=== PATIENT | male | born 1985 | race Caucasian/White ===

== ENCOUNTER 2022-06-03 18:25 | Inpatient (IN) | payer BC, SELFPAY ==
--- NOTE | ~2022-06-03 | XR_ITS ---
EXAMINATION: XR LUMBOSACRAL SPINE WITH OBLIQUES CLINICAL INFORMATION: Severe back pain, spasm COMPARISON: None available. 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 Lumbar vertebra have normal height and alignment. There are anterior vertebral osteophytes of the lower thoracic spine and lower lumbar spine. No pars defects or vertebral compression fractures. At the L5-transitional S1 level there is mild facet arthropathy, [id number] disc space narrowing and vacuum disc phenomenon. Otherwise, the lumbar disc heights are maintained. Sacroiliac joints are normal. XR/XR lumbar spine 4V min IMPRESSION: * No acute findings. No fracture or malalignment of the lumbosacral spine. * [id number] discovertebral degenerative change at the lumbosacral junction.
[2022-06-03 18:33] VITALS: BP 103/61; PULSE 77; RESP 16; TEMP 36.6; O2SAT 96; BMI 30.7
--- NOTE | 2022-06-03 18:37 | ED_ITS ---
HPI - Psych General Chief Complaint: Psychiatric Symptoms <WILLAM Griffiths - Last Filed: 06/03/22 18:39> Stated Complaint: mental health <WILLAM Griffiths - Last Filed: 06/03/22 18:39> Time Seen by Provider: 06/03/22 19:07 <WILLAM Griffiths - Last Filed: 06/03/22 18:39> Source: patient <Fatuma العلي NP - Last Filed: 06/04/22 02:05> Mode of arrival: ambulatory <Fatuma العلي NP - Last Filed: 06/04/22 02:05> Limitations: no limitations <Fatuma العلي NP - Last Filed: 06/04/22 02:05> History of Present Illness HPI Narrative: 37-year-old male presents for crisis evaluation for severe depression, anxiety, suicidal with plan to overdose. Patient is also requesting a medication evaluation as he does not feel that his medications are effective. Patient was seen in the community by [facility], and is currently an elective a bed search. <Fatuma العلي NP - Last Filed: 06/04/22 02:05> MD complaint: suicidal ideation, feels depressed and anxiety <Fatuma العلي NP - Last Filed: 06/04/22 02:05> Onset (ago): month(s) <Fatuma العلي NP - Last Filed: 06/04/22 02:05> Duration: constant and getting worse <Fatuma العلي NP - Last Filed: 06/04/22 02:05> History of same: Yes (Has not presented to this facility in the past, established patient with ) <Fatuma العلي NP - Last Filed: 06/04/22 02:05> Relieving factors: none <Fatuma العلي NP - Last Filed: 06/04/22 02:05> Associated psychiatric symptoms: depression and suicidal ideation <Fatuma العلي NP - Last Filed: 06/04/22 02:05> Associated symptoms: denies other symptoms <Fatuma العلي NP - Last Filed: 06/04/22 02:05> If self harm: admits thoughts of self harm and has plan <Fatuma العلي NP - Last F iled: 06/04/22 02:05> Related Data Home Medications: Home Medications Medication Instructions Recorded Confirmed citalopram 40 mg tablet 1 tab PO DAILY 06/03/22 06/03/22 clonidine HCl 0.1 mg tablet 1 tab PO BID 06/03/22 06/03/22 doxepin 50 mg capsule 150 mg PO BEDTIME 06/03/22 06/03/22 gabapentin 100 mg capsule 1 cap PO BID 06/03/22 06/03/22 oxcarbazepine 600 mg tablet 1 tab PO BID 06/03/22 06/03/22 <WILLAM Griffiths - Last Filed: 06/03/22 18:39> Allergies/Adverse Reactions: Allergies Allergy/AdvReac Type Severity Reaction Status Date / Time bee pollen [BEE STINGS] Allergy Unknown ANAPHYLAXIS Unverified 12/02/19 19:17 penicillin V Allergy Unknown Verified 10/04/16 00:00 Penicillins [PCN] Allergy Unknown HIVES Unverified 12/02/19 19:17 <WILLAM Griffiths Last Filed: 06/03/22 18:39> Review of Systems Review of Systems: Constitutional: No Fever, No Chills Cardiovascular: No Chest Pain, No SOB Respiratory: No Cough, No Sputum, No Dyspnea Gastrointestinal: No Nausea, No Vomiting, No Diarrhea Genitourinary: No Dysuria, No Urinary Frequency, No Hematuria Musculoskeletal: No Myalgias Skin: No Skin Lesions, No rash Neuro: No Weakness, No Numbness, No Paresthesias, No Dizziness, No Headache Psych: positive Anxiety, positive Depression, positive SI <Fatuma العلي NP - Last Filed: 06/04/22 02:05> Yes all other systems are reviewed and are negative <Fatuma العلي NP - Last Filed: 06/04/22 02:05> [facility] Past Medical History Attestation statement: The following information was validated with the patient. <Fatuma العلي NP - Last Filed: 06/04/22 02:05> Source: old records reviewed <Fatuma العلي NP - Last Filed: 06/04/22 02:05> Social History Social History: Social History Advance Directives: No Advance Directives Information Provided: Yes <WILLAM Griffiths - Last Filed: 06/03/22 18:39> Physical Exam Vital Signs: Vital Signs: Last Vital Signs Temp 98.6 F 06/03/22 21:18 Pulse 65 06/03/22 21:18 Resp 20 06/03/22 21:18 BP 113/56 L 06/03/22 21:18 Pulse Ox 97 06/03/22 21:18 O2 Del Method 06/03/22 21:18 BMI result Body Mass Index 30.7 <WILLAM Griffiths - Last Filed: 06/03/22 18:39> Vital Signs: Last Vital Signs Temp 98.6 F 06/03/22 21:18 Pulse 65 06/03/22 21:18 Resp 20 06/03/22 21:18 BP 113/56 L 06/03/22 21:18 Pulse Ox 97 06/03/22 21:18 O2 Del Method 06/03/22 21:18 BMI result Body Mass Index 30.7 <Fatuma العلي NP - Last Filed: 06/04/22 02:05> Appearance: Alert. Oriented X3. Moderate emotional distress. Eyes: Pupils equal, round and reactive to light. Sclera nonicteric. ENT: Pharynx normal. Neck: Normal inspection. Neck supple. CVS: Normal heart rate and rhythm. Pulses normal. Respiratory: No respiratory distress. Breath sounds normal. Skin: Skin warm and dry. Normal skin color. Normal skin turgor. Extremities: Gait balanced and coordinated. Neuro: No motor deficit. No sensory deficit. Cranial nerves 2-12 intact. <Fatuma العلي NP - Last Filed: 06/04/22 02:05> Course Course Course Narrative: 183 37-year-old male history of anxiety, depression presents for evaluation of suicidal ideation with plan to overdose. Also reporting associated anxiety and depression. Denies visual, auditory and tactile hallucinations. Denies smokes marijuana however no other drugs, alcohol. Patient smokes tobacco intermittently. Denies medical complaints. Thinks he may need medication adjustments. Denies homicidal ideation. Physical exam benign Plan medical clearance evaluation by care team <WILLAM Griffiths - Last Filed: 06/03/22 18:39> 1837 37-year-old male history of anxiety, depression presents for evaluation of suicidal ideation with plan to overdose. Also reporting associated anxiety and depression. Denies visual, auditory and tactile hallucinations. Denies smokes marijuana however no other drugs, alcohol. Patient smokes tobacco intermit tently. Denies medical complaints. Thinks he may need medication adjustments. Denies homicidal ideation. Physical exam benign Plan medical clearance evaluation by care team 19:15 37-year-old male presents for psychiatric evaluation, plan is to overdose, and feels that his psychiatric medication regimen is not working for him. Patient is polite, cooperative, answering questions appropriately with complete sentences. Patient states to have severe depression, has been suicidal over the past 3 months worsening over the past 2 weeks, and today stated that he met his limit and was dangerously close to taking all of his pills to overdose. His last admission was related to alcohol abuse, and this was over 3 years ago at another facility, patient has not reported any other hospital admissions. Patient does not have any medical complaints, denied auditory and visual hallucinations, homicidal ideations, cranial nerves 2-12 intact, no focal neural deficits. Will order psychiatric evaluation for medication consult, and crisis consult with labs. 19:19 patient is a voluntary inpatient bed search. Physician observation at this time. Labs are negative for acute findings. Positive for marijuana. Patient medically cleared. <Fatuma العلي NP - Last Filed: 06/04/22 02:05> Medications Administered Generic Name Dose Route Start Last Admin Trade Name Freq PRN Reason Stop Dose Admin Clonidine HCl 0.1 mg 06/03/22 21:00 06/03/22 21:45 Clonidine Hcl 0.1 Mg Tablet PO 0.1 mg BID RIKKI Administration Protocol Doxepin HCl 150 mg 06/03/22 22:00 06/03/22 22:09 Doxepin Hcl 25 Mg Capsule PO 150 mg BEDTIME RIKKI Administration Gabapentin 100 mg 06/03/22 21:00 06/03/22 21:45 Gabapentin 100 Mg Capsule PO 100 mg BID RIKKI Administration Oxcarbazepine 600 mg 06/03/22 21:00 06/03/22 21:45 Oxcarbazepine 300 Mg Tablet PO 600 mg BID RIKKI Administration Discontinued Medications Generic Name Dose Route Start Last Admin Trade Name Freq PRN Reason Stop Dose Admin Lorazepam 2 mg 06/03/22 20:56 06/03/22 21:13 Lorazepam 1 Mg Tablet PO 06/03/22 20:57 2 mg ONCE ONE Administration <WILLAM Griffiths - Last Filed: 06/03/22 18:39> Medications Administered Generic Name Dose Route Start Last Admin Trade Name Freq PRN Reason Stop Dose Admin Clonidine HCl 0.1 mg 06/03/22 21:00 06/03/22 21:45 Clonidine Hcl 0.1 Mg Tablet PO 0.1 mg BID RIKKI Administration Protocol Doxepin HCl 150 mg 06/03/22 22:00 06/03/22 22:09 Doxepin Hcl 25 Mg Capsule PO 150 mg BEDTIME RIKKI Administration Gabapentin 100 mg 06/03/22 21:00 06/03/22 21:45 Gabapentin 100 Mg Capsule PO 100 mg BID RIKKI Administration Oxcarbazepine 600 mg 06/03/22 21:00 06/03/22 21:45 Oxcarbazepine 300 Mg Tablet PO 600 mg BID RIKKI Administration Discontinued Medications Generic Name Dose Route Start Last Admin Trade Name Freq PRN Reason Stop Dose Admin Lorazepam 2 mg 06/03/22 20:56 06/03/22 21:13 Lorazepam 1 Mg Tablet PO 06/03/22 20:57 2 mg ONCE ONE Administration <Fatuma العلي NP - Last Filed: 06/04/22 02:05> Medical Decision Making Differential Diagnosis Differential Diagnoses: The differential diagnosis associated with the presentation includes <Fatuma العلي NP - Last Filed: 06/04/22 02:05> SI <Fatuma العلي NP - Last Filed: 06/04/22 02:05> Admission/Observation Consideration of admission/observation: Escalation of care including admission/observation considered <Fatuma العلي NP - Last Filed: 06/04/22 02:05> May require psychiatric admission <Fatuma العلي NP - Last Filed: 06/04/22 02:05> Consult Healthcare Provider Management of the patient was discussed with: Behavioral Health Provider <Fatuma العلي NP - Last Filed: 06/04/22 0 2:05> Lab Data MDM Lab Attestation statement: I reviewed the patient's lab results. <Fatuma العلي NP - Last Filed: 06/04/22 02:05> Result Diagrams: 06/03/22 20:53 06/03/22 20:58 <WILLAM Griffiths - Last Filed: 06/03/22 18:39> Labs: Lab Results 06/03/22 06/03/22 06/03/22 Range/Units 20:00 20:00 20:53 WBC 10.0 (4.8-10.8) X10*3/uL RBC 4.88 (4.60-5.80) X10*6/uL Hgb 14.6 (14.0-18.0) g/dl Hct 44.2 (42.0-52.0) % MCV 90.6 (80.0-98.0) fL MCH 29.9 (27.0-33.0) pg MCHC 33.0 (31.0-36.0) g/dl RDW 13.2 (11.0-16.0) % Plt Count 266 (160-400) X10*3/uL MPV 9.1 L (9.4-12.4) fL Immature Gran % (Auto) 0.2 (0.0-0.4) % Neut % (Auto) 54.6 (45-73) % Lymph % (Auto) 37.3 (20-40) % [place] % (Auto) 5.3 (2-11) % Eos % (Auto) 2.1 (0-4) % Baso % (Auto) 0.5 (0-2) % Lymph # (Auto) 3.7 (1.2-4.9) X10*3/uL [place] # (Auto) 0.5 (0.1-1.2) X10*3/uL Eos # (Auto) 0.2 (0.0-0.4) X10*3/uL Baso # (Auto) 0.1 (0.0-0.2) X10*3/uL Abs Immat Gran (auto) 0.02 (0.00-0.03) X10*3/uL Absolute Neuts (auto) 5.5 (2.0-8.3) x10*3/uL Absolute Nucleated RBC 0.000 (0.0-0.012) X10*3/uL Nucleated RBC % (auto) 0.0 (0.0-0.2) /100WBC Sodium (135-145) mmol/L Potassium (3.3-5.1) mmol/L Chloride (96-108) mmol/L Carbon Dioxide (22-29) mmol/L Anion Gap (12-20) BUN (9-16) mg/dL Creatinine (0.5-1.4) mg/dL Estim Creat Clear Calc Estimated GFR Random Glucose (60-115) mg/dL Calcium (8.4-10.2) mg/dL Magnesium (1.6-2.6) mg/dL Total Bilirubin (0.0-1.0) mg/dL AST (5-37) U/L ALT (0-40) U/L Alkaline Phosphatase (39-117) U/L Total Protein (6.5-8.0) g/dL Albumin (3.5-5.0) g/dL Salicylates (15-30) mg/dL Urine Opiates Screen Not Detected (Not Detect) Urine Fentanyl Screen Not Detected (Not Detect) Acetaminophen (<30) mcg/mL Ur Barbiturates Screen Not Detected (Not Detect) Ur Phencyclidine Scrn Not Detected (Not Detect) Ur Amphetamines Screen Not Detected (Not Detect) U Benzodiazepines Scrn Not Detected (Not Detect) Urine Cocaine Screen Not Detected (Not Detect) U Marijuana (THC) Screen POSITIVE H (Not Detect) Ethyl Alcohol mg/dL COVID-19 ([facility]ICA) Negative (Negative) COVID-19 Clin Com See Note 06/03/22 Range/Units 20:58 WBC (4.8-10.8) X10*3/uL RBC (4.60-5.80) X10*6/uL Hgb (14.0-18.0) g/dl Hct (42.0-52.0) % MCV (80.0-98.0) fL MCH (27.0-33.0) pg MCHC (31.0-36.0) g/dl RDW (11.0-16.0) % Plt Count (160-400) X10*3/uL MPV (9.4-12.4) fL Immature Gran % (Auto) (0.0-0.4) % Neut % (Auto) (45-73) % Lymph % (Auto) (20-40) % [place] % (Auto) (2-11) % Eos % (Auto) (0-4) % Baso % (Auto) (0-2) % Lymph # (Auto) (1.2-4.9) X10*3/uL [place] # (Auto) (0.1-1.2) X10*3/uL Eos # (Auto) (0.0-0.4) X10*3/uL Baso # (Auto) (0.0-0.2) X10*3/uL Abs Immat Gran (auto) (0.00-0.03) X10*3/uL Absolute Neuts (auto) (2.0-8.3) x10*3/uL Absolute Nucleated RBC (0.0-0.012) X10*3/uL Nucleated RBC % (auto) (0.0-0.2) /100WBC Sodium 139 (135-145) mmol/L Potassium 5.1 (3.3-5.1) mmol/L Chloride 104 (96-108) mmol/L Carbon Dioxide 28 (22-29) mmol/L Anion Gap 12 (12-20) BUN 10 (9-16) mg/dL Creatinine 0.97 (0.5-1.4) mg/dL Estim Creat Clear Calc 127.9 Estimated GFR > 60 Random Glucose 114 (60-115) mg/dL Calcium 9.0 (8.4-10.2) mg/dL Magnesium 2.2 (1.6-2.6) mg/dL Total Bilirubin 0.3 (0.0-1.0) mg/dL AST 23 (5-37) U/L ALT 26 (0-40) U/L Alkaline Phosphatase 72 (39-117) U/L Total Protein 6.2 L (6.5-8.0) g/dL Albumin 4.2 (3.5-5.0) g/dL Salicylates < 5.0 L (15-30) mg/dL Urine Opiates Screen (Not Detect) Urine Fentanyl Screen (Not Detect) Acetaminophen < 17 (<30) mcg/mL Ur Barbiturates Screen (Not Detect) Ur Phencyclidine Scrn (Not Detect) Ur Amphetamines Screen (Not Detect) U Benzodiazepines Scrn (Not Detect) Urine Cocaine Screen (Not Detect) U Marijuana (THC) Screen (Not Detect) Ethyl Alcohol < 10 mg/dL COVID-19 (MICA) (Negative) COVID-19 Clin Com <WILLAM Griffiths - Last Filed: 06/03/22 18:39> Lab Results 06/03/22 06/03/22 06/03/22 Range/Units 20:00 20:00 20:53 WBC 10.0 (4.8-10.8) X10*3/uL RBC 4.88 (4.60-5.80) X10*6/uL Hgb 14.6 (14.0-18.0) g/dl Hct 44.2 (42.0-52.0) % MCV 90.6 (80.0-98.0) fL MCH 29.9 (27.0-33.0) pg MCHC 33.0 (31.0-36.0) g/dl RDW 13.2 (11.0-16.0) % Plt Count 266 (160-400) X10*3/uL MPV 9.1 L (9.4-12.4) fL Immature Gran % (Auto) 0.2 (0.0-0.4) % Neut % (Auto) 54.6 (45-73) % Lymph % (Auto) 37.3 (20-40) % [place] % (Auto) 5.3 (2-11) % Eos % (Auto) 2.1 (0-4) % Baso % (Auto) 0.5 (0-2) % Lymph # (Auto) 3.7 (1.2-4.9) X10*3/uL [place] # (Auto) 0.5 (0.1-1.2) X10*3/uL Eos # (Auto) 0.2 (0.0-0.4) X10*3/uL Baso # (Auto) 0.1 (0.0-0.2) X10*3/uL Abs Immat Gran (auto) 0.02 (0.00-0.03) X10*3/uL Absolute Neuts (auto) 5.5 (2.0-8.3) x10*3/uL Absolute Nucleated RBC 0.000 (0.0-0.012) X10*3/uL Nucleated RBC % (auto) 0.0 (0.0-0.2) /100WBC Sodium (135-145) mmol/L Potassium (3.3-5.1) mmol/L Chloride (96-108) mmol/L Carbon Dioxide (22-29) mmol/L Anion Gap (12-20) BUN (9-16) mg/dL Creatinine (0.5-1.4) mg/dL Estim Creat Clear Calc Estimated GFR Random Glucose (60-115) mg/dL Calcium (8.4-10.2) mg/dL Magnesium (1.6-2.6) mg/dL Total Bilirubin (0.0-1.0) mg/dL AST (5-37) U/L ALT (0-40) U/L Alkaline Phosphatase (39-117) U/L Total Protein (6.5-8.0) g/dL Albumin (3.5-5.0) g/dL Salicylates (15-30) mg/dL Urine Opiates Screen Not Detected (Not Detect) Urine Fentanyl Screen Not Detected (Not Detect) Acetaminophen (<30) mcg/mL Ur Barbiturates Screen Not Detected (Not Detect) Ur Phencyclidine Scrn Not Detected (Not Detect) Ur Amphetamines Screen Not Detected (Not Detect) U Benzodiazepines Scrn Not Detected (Not Detect) Urine Cocaine Screen Not Detected (Not Detect) U Marijuana (THC) Screen POSITIVE H (Not Detect) Ethyl Alcohol mg/dL COVID-19 (MICA) Negative (Negative) COVID-19 Clin Com See Note 06/03/22 Range/Units 20:58 WBC (4.8-10.8) X10*3/uL RBC (4.60-5.80) X10*6/uL Hgb (14.0-18.0) g/dl Hct (42.0-52.0) % MCV (80.0-98.0) fL MCH (27.0-33.0) pg MCHC (31.0-36.0) g/dl RDW (11.0-16.0) % Plt Count (160-400) X10*3/uL MPV (9.4-12.4) fL Immature Gran % (Auto) (0.0-0.4) % Neut % (Auto) (45-73) % Lymph % (Auto) (20-40) % [place] % (Auto) (2-11) % Eos % (Auto) (0-4) % Baso % (Auto) (0-2) % Lymph # (Auto) (1.2-4.9) X10*3/uL [place] # (Auto) (0.1-1.2) X10*3/uL Eos # (Auto) (0.0-0.4) X10*3/uL Baso # (Auto) (0.0-0.2) X10*3/uL Abs Immat Gran (auto) (0.00-0.03) X10*3/uL Absolute Neuts (auto) (2.0-8.3) x10*3/uL Absolute Nucleated RBC (0.0-0.012) X10*3/uL Nucleated RBC % (auto) (0.0-0.2) /100WBC Sodium 139 (135-145) mmol/L Potassium 5.1 (3.3-5.1) mmol/L Chloride 104 (96-108) mmol/L Carbon Dioxide 28 (22-29) mmol/L Anion Gap 12 (12-20) BUN 10 (9-16) mg/dL Creatinine 0.97 (0.5-1.4) mg/dL Estim Creat Clear Calc 127.9 Estimated GFR > 60 Random Glucose 114 (60-115) mg/dL Calcium 9.0 (8.4-10.2) mg/dL Magnesium 2.2 (1.6-2.6) mg/dL Total Bilirubin 0.3 (0.0-1.0) mg/dL AST 23 (5-37) U/L ALT 26 (0-40) U/L Alkaline Phosphatase 72 (39-117) U/L Total Protein 6.2 L (6.5-8.0) g/dL Albumin 4.2 (3.5-5.0) g/dL Salicylates < 5.0 L (15-30) mg/dL Urine Opiates Screen (Not Detect) Urine Fentanyl Screen (Not Detect) Acetaminophen < 17 (<30) mcg/mL Ur Barbiturates Screen (Not Detect) Ur Phencyclidine Scrn (Not Detect) Ur Amphetamines Screen (Not Detect) U Benzodiazepines Scrn (Not Detect) Urine Cocaine Screen (Not Detect) U Marijuana (THC) Screen (Not Detect) Ethyl Alcohol < 10 mg/dL COVID-19 ([facility]) (Negative) COVID-19 Clin Com <Fatuma العلي NP - Last Filed: 06/04/22 02:05> External Record Review Patient has no prior records at this facility. <Fatuma العلي NP - Last Filed: 06/04/22 02:05> Prescription Management I considered prescription management with: Other (anxiolytic) <Fatuma العلي NP - Last Filed: 06/04/22 02:05> Social Determinants Patient?s care significantly limited by Social Determinants of Health including: Other Social Determinant of Health <Fatuma العلي NP - Last Filed: 02:05> Discharge Plan Discharge Clinical Impression: Depression, Suicidal intent, Acute anxiety <WILLAM Griffiths - Last Filed: 06/03/22 18:39> Patient Disposition: Still a Patient <WILLAM Griffiths - Last Filed: 06/03/22 18:39> Prescriptions: No Action doxepin 50 mg capsule 150 mg PO BEDTIME clonidine HCl 0.1 mg tablet 1 tab PO BID citalopram 40 mg tablet 1 tab PO DAILY oxcarbazepine 600 mg tablet 1 tab PO BID gabapentin 100 mg capsule 1 cap PO BID <WILLAM Griffiths - Last Filed: 06/03/22 18:39>
--- NOTE | 2022-06-03 19:32 | MHC.CARE ---
Care Team received expect from [facility], pt is a voluntary inpatient bedsearch
[2022-06-03 20:25] LABS: Amphetamine Screen Urine Not Detected (Not Detect); Barbiturates, Urine Not Detected (Not Detect); Benzodiazepines Screen Urine Not Detected (Not Detect); Cannabinoid Screen Urine POSITIVE (Not Detect); Cocaine Screen Urine Not Detected (Not Detect); Fentanyl, urine Not Detected (Not Detect); Opiate Screen Urine Not Detected (Not Detect); Phencyclidine Screen Urine Not Detected (Not Detect)
[2022-06-03 20:26] LABS: COVID-19 Test Negative (Negative); IDNOW Serial# 9DB6401D
[2022-06-03 21:04] LABS: MANUAL DIFF FLAG NO
[2022-06-03 21:06] LABS: Basophils Absolute Auto 0.1 X10*3/uL (0.0-0.2); Basophils Percent Auto 0.5 % (0-2); Eosinophils Absolute Auto 0.2 X10*3/uL (0.0-0.4); Eosinophils Percent Auto 2.1 % (0-4); Hematocrit 44.2 % (42.0-52.0); Hemoglobin 14.6 g/dl (14.0-18.0); Imm Gran Abs Auto 0.02 X10*3/uL (0.00-0.03); Imm Gran Pct Auto 0.2 % (0.0-0.4); Lymphocytes Absolute Auto 3.7 X10*3/uL (1.2-4.9); Lymphocytes Percent Auto 37.3 % (20-40); Mean Corpuscular Hemoglobin 29.9 pg (27.0-33.0); Mean Corpuscular Volume 90.6 fL (80.0-98.0); Mean Platelet Volume 9.1 fL (9.4-12.4); Monocytes Absolute Auto 0.5 X10*3/uL (0.1-1.2); Monocytes Percent Auto 5.3 % (2-11); Neutrophils Absolute Auto 5.5 x10*3/uL (2.0-8.3); Neutrophils Percent Auto 54.6 % (45-73); Platelet Count 266 X10*3/uL (160-400); Red Blood Count 4.88 X10*6/uL (4.60-5.80); Red Cell Distribution Width 13.2 % (11.0-16.0)
[2022-06-03] MEDS: LORazepam 1 MG TABLET 2 MG PO (21:13)
[2022-06-03 21:18] VITALS: BP 113/56; PULSE 65; RESP 20; TEMP 37; O2SAT 97
[2022-06-03 21:26] LABS: Acetaminophen LAB < 17 mcg/mL (<30); Alanine Aminotransferase 26 U/L (0-40); Albumin Level 4.2 g/dL (3.5-5.0); Alkaline Phosphatase 72 U/L (39-117); Anion Gap 12 (12-20); Aspartate Amino Transferase 23 U/L (5-37); Bilirubin Total 0.3 mg/dL (0.0-1.0); Blood Urea Nitrogen 10 mg/dL (9-16); Carbon Dioxide 28 mmol/L (22-29); Chloride 104 mmol/L (96-108); Creatinine Clr Calc Pharmacy 127.9; Estimated Glomerular Filt Rate > 60; Ethanol < 10 mg/dL; Glucose Random 114 mg/dL (60-115); Magnesium 2.2 mg/dL (1.6-2.6); Potassium 5.1 mmol/L (3.3-5.1); Salicylate < 5.0 mg/dL (15-30); Sodium 139 mmol/L (135-145); Total Protein 6.2 g/dL (6.5-8.0)
[2022-06-03] MEDS: OXcarbazepine 300 MG TABLET 600 MG PO (21:45)
[2022-06-03] MEDS: Gabapentin 100 MG CAPSULE PO (21:45)
[2022-06-03] MEDS: cloNIDine HCL 0.1 MG TABLET PO (21:45)
[2022-06-03] MEDS: Doxepin HCl 25 MG CAPSULE 150 MG PO (22:09)
--- NOTE | 2022-06-04 | ECG_ITS ---
Test Reason : check qt Blood Pressure : / mmHG Vent. Rate : 064 BPM Atrial Rate : 064 BPM P-R Int : 150 ms QRS Dur : 092 ms QT Int : 424 ms P-R-T Axes : 039 024 029 degrees QTc Int : 437 ms Normal sinus rhythm Cannot rule out Anterior infarct , age undetermined Abnormal ECG No previous ECGs available Referred By: Enrqiue Alvarado Electronically Signed By:PREM OLMSTEAD MD
[2022-06-04 06:29] VITALS: BP 113/60; PULSE 61; RESP 17; TEMP 36.9; O2SAT 97
--- NOTE | 2022-06-04 07:02 | PC.NURSE ---
Patient slept through the night, no distress observed/reported, behavior non concerning, medication compliant, disposition per [facility] is voluntary inpatient bed search, psych consult ordered to review medication, will continue to monitor.
--- NOTE | 2022-06-04 07:35 | PC.NURSE ---
patient appears to remain asleep at present respirations are even and unlabored patient appears in no distress
[2022-06-04] MEDS: cloNIDine HCL 0.1 MG TABLET PO ×2 (09:54→20:46)
[2022-06-04] MEDS: OXcarbazepine 300 MG TABLET 600 MG PO (09:55)
[2022-06-04] MEDS: Gabapentin 100 MG CAPSULE PO ×2 (09:55→20:46)
[2022-06-04] MEDS: LORazepam 1 MG TABLET 2 MG PO ×2 (10:14→14:16)
[2022-06-04 10:45] VITALS: BP 124/80; PULSE 65; RESP 15; TEMP 36.8; O2SAT 99
--- NOTE | 2022-06-04 12:39 | PC.NURSE ---
assumed care of pt at 1100, pt sleeping, called to speak to pt, will notify pt when he wakes up.
--- NOTE | 2022-06-04 13:46 | PC.NURSE ---
pt requesting medication to help with anxiety, provider notified.
--- NOTE | 2022-06-04 14:19 | PC.NURSE ---
pt medicated per provider order.
--- OUTSIDE RECORDS SUMMARY | 2022-06-04 14:58 | XMS_ITS ---
:1985 Author Care Team Providers Name Role Phone CB Manager [employer] [phone] BRIT RIZZO Manager [employer]age [phone] Allergies Code Code System Name Reaction Severity Status Onset Penicillins Hives ? Active ? Medications Name Status Start Date Stop Date ? ? Celexa Active ? Not available clonidine Active ? Not available cyclobenzaprine 10 mg tablet Active ? Not available Take 1 tablet every day by oral route at bedtime. doxepin Active ? Not available oxcarbazepine Active ? Not available prednisone 20 mg tablet Active ? Not avai lable Take 2 tablets every day by oral route for 5 days. take with food Problems Name Status Onset Date Source ? Anxiety Active 03/06/2022 ? Depressive Disorder Active 03/06/2022 ? Mood Stable Active 03/06/2022 ? Procedures Date Name Performed by ? ? Wrist Arthroscopy/surgery Information no t available Results Lab Results None recorded. Past Encounters Encounter Date Diagnosis Provider 03/06/2022 Acute Low Back Pain WILLAM Graham: [address] [place] [address], Ph. [phone] 11/09/2021_[facility]: [address] [place], [place] [phone], Ph. 11/06/2021_[facility] [address]: [address] [place], [place] [phone], Ph. Social History Tobacco Smoking Status Never Smoker Vaccine List Vaccine Type COVID-19, mRNA, LNP-S, PF, 30 mcg/0.3 mL dose (EnCoate) 07/22/2020?0.3 ML 08/15/2020?0.3 ML Tdap 12/01/2015?0.5 ML 11/27/2019?0.5 ML Plan of Care Patient Instructions Go to the nearest emergency department if you develop ANY new or worsening symptoms. Call 911 if you feel that you are having a medical emergency. Call your primary care physician today t o set up a follow up appointment within one week. Not following up with your primary care physician may result in adverse health conditions. If you have any questions or concerns, yahaira da silva call us. Reminders Provider Appointments None recorded. ? ? Lab None recorded. ? ? Referral None recorded. ? ? Procedures None recorded. ? ? Surgeries None recorded. ? ? Imaging None recorded. ? ? Vitals Height Weight BMI Blood Pressure 5 ft 11 in 220 lbs 30.7 kg/m2 133/81 mm[Hg]
--- OUTSIDE RECORDS SUMMARY | 2022-06-04 14:58 | XMS_ITS | Encounter Summary ---
:1985 Author Care Team Providers Name Role Phone Santosh [employer] [phone] Amada Tate Manager [employer] [phone] Reason for Visit Back Pain pain in lower back since friday, pt repo rts sleeping on it wrong, can feel back spasming Assessment and Plan 1. Acute low back pain ? acute low back pain: exercises ? cyclobenzaprine 10 mg tablet ? prednisone 20 mg tablet Discussion Note: None recorded. Plan of Care Patient Instructions Go to [...] ? ? Imaging None recorded. ? ? Medications Name Start Date ? ? Celexa ? clonidine ? cyclobenzaprine 10 mg tablet ? Take 1 tablet every day by oral route at bedtime. doxepin ? oxcarbazepine ? prednisone 20 mg tablet ? Take 2 tablets every day by oral route for 5 days. take with food Medications Administered None recorded. Vitals Height Weight BMI Blood Pressure 5 ft 11 in 219 lbs 16 oz 30.7 kg/m2 133/81 mm[Hg] Results Lab Results None recorded. Allergies Code Code System Name Reaction Severity Onset Penicillins Hives ? ? Problems Name Status Onset Date Source ? Anxiety Active 03/06/2022 ? Depressive Disorder Active 03/06/2022 ? Mood Stable Active 03/06/2022 ? Procedures Date Name Performed by ? ? Wrist Arthroscopy/surgery Information no t available Vaccine List Vaccine Type COVID-19, mRNA, LNP-S, PF, 30 mcg/0.3 mL dose ([employer]) 07/22/2020?0.3 ML 08/15/2020?0.3 ML Tdap 12/01/2015?0.5 ML 11/27/2019?0.5 ML Social History Tobacco Smoking Status Never Smoker What is your level of alcohol consumption? None Do you or have you ever used any other forms of tobacco or n icotine? N Do you use any illicit or recreational drugs? N Have you recently traveled abroad? N Family History Relation Problem Onset Age of Age Notes Father No current problems or (No Information) N/A ( No Notes) disability Mother No current problems or (No Information) N/A ( No Notes) disability Functional Status Unknown. Past Encounters Encounter Date Diagnosis Provider 03/06/2022 Acute Low Back Pain WILLAM Graham: [address] [place] [address], Ph. [phone] History of Present Illness ? Back Pain/Injury UC Reported By: Patient Notes: Pt reports 3 days ago he wo ke up in the AM with intense lower back pain that felt like spasm, tightn ess. Reports he did an online appt and was told to rest, ice, and tylen ol which is helping a little bit. No injury or unusual activity the days before sx began. Denies numbness, tingling, weakness, incontinence, feve r, sweats, chills, dysuria, hematuria, headaches, dizziness. Review of Systems ? UC General Adult ROS Reported By: Patient Constitutional: Constitutional: no fever, no night sweats, no chills Cardiovascular: Cardiovascular: no chest reji n, no palpitations Respiratory: Respiratory: no cough, no wh eezing Gastrointestinal: Gastrointestinal: no abdomin al pain, normal appetite, no nausea, no vomiting, no diarrhea, no co nstipation, not vomiting blood Genitourinary: Genitourinary: no difficulty urinating, no dysuria, no hematuria, no increased frequency, no f lank pain Musculoskeletal: Musculoskeletal: no muscle a ches, no muscle weakness, no swelling in the extremities, back reji n Integumentary: Skin: no jaundice, no rashes , no laceration Neurologic: Neurologic: no loss of consc iousness, no weakness, no numbness, no seizures, no dizziness, no h eadaches Physical Exam ? UC General Adult Exam Both, Brief Back Pain Exam Reported By: Patient Constitutional: General Appearance: healthy- appearing, well-nourished, well-developed Cardiovascular System: Heart Auscultation: regular rate and rhythm, normal S1, normal S2, no murmurs, no rubs, no gallops Abdomen: Inspection and Palpation: so ft, non-distended, no tenderness Musculoskeletal:: Motor Strength and Tone: nor mal motor strength, normal tone, hamstring strength normal on left, hamstring strength normal on right, no quadricep weakn ess on left, no quadricep weakness on right. Joints, Bones, and Muscles: normal movement of all extremities, no bony abnorma lities, no contractures, no malalignment; Tenderness to left lower paraspinal area. No lumbar midline tenderness. F ull active ROM of the lumbar spine, but pain with flexion and left sided rotation. 5/5 strength of lumbar ROM. No s welling Neurologic: Gait: normal gait. Cranial N erves: grossly intact, no facial droop, eyebrow raise symmetr ical. Sensation: grossly intact, normal sensation of left zac t or leg, normal sensation of right foot or leg. Reflexes: normal. Coordination: no tremor, strength equal all extremiti es 5/5. Lumbar Spine Special Tests on the Left: left straight l eg raising normal. Lumbar Spine Special Tests on the Right: right straight leg raising normal Skin: Inspection and palpation: no rash Back: Thoracolumbar Appearance: no rmal curvature
--- NOTE | 2022-06-04 17:02 | PC.NURSE ---
pt requesting methocarbamol for back spasms, no order in computer, M5 RN notified.
[2022-06-04] MEDS: Cyclobenzaprine HCl 10 MG TABLET PO (19:30)
[2022-06-04] MEDS: hydrOXYzine HCL 25 MG TABLET PO (19:32)
[2022-06-04] MEDS: Doxepin HCl 25 MG CAPSULE 150 MG PO (20:45)
[2022-06-04] MEDS: traZODone HCL 50 MG TABLET PO (20:47)
[2022-06-04 21:02] VITALS: BMI 30.7
[2022-06-04] MEDS: Nicotine Polacrilex 2 MG GUM 4 MG BUCCAL (21:42)
[2022-06-04 22:02] VITALS: BP 124/80; PULSE 65; RESP 18; TEMP 36.8; O2SAT 99
[2022-06-05] MEDS: Escitalopram Oxalate 20 MG TABLET PO (08:50)
[2022-06-05] MEDS: Gabapentin 100 MG CAPSULE PO (08:50)
[2022-06-05] MEDS: cloNIDine HCL 0.1 MG TABLET PO (08:50)
[2022-06-05] MEDS: OXcarbazepine 300 MG TABLET 600 MG PO ×2 (08:50→20:26)
[2022-06-05 09:44] VITALS: BP 126/67; PULSE 82; RESP 18; TEMP 36.7; O2SAT 98
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
[2022-06-05] MEDS: Gabapentin 300 MG CAPSULE PO (10:32)
[2022-06-05] MEDS: QUEtiapine Fumarate 25 MG TABLET PO ×3 (13:28→20:27)
[2022-06-05] MEDS: cloNIDine HCL 0.2 MG TABLET PO ×3 (13:31→20:27)
[2022-06-05 13:32] VITALS: BP 134/89; PULSE 124
[2022-06-05] MEDS: Nicotine Polacrilex 2 MG GUM 4 MG BUCCAL (16:27)
[2022-06-05] MEDS: Cyclobenzaprine HCl 10 MG TABLET PO (16:28)
[2022-06-05 18:00] VITALS: BP 124/74; PULSE 96; RESP 18; TEMP 36; O2SAT 98
[2022-06-05] MEDS: Doxepin HCl 25 MG CAPSULE 150 MG PO (20:26)
[2022-06-05] MEDS: traZODone HCL 50 MG TABLET PO (20:28)
[2022-06-06 07:00] VITALS: BMI 32.3
[2022-06-06] MEDS: Escitalopram Oxalate 20 MG TABLET PO (08:35)
[2022-06-06] MEDS: OXcarbazepine 300 MG TABLET 600 MG PO (08:35)
[2022-06-06] MEDS: cloNIDine HCL 0.2 MG TABLET PO ×4 (08:38→22:33)
[2022-06-06] MEDS: QUEtiapine Fumarate 25 MG TABLET PO ×4 (08:38→22:33)
[2022-06-06 08:40] VITALS: BP 144/69; PULSE 76; RESP 18; TEMP 36.2; O2SAT 98
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
[2022-06-06] MEDS: Cariprazine HCl 1.5 MG CAPSULE PO (12:24)
[2022-06-06] MEDS: Cyclobenzaprine HCl 10 MG TABLET PO ×3 (13:22→20:04)
[2022-06-06 13:23] VITALS: BP 123/72; PULSE 99
[2022-06-06] MEDS: Nicotine Polacrilex 2 MG GUM 4 MG BUCCAL (18:28)
[2022-06-06 18:31] VITALS: BP 116/71; PULSE 135
[2022-06-06] MEDS: Doxepin HCl 25 MG CAPSULE 150 MG PO (20:04)
[2022-06-06] MEDS: traZODone HCL 50 MG TABLET PO (20:04)
[2022-06-06] MEDS: OXcarbazepine 300 MG TABLET PO (20:04)
[2022-06-06 22:34] VITALS: BP 109/59; PULSE 94
[2022-06-07 06:25] VITALS: BP 107/69
[2022-06-07] MEDS: cloNIDine HCL 0.2 MG TABLET PO ×5 (06:28→20:58)
[2022-06-07] MEDS: Cyclobenzaprine HCl 10 MG TABLET PO (06:29)
[2022-06-07] MEDS: QUEtiapine Fumarate 25 MG TABLET PO ×4 (06:29→20:56)
[2022-06-07 08:26] VITALS: BP 109/56; PULSE 53; RESP 16; TEMP 36.2; O2SAT 98
[2022-06-07] MEDS: Cariprazine HCl 1.5 MG CAPSULE PO (08:46)
[2022-06-07] MEDS: OXcarbazepine 300 MG TABLET PO ×2 (08:46→20:54)
[2022-06-07] MEDS: Escitalopram Oxalate 20 MG TABLET PO (08:46)
[2022-06-07] MEDS: Milk of Magnesia 30 ML ORAL.SUSP PO (09:15)
[2022-06-07] MEDS: Lidocaine 4 % Patch ADH..PATCH 1 PATCH TRANSDERMA ×2 (09:49→20:56)
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
[2022-06-07 11:11] VITALS: BP 139/68; PULSE 101
[2022-06-07] MEDS: Baclofen 10 MG TABLET PO ×3 (13:30→20:54)
[2022-06-07 15:26] VITALS: BP 125/62; PULSE 94
[2022-06-07] MEDS: Nicotine Polacrilex 2 MG GUM 4 MG BUCCAL ×2 (16:55→18:41)
[2022-06-07] MEDS: QUEtiapine Fumarate 50 MG TABLET PO (19:19)
[2022-06-07 19:24] VITALS: BP 133/80; PULSE 107
[2022-06-07] MEDS: Doxepin HCl 25 MG CAPSULE 150 MG PO (20:54)
[2022-06-07] MEDS: traZODone HCL 100 MG TABLET PO (20:54)
[2022-06-08] MEDS: QUEtiapine Fumarate 25 MG TABLET PO ×5 (02:15→23:29)
[2022-06-08] MEDS: cloNIDine HCL 0.2 MG TABLET PO ×6 (02:15→23:29)
[2022-06-08] MEDS: Baclofen 10 MG TABLET PO ×4 (06:39→19:41)
[2022-06-08] MEDS: Escitalopram Oxalate 20 MG TABLET PO (09:21)
[2022-06-08] MEDS: lamoTRIgine 25 MG TABLET PO (09:22)
[2022-06-08] MEDS: Cariprazine HCl 1.5 MG CAPSULE PO (09:22)
[2022-06-08] MEDS: OXcarbazepine 300 MG TABLET PO ×2 (09:27→20:38)
[2022-06-08] MEDS: Lidocaine 4 % Patch ADH..PATCH 1 PATCH TRANSDERMA ×2 (09:37→20:39)
[2022-06-08 10:01] VITALS: BP 119/69; PULSE 86; RESP 16; TEMP 36.5; O2SAT 96
[2022-06-08] MEDS: Milk of Magnesia 30 ML ORAL.SUSP PO (10:51)
[2022-06-08] MEDS: Nicotine Polacrilex 2 MG GUM 4 MG BUCCAL ×3 (11:47→15:54)
[2022-06-08 14:47] VITALS: BP 116/74; PULSE 84
--- NOTE | 2022-06-08 16:24 | P.PNPSI_ITS ---
Subjective Subjective Date of Service: 06/08/22 Reason For Visit: Depression Interim History: Reviewed with team/nursing. Tolerating Vraylar start, change to Lexapro. Visable in milieu and with peers. Interactive, thinking about root causes of sx. Medication Compliance: Yes Side effects from medications: No Attending Groups: Intermittent Review of Systems Acute medical concerns: No Medical Review of Systems: unchanged Mental Status Exam Mental Status Exam Patient Appearance: Appropriate Patient Orientation: Person, Place, Time and Situation Level of Consciousness: Alert Patient Behavior: Talkative and Good Eye Contact Mood Description: Constricted Affect Description: Constricted Patient Cognition Impaired: No Ability to Follow Directions: Good Speech Pattern: Spontaneous Speech Memory Description: Intact Hallucinations: None Delusions: Not Present Thought Content: positive for Circumstantial Depressive Symptoms: Low Self Esteem Judgement: Fair Diagnostics Vital Signs (24Hr): Vital Signs - 24 hr 06/07/22 19:24 06/08/22 10:01 06/08/22 14:47 Temperature 97.7 F Pulse Rate 107 H 86 84 Respiratory Rate 16 Blood Pressure 133/80 119/69 116/74 Pulse Oximetry 96 Oxygen Delivery Method Room Air BMI result Body Mass Index 32.3 Labs 06/03/22 20:53 06/03/22 20:58 Medications Medications Current Medications Acetaminophen (Acetaminophen 325 Mg Tablet) 650 mg PO Q6H PRN PRN Reason: Headache/Pain Mild Scale (1-3) Al Hydroxide/Mg Hydroxide (Magnesium Hydrox/Alum Hydrox 30 Ml Oral.Susp) 30 ml PO Q6H PRN PRN Reason: Heartburn/Nausea Baclofen (Baclofen 10 Mg Tablet) 10 mg PO QID PRN PRN Reason: musle spasm Last Admin: 06/08/22 14:49 Dose: 10 mg Cariprazine (Cariprazine Hcl 1.5 Mg Capsule) 1.5 mg PO DAILY [facility] Last Admin: 06/08/22 09:22 Dose: 1.5 mg Clonidine HCl (Clonidine Hcl 0.2 Mg Tablet) 0.2 mg PO Q4H PRN; Protocol PRN Reason: anxiety Last Admin: 06/08/22 14:49 Dose: 0.2 mg Clonidine HCl (Clonidine Hcl 0.2 Mg Tablet) 0.2 mg PO BEDTIME [facility]KKI; Protocol Last Admin: 06/07/22 20:58 Dose: 0.2 mg Doxepin HCl (Doxepin Hcl 25 Mg Capsule) 150 mg PO BEDTIME [facility] Last Admin: 06/07/22 20:54 Dose: 150 mg Escitalopram Oxalate (Escitalopram Oxalate 20 Mg Tablet) 20 mg PO DAILY [facility] Last Admin: 06/08/22 09:21 Dose: 20 mg Lamotrigine (Lamotrigine 25 Mg Tablet) 25 mg PO DAILY [facility] Last Admin: 06/08/22 09:22 Dose: 25 mg Lidocaine (Lidocaine 4 % Patch Adh..Patch) 1 patch TRANSDERMA BID [facility]; Protocol Last Admin: 06/08/22 09:37 Dose: 1 patch Magnesium Hydroxide (Milk Of Magnesia 30 Ml Oral.Susp) 30 ml PO DAILY PRN PRN Reason: Constipation Last Admin: 06/08/22 10:51 Dose: 30 ml Nicotine Polacrilex (Nicotine Polacrilex 2 Mg Gum) 4 mg BUCCAL Q2H PRN PRN Reason: Nicotine Cravings Last Admin: 06/08/22 15:54 Dose: 4 mg Oxcarbazepine (Oxcarbazepine 300 Mg Tablet) 300 mg PO BID [facility] Last Admin: 06/08/22 09:27 Dose: 300 mg Quetiapine Fumarate (Quetiapine Fumarate 25 Mg Tablet) 25 mg PO Q4H PRN PRN Reason: anxiety Last Admin: 06/08/22 14:49 Dose: 25 mg Quetiapine Fumarate (Quetiapine Fumarate 50 Mg Tablet) 50 mg PO BEDTIME PRN PRN Reason: insomnia Last Admin: 06/07/22 19:19 Dose: 50 mg Trazodone HCl (Trazodone Hcl 100 Mg Tablet) 100 mg PO BEDTIME [facility] Last Admin: 06/07/22 20:54 Dose: 100 mg Allergies Allergies Allergy/AdvReac Type Severity Reaction Status Date / Time bee pollen [BEE STINGS] Allergy Unknown ANAPHYLAXIS Verified 06/04/22 14:04 penicillin V Allergy Unknown Hives Verified 06/04/22 14:04 Penicillins [PCN] Allergy Unknown HIVES Verified 06/04/22 14:04 Assessment & Plan Assessment & Plan (1) Bipolar II disorder: Status: Acute Code(s): F31.81 - Bipolar II disorder (2) PTSD (post-traumatic stress disorder): Status: Acute Code(s): F43.10 - Post-traumatic stress disorder, unspecified (3) Alcohol use disorder, severe, in sustained remission: Status: Acute Code(s): F10.21 - Alcohol dependence, in remission Plan HPI Patient is a 37-year-old male with history of depression, anxiety and PTSD, alcohol abuse in sustained remission who presents for worsening depression and SI. Initial Impression/formulation -patient has severe history of childhood and adolescent trauma that is likely very contributory to which he agrees -patient also has severe depression and anxiety. Patient reports what sounds like possibly discrete hypomanic episodes with some biological loading for bipolar from his father; still it is unclear if his hypomanic episodes are just him having a reprieve from depression or if they point towards an actual bipolar disorder; will provisionally dose with bipolar depression but will also gather more collateral from his -patient agrees to continue Trileptal and Lexapro for now; discussed mood stabilizing medication and patient agrees to start Vraylar (risks/side effects discussed, patient has question and agrees to continue with this medicine); other mood stabilizing medications considered were read trial of lithium or perhaps Lamictal. Patient's initial bipolar diagnosis was from when he was 14 years old while living in a extremely chaotic, unsafe environment and given this context diagnosis at that age seems premature. It seems that on Trileptal and Celexa patient was doing overall well and no hypomanic type episodes Collateral: on 06/06: Patient's discussed potential hypomanic episode. She agrees that there are 2 weeks when he will be in a better mood however she describes it as enjoyable, relaxed and as if he is just feeling better about life, but his regular self, joking around appropriately and working on house projects which he enjoys to do; she denies that he is hyperactive, engages in any excessive spending during this time or that there is any change in his libido; she does not find him to have insomnia to any degree different from his chronic insomnia; she says he talks more and they will set and have more natural conversations but it is not pressured in any way. 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 Will leave as a provisional diagnosis for now however will also likely start Lamictal which can be helpful with PTSD and anxiety as well as bipolar depression if it is there, thus could supplant need for for Vraylar antipsychotic Hospital course: 06/06 patient reports anxiety a little better with PRNs however depression remains with lingering SI. Agrees to start Vraylar; agrees to continue with Lexapro but would like to taper off and discontinue Trileptal. After discussing patient's history with , customs entry writer will leave bipolar depression as provisional diagnosis given biological loading, however his hypomanic episodes may very well be explained by causes other than bipolar disorder. Will continue to assess. 06/07 depressed, intermittent SI but will be safe given love for family; engage in CBT exercise and revealed more about traumatic history. Started Lamictal. Before further raising Vraylar, will give patient a chance to see if addressing trauma can relieve some of his depressive feelings. 06/08 Continue current regime. Plan: CV Q 15 minute checks Continue Lexapro 20mg (substituted for Celexa) since it seems to have been partially helpful and patient has significant PTSD Continue Trileptal to 300 mg b.i.d.; was partially helpful but patient wants to see if it makes a difference coming off this medication Continue Vraylar 1.5 mg daily for mood stability, bipolar depression; Decided against lithium given teenage experience of emotional numbing STARTed Lamictal 25mg daily (for mood stability, PTSD, anxiety) Scheduled clonidine 0.2 mg at bedtime for insomnia Increase to trazodone 100 mg for continued insomnia (reviewed risks/side effects of this medication including priaprism, which patient understands) Continue clonidine to 0.2 mg p.r.n. to help with breakthrough anxiety (0.1 mg has been helpful in the past); may take with Seroquel continue Seroquel 25 mg p.r.n. to help with breakthrough anxiety (reviewed risks/side effects of this medication which patient understands); may take with clonidine DC gabapentin; patient says causes irritability DC hydroxyzine; patient says no longer works in causes irritability Informed Consent: further education needed Reason for contiued inpatient stay Substantial Risk for: rapid decompensation Time Spent With Patient Time: Total time managing care of this patient today ____ minutes.
[2022-06-08 16:52] VITALS: BP 131/75; PULSE 110; TEMP 36.6; O2SAT 98
[2022-06-08] MEDS: QUEtiapine Fumarate 50 MG TABLET PO (19:41)
[2022-06-08] MEDS: Doxepin HCl 25 MG CAPSULE 150 MG PO (20:38)
[2022-06-08] MEDS: traZODone HCL 100 MG TABLET PO ×3 (20:38→23:29)
[2022-06-09 06:00] VITALS: BP 117/70; PULSE 110; RESP 16; O2SAT 98
[2022-06-09] MEDS: Baclofen 10 MG TABLET PO ×2 (06:49→11:10)
[2022-06-09] MEDS: QUEtiapine Fumarate 25 MG TABLET PO ×4 (06:49→19:42)
[2022-06-09] MEDS: cloNIDine HCL 0.2 MG TABLET PO ×5 (06:49→22:47)
[2022-06-09] MEDS: lamoTRIgine 25 MG TABLET PO (08:06)
[2022-06-09] MEDS: OXcarbazepine 300 MG TABLET PO ×2 (08:06→20:38)
[2022-06-09] MEDS: Escitalopram Oxalate 20 MG TABLET PO (08:06)
[2022-06-09] MEDS: Cariprazine HCl 1.5 MG CAPSULE PO (08:06)
[2022-06-09] MEDS: Lidocaine 4 % Patch ADH..PATCH 1 PATCH TRANSDERMA ×2 (08:06→22:51)
[2022-06-09] MEDS: Nicotine Polacrilex 2 MG GUM 4 MG BUCCAL ×3 (09:12→13:38)
[2022-06-09] MEDS: Milk of Magnesia 30 ML ORAL.SUSP PO (10:31)
[2022-06-09 11:11] VITALS: BP 126/68; PULSE 94
[2022-06-09] MEDS: Baclofen 10 MG TABLET 15 MG PO (13:36)
[2022-06-09] MEDS: bisacodyL 5 MG TABLET.DR 10 MG PO (13:36)
[2022-06-09 15:20] VITALS: BP 133/69; PULSE 101
[2022-06-09 18:00] VITALS: BP 117/67; PULSE 60; RESP 18; TEMP 36.6; O2SAT 98
--- NOTE | 2022-06-09 18:15 | HO.PSYCHPN ---
Subjective Subjective Date of Service: 06/09/22 Reason For Visit: Depression Interim History: Reports back pain-baclofen, flexeril not helpful-flexeril more helpful than baclofen. Discussed xrays, uacs, ?urology referral as pain is in flank areas Reports constipation Vraylar 1.5/ Lexapro helpful. Pt ready to increase Vraylar to 3 mg. Medication Compliance: Yes Side effects from medications: No Attending Groups: Yes Review of Systems Acute medical concerns: No Medical Review of Systems: unchanged Mental Status Exam Mental Status Exam Patient Appearance: Appropriate Patient Orientation: Person, Place, Time and Situation Level of Consciousness: Alert Patient Behavior: Talkative and Good Eye Contact Mood Description: Constricted Affect Description: Constricted Patient Cognition Impaired: No Ability to Follow Directions: Good Speech Pattern: Spontaneous Speech Memory Description: Intact Hallucinations: None Delusions: Not Present Thought Content: positive for Circumstantial Depressive Symptoms: Low Self Esteem Judgement: Fair Diagnostics Vital Signs (24Hr): Vital Signs - 24 hr 06/09/22 06:00 06/09/22 11:11 06/09/22 15:20 Pulse Rate 110 H 94 101 H Respiratory Rate 16 Blood Pressure 117/70 126/68 133/69 Pulse Oximetry 98 Oxygen Delivery Method Room Air BMI result Body Mass Index 32.3 Labs 06/03/22 20:53 06/03/22 20:58 Imaging Radiology Impressions: ITS Impressions Lumbar Spine X-Ray 06/09/22 13:55 IMPRESSION: * No acute findings. No fracture or malalignment of the lumbosacral spine. * [id number] discovertebral degenerative change at the lumbosacral junction. Medications Medications Current Medications Acetaminophen (Acetaminophen 325 Mg Tablet) 650 mg PO Q6H PRN PRN Reason: Headache/Pain Mild Scale (1-3) Al Hydroxide/Mg Hydroxide (Magnesium Hydrox/Alum Hydrox 30 Ml Oral.Susp) 30 ml PO Q6H PRN PRN Reason: Heartburn/Nausea Cariprazine (Cariprazine Hcl 3 Mg Capsule) 3 mg PO DAILY [facility]I Clonidine HCl (Clonidine Hcl 0.2 Mg Tablet) 0.2 mg PO Q4H PRN; Protocol PRN Reason: anxiety Last Admin: 06/09/22 15:24 Dose: 0.2 mg Clonidine HCl (Clonidine Hcl 0.2 Mg Tablet) 0.2 mg PO BEDTIME [facility]; Protocol Last Admin: 06/08/22 19:41 Dose: 0.2 mg Cyclobenzaprine HCl (Cyclobenzaprine Hcl 5 Mg Tablet) 15 mg PO TID [facility] Doxepin HCl (Doxepin Hcl 25 Mg Capsule) 150 mg PO BEDTIME [facility] Last Admin: 06/08/22 20:38 Dose: 150 mg Escitalopram Oxalate (Escitalopram Oxalate 20 Mg Tablet) 20 mg PO DAILY [facility] Last Admin: 06/09/22 08:06 Dose: 20 mg Lamotrigine (Lamotrigine 25 Mg Tablet) 25 mg PO DAILY [facility] Last Admin: 06/09/22 08:06 Dose: 25 mg Lidocaine (Lidocaine 4 % Patch Adh..Patch) 1 patch TRANSDERMA BID [facility]; Protocol Last Admin: 06/09/22 08:06 Dose: 1 patch Magnesium Hydroxide (Milk Of Magnesia 30 Ml Oral.Susp) 30 ml PO DAILY PRN PRN Reason: Constipation Last Admin: 06/09/22 10:31 Dose: 30 ml Mirtazapine (Mirtazapine 7.5 Mg Tablet) 7.5 mg PO BEDTIME [facility] Nicotine Polacrilex (Nicotine Polacrilex 2 Mg Gum) 4 mg BUCCAL Q2H PRN PRN Reason: Nicotine Cravings Last Admin: 06/09/22 13:38 Dose: 4 mg Oxcarbazepine (Oxcarbazepine 300 Mg Tablet) 300 mg PO BID [facility] Last Admin: 06/09/22 08:06 Dose: 300 mg Quetiapine Fumarate (Quetiapine Fumarate 25 Mg Tablet) 25 mg PO Q4H PRN PRN Reason: anxiety Last Admin: 06/09/22 15:24 Dose: 25 mg Quetiapine Fumarate (Quetiapine Fumarate 50 Mg Tablet) 50 mg PO BEDTIME PRN PRN Reason: insomnia Last Admin: 06/08/22 19:41 Dose: 50 mg Allergies Allergies Allergy/AdvReac Type Severity Reaction Status Date / Time bee pollen [BEE STINGS] Allergy Unknown ANAPHYLAXIS Verified 06/04/22 14:04 penicillin V Allergy Unknown Hives Verified 06/04/22 14:04 Penicillins [PCN] Allergy Unknown HIVES Verified 06/04/22 14:04 Assessment & Plan Assessment & Plan (1) Bipolar II disorder: Status: Acute Code(s): F31.81 - Bipolar II disorder (2) PTSD (post-traumatic stress disorder): Status: Acute Code(s): F43.10 - Post-traumatic stress disorder, unspecified (3) Alcohol use disorder, severe, in sustained remission: Status: Acute Code(s): F10.21 - Alcohol dependence, in remission Plan HPI Patient is a 37-year-old male with history of depression, anxiety and PTSD, alcohol abuse in sustained remission who presents for worsening depression and SI. Initial Impression/formulation -patient has severe history of childhood and adolescent trauma that is likely very contributory to which he agrees -patient also has severe depression and anxiety. Patient reports what sounds like possibly discrete hypomanic episodes with some biological loading for bipolar from his father; still it is unclear if his hypomanic episodes are just him having a reprieve from depression or if they point towards an actual bipolar disorder; will provisionally dose with bipolar depression but will also gather more collateral from his -patient agrees to continue Trileptal and Lexapro for now; discussed mood stabilizing medication and patient agrees to start Vraylar (risks/side effects discussed, patient has question and agrees to continue with this medicine); other mood stabilizing medications considered were read trial of lithium or perhaps Lamictal. Patient's initial bipolar diagnosis was from when he was 14 years old while living in a extremely chaotic, unsafe environment and given this context diagnosis at that age seems premature. It seems that on Trileptal and Celexa patient was doing overall well and no hypomanic type episodes Collateral: on 06/06: Patient's discussed potential hypomanic episode. She agrees that there are 2 weeks when he will be in a better mood however she describes it as enjoyable, relaxed and as if he is just feeling better about life, but his regular self, joking around appropriately and working on house projects which he enjoys to do; she denies that he is hyperactive, engages in any excessive spending during this time or that there is any change in his libido; she does not find him to have insomnia to any degree different from his chronic insomnia; she says he talks more and they will set and have more natural conversations but it is not pressured in any way. 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 Will leave as a provisional diagnosis for now however will also likely start Lamictal which can be helpful with PTSD and anxiety as well as bipolar depression if it is there, thus could supplant need for for Vraylar antipsychotic Hospital course: 06/06 patient reports anxiety a little better with PRNs however depression remains with lingering SI. Agrees to start Vraylar; agrees to continue with Lexapro but would like to taper off and discontinue Trileptal. After discussing patient's history with , screen writer will leave bipolar depression as provisional diagnosis given biological loading, however his hypomanic episodes may very well be explained by causes other than bipolar disorder. Will continue to assess. 06/07 depressed, intermittent SI but will be safe given love for family; engage in CBT exercise and revealed more about traumatic history. Started Lamictal. Before further raising Vraylar, will give patient a chance to see if addressing trauma can relieve some of his depressive feelings. 06/08 Continue current regime. 06/09/22: Increase Vraylar to 3 mg daily Discontinue Trazodone per pt request Remeron 7.5 mg hs trial Flexeril increase to address back pain UACS Dulcolax 10 mg x 1 dose Spinal xrays Possible need for urology consult Plan: CV Q 15 minute checks Continue Lexapro 20mg (substituted for Celexa) since it seems to have been partially helpful and patient has significant PTSD Continue Trileptal to 300 mg b.i.d.; was partially helpful but patient wants to see if it makes a difference coming off this medication Continue Vraylar 1.5 mg daily for mood stability, bipolar depression; Decided against lithium given teenage experience of emotional numbing STARTed Lamictal 25mg daily (for mood stability, PTSD, anxiety) Scheduled clonidine 0.2 mg at bedtime for insomnia Increase to trazodone 100 mg for continued insomnia (reviewed risks/side effects of this medication including priaprism, which patient understands) Continue clonidine to 0.2 mg p.r.n. to help with breakthrough anxiety (0.1 mg has been helpful in the past); may take with Seroquel continue Seroquel 25 mg p.r.n. to help with breakthrough anxiety (reviewed risks/side effects of this medication which patient understands); may take with clonidine DC gabapentin; patient says causes irritability DC hydroxyzine; patient says no longer works in causes irritability Patient educated on: medication risk/benefits, therapeutic strategies and medical condition Informed Consent: further education needed Reason for contiued inpatient stay Substantial Risk for: rapid decompensation Time Spent With Patient Time: Total time managing care of this patient today ____ minutes.
[2022-06-09] MEDS: Cyclobenzaprine HCl 5 MG TABLET 15 MG PO ×2 (18:17→22:45)
[2022-06-09] MEDS: Mirtazapine 7.5 MG TABLET PO (20:37)
[2022-06-09] MEDS: Doxepin HCl 25 MG CAPSULE 150 MG PO (20:38)
[2022-06-09] MEDS: QUEtiapine Fumarate 50 MG TABLET PO (20:38)
[2022-06-10] MEDS: cloNIDine HCL 0.2 MG TABLET PO ×5 (01:30→21:30)
[2022-06-10] MEDS: QUEtiapine Fumarate 25 MG TABLET PO ×2 (01:30→05:30)
[2022-06-10] MEDS: Nicotine Polacrilex 2 MG GUM 4 MG BUCCAL ×5 (06:34→19:38)
[2022-06-10 08:20] VITALS: BP 122/69; PULSE 94; RESP 18; TEMP 35.6; O2SAT 95
[2022-06-10] MEDS: Cariprazine HCl 3 MG CAPSULE PO (08:22)
[2022-06-10] MEDS: OXcarbazepine 300 MG TABLET PO ×2 (08:22→21:29)
[2022-06-10] MEDS: Cyclobenzaprine HCl 5 MG TABLET 15 MG PO ×3 (08:23→19:36)
[2022-06-10] MEDS: Lidocaine 4 % Patch ADH..PATCH 1 PATCH TRANSDERMA ×2 (08:23→21:03)
[2022-06-10] MEDS: lamoTRIgine 25 MG TABLET PO (08:23)
[2022-06-10] MEDS: Escitalopram Oxalate 20 MG TABLET PO (08:23)
--- NOTE | 2022-06-10 09:55 | P.PNPSI_ITS ---
Subjective Subjective Date of Service: 06/10/22 Reason For Visit: Depression Interim History: Met with patient; discussed with team; reviewed covering providers notes pt reports anxiety is helped by prns; still quite depressed, though SI remains diminished. Pt feels that much of his depression is from the worry that lose everything, his , his career...Nurse Case Management engaged pt in CBT exercise and looked at his automatic thoughts; pt was able to realize that this worry is routed in past experiences rather than a reality which lessened his anxiety. Discussed meds and pt would like to leave at current doses for now. constipated, wonders if this is effecting his back pain; agrees to fleet enema UA was intended to be ordered over weekend to r/o uti/kidney stone; will order Mental Status Exam Mental Status Exam Narrative: Pt is alert and oriented; behavior is cooperative, friendly, more calm; dressed in casual attire, scruffy facial hair but adequate hygiene; mood is described as depressed and affect congruent, downcast; eye contact appropriate; Speech is normal rate, volume and prosody and not pressured; psychomotor retardation remains present; thought process is organized and goal directed; Thought content is on traumatic past, treatment; otherwise pertinent to relevant topics and without any delusional content, paranoid ideations or grandiosity; lingering SI but wants treatment; no HI. There is no evidence of perceptual disturbance and denies AVH. Patients insight and judgment are impaired but improving. Diagnostics Vital Signs (24Hr): Vital Signs - 24 hr 06/09/22 11:11 06/09/22 15:20 06/09/22 18:00 Temperature 97.8 F Pulse Rate 94 101 H 60 Respiratory Rate 18 Blood Pressure 126/68 133/69 117/67 Pulse Oximetry 98 Oxygen Delivery Method Room Air 06/10/22 08:20 Temperature 96.0 F L Pulse Rate 94 Respiratory Rate 18 Blood Pressure 122/69 Pulse Oximetry 95 Oxygen Delivery Method Room Air BMI result Body Mass Index 32.3 Labs 06/03/22 20:53 06/03/22 20:58 Imaging Radiology Impressions: ITS Impressions Lumbar Spine X-Ray 06/09/22 13:55 IMPRESSION: * No acute findings. No fracture or malalignment of the lumbosacral spine. * [id number] discovertebral degenerative change at the lumbosacral junction. Medications Medications Current Medications Acetaminophen (Acetaminophen 325 Mg Tablet) 650 mg PO Q6H PRN PRN Reason: Headache/Pain Mild Scale (1-3) Al Hydroxide/Mg Hydroxide (Magnesium Hydrox/Alum Hydrox 30 Ml Oral.Susp) 30 ml PO Q6H PRN PRN Reason: Heartburn/Nausea Cariprazine (Cariprazine Hcl 3 Mg Capsule) 3 mg PO DAILY [facility] Last Admin: 06/10/22 08:22 Dose: 3 mg Clonidine HCl (Clonidine Hcl 0.2 Mg Tablet) 0.2 mg PO Q4H PRN; Protocol PRN Reason: anxiety Last Admin: 06/10/22 05:30 Dose: 0.2 mg Clonidine HCl (Clonidine Hcl 0.2 Mg Tablet) 0.2 mg PO BEDTIME [facility]; Protocol Last Admin: 06/09/22 22:47 Dose: 0.2 mg Cyclobenzaprine HCl (Cyclobenzaprine Hcl 5 Mg Tablet) 15 mg PO TID RIKKI Last Admin: 06/10/22 08:23 Dose: 15 mg Doxepin HCl (Doxepin Hcl 25 Mg Capsule) 150 mg PO BEDTIME [facility]KKI Last Admin: 06/09/22 20:38 Dose: 150 mg Escitalopram Oxalate (Escitalopram Oxalate 20 Mg Tablet) 20 mg PO DAILY [facility] Last Admin: 06/10/22 08:23 Dose: 20 mg Lamotrigine (Lamotrigine 25 Mg Tablet) 25 mg PO DAILY [facility] Last Admin: 06/10/22 08:23 Dose: 25 mg Lidocaine (Lidocaine 4 % Patch Adh..Patch) 1 patch TRANSDERMA BID [facility]; Protocol Last Admin: 06/10/22 08:23 Dose: 1 patch Magnesium Hydroxide (Milk Of Magnesia 30 Ml Oral.Susp) 30 ml PO DAILY PRN PRN Reason: Constipation Last Admin: 06/09/22 10:31 Dose: 30 ml Mirtazapine (Mirtazapine 7.5 Mg Tablet) 7.5 mg PO BEDTIME [facility]KKI Last Admin: 06/09/22 20:37 Dose: 7.5 mg Nicotine Polacrilex (Nicotine Polacrilex 2 Mg Gum) 4 mg BUCCAL Q2H PRN PRN Reason: Nicotine Cravings Last Admin: 06/10/22 06:34 Dose: 4 mg Oxcarbazepine (Oxcarbazepine 300 Mg Tablet) 300 mg PO BID [facility] Last Admin: 03/27/23 08:22 Dose: 300 mg Quetiapine Fumarate (Quetiapine Fumarate 25 Mg Tablet) 25 mg PO Q4H PRN PRN Reason: anxiety Last Admin: 06/10/22 05:30 Dose: 25 mg Quetiapine Fumarate (Quetiapine Fumarate 50 Mg Tablet) 50 mg PO BEDTIME PRN PRN Reason: insomnia Last Admin: 06/09/22 20:38 Dose: 50 mg Allergies Allergies Allergy/AdvReac Type Severity Reaction Status Date / Time bee pollen [BEE STINGS] Allergy Unknown ANAPHYLAXIS Verified 06/04/22 14:04 penicillin V Allergy Unknown Hives Verified 06/04/22 14:04 Penicillins [PCN] Allergy Unknown HIVES Verified 06/04/22 14:04 Assessment & Plan Assessment & Plan (1) Bipolar II disorder: Status: Acute Code(s): F31.81 - Bipolar II disorder (2) PTSD (post-traumatic stress disorder): Status: Acute Code(s): F43.10 - Post-traumatic stress disorder, unspecified (3) Alcohol use disorder, severe, in sustained remission: Status: Acute Code(s): F10.21 - Alcohol dependence, in remission Plan HPI Patient is a 37-year-old male with history of depression, anxiety and PTSD, alcohol abuse in sustained remission who presents for worsening depression and SI. Initial Impression/formulation -patient has severe history of childhood and adolescent trauma that is likely very contributory to which he agrees -patient also has severe depression and anxiety. Patient reports what sounds like possibly discrete hypomanic episodes with some biological loading for bipolar from his father; still it is unclear if his hypomanic episodes are just him having a reprieve from depression or if they point towards an actual bipolar disorder; will provisionally dose with bipolar depression but will also gather more collateral from his -patient agrees to continue Trileptal and Lexapro for now; discussed mood s tabilizing medication and patient agrees to start Vraylar (risks/side effects discussed, patient has question and agrees to continue with this medicine); other mood stabilizing medications considered were read trial of lithium or perhaps Lamictal. Patient's initial bipolar diagnosis was from when he was 14 years old while living in a extremely chaotic, unsafe environment and given this context diagnosis at that age seems premature. It seems that on Trileptal and Celexa patient was doing overall well and no hypomanic type episodes Collateral: on 06/06: Patient's discussed potential hypomanic episode. She agrees that there are 2 weeks when he will be in a better mood however she describes it as enjoyable, relaxed and as if he is just feeling better about life, but his regular self, joking around appropriately and working on house projects which he enjoys to do; she denies that he is hyperactive, engages in any excessive spending during this time or that there is any change in his libido; she does not find him to have insomnia to any degree different from his chronic insomnia; she says he talks more and they will set and have more natural conversations but it is not pressured in any way. 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 Will leave as a provisional diagnosis for now however will also likely start Lamictal which can be helpful with PTSD and anxiety as well as bipolar depression if it is there, thus could supplant need for for Vraylar antipsychotic Hospital course: 06/06 patient reports anxiety a little better with PRNs however depression remains with lingering SI. Agrees to start Vraylar; agrees to continue with Lexapro but would like to taper off and discontinue Trileptal. After discussing patient's history with , singer songwriter will leave bipolar depression as provisional diagnosis given biological loading, however his hypomanic episodes may very well be explained by causes other than bipolar disorder. Will continue to assess. 06/07 depressed, intermittent SI but will be safe given love for family; engage in CBT exercise and revealed more about traumatic history. Started Lamictal. Before further raising Vraylar, will give patient a chance to see if addressing trauma can relieve some of his depressive feelings. 06/08 Continue current regime. 06/09/22: Increase Vraylar to 3 mg daily Discontinue Trazodone per pt request Remeron 7.5 mg hs trial Flexeril increase to address back pain UACS Dulcolax 10 mg x 1 dose Spinal xrays Possible need for urology consult 06/10 working dilligently on self, attending groups, doing CBT exercises; -reviewed Xray and only chronic mild/mod degenerative disc disease. -constipated, wonders if this is effecting his back pain; agrees to fleet enema -UA was intended to be ordered over weekend to r/o uti/kidney stone; ordered and WNL -was started on Remeron; will leave for now Plan: CV Q 15 minute checks -pt started on Remeron over weekend Continue Lexapro 20mg (substituted for Celexa) since it seems to have been partially helpful and patient has significant PTSD Continue Trileptal to 300 mg b.i.d.; was partially helpful but patient wants to see if it makes a difference coming off this medication Continue Vraylar 1.5 mg daily for mood stability, bipolar depression; (Decided against lithium given hx of emotional numbing) continue Lamictal 25mg daily (for mood stability, PTSD, anxiety) Scheduled clonidine 0.2 mg at bedtime for insomnia Increase to trazodone 100 mg for continued insomnia (reviewed risks/side effects of this medication including priaprism, which patient understands) Continue clonidine to 0.2 mg p.r.n. to help with breakthrough anxiety (0.1 mg has been helpful in the past); may take with Seroquel continue Seroquel 25 mg p.r.n. to help with breakthrough anxiety (reviewed risk s/side effects of this medication which patient understands); may take with clonidine DC gabapentin; patient says causes irritability DC hydroxyzine; patient says no longer works in causes irritability Patient educated on: diagnosis, medication risk/benefits and medical condition Informed Consent: understands Reason for contiued inpatient stay Substantial Risk for: rapid decompensation Time Spent With Patient Time: Total time managing care of this patient today ____ minutes.
[2022-06-10] MEDS: QUEtiapine Fumarate 50 MG TABLET PO ×3 (12:38→21:29)
[2022-06-10 14:18] LABS: Appearance Urine Clear; Color Urine Yellow; Glucose Urine UA Negative (Negative); Leukocyte Esterase Urine Negative (Negative); Nitrite Urine Negative (Negative); PH 6.5 (5.0-9.0); Specific Gravity - Urine <= 1.005 (1.005-1.025); Urine Blood Negative (Negative); Urine Ketones 15 mg/dL (Negative); Urine Protein Negative (Neg-Trace)
[2022-06-10 14:26] LABS: Bacteria Urine None Seen (None Seen); Hyaline Casts Urine 0-2 /LPF (0-2); RBC Urine 0-2 /HPF (0-2); Squamous Epithelial Cell Urine 0-2 /HPF (0-2); WBC Urine 0-5 /HPF (0-5)
[2022-06-10] MEDS: Mineral OiL enema 133 ML ENEMA PR (16:39)
[2022-06-10] MEDS: Milk of Magnesia 30 ML ORAL.SUSP PO (17:28)
[2022-06-10 21:15] VITALS: BP 119/72; PULSE 94; TEMP 36.3; O2SAT 97
[2022-06-10] MEDS: Mirtazapine 7.5 MG TABLET PO (21:29)
[2022-06-10] MEDS: Doxepin HCl 25 MG CAPSULE 150 MG PO (21:29)
--- NOTE | 2022-06-10 23:08 | PC.NURSE ---
Patient c/o abdominal pain as well as back pain. Patient c/o constipation despite two cups of prune juice and oral laxative. Patient had a third cup of MOM as well as a self-administered enema with positive effect. Patient said back pain and abdominal pain are improving.
[2022-06-11] MEDS: QUEtiapine Fumarate 50 MG TABLET PO ×5 (00:20→20:48)
[2022-06-11 06:00] VITALS: BP 99/69; PULSE 118
[2022-06-11] MEDS: cloNIDine HCL 0.2 MG TABLET PO ×3 (06:00→18:13)
[2022-06-11] MEDS: Lidocaine 4 % Patch ADH..PATCH 1 PATCH TRANSDERMA ×2 (06:31→20:49)
[2022-06-11] MEDS: Cyclobenzaprine HCl 5 MG TABLET 15 MG PO ×3 (06:32→20:49)
[2022-06-11 08:20] VITALS: BP 105/62; PULSE 76; RESP 18; TEMP 36.4; O2SAT 97
[2022-06-11] MEDS: Cariprazine HCl 3 MG CAPSULE PO (08:21)
[2022-06-11] MEDS: OXcarbazepine 300 MG TABLET PO ×2 (08:21→20:48)
[2022-06-11] MEDS: lamoTRIgine 25 MG TABLET PO (08:22)
[2022-06-11] MEDS: Escitalopram Oxalate 20 MG TABLET PO (08:22)
[2022-06-11] MEDS: Nicotine Polacrilex 2 MG GUM 4 MG BUCCAL ×3 (09:01→13:28)
--- NOTE | 2022-06-11 12:58 | P.PNPSI_ITS ---
Subjective Subjective Date of Service: 06/11/22 Reason For Visit: Depression Interim History: met with patient; discussed in teams pt feeling physically better after BM; slept well with room change. still depressed but says it is lessening and he is becoming more hopeful and can in vision a time where he is doing better; patient and greeting card writer engaged in CBT exercise which patient again found helpful and derived relief from anxious/depressing thoughts. Discussed medications and patient agrees to currently leave things the way they are Mental Status Exam Mental Status Exam Narrative: Pt is alert and oriented; behavior is cooperative, friendly, more calm; dressed in casual attire, clean shaven, but adequate hygiene; mood is described as a little better and affect congruent; eye contact appropriate; Speech is normal rate, volume and prosody and not pressured; no psychomotor retardation; thought process is organized and goal directed; Thought content is on traumatic past, treatment; otherwise pertinent to relevant topics and without any delusional content, paranoid ideations or grandiosity; no SI; no HI. There is no evidence of perceptual disturbance and denies AVH. Patients insight and judgment are impaired but fair Diagnostics Vital Signs (24Hr): Vital Signs - 24 hr 06/10/22 21:15 06/11/22 06:00 06/11/22 08:20 Temperature 97.3 F 97.6 F Pulse Rate 94 118 H 76 Respiratory Rate 18 Blood Pressure 119/72 99/69 105/62 Pulse Oximetry 97 97 Oxygen Delivery Method Room Air Room Air BMI result Body Mass Index 32.3 Labs 06/03/22 20:53 06/03/22 20:58 Labs: Laboratory Results - last 48 hr 06/10/22 13:34 Urine Color Yellow Urine Appearance Clear Urine pH 6.5 Ur Specific [place] <= 1.005 Urine Protein Negative Urine Glucose (UA) Negative Urine Ketones 15 Urine Blood Negative Urine Nitrite Negative Ur Leukocyte Esterase Negative Urine RBC 0-2 Urine WBC 0-5 Ur Squamous Epith Cells 0-2 Urine Bacteria None Seen Hyaline Casts 0-2 Imaging Radiology Impressions: ITS Impressions Lumbar Spine X-Ray 06/09/22 13:55 IMPRESSION: * No acute findings. No fracture or malalignment of the lumbosacral spine. * [id number] discovertebral degenerative change at the lumbosacral junction. Medications Medications Current Medications Acetaminophen (Acetaminophen 325 Mg Tablet) 650 mg PO Q6H PRN PRN Reason: Headache/Pain Mild Scale (1-3) Al Hydroxide/Mg Hydroxide (Magnesium Hydrox/Alum Hydrox 30 Ml Oral.Susp) 30 ml PO Q6H PRN PRN Reason: Heartburn/Nausea Cariprazine (Cariprazine Hcl 3 Mg Capsule) 3 mg PO DAILY [facility]S [facility]CLUDE 234 BEDS AT [facility] Last Admin: 06/11/22 08:21 Dose: 3 mg Clonidine HCl (Clonidine Hcl 0.2 Mg Tablet) 0.2 mg PO Q4H PRN; Protocol PRN Reason: anxiety Last Admin: 06/11/22 11:11 Dose: 0.2 mg Clonidine HCl (Clonidine Hcl 0.2 Mg Tablet) 0.2 mg PO BEDTIME [facility]S [facility]CLUDE 234 BEDS AT [facility]; Protocol Last Admin: 06/10/22 21:30 Dose: 0.2 mg Cyclobenzaprine HCl (Cyclobenzaprine Hcl 5 Mg Tablet) 15 mg PO Q6H PRN PRN Reason: muscle spasm Last Admin: 06/11/22 06:32 Dose: 15 mg Doxepin HCl (Doxepin Hcl 25 Mg Capsule) 150 mg PO BEDTIME [facility]KKI Last Admin: 06/10/22 21:29 Dose: 150 mg Escitalopram Oxalate (Escitalopram Oxalate 20 Mg Tablet) 20 mg PO DAILY [facility]S [facility]CLUDE 234 BEDS AT [facility] Last Admin: 06/11/22 08:22 Dose: 20 mg Lamotrigine (Lamotrigine 25 Mg Tablet) 25 mg PO DAILY [facility]CLUDE 234 BEDS AT [facility] Last Admin: 06/11/22 08:22 Dose: 25 mg Lidocaine (Lidocaine 4 % Patch Adh..Patch) 1 patch TRANSDERMA BID COUNTS [facility]CLUDE 234 BEDS AT [facility]; Protocol Last Admin: 06/11/22 06:31 Dose: 1 patch Magnesium Hydroxide (Milk Of Magnesia 30 Ml Oral.Susp) 30 ml PO DAILY PRN PRN Reason: Constipation Last Admin: 06/10/22 17:28 Dose: 30 ml Mirtazapine (Mirtazapine 7.5 Mg Tablet) 7.5 mg PO BEDTIME [facility]S [facility]CLUDE 234 BEDS AT [facility] Last Admin: 06/10/22 21:29 Dose: 7.5 mg Nicotine Polacrilex (Nicotine Polacrilex 2 Mg Gum) 4 mg BUCCAL Q2H PRN PRN Reason: Nicotine Cravings Last Admin: 06/11/22 11:13 Dose: 4 mg Oxcarbazepine (Oxcarbazepine 300 Mg Tablet) 300 mg PO BID [facility]S [facility]CLUDE 234 BEDS AT [facility] Last Admin: 06/11/22 08:21 Dose: 300 mg Quetiapine Fumarate (Quetiapine Fumarate 50 Mg Tablet) 50 mg PO BEDTIME [facility]KKI Quetiapine Fumarate (Quetiapine Fumarate 50 Mg Tablet) 50 mg PO Q4H PRN PRN Reason: anxiety/insomnia Allergies Allergies Allergy/AdvReac Type Severity Reaction Status Date / Time bee pollen [BEE STINGS] Allergy Unknown ANAPHYLAXIS Verified 06/04/22 14:04 penicillin V Allergy Unknown Hives Verified 06/04/22 14:04 Penicillins [PCN] Allergy Unknown HIVES Verified 06/04/22 14:04 Assessment & Plan Assessment & Plan (1) Bipolar II disorder: Status: Acute Code(s): F31.81 - Bipolar II disorder (2) PTSD (post-traumatic stress disorder): Status: Acute Code(s): F43.10 - Post-traumatic stress disorder, unspecified (3) Alcohol use disorder, severe, in sustained remission: Status: Acute Code(s): F10.21 - Alcohol dependence, in remission Plan HPI Patient is a 37-year-old male with history of depression, anxiety and PTSD, alcohol abuse in sustained remission who presents for worsening depression and SI. Initial Impression/formulation -patient has severe history of childhood and adolescent trauma that is likely very contributory to which he agrees -patient also has severe depression and anxiety. Patient reports what sounds like possibly discrete hypomanic episodes with some biological loading for bipolar from his father; still it is unclear if his hypomanic episodes are just him having a reprieve from depression or if they point towards an actual bipolar disorder; will provisionally dose with bipolar depression but will also gather more collateral from his -patient agrees to continue Trileptal and Lexapro for now; discussed mood stabilizing medication and patient agrees to start Vraylar (risks/side effects discussed, patient has question and agrees to continue with this medicine); other mood stabilizing medications considered were read trial of lithium or perhaps Lamictal. Patient's initial bipolar diagnosis was from when he was 14 years old while living in a extremely chaotic, unsafe environment and given this context diagnosis at that age seems premature. It seems that on Trileptal and Celexa patient was doing overall well and no hypomanic type episodes Collateral: on 06/06: Patient's discussed potential hypomanic episode. She agrees that there are 2 weeks when he will be in a better mood however she describes it as enjoyable, relaxed and as if he is just feeling better about life, but his regular self, joking around appropriately and working on house projects which he enjoys to do; she denies that he is hyperactive, engages in any excessive spending during this time or that there is any change in his libido; she does not find him to have insomnia to any degree different from his chronic insomnia; she says he talks more and they will set and have more natural conversations but it is not pressured in any way. 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 Will leave as a provisional diagnosis for now however will also likely start Lamictal which can be helpful with PTSD and anxiety as well as bipolar depression if it is there, thus could supplant need for for Vraylar antipsychotic Hospital course: 06/06 patient reports anxiety a little better with PRNs however depression remains with lingering SI. Agrees to start Vraylar; agrees to continue with Lexapro but would like to taper off and discontinue Trileptal. After discussing patient's history with , greeting card writer will leave bipolar depression as provisional diagnosis given biological loading, however his hypomanic episodes may very well be explained by causes other than bipolar disorder. Will continue to assess. 06/07 depressed, intermittent SI but will be safe given love for family; engage in CBT exercise and revealed more about traumatic history. Started Lamictal. Before further raising Vraylar, will give patient a chance to see if addressing trauma can relieve some of his depressive feelings. 06/08 Continue current regime. 06/09/22: Increase Vraylar to 3 mg daily Discontinue Trazodone per pt request Remeron 7.5 mg hs trial Flexeril increase to address back pain UACS Dulcolax 10 mg x 1 dose Spinal xrays Possible need for urology consult 06/10 working dilligently on self, attending groups, doing CBT exercises; -reviewed Xray and only chronic mild/mod degenerative disc disease. -constipated, wonders if this is effecting his back pain; agrees to fleet enema -UA was intended to be ordered over weekend to r/o uti/kidney stone; ordered and WNL -was started on Remeron; will leave for now 06/11 continue current treatment plan Plan: CV Q 15 minute checks Continue Remeron 7.5 mg q.h.s. Continue Lexapro 20mg (substituted for Celexa) since it seems to have been partially helpful and patient has significant PTSD Continue Trileptal to 300 mg b.i.d.; was partially helpful but patient wants to see if it makes a difference coming off this medication Continue Vraylar 1.5 mg daily for mood stability, bipolar depression; (Decided against lithium given hx of emotional numbing) continue Lamictal 25mg daily (for mood stability, PTSD, anxiety) Scheduled clonidine 0.2 mg at bedtime for insomnia Increase to trazodone 100 mg for continued insomnia (reviewed risks/side effects of this medication including priaprism, which patient understands) Continue clonidine to 0.2 mg p.r.n. to help with breakthrough anxiety (0.1 mg has been helpful in the past); may take with Seroquel continue Seroquel 25 mg p.r.n. to help with breakthrough anxiety (reviewed r isks/side effects of this medication which patient understands); may take with clonidine DC gabapentin; patient says causes irritability DC hydroxyzine; patient says no longer works in causes irritability Patient educated on: diagnosis, medication risk/benefits and therapeutic strategies Informed Consent: understands Reason for contiued inpatient stay Substantial Risk for: med/psych decompensation Time Spent With Patient Time: Total time managing care of this patient today ____ minutes.
[2022-06-11] MEDS: Milk of Magnesia 30 ML ORAL.SUSP PO (13:28)
[2022-06-11 18:00] VITALS: BP 129/69; PULSE 104
[2022-06-11] MEDS: Mirtazapine 7.5 MG TABLET PO (20:48)
[2022-06-11] MEDS: Doxepin HCl 25 MG CAPSULE 150 MG PO (20:48)
[2022-06-12] MEDS: QUEtiapine Fumarate 50 MG TABLET PO ×6 (00:49→23:58)
[2022-06-12] MEDS: Cyclobenzaprine HCl 5 MG TABLET 15 MG PO ×2 (06:44→16:00)
[2022-06-12] MEDS: OXcarbazepine 300 MG TABLET PO ×2 (08:20→21:19)
[2022-06-12] MEDS: Lidocaine 4 % Patch ADH..PATCH 1 PATCH TRANSDERMA ×2 (08:20→21:19)
[2022-06-12] MEDS: Escitalopram Oxalate 20 MG TABLET PO (08:20)
[2022-06-12] MEDS: lamoTRIgine 25 MG TABLET PO (08:20)
[2022-06-12] MEDS: Cariprazine HCl 3 MG CAPSULE PO (08:20)
[2022-06-12 08:50] VITALS: BP 124/86; PULSE 86; RESP 18; TEMP 36.6; O2SAT 95
--- NOTE | 2022-06-12 10:03 | HO.PSYCHPN ---
Subjective Subjective Date of Service: 06/12/22 Reason For Visit: Depression Interim History: Met with patient; discussed with team Patient reports that despite getting better, he still has extreme bouts of depressive feelings that become hopeless, momentarily with passive SI and/or near panic attack. Patient is working through them with CBT exercises however he expresses desire for medication management to eradicate such bouts. Patient joked but was also serious and said he wants a magic pill. Ship Manager discussed the nature of his illness and the effects of medication and that while medication helps, much of his symptomology will simply take time and therapy to heal and that medication while helpful, remains only helpful. Patient asked for benzodiazepines and junior copywriter again reviewed risks involving this type of medication given his history as well as significant PTSD symptoms he is trying to overcome. Patient frustrated however agreed to look at other options and agreed to trial of BuSpar. Patient also felt that clonidine may have caused a panic attack; while junior copywriter disagreed patient wanted to get off this medication for a while. Patient agreed to increasing Lexapro Continue to engage in CBT exercise Mental Status Exam Mental Status Exam Narrative: Pt is alert and oriented; behavior is cooperative, friendly, more calm; dressed in casual attire, clean shaven, but adequate hygiene; mood is described as i had a panic attack and affect congruent, anxious; eye contact appropriate; Speech is normal rate, volume and prosody and not pressured; no psychomotor retardation; thought process is organized and goal directed; Thought content is on traumatic past, treatment; otherwise pertinent to relevant topics and without any delusional content, paranoid ideations or grandiosity; intermittent SI; no HI. There is no evidence of perceptual disturbance and denies AVH. Patients insight and judgment are impaired but improved and adequate. Diagnostics Vital Signs (24Hr): Vital Signs - 24 hr 06/11/22 18:00 06/12/22 08:50 Temperature 97.9 F Pulse Rate 104 H 86 Respiratory Rate 18 Blood Pressure 129/69 124/86 Pulse Oximetry 95 Oxygen Delivery Method Room Air BMI result Body Mass Index 32.3 Labs 06/03/22 20:53 06/03/22 20:58 Labs: Laboratory Results - last 48 hr 06/10/22 13:34 Urine Color Yellow Urine Appearance Clear Urine pH 6.5 Ur Specific [place] <= 1.005 Urine Protein Negative Urine Glucose (UA) Negative Urine Ketones 15 Urine Blood Negative Urine Nitrite Negative Ur Leukocyte Esterase Negative Urine RBC 0-2 Urine WBC 0-5 Ur Squamous Epith Cells 0-2 Urine Bacteria None Seen Hyaline Casts 0-2 Imaging Radiology Impressions: ITS Impressions Lumbar Spine X-Ray 06/09/22 13:55 IMPRESSION: * No acute findings. No fracture or malalignment of the lumbosacral spine. * [id number] discovertebral degenerative change at the lumbosacral junction. Medications Medications Current Medications Acetaminophen (Acetaminophen 325 Mg Tablet) 650 mg PO Q6H PRN PRN Reason: Headache/Pain Mild Scale (1-3) Al Hydroxide/Mg Hydroxide (Magnesium Hydrox/Alum Hydrox 30 Ml Oral.Susp) 30 ml PO Q6H PRN PRN Reason: Heartburn/Nausea Cariprazine (Cariprazine Hcl 3 Mg Capsule) 3 mg PO DAILY [facility] Last Admin: 06/12/22 08:20 Dose: 3 mg Clonidine HCl (Clonidine Hcl 0.2 Mg Tablet) 0.2 mg PO Q4H PRN; Protocol PRN Reason: anxiety Last Admin: 06/11/22 18:13 Dose: 0.2 mg Clonidine HCl (Clonidine Hcl 0.2 Mg Tablet) 0.2 mg PO BEDTIME [facility]; Protocol Last Admin: 06/11/22 20:53 Dose: Not Given Cyclobenzaprine HCl (Cyclobenzaprine Hcl 5 Mg Tablet) 15 mg PO Q6H PRN PRN Reason: muscle spasm Last Admin: 06/12/22 06:44 Dose: 15 mg Doxepin HCl (Doxepin Hcl 25 Mg Capsule) 150 mg PO BEDTIME [facility] Last Admin: 06/11/22 20:48 Dose: 150 mg Escitalopram Oxalate (Escitalopram Oxalate 20 Mg Tablet) 20 mg PO DAILY [facility] Last Admin: 06/12/22 08:20 Dose: 20 mg Lamotrigine (Lamotrigine 25 Mg Tablet) 25 mg PO DAILY [facility] Last Admin: 06/12/22 08:20 Dose: 25 mg Lidocaine (Lidocaine 4 % Patch Adh..Patch) 1 patch TRANSDERMA BID [facility]; Protocol Last Admin: 06/12/22 08:20 Dose: 1 patch Magnesium Hydroxide (Milk Of Magnesia 30 Ml Oral.Susp) 30 ml PO DAILY PRN PRN Reason: Constipation Last Admin: 06/11/22 13:28 Dose: 30 ml Mirtazapine (Mirtazapine 7.5 Mg Tablet) 7.5 mg PO BEDTIME [facility] Last Admin: 06/11/22 20:48 Dose: 7.5 mg Nicotine Polacrilex (Nicotine Polacrilex 2 Mg Gum) 4 mg BUCCAL Q2H PRN PRN Reason: Nicotine Cravings Last Admin: 06/11/22 13:28 Dose: 4 mg Oxcarbazepine (Oxcarbazepine 300 Mg Tablet) 300 mg PO BID [facility] Last Admin: 06/12/22 08:20 Dose: 300 mg Quetiapine Fumarate (Quetiapine Fumarate 50 Mg Tablet) 50 mg PO BEDTIME [facility] Last Admin: 06/11/22 20:48 Dose: 50 mg Quetiapine Fumarate (Quetiapine Fumarate 50 Mg Tablet) 50 mg PO Q4H PRN PRN Reason: anxiety/insomnia Last Admin: 06/12/22 09:36 Dose: 50 mg Allergies Allergies Allergy/AdvReac Type Severity Reaction Status Date / Time bee pollen [BEE STINGS] Allergy Unknown ANAPHYLAXIS Verified 06/04/22 14:04 penicillin V Allergy Unknown Hives Verified 06/04/22 14:04 Penicillins [PCN] Allergy Unknown HIVES Verified 06/04/22 14:04 Assessment & Plan Assessment & Plan (1) Bipolar II disorder: Status: Acute Code(s): F31.81 - Bipolar II disorder (2) PTSD (post-traumatic stress disorder): Status: Acute Code(s): F43.10 - Post-traumatic stress disorder, unspecified (3) Alcohol use disorder, severe, in sustained remission: Status: Acute Code(s): F10.21 - Alcohol dependence, in remission Plan HPI Patient is a 37-year-old male with history of depression, anxiety and PTSD, alcohol abuse in sustained remission who presents for worsening depression and SI. Initial Impression/formulation -patient has severe history of childhood and adolescent trauma that is likely very contributory to which he agrees -patient also has severe depression and anxiety. Patient reports what sounds like possibly discrete hypomanic episodes with some biological loading for bipolar from his father; still it is unclear if his hypomanic episodes are just him having a reprieve from depression or if they point towards an actual bipolar disorder; will provisionally dose with bipolar depression but will also gather more collateral from his -patient agrees to continue Trileptal and Lexapro for now; discussed mood stabilizing medication and patient agrees to start Vraylar (risks/side effects discussed, patient has question and agrees to continue with this medicine); other mood stabilizing medications considered were read trial of lithium or perhaps Lamictal. Patient's initial bipolar diagnosis was from when he was 14 years old while living in a extremely chaotic, unsafe environment and given this context diagnosis at that age seems premature. It seems that on Trileptal and Celexa patient was doing overall well and no hypomanic type episodes Collateral: on 06/06: Patient's discussed potential hypomanic episode. She agrees that there are 2 weeks when he will be in a better mood however she describes it as enjoyable, relaxed and as if he is just feeling better about life, but his regular self, joking around appropriately and working on house projects which he enjoys to do; she denies that he is hyperactive, engages in any excessive spending during this time or that there is any change in his libido; she does not find him to have insomnia to any degree different from his chronic insomnia; she says he talks more and they will set and have more natural conversations but it is not pressured in any way. -junior copywriter leans away from diagnosis of bipolar disorder given his 's description and history of PTSD; however it still remains possible, that he is having a mild hypomanic episodes and he reports his father was diagnosed with bipolar disorder with clear manic episodes. Will leave as a provisional diagnosis for now however will also likely start Lamictal which can be helpful with PTSD and anxiety as well as bipolar depression if it is there, thus could supplant need for for Vraylar antipsychotic Hospital course: 06/06 patient reports anxiety a little better with PRNs however depression remains with lingering SI. Agrees to start Vraylar; agrees to continue with Lexapro but would like to taper off and discontinue Trileptal. After discussing patient's history with , junior copywriter will leave bipolar depression as provisional diagnosis given biological loading, however his hypomanic episodes may very well be explained by causes other than bipolar disorder. Will continue to assess. 06/07 depressed, intermittent SI but will be safe given love for family; engage in CBT exercise and revealed more about traumatic history. Started Lamictal. Before further raising Vraylar, will give patient a chance to see if addressing trauma can relieve some of his depressive feelings. 06/08 Continue current regime. 06/09/22: Increase Vraylar to 3 mg daily Discontinue Trazodone per pt request Remeron 7.5 mg hs trial Flexeril increase to address back pain UACS Dulcolax 10 mg x 1 dose Spinal xrays Possible need for urology consult 06/10 working dilligently on self, attending groups, doing CBT exercises; -reviewed Xray and only chronic mild/mod degenerative disc disease. -constipated, wonders if this is effecting his back pain; agrees to fleet enema -UA was intended to be ordered over weekend to r/o uti/kidney stone; ordered and WNL -was started on Remeron; will leave for now 06/11 continue current treatment plan 06/12 patient overall improving however struggling to accept that healing will take longer than he wants to do and that medication has a limited affect; agrees to increasing Lexapro and starting BuSpar. dc clonidine prn (pt thinks causes panic despite having been helpful daily unitl yesterday afternoon; pt trouble accepting panic likely coincided with taking clondine); Plan: CV Q 15 minute checks STARTed Buspar 10mg TiD prn (for anxiety; although normally for augmentation, some pt's find helpful as prn) Continue Remeron 7.5 mg q.h.s. INCREASED TO Lexapro 30mg (substituted for Celexa) since it seems to have been partially helpful and patient has significant PTSD Increased Seroquel qhs to 75mg (for continued interrupted sleep) Continue Trileptal to 300 mg b.i.d.; was partially helpful but patient wants to see if it makes a difference coming off this medication Continue Vraylar 3 mg daily for mood stability, bipolar depression; (Decided against lithium given hx of emotional numbing) continue Lamictal 25mg daily (for mood stability, PTSD, anxiety) DC'd clonidine PRN since pt felt it caused panic (though unlikely so) Changed to prn clonidine 0.2 mg prn at bedtime for insomnia; pt thinks causes panic DC trazodone pt says not working; DC gabapentin; patient says causes irritability DC hydroxyzine; patient says no longer works in causes irritability Patient educated on: diagnosis, medication risk/benefits, substance abuse and therapeutic strategies Informed Consent: understands Reason for contiued inpatient stay Substantial Risk for: med/psych decompensation Time Spent With Patient Time: Total time managing care of this patient today ____ minutes.
[2022-06-12] MEDS: Nicotine Polacrilex 2 MG GUM 4 MG BUCCAL ×4 (11:23→19:36)
[2022-06-12] MEDS: busPIRone HCl 10 MG TABLET PO ×2 (13:04→19:37)
[2022-06-12 18:00] VITALS: BP 124/82; PULSE 85; TEMP 36.8; O2SAT 96
[2022-06-12] MEDS: Doxepin HCl 25 MG CAPSULE 150 MG PO (21:19)
[2022-06-12] MEDS: Mirtazapine 7.5 MG TABLET PO (21:20)
[2022-06-12] MEDS: QUEtiapine Fumarate 25 MG TABLET 75 MG PO (21:20)
[2022-06-13] MEDS: Acetaminophen 325 MG TABLET 650 MG PO (00:14)
[2022-06-13] MEDS: Cyclobenzaprine HCl 5 MG TABLET 15 MG PO ×2 (01:15→13:23)
[2022-06-13] MEDS: Lidocaine 4 % Patch ADH..PATCH 1 PATCH TRANSDERMA ×2 (01:48→08:38)
[2022-06-13] MEDS: QUEtiapine Fumarate 50 MG TABLET PO ×3 (06:13→14:47)
[2022-06-13] MEDS: busPIRone HCl 10 MG TABLET PO ×3 (06:13→18:29)
[2022-06-13 08:30] VITALS: BP 125/87; PULSE 120; RESP 18; TEMP 36.4; O2SAT 96
[2022-06-13] MEDS: Cariprazine HCl 3 MG CAPSULE PO (08:36)
[2022-06-13] MEDS: lamoTRIgine 25 MG TABLET PO (08:36)
[2022-06-13] MEDS: OXcarbazepine 300 MG TABLET PO ×2 (08:36→21:03)
[2022-06-13] MEDS: Milk of Magnesia 30 ML ORAL.SUSP PO (08:36)
[2022-06-13] MEDS: Escitalopram Oxalate 10 MG TABLET 30 MG PO (08:36)
[2022-06-13 09:34] VITALS: BMI 31.5
[2022-06-13] MEDS: Nicotine Polacrilex 2 MG GUM 4 MG BUCCAL ×4 (12:22→21:03)
[2022-06-13] MEDS: Magnesium Hydrox/Alum Hydrox 30 ML ORAL.SUSP PO ×2 (12:54→21:43)
[2022-06-13] MEDS: cloNIDine HCL 0.2 MG TABLET PO (15:59)
[2022-06-13 18:00] VITALS: BP 142/89; PULSE 100; RESP 18; TEMP 36.7; O2SAT 98
[2022-06-13] MEDS: QUEtiapine Fumarate 25 MG TABLET 75 MG PO ×2 (18:29→21:02)
[2022-06-13] MEDS: Doxepin HCl 25 MG CAPSULE 150 MG PO (21:02)
[2022-06-13] MEDS: Mirtazapine 7.5 MG TABLET PO (21:03)
[2022-06-13] MEDS: Lidocaine 4 % Patch ADH..PATCH 2 PATCH TRANSDERMA (22:20)
[2022-06-14] MEDS: QUEtiapine Fumarate 25 MG TABLET 75 MG PO ×6 (03:16→21:37)
[2022-06-14] MEDS: busPIRone HCl 10 MG TABLET PO ×4 (06:34→20:05)
[2022-06-14] MEDS: Escitalopram Oxalate 10 MG TABLET 30 MG PO (08:00)
[2022-06-14] MEDS: Cariprazine HCl 3 MG CAPSULE PO (08:00)
[2022-06-14] MEDS: lamoTRIgine 25 MG TABLET PO (08:00)
[2022-06-14] MEDS: OXcarbazepine 300 MG TABLET PO ×2 (08:00→21:38)
[2022-06-14] MEDS: Lidocaine 4 % Patch ADH..PATCH 2 PATCH TRANSDERMA ×2 (08:01→21:38)
[2022-06-14] MEDS: Nicotine Polacrilex 2 MG GUM 4 MG BUCCAL ×5 (08:10→20:52)
[2022-06-14 08:58] VITALS: BP 122/71; PULSE 94; RESP 18; TEMP 36; O2SAT 96
--- NOTE | 2022-06-14 09:41 | P.PNPSI_ITS ---
Subjective Subjective Date of Service: 06/13/22 Reason For Visit: Depression Interim History: Late entry note for patient seen 06/13 Patient reports feeling much better today. He said that BuSpar significantly helped his anxiety. He does ask for increase in Seroquel p.r.n. but was very h appy to report that he is overall feeling much better. Also said slept well. Patient said he has regained hoping is getting more accepting that recovery will take years; patient for the 1st time discussed possible discharge next week. Patient agreed that clonidine probably was helpful and would like it back as a p.r.n. Mental Status Exam Mental Status Exam Narrative: Pt is alert and oriented; behavior is cooperative, friendly, calm; dressed in casual attire, clean shaven, but adequate hygiene; mood is described as better and affect congruent; eye contact appropriate; Speech is normal rate, volume and prosody and not pressured; no psychomotor retardation; thought process is organized and goal directed; Thought content is on traumatic past, treatment; otherwise pertinent to relevant topics and without any delusional content, paranoid ideations or grandiosity; noSI; no HI. There is no evidence of perceptual disturbance and denies AVH. Patients insight and judgment are impaired but improved and adequate. Diagnostics Vital Signs (24Hr): Vital Signs - 24 hr 06/13/22 18:00 06/14/22 08:58 Temperature 98.1 F 96.8 F Pulse Rate 100 94 Respiratory Rate 18 18 Blood Pressure 142/89 H 122/71 Pulse Oximetry 98 96 Oxygen Delivery Method Room Air Room Air BMI result Body Mass Index 31.5 Labs 06/03/22 20:53 06/03/22 20:58 Imaging Radiology Impressions: ITS Impressions Lumbar Spine X-Ray 06/09/22 13:55 IMPRESSION: * No acute findings. No fracture or malalignment of the lumbosacral spine. * [id number] discovertebral degenerative change at the lumbosacral junction. Medications Medications Current Medications Acetaminophen (Acetaminophen 325 Mg Tablet) 650 mg PO Q6H PRN PRN Reason: Headache/Pain Mild Scale (1-3) Last Admin: 06/13/22 00:14 Dose: 650 mg Al Hydroxide/Mg Hydroxide (Magnesium Hydrox/Alum Hydrox 30 Ml Oral.Susp) 30 ml PO Q6H PRN PRN Reason: Heartburn/Nausea Last Admin: 06/13/22 21:43 Dose: 30 ml Bisacodyl (Bisacodyl 5 Mg Tablet.Dr) 10 mg PO DAILY PRN PRN Reason: Constipation Buspirone HCl (Buspirone Hcl 10 Mg Tablet) 10 mg PO Q4H PRN PRN Reason: Anxiety Last Admin: 06/14/22 06:34 Dose: 10 mg Cariprazine (Cariprazine Hcl 3 Mg Capsule) 3 mg PO DAILY [facility] Last Admin: 06/14/22 08:00 Dose: 3 mg Clonidine HCl (Clonidine Hcl 0.2 Mg Tablet) 0.2 mg PO BEDTIME PRN; Protocol PRN Reason: anxiety/insomnia Last Admin: 06/13/22 15:59 Dose: 0.2 mg Clonidine HCl (Clonidine Hcl 0.2 Mg Tablet) 0.2 mg PO Q4H PRN; Protocol PRN Reason: anxiety/insomnia Cyclobenzaprine HCl (Cyclobenzaprine Hcl 5 Mg Tablet) 15 mg PO Q6H PRN PRN Reason: muscle spasm Last Admin: 06/13/22 13:23 Dose: 15 mg Doxepin HCl (Doxepin Hcl 25 Mg Capsule) 150 mg PO BEDTIME [facility] Last Admin: 06/13/22 21:02 Dose: 150 mg Escitalopram Oxalate (Escitalopram Oxalate 10 Mg Tablet) 30 mg PO DAILY [facility] Last Admin: 06/14/22 08:00 Dose: 30 mg Lamotrigine (Lamotrigine 25 Mg Tablet) 25 mg PO DAILY [facility] Last Admin: 06/14/22 08:00 Dose: 25 mg Lidocaine (Lidocaine 4 % Patch Adh..Patch) 2 patch TRANSDERMA BID [facility]; Protocol Last Admin: 06/14/22 08:01 Dose: 2 patch Magnesium Hydroxide (Milk Of Magnesia 30 Ml Oral.Susp) 30 ml PO DAILY PRN PRN Reason: Constipation Last Admin: 06/13/22 08:36 Dose: 30 ml Mirtazapine (Mirtazapine 7.5 Mg Tablet) 7.5 mg PO BEDTIME [facility] Last Admin: 06/13/22 21:03 Dose: 7.5 mg Nicotine Polacrilex (Nicotine Polacrilex 2 Mg Gum) 4 mg BUCCAL Q2H PRN PRN Reason: Nicotine Cravings Last Admin: 06/14/22 08:10 Dose: 4 mg Oxcarbazepine (Oxcarbazepine 300 Mg Tablet) 300 mg PO BID [facility] Last Admin: 06/14/22 08:00 Dose: 300 mg Quetiapine Fumarate (Quetiapine Fumarate 25 Mg Tablet) 75 mg PO BEDTIME [facility] Last Admin: 06/13/22 21:02 Dose: 75 mg Quetiapine Fumarate (Quetiapine Fumarate 25 Mg Tablet) 75 mg PO Q4H PRN PRN Reason: anxiety/insomnia Last Admin: 06/14/22 07:16 Dose: 75 mg Allergies Allergies Allergy/AdvReac Type Severity Reaction Status Date / Time bee pollen [BEE STINGS] Allergy Unknown ANAPHYLAXIS Verified 06/04/22 14:04 penicillin V Allergy Unknown Hives Verified 06/04/22 14:04 Penicillins [PCN] Allergy Unknown HIVES Verified 06/04/22 14:04 Assessment & Plan Assessment & Plan (1) Bipolar II disorder: Status: Acute Code(s): F31.81 - Bipolar II disorder (2) PTSD (post-traumatic stress disorder): Status: Acute Code(s): F43.10 - Post-traumatic stress disorder, unspecified (3) Alcohol use disorder, severe, in sustained remission: Status: Acute Code(s): F10.21 - Alcohol dependence, in remission Plan HPI Patient is a 37-year-old male with history of depression, anxiety and PTSD, alcohol abuse in sustained remission who presents for worsening depression and SI. Initial Impression/formulation -patient has severe history of childhood and adolescent trauma that is likely very contributory to which he agrees -patient also has severe depression and anxiety. Patient reports what sounds like possibly discrete hypomanic episodes with some biological loading for bipolar from his father; still it is unclear if his hypomanic episodes are just him having a reprieve from depression or if they point towards an actual bipolar disorder; will provisionally dose with bipolar depression but will also gather more collateral from his -patient agrees to continue Trileptal and Lexapro for now; discussed mood stabilizing medication and patient agrees to start Vraylar (risks/side effects discussed, patient has question and agrees to continue with this medicine); other mood stabilizing medications considered were read trial of lithium or perhaps Lamictal. Patient's initial bipolar diagnosis was from when he was 14 years old while living in a extremely chaotic, unsafe environment and given this context diagnosis at that age seems premature. It seems that on Trileptal and Celexa patient was doing overall well and no hypomanic type episodes Collateral: on 06/06: Patient's discussed potential hypomanic episode. She agrees that there are 2 weeks when he will be in a better mood however she describes it as enjoyable, relaxed and as if he is just feeling better about life, but his regular self, joking around appropriately and working on house projects which he enjoys to do; she denies that he is hyperactive, engages in any excessive spending during this time or that there is any change in his libido; she does not find him to have insomnia to any degree different from his chronic insomnia; she says he talks more and they will set and have more natural conversations but it is not pressured in any way. -race and sports book writer leans away from diagnosis of bipolar disorder given his 's description and history of PTSD; however it still remains possible, that he is having a mild hypomanic episodes and he reports his father was diagnosed with bipolar disorder with clear manic episodes. Will leave as a provisional diagnosis for now however will also likely start Lamictal which can be helpful with PTSD and anxiety as well as bipolar depression if it is there, thus could supplant need for for Vraylar antipsychotic Hospital course: 06/06 patient reports anxiety a little better with PRNs however depression remains with lingering SI. Agrees to start Vraylar; agrees to continue with Lexapro but would like to taper off and discontinue Trileptal. After discussing patient's history with , race and sports book writer will leave bipolar depression as provisional diagnosis given biological loading, however his hypomanic episodes may very well be explained by causes other than bipolar disorder. Will continue to assess. 06/07 depressed, intermittent SI but will be safe given love for family; engage in CBT exercise and revealed more about traumatic history. Started Lamictal. Before further raising Vraylar, will give patient a chance to see if addressing trauma can relieve some of his depressive feelings. 06/08 Continue current regime. 06/09/22: Increase Vraylar to 3 mg daily Discontinue Trazodone per pt request Remeron 7.5 mg hs trial Flexeril increase to address back pain UACS Dulcolax 10 mg x 1 dose Spinal xrays Possible need for urology consult 06/10 working dilligently on self, attending groups, doing CBT exercises; -reviewed Xray and only chronic mild/mod degenerative disc disease. -constipated, wonders if this is effecting his back pain; agrees to fleet enema -UA was intended to be ordered over weekend to r/o uti/kidney stone; ordered and WNL -was started on Remeron; will leave for now 06/11 continue current treatment plan 06/12 patient overall improving however struggling to accept that healing will take longer than he wants to do and that medication has a limited affect; agrees to increasing Lexapro and starting BuSpar. dc clonidine prn (pt thinks causes panic despite having been helpful daily unitl yesterday afternoon; pt trouble accepting panic likely coincided with taking clondine); 06/13 improved mood, less anxiety, medications helping; says wants to try clonidine and again. Hopefully patient is turning the corner will continue to monitor Plan: CV Q 15 minute checks Continue Buspar 10mg q.i.d. prn (for anxiety; although normally for augmentation, some pt's find helpful as prn) Continue Remeron 7.5 mg q.h.s. Continue Lexapro 30mg (substituted for Celexa) since it seems to have been partially helpful and patient has significant PTSD Increased Seroquel qhs to 75mg (for continued interrupted sleep) Continue Trileptal to 300 mg b.i.d.; was partially helpful but patient wants to see if it makes a difference coming off this medication Continue Vraylar 3 mg daily for mood stability, bipolar depression; (Decided against lithium given hx of emotional numbing) continue Lamictal 25mg daily (for mood stability, PTSD, anxiety) Restarted clonidine PRN DC trazodone pt says not working; DC gabapentin; patient says causes irritability DC hydroxyzine; patient says no longer works in causes irritability Patient educated on: diagnosis, medication risk/benefits and therapeutic strategies Informed Consent: understands Reason for contiued inpatient stay Substantial Risk for: stable for discharge Time Spent With Patient Time: Total time managing care of this patient today ____ minutes.
--- NOTE | 2022-06-14 09:44 | P.PNPSI_ITS ---
Subjective Subjective Date of Service: 06/14/22 Reason For Visit: Depression Interim History: Met with patient; discussed with team Patient reports feeling much better. He says he slept well and woke up feeling good hopeful and future oriented. He says that he thinks his outlook is ch anged the most. Patient wants to stay a few more days to make sure that he remains stable but is hopeful about discharging next week. Discussed how ups and Downs and ones mood is normal and patient says that he will be able to whether fluctuations Mental Status Exam Mental Status Exam Narrative: Pt is alert and oriented; behavior is cooperative, friendly, calm; dressed in casual attire, clean shaven, but adequate hygiene; mood is described as good and affect congruent, noticeably brighter affect; eye contact appropriate; Speech is normal rate, volume and prosody and not pressured; no psychomotor retardation; thought process is organized and goal directed; Thought content is on traumatic past, treatment; otherwise pertinent to relevant topics and without any delusional content, paranoid ideations or grandiosity; noSI; no HI. There is no evidence of perceptual disturbance and denies AVH. Patients insight and judgment are impaired but improved and adequate. Diagnostics Vital Signs (24Hr): Vital Signs - 24 hr 06/13/22 18:00 06/14/22 08:58 Temperature 98.1 F 96.8 F Pulse Rate 100 94 Respiratory Rate 18 18 Blood Pressure 142/89 H 122/71 Pulse Oximetry 98 96 Oxygen Delivery Method Room Air Room Air BMI result Body Mass Index 31.5 Labs 06/03/22 20:53 06/03/22 20:58 Imaging Radiology Impressions: ITS Impressions Lumbar Spine X-Ray 06/09/22 13:55 IMPRESSION: * No acute findings. No fracture or malalignment of the lumbosacral spine. * [id number] discovertebral degenerative change at the lumbosacral junction. Medications Medications Current Medications Acetaminophen (Acetaminophen 325 Mg Tablet) 650 mg PO Q6H PRN PRN Reason: Headache/Pain Mild Scale (1-3) Last Admin: 06/13/22 00:14 Dose: 650 mg Al Hydroxide/Mg Hydroxide (Magnesium Hydrox/Alum Hydrox 30 Ml Oral.Susp) 30 ml PO Q6H PRN PRN Reason: Heartburn/Nausea Last Admin: 06/13/22 21:43 Dose: 30 ml Bisacodyl (Bisacodyl 5 Mg Tablet.Dr) 10 mg PO DAILY PRN PRN Reason: Constipation Buspirone HCl (Buspirone Hcl 10 Mg Tablet) 10 mg PO Q4H PRN PRN Reason: Anxiety Last Admin: 06/14/22 06:34 Dose: 10 mg Cariprazine (Cariprazine Hcl 3 Mg Capsule) 3 mg PO DAILY [facility] Last Admin: 06/14/22 08:00 Dose: 3 mg Clonidine HCl (Clonidine Hcl 0.2 Mg Tablet) 0.2 mg PO BEDTIME PRN; Protocol PRN Reason: anxiety/insomnia Last Admin: 06/13/22 15:59 Dose: 0.2 mg Clonidine HCl (Clonidine Hcl 0.2 Mg Tablet) 0.2 mg PO Q4H PRN; Protocol PRN Reason: anxiety/insomnia Cyclobenzaprine HCl (Cyclobenzaprine Hcl 5 Mg Tablet) 15 mg PO Q6H PRN PRN Reason: muscle spasm Last Admin: 06/13/22 13:23 Dose: 15 mg Doxepin HCl (Doxepin Hcl 25 Mg Capsule) 150 mg PO BEDTIME [facility] Last Admin: 06/13/22 21:02 Dose: 150 mg Escitalopram Oxalate (Escitalopram Oxalate 10 Mg Tablet) 30 mg PO DAILY [facility] Last Admin: 06/14/22 08:00 Dose: 30 mg Lamotrigine (Lamotrigine 25 Mg Tablet) 25 mg PO DAILY [facility] Last Admin: 06/14/22 08:00 Dose: 25 mg Lidocaine (Lidocaine 4 % Patch Adh..Patch) 2 patch TRANSDERMA BID [facility]; Protocol Last Admin: 06/14/22 08:01 Dose: 2 patch Magnesium Hydroxide (Milk Of Magnesia 30 Ml Oral.Susp) 30 ml PO DAILY PRN PRN Reason: Constipation Last Admin: 06/13/22 08:36 Dose: 30 ml Mirtazapine (Mirtazapine 7.5 Mg Tablet) 7.5 mg PO BEDTIME [facility] Last Admin: 06/13/22 21:03 Dose: 7.5 mg Nicotine Polacrilex (Nicotine Polacrilex 2 Mg Gum) 4 mg BUCCAL Q2H PRN PRN Reason: Nicotine Cravings Last Admin: 06/14/22 08:10 Dose: 4 mg Oxcarbazepine (Oxcarbazepine 300 Mg Tablet) 300 mg PO BID [facility] Last Admin: 06/14/22 08:00 Dose: 300 mg Quetiapine Fumarate (Quetiapine Fumarate 25 Mg Tablet) 75 mg PO BEDTIME [facility] Last Admin: 06/13/22 21:02 Dose: 75 mg Quetiapine Fumarate (Quetiapine Fumarate 25 Mg Tablet) 75 mg PO Q4H PRN PRN Reason: anxiety/insomnia Last Admin: 06/14/22 07:16 Dose: 75 mg Allergies Allergies Allergy/AdvReac Type Severity Reaction Status Date / Time bee pollen [BEE STINGS] Allergy Unknown ANAPHYLAXIS Verified 06/04/22 14:04 penicillin V Allergy Unknown Hives Verified 06/04/22 14:04 Penicillins [PCN] Allergy Unknown HIVES Verified 06/04/22 14:04 Assessment & Plan Assessment & Plan (1) Bipolar II disorder: Status: Acute Code(s): F31.81 - Bipolar II disorder (2) PTSD (post-traumatic stress disorder): Status: Acute Code(s): F43.10 - Post-traumatic stress disorder, unspecified (3) Alcohol use disorder, severe, in sustained remission: Status: Acute Code(s): F10.21 - Alcohol dependence, in remission Plan HPI Patient is a 37-year-old male with history of depression, anxiety and PTSD, alcohol abuse in sustained remission who presents for worsening depression and SI. Initial Impression/formulation -patient has severe history of childhood and adolescent trauma that is likely very contributory to which he agrees -patient also has severe depression and anxiety. Patient reports what sounds like possibly discrete hypomanic episodes with some biological loading for bipolar from his father; still it is unclear if his hypomanic episodes are just him having a reprieve from depression or if they point towards an actual bipolar disorder; will provisionally dose with bipolar depression but will also gather more collateral from his -patient agrees to continue Trileptal and Lexapro for now; discussed mood stabilizing medication and patient agrees to start Vraylar (risks/side effects discussed, patient has question and agrees to continue with this medicine); other mood stabilizing medications considered were read trial of lithium or perhaps Lamictal. Patient's initial bipolar diagnosis was from when he was 14 years old while living in a extremely chaotic, unsafe environment and given this context diagnosis at that age seems premature. It seems that on Trileptal and Celexa patient was doing overall well and no hypomanic type episodes Collateral: on 06/06: Patient's discussed potential hypomanic episode. She agrees that there are 2 weeks when he will be in a better mood however she describes it as enjoyable, relaxed and as if he is just feeling better about life, but his regular self, joking around appropriately and working on house projects which he enjoys to do; she denies that he is hyperactive, engages in any excessive spending during this time or that there is any change in his libido; she does not find him to have insomnia to any degree different from his chronic insomnia; she says he talks more and they will set and have more natural conversations but it is not pressured in any way. -com writer leans away from diagnosis of bipolar disorder given his 's description and history of PTSD; however it still remains possible, that he is having a mild hypomanic episodes and he reports his father was diagnosed with bipolar disorder with clear manic episodes. Will leave as a provisional diagnosis for now however will also likely start Lamictal which can be helpful with PTSD and anxiety as well as bipolar depression if it is there, thus could supplant need for for Vraylar antipsychotic Hospital course: 06/06 patient reports anxiety a little better with PRNs however depression remains with lingering SI. Agrees to start Vraylar; agrees to continue with Lexapro but would like to taper off and discontinue Trileptal. After discussing patient's history with , com writer will leave bipolar depression as provisional diagnosis given biological loading, however his hypomanic episodes may very well be explained by causes other than bipolar disorder. Will continue to assess. 06/07 depressed, intermittent SI but will be safe given love for family; engage in CBT exercise and revealed more about traumatic history. Started Lamictal. Before further raising Vraylar, will give patient a chance to see if addressing trauma can relieve some of his depressive feelings. 06/08 Continue current regime. 06/09/22: Increase Vraylar to 3 mg daily 06/10 working dilligently on self, attending groups, doing CBT exercises; -reviewed Xray and only chronic mild/mod degenerative disc disease. -constipated, wonders if this is effecting his back pain; agrees to fleet enema -UA was intended to be ordered over weekend to r/o uti/kidney stone; ordered and WNL -was started on Remeron; will leave for now 06/11 continue current treatment plan 06/12 patient overall improving however struggling to accept that healing will take longer than he wants to do and that medication has a limited affect; agrees to increasing Lexapro and starting BuSpar. dc clonidine prn (pt thinks causes panic despite having been helpful daily unitl yesterday afternoon; pt trouble accepting panic likely coincided with taking clondine); 06/13 improved mood, less anxiety, medications helping; says wants to try clonidine and again. Hopefully patient is turning the corner will continue to monitor 06/14 much improved; continue current regimen Plan: CV Q 15 minute checks Continue Buspar 10mg q.i.d. prn (for anxiety; although normally for augmentation, some pt's find helpful as prn) Continue Remeron 7.5 mg q.h.s. Continue Lexapro 30mg (substituted for Celexa) since it seems to have been partially helpful and patient has significant PTSD Increased Seroquel qhs to 75mg (for continued interrupted sleep) Continue Trileptal to 300 mg b.i.d.; was partially helpful but patient wants to see if it makes a difference coming off this medication Continue Vraylar 3 mg daily for mood stability, bipolar depression; (Decided against lithium given hx of emotional numbing) continue Lamictal 25mg daily (for mood stability, PTSD, anxiety) Restarted clonidine PRN DC trazodone pt says not working; DC gabapentin; patient says causes irritability DC hydroxyzine; patient says no longer works in causes irritability Patient educated on: diagnosis and medication risk/benefits Informed Consent: understands Reason for contiued inpatient stay Substantial Risk for: stable for discharge Time Spent With Patient Time: Total time managing care of this patient today ____ minutes.
[2022-06-14] MEDS: Cyclobenzaprine HCl 5 MG TABLET 15 MG PO (13:57)
[2022-06-14] MEDS: cloNIDine HCL 0.2 MG TABLET PO ×2 (13:57→18:12)
[2022-06-14 13:58] VITALS: BP 146/77; PULSE 125
[2022-06-14 18:00] VITALS: BP 138/77; PULSE 100; RESP 18; O2SAT 98
[2022-06-14] MEDS: Doxepin HCl 25 MG CAPSULE 150 MG PO (21:38)
[2022-06-14] MEDS: Mirtazapine 7.5 MG TABLET PO (21:38)
[2022-06-15] MEDS: QUEtiapine Fumarate 25 MG TABLET 75 MG PO ×5 (04:42→20:46)
[2022-06-15] MEDS: busPIRone HCl 10 MG TABLET PO ×5 (04:42→20:46)
[2022-06-15] MEDS: Cyclobenzaprine HCl 5 MG TABLET 15 MG PO (06:41)
[2022-06-15] MEDS: Escitalopram Oxalate 10 MG TABLET 30 MG PO (07:52)
[2022-06-15] MEDS: lamoTRIgine 25 MG TABLET PO (07:53)
[2022-06-15] MEDS: Cariprazine HCl 3 MG CAPSULE PO (07:53)
[2022-06-15] MEDS: OXcarbazepine 300 MG TABLET PO ×2 (07:53→21:43)
[2022-06-15] MEDS: Lidocaine 4 % Patch ADH..PATCH 2 PATCH TRANSDERMA ×2 (07:53→21:42)
[2022-06-15 08:05] VITALS: BP 115/70; PULSE 117; RESP 18; TEMP 36.6; O2SAT 93
[2022-06-15] MEDS: Nicotine Polacrilex 2 MG GUM 4 MG BUCCAL ×5 (08:08→20:46)
[2022-06-15 12:47] VITALS: BP 132/78; PULSE 108
[2022-06-15] MEDS: cloNIDine HCL 0.2 MG TABLET PO ×3 (12:49→20:47)
--- NOTE | 2022-06-15 16:49 | HO.PSYCHPN ---
Subjective Subjective Date of Service: 06/15/22 Reason For Visit: Depression Subjective Notes: Conditional Voluntary Interim History: Met with patient; Patient reports feeling better. He says he slept well; He is hopeful and future oriented. He is hopeful about discharging next week. Denies SI or HI Medication Compliance: Yes Side effects from medications: No Attending Groups: Intermittent Review of Systems Acute medical concerns: No Review of Systems Review of Systems Constitutional: No Fever, No Chills Cardiovascular: No Chest Pain, No SOB Respiratory: No Cough, No Sputum, No Dyspnea Gastrointestinal: No Nausea, No Vomiting, No Diarrhea Genitourinary: No Dysuria, No Urinary Frequency, No Hematuria Musculoskeletal: No Myalgias Skin: No Skin Lesions, No rash Neuro: No Weakness, No Numbness, No Paresthesias, No Dizziness, No Headache Psych: positive Anxiety, positive Depression, positive SI Yes all other systems are reviewed and are negative Mental Status Exam Mental Status Exam Narrative: Pt is alert and oriented; behavior is cooperative, friendly, calm; dressed in casual attire, clean shaven, but adequate hygiene; mood is described as good and affect congruent, noticeably brighter affect; eye contact appropriate; Speech is normal rate, volume and prosody and not pressured; no psychomotor retardation; thought process is organized and goal directed; Thought content is on traumatic past, treatment; otherwise pertinent to relevant topics and without any delusional content, paranoid ideations or grandiosity; noSI; no HI. There is no evidence of perceptual disturbance and denies AVH. Patients insight and judgment are impaired but improved and adequate. Patient Appearance: Appropriate Patient Orientation: Person, Place, Time and Situation Level of Consciousness: Alert Patient Behavior: Talkative and Good Eye Contact Mood Description: Constricted Affect Description: Constricted Patient Cognition Impaired: No Ability to Follow Directions: Good Speech Pattern: Spontaneous Speech Memory Description: Intact Diagnostics Vital Signs (24Hr): Vital Signs - 24 hr 06/14/22 18:00 06/15/22 08:05 06/15/22 12:47 Temperature 97.8 F Pulse Rate 100 117 H 108 H Respiratory Rate 18 18 Blood Pressure 138/77 115/70 132/78 Pulse Oximetry 98 93 Oxygen Delivery Method Room Air Room Air BMI result Body Mass Index 31.5 Labs 06/03/22 20:53 06/03/22 20:58 Imaging Radiology Impressions: ITS Impressions Lumbar Spine X-Ray 06/09/22 13:55 IMPRESSION: * No acute findings. No fracture or malalignment of the lumbosacral spine. * [id number] discovertebral degenerative change at the lumbosacral junction. Medications Medications Current Medications Acetaminophen (Acetaminophen 325 Mg Tablet) 650 mg PO Q6H PRN PRN Reason: Headache/Pain Mild Scale (1-3) Last Admin: 06/13/22 00:14 Dose: 650 mg Al Hydroxide/Mg Hydroxide (Magnesium Hydrox/Alum Hydrox 30 Ml Oral.Susp) 30 ml PO Q6H PRN PRN Reason: Heartburn/Nausea Last Admin: 06/13/22 21:43 Dose: 30 ml Bisacodyl (Bisacodyl 5 Mg Tablet.Dr) 10 mg PO DAILY PRN PRN Reason: Constipation Buspirone HCl (Buspirone Hcl 10 Mg Tablet) 10 mg PO Q4H PRN PRN Reason: Anxiety Last Admin: 06/15/22 12:49 Dose: 10 mg Cariprazine (Cariprazine Hcl 3 Mg Capsule) 3 mg PO DAILY [facility] Last Admin: 06/15/22 07:53 Dose: 3 mg Clonidine HCl (Clonidine Hcl 0.2 Mg Tablet) 0.2 mg PO BEDTIME PRN; Protocol PRN Reason: anxiety/insomnia Last Admin: 06/13/22 15:59 Dose: 0.2 mg Clonidine HCl (Clonidine Hcl 0.2 Mg Tablet) 0.2 mg PO Q4H PRN; Protocol PRN Reason: anxiety/insomnia Last Admin: 06/15/22 12:49 Dose: 0.2 mg Cyclobenzaprine HCl (Cyclobenzaprine Hcl 5 Mg Tablet) 15 mg PO Q6H PRN PRN Reason: muscle spasm Last Admin: 06/15/22 06:41 Dose: 15 mg Doxepin HCl (Doxepin Hcl 25 Mg Capsule) 150 mg PO BEDTIME [facility] Last Admin: 06/14/22 21:38 Dose: 150 mg Escitalopram Oxalate (Escitalopram Oxalate 10 Mg Tablet) 30 mg PO DAILY [facility] Last Admin: 06/15/22 07:52 Dose: 30 mg Lamotrigine (Lamotrigine 25 Mg Tablet) 25 mg PO DAILY [facility] Last Admin: 06/15/22 07:53 Dose: 25 mg Lidocaine (Lidocaine 4 % Patch Adh..Patch) 2 patch TRANSDERMA BID [facility]; Protocol Last Admin: 06/15/22 07:53 Dose: 2 patch Magnesium Hydroxide (Milk Of Magnesia 30 Ml Oral.Susp) 30 ml PO DAILY PRN PRN Reason: Constipation Last Admin: 06/13/22 08:36 Dose: 30 ml Mirtazapine (Mirtazapine 7.5 Mg Tablet) 7.5 mg PO BEDTIME [facility] Last Admin: 06/14/22 21:38 Dose: 7.5 mg Nicotine Polacrilex (Nicotine Polacrilex 2 Mg Gum) 4 mg BUCCAL Q2H PRN PRN Reason: Nicotine Cravings Last Admin: 06/15/22 15:12 Dose: 4 mg Oxcarbazepine (Oxcarbazepine 300 Mg Tablet) 300 mg PO BID [facility] Last Admin: 06/15/22 07:53 Dose: 300 mg Quetiapine Fumarate (Quetiapine Fumarate 25 Mg Tablet) 75 mg PO BEDTIME [facility] Last Admin: 06/14/22 21:37 Dose: 75 mg Quetiapine Fumarate (Quetiapine Fumarate 25 Mg Tablet) 75 mg PO Q4H PRN PRN Reason: anxiety/insomnia Last Admin: 06/15/22 12:48 Dose: 75 mg Allergies Allergies Allergy/AdvReac Type Severity Reaction Status Date / Time bee pollen [BEE STINGS] Allergy Unknown ANAPHYLAXIS Verified 06/04/22 14:04 penicillin V Allergy Unknown Hives Verified 06/04/22 14:04 Penicillins [PCN] Allergy Unknown HIVES Verified 06/04/22 14:04 Assessment & Plan Assessment & Plan (1) Bipolar II disorder: Status: Acute Code(s): F31.81 - Bipolar II disorder (2) PTSD (post-traumatic stress disorder): Status: Acute Code(s): F43.10 - Post-traumatic stress disorder, unspecified (3) Alcohol use disorder, severe, in sustained remission: Status: Acute Code(s): F10.21 - Alcohol dependence, in remission Plan HPI Patient is a 37-year-old male with history of depression, anxiety and PTSD, alcohol abuse in sustained remission who presents for worsening depression and SI. Initial Impression/formulation -patient has severe history of childhood and adolescent trauma that is likely very contributory to which he agrees -patient also has severe depression and anxiety. Patient reports what sounds like possibly discrete hypomanic episodes with some biological loading for bipolar from his father; still it is unclear if his hypomanic episodes are just him having a reprieve from depression or if they point towards an actual bipolar disorder; will provisionally dose with bipolar depression but will also gather more collateral from his -patient agrees to continue Trileptal and Lexapro for now; discussed mood stabilizing medication and patient agrees to start Vraylar (risks/side effects discussed, patient has question and agrees to continue with this medicine); other mood stabilizing medications considered were read trial of lithium or perhaps Lamictal. Patient's initial bipolar diagnosis was from when he was 14 years old while living in a extremely chaotic, unsafe environment and given this context diagnosis at that age seems premature. It seems that on Trileptal and Celexa patient was doing overall well and no hypomanic type episodes Collateral: on 06/06: Patient's discussed potential hypomanic episode. She agrees that there are 2 weeks when he will be in a better mood however she describes it as enjoyable, relaxed and as if he is just feeling better about life, but his regular self, joking around appropriately and working on house projects which he enjoys to do; she denies that he is hyperactive, engages in any excessive spending during this time or that there is any change in his libido; she does not find him to have insomnia to any degree different from his chronic insomnia; she says he talks more and they will set and have more natural conversations but it is not pressured in any way. -proposal lead writer leans away from diagnosis of bipolar disorder given his 's description and history of PTSD; however it still remains possible, that he is having a mild hypomanic episodes and he reports his father was diagnosed with bipolar disorder with clear manic episodes. Will leave as a provisional diagnosis for now however will also likely start Lamictal which can be helpful with PTSD and anxiety as well as bipolar depression if it is there, thus could supplant need for for Vraylar antipsychotic Hospital course: 06/06 patient reports anxiety a little better with PRNs however depression remains with lingering SI. Agrees to start Vraylar; agrees to continue with Lexapro but would like to taper off and discontinue Trileptal. After discussing patient's history with , proposal lead writer will leave bipolar depression as provisional diagnosis given biological loading, however his hypomanic episodes may very well be explained by causes other than bipolar disorder. Will continue to assess. 06/07 depressed, intermittent SI but will be safe given love for family; engage in CBT exercise and revealed more about traumatic history. Started Lamictal. Before further raising Vraylar, will give patient a chance to see if addressing trauma can relieve some of his depressive feelings. 06/08 Continue current regime. 06/09/22: Increase Vraylar to 3 mg daily 06/10 working dilligently on self, attending groups, doing CBT exercises; -reviewed Xray and only chronic mild/mod degenerative disc disease. -constipated, wonders if this is effecting his back pain; agrees to fleet enema -UA was intended to be ordered over weekend to r/o uti/kidney stone; ordered and WNL -was started on Remeron; will leave for now 06/11 continue current treatment plan 06/12 patient overall improving however struggling to accept that healing will take longer than he wants to do and that medication has a limited affect; agrees to increasing Lexapro and starting BuSpar. dc clonidine prn (pt thinks causes panic despite having been helpful daily unitl yesterday afternoon; pt trouble accepting panic likely coincided with taking clondine); 06/13 improved mood, less anxiety, medications helping; says wants to try clonidine and again. Hopefully patient is turning the corner will continue to monitor 06/14 much improved; continue current regimen 06/15 continue current treatment plan Plan: CV Q 15 minute checks Continue Buspar 10mg q.i.d. prn (for anxiety; although normally for augmentation, some pt's find helpful as prn) Continue Remeron 7.5 mg q.h.s. Continue Lexapro 30mg (substituted for Celexa) since it seems to have been partially helpful and patient has significant PTSD Increased Seroquel qhs to 75mg (for continued interrupted sleep) Continue Trileptal to 300 mg b.i.d.; was partially helpful but patient wants to see if it makes a difference coming off this medication Continue Vraylar 3 mg daily for mood stability, bipolar depression; (Decided against lithium given hx of emotional numbing) continue Lamictal 25mg daily (for mood stability, PTSD, anxiety) Restarted clonidine PRN DC trazodone pt says not working; DC gabapentin; patient says causes irritability DC hydroxyzine; patient says no longer works in causes irritability Reason for contiued inpatient stay Substantial Risk for: harm to self, inability to function and rapid decompensation Time Spent With Patient Time: Total time managing care of this patient today ____ minutes.
[2022-06-15 16:55] VITALS: BP 133/72; PULSE 110; RESP 14; TEMP 36.7
[2022-06-15 20:45] VITALS: BP 123/72; PULSE 105; TEMP 36.5; O2SAT 98
[2022-06-15] MEDS: Doxepin HCl 25 MG CAPSULE 150 MG PO (21:43)
[2022-06-15] MEDS: Mirtazapine 7.5 MG TABLET PO (21:45)
[2022-06-16 05:15] VITALS: BP 119/59; PULSE 100
[2022-06-16] MEDS: QUEtiapine Fumarate 25 MG TABLET 75 MG PO ×5 (05:16→22:31)
[2022-06-16] MEDS: cloNIDine HCL 0.2 MG TABLET PO ×5 (05:17→22:53)
[2022-06-16] MEDS: busPIRone HCl 10 MG TABLET PO ×4 (05:18→22:53)
[2022-06-16] MEDS: Nicotine Polacrilex 2 MG GUM 4 MG BUCCAL ×5 (07:15→20:01)
[2022-06-16] MEDS: Cariprazine HCl 3 MG CAPSULE PO (08:01)
[2022-06-16] MEDS: OXcarbazepine 300 MG TABLET PO ×2 (08:01→22:30)
[2022-06-16] MEDS: lamoTRIgine 25 MG TABLET PO (08:01)
[2022-06-16] MEDS: Escitalopram Oxalate 10 MG TABLET 30 MG PO (08:01)
[2022-06-16] MEDS: Lidocaine 4 % Patch ADH..PATCH 2 PATCH TRANSDERMA ×2 (08:02→22:31)
[2022-06-16 08:38] VITALS: BP 124/72; PULSE 100; RESP 18; TEMP 36.6; O2SAT 97
[2022-06-16 10:37] LABS: Appearance Urine Clear; Color Urine Yellow; Glucose Urine UA Negative (Negative); Leukocyte Esterase Urine Negative (Negative); Nitrite Urine Negative (Negative); PH 6.5 (5.0-9.0); Specific Gravity - Urine <= 1.005 (1.005-1.025); Urine Blood Negative (Negative); Urine Ketones 15 mg/dL (Negative); Urine Protein Negative (Neg-Trace)
--- NOTE | 2022-06-16 13:27 | HO.PSYCHPN ---
Subjective Subjective Date of Service: 06/16/22 Reason For Visit: Depression Subjective Notes: Conditional Voluntary Interim History: pt reports anxiety and feeling triggered by incidents on unit; using coping skills; helpful to other patients; no SI or HI Medication Compliance: Yes Side effects from medications: No Attending Groups: Yes Review of Systems Medical Review of Systems: unchanged Review of Systems Review of Systems UA negative Yes all other systems are reviewed and are negative Mental Status Exam Mental Status Exam Narrative: Pt is alert and oriented; behavior is cooperative, friendly, anxious; dressed in casual attire, clean shaven, good hygiene; mood is described as good and affect congruent, noticeably brighter affect; eye contact appropriate; Speech is normal rate, volume and prosody and not pressured; no psychomotor retardation; thought process is organized and goal directed; Thought content is on discharge and future, treatment; no delusional content, no paranoid ideations or grandiosity; no SI; no HI. There is no evidence of perceptual disturbance and denies AVH. Patients insight and judgment are good Patient Appearance: Appropriate Patient Orientation: Person, Place, Time and Situation Level of Consciousness: Alert Patient Behavior: Talkative and Good Eye Contact Mood Description: Constricted Affect Description: Constricted Patient Cognition Impaired: No Ability to Follow Directions: Good Speech Pattern: Spontaneous Speech Memory Description: Intact Diagnostics Vital Signs (24Hr): Vital Signs - 24 hr 06/15/22 16:55 06/15/22 20:45 06/16/22 05:15 Temperature 98.1 F 97.7 F Pulse Rate 110 H 105 H 100 Respiratory Rate 14 Blood Pressure 133/72 123/72 119/59 L Pulse Oximetry 98 Oxygen Delivery Method Room Air 06/16/22 08:38 Temperature 97.8 F Pulse Rate 100 Respiratory Rate 18 Blood Pressure 124/72 Pulse Oximetry 97 Oxygen Delivery Method Room Air BMI result Body Mass Index 31.5 Labs 06/03/22 20:53 06/03/22 20:58 Labs: Laboratory Results - last 48 hr 06/16/22 10:25 Urine Color Yellow Urine Appearance Clear Urine pH 6.5 Ur Specific [place] <= 1.005 Urine Protein Negative Urine Glucose (UA) Negative Urine Ketones 15 Urine Blood Negative Urine Nitrite Negative Ur Leukocyte Esterase Negative Imaging Radiology Impressions: ITS Impressions Lumbar Spine X-Ray 06/09/22 13:55 IMPRESSION: * No acute findings. No fracture or malalignment of the lumbosacral spine. * [id number] discovertebral degenerative change at the lumbosacral junction. Medications Medications Current Medications Acetaminophen (Acetaminophen 325 Mg Tablet) 650 mg PO Q6H PRN PRN Reason: Headache/Pain Mild Scale (1-3) Last Admin: 06/13/22 00:14 Dose: 650 mg Al Hydroxide/Mg Hydroxide (Magnesium Hydrox/Alum Hydrox 30 Ml Oral.Susp) 30 ml PO Q6H PRN PRN Reason: Heartburn/Nausea Last Admin: 06/13/22 21:43 Dose: 30 ml Bisacodyl (Bisacodyl 5 Mg Tablet.Dr) 10 mg PO DAILY PRN PRN Reason: Constipation Buspirone HCl (Buspirone Hcl 10 Mg Tablet) 10 mg PO Q4H PRN PRN Reason: Anxiety Last Admin: 06/16/22 10:04 Dose: 10 mg Cariprazine (Cariprazine Hcl 3 Mg Capsule) 3 mg PO DAILY [facility] Last Admin: 06/16/22 08:01 Dose: 3 mg Clonidine HCl (Clonidine Hcl 0.2 Mg Tablet) 0.2 mg PO BEDTIME PRN; Protocol PRN Reason: anxiety/insomnia Last Admin: 06/15/22 20:47 Dose: 0.2 mg Clonidine HCl (Clonidine Hcl 0.2 Mg Tablet) 0.2 mg PO Q4H PRN; Protocol PRN Reason: anxiety/insomnia Last Admin: 06/16/22 10:05 Dose: 0.2 mg Cyclobenzaprine HCl (Cyclobenzaprine Hcl 5 Mg Tablet) 15 mg PO Q6H PRN PRN Reason: muscle spasm Last Admin: 06/15/22 06:41 Dose: 15 mg Doxepin HCl (Doxepin Hcl 25 Mg Capsule) 150 mg PO BEDTIME [facility] Last Admin: 06/15/22 21:43 Dose: 150 mg Escitalopram Oxalate (Escitalopram Oxalate 10 Mg Tablet) 30 mg PO DAILY [facility] Last Admin: 06/16/22 08:01 Dose: 30 mg Lamotrigine (Lamotrigine 25 Mg Tablet) 25 mg PO DAILY [facility] Last Admin: 06/16/22 08:01 Dose: 25 mg Lidocaine (Lidocaine 4 % Patch Adh..Patch) 2 patch TRANSDERMA BID [facility]; Protocol Last Admin: 06/16/22 08:02 Dose: 2 patch Magnesium Hydroxide (Milk Of Magnesia 30 Ml Oral.Susp) 30 ml PO DAILY PRN PRN Reason: Constipation Last Admin: 06/13/22 08:36 Dose: 30 ml Mirtazapine (Mirtazapine 7.5 Mg Tablet) 7.5 mg PO BEDTIME [facility] Last Admin: 06/15/22 21:45 Dose: 7.5 mg Nicotine Polacrilex (Nicotine Polacrilex 2 Mg Gum) 4 mg BUCCAL Q2H PRN PRN Reason: Nicotine Cravings Last Admin: 06/16/22 07:15 Dose: 4 mg Oxcarbazepine (Oxcarbazepine 300 Mg Tablet) 300 mg PO BID [facility] Last Admin: 06/16/22 08:01 Dose: 300 mg Quetiapine Fumarate (Quetiapine Fumarate 25 Mg Tablet) 75 mg PO BEDTIME [facility] Last Admin: 06/15/22 20:46 Dose: 75 mg Quetiapine Fumarate (Quetiapine Fumarate 25 Mg Tablet) 75 mg PO Q4H PRN PRN Reason: anxiety/insomnia Last Admin: 06/16/22 10:03 Dose: 75 mg Allergies Allergies Allergy/AdvReac Type Severity Reaction Status Date / Time bee pollen [BEE STINGS] Allergy Unknown ANAPHYLAXIS Verified 06/04/22 14:04 penicillin V Allergy Unknown Hives Verified 06/04/22 14:04 Penicillins [PCN] Allergy Unknown HIVES Verified 06/04/22 14:04 Assessment & Plan Assessment & Plan (1) Bipolar II disorder: Status: Acute Code(s): F31.81 - Bipolar II disorder (2) PTSD (post-traumatic stress disorder): Status: Acute Code(s): F43.10 - Post-traumatic stress disorder, unspecified (3) Alcohol use disorder, severe, in sustained remission: Status: Acute Code(s): F10.21 - Alcohol dependence, in remission Plan HPI Patient is a 37-year-old male with history of depression, anxiety and PTSD, alcohol abuse in sustained remission who presents for worsening depression and SI. Initial Impression/formulation -patient has severe history of childhood and adolescent trauma that is likely very contributory to which he agrees -patient also has severe depression and anxiety. Patient reports what sounds like possibly discrete hypomanic episodes with some biological loading for bipolar from his father; still it is unclear if his hypomanic episodes are just him having a reprieve from depression or if they point towards an actual bipolar disorder; will provisionally dose with bipolar depression but will also gather more collateral from his -patient agrees to continue Trileptal and Lexapro for now; discussed mood stabilizing medication and patient agrees to start Vraylar (risks/side effects discussed, patient has question and agrees to continue with this medicine); other mood stabilizing medications considered were read trial of lithium or perhaps Lamictal. Patient's initial bipolar diagnosis was from when he was 14 years old while living in a extremely chaotic, unsafe environment and given this context diagnosis at that age seems premature. It seems that on Trileptal and Celexa patient was doing overall well and no hypomanic type episodes Collateral: on 06/06: Patient's discussed potential hypomanic episode. She agrees that there are 2 weeks when he will be in a better mood however she describes it as enjoyable, relaxed and as if he is just feeling better about life, but his regular self, joking around appropriately and working on house projects which he enjoys to do; she denies that he is hyperactive, engages in any excessive spending during this time or that there is any change in his libido; she does not find him to have insomnia to any degree different from his chronic insomnia; she says he talks more and they will set and have more natural conversations but it is not pressured in any way. -sports writer leans away from diagnosis of bipolar disorder given his 's description and history of PTSD; however it still remains possible, that he is having a mild hypomanic episodes and he reports his father was diagnosed with bipolar disorder with clear manic episodes. Will leave as a provisional diagnosis for now however will also likely start Lamictal which can be helpful with PTSD and anxiety as well as bipolar depression if it is there, thus could supplant need for for Vraylar antipsychotic Hospital course: 06/06 patient reports anxiety a little better with PRNs however depression remains with lingering SI. Agrees to start Vraylar; agrees to continue with Lexapro but would like to taper off and discontinue Trileptal. After discussing patient's history with , sports writer will leave bipolar depression as provisional diagnosis given biological loading, however his hypomanic episodes may very well be explained by causes other than bipolar disorder. Will continue to assess. 06/07 depressed, intermittent SI but will be safe given love for family; engage in CBT exercise and revealed more about traumatic history. Started Lamictal. Before further raising Vraylar, will give patient a chance to see if addressing trauma can relieve some of his depressive feelings. 06/08 Continue current regime. 06/09/22: Increase Vraylar to 3 mg daily 06/10 working dilligently on self, attending groups, doing CBT exercises; -reviewed Xray and only chronic mild/mod degenerative disc disease. -constipated, wonders if this is effecting his back pain; agrees to fleet enema -UA was intended to be ordered over weekend to r/o uti/kidney stone; ordered and WNL -was started on Remeron; will leave for now 06/11 continue current treatment plan 06/12 patient overall improving however struggling to accept that healing will take longer than he wants to do and that medication has a limited affect; agrees to increasing Lexapro and starting BuSpar. dc clonidine prn (pt thinks causes panic despite having been helpful daily unitl yesterday afternoon; pt trouble accepting panic likely coincided with taking clondine); 06/13 improved mood, less anxiety, medications helping; says wants to try clonidine and again. Hopefully patient is turning the corner will continue to monitor 06/14 much improved; continue current regimen 06/15 continue current treatment plan 06/16 continue treatmen plan Plan: CV Q 15 minute checks Continue Buspar 10mg q.i.d. prn (for anxiety; although normally for augmentation, some pt's find helpful as prn) Continue Remeron 7.5 mg q.h.s. Continue Lexapro 30mg (substituted for Celexa) since it seems to have been partially helpful and patient has significant PTSD Increased Seroquel qhs to 75mg (for continued interrupted sleep) Continue Trileptal to 300 mg b.i.d.; was partially helpful but patient wants to see if it makes a difference coming off this medication Continue Vraylar 3 mg daily for mood stability, bipolar depression; (Decided against lithium given hx of emotional numbing) continue Lamictal 25mg daily (for mood stability, PTSD, anxiety) Restarted clonidine PRN DC trazodone pt says not working; DC gabapentin; patient says causes irritability DC hydroxyzine; patient says no longer works in causes irritability Reason for contiued inpatient stay Substantial Risk for: harm to self, inability to function and rapid decompensation Time Spent With Patient Time: Total time managing care of this patient today ____ minutes.
[2022-06-16 14:11] VITALS: BP 109/68; PULSE 105
[2022-06-16] MEDS: Cyclobenzaprine HCl 5 MG TABLET 15 MG PO (16:09)
[2022-06-16 18:19] VITALS: BP 122/76; PULSE 99; RESP 14; TEMP 36.7
[2022-06-16] MEDS: Mirtazapine 7.5 MG TABLET PO (22:29)
[2022-06-16] MEDS: Doxepin HCl 25 MG CAPSULE 150 MG PO (22:32)
[2022-06-16 22:54] VITALS: BP 114/67; PULSE 94
[2022-06-17] MEDS: cloNIDine HCL 0.2 MG TABLET PO ×5 (03:48→20:54)
[2022-06-17] MEDS: busPIRone HCl 10 MG TABLET PO ×4 (03:48→20:51)
[2022-06-17] MEDS: QUEtiapine Fumarate 25 MG TABLET 75 MG PO ×5 (03:48→20:57)
[2022-06-17 06:00] VITALS: BP 124/78; PULSE 104; RESP 18
[2022-06-17] MEDS: Cariprazine HCl 3 MG CAPSULE PO (07:51)
[2022-06-17] MEDS: OXcarbazepine 300 MG TABLET PO ×2 (07:51→20:51)
[2022-06-17] MEDS: Escitalopram Oxalate 10 MG TABLET 30 MG PO (07:51)
[2022-06-17] MEDS: lamoTRIgine 25 MG TABLET PO (07:51)
[2022-06-17] MEDS: Lidocaine 4 % Patch ADH..PATCH 2 PATCH TRANSDERMA ×2 (07:52→20:58)
[2022-06-17] MEDS: Nicotine Polacrilex 2 MG GUM 4 MG BUCCAL ×5 (08:55→19:33)
--- NOTE | 2022-06-17 10:04 | HO.PSYCHPN ---
Subjective Subjective Date of Service: 06/17/22 Reason For Visit: Depression Interim History: Met with patient; discussed in team; reviewed weekend notes Patient remains in a good mood; he says his anxiety has been somewhat triggered due to the acuity on the unit but overall he feels in a much better place, able to cope and feeling stable. Patient feels ready to go home and is looking forward to discharge. He feels he has accomplished much. Denies any SI at all, feels safe and eager to continue with therapy post discharge. He feels that medications are working well and would like to continue them. Mental Status Exam Mental Status Exam Narrative: Pt is alert and oriented; behavior is cooperative, friendly, calm; dressed in casual attire, adequate hygiene; mood is described as good and affect congruent, noticeably brighter affect; eye contact appropriate; Speech is normal rate, volume and prosody and not pressured; no psychomotor retardation; thought process is organized and goal directed; Thought content is on discharge, continuing treatment; otherwise pertinent to relevant topics and without any delusional content, paranoid ideations or grandiosity; no SI; no HI. There is no evidence of perceptual disturbance and denies AVH. Patients insight and judgment are fair. Diagnostics Vital Signs (24Hr): Vital Signs - 24 hr 06/16/22 14:11 06/16/22 18:19 06/16/22 22:54 Temperature 98.1 F Pulse Rate 105 H 99 94 Respiratory Rate 14 Blood Pressure 109/68 122/76 114/67 06/17/22 06:00 Temperature Pulse Rate 104 H Respiratory Rate 18 Blood Pressure 124/78 BMI result Body Mass Index 31.5 Labs 06/03/22 20:53 06/03/22 20:58 Labs: Laboratory Results - last 48 hr 06/16/22 10:25 Urine Color Yellow Urine Appearance Clear Urine pH 6.5 Ur Specific [place] <= 1.005 Urine Protein Negative Urine Glucose (UA) Negative Urine Ketones 15 Urine Blood Negative Urine Nitrite Negative Ur Leukocyte Esterase Negative Imaging Radiology Impressions: ITS Impressions Lumbar Spine X-Ray 06/09/22 13:55 IMPRESSION: * No acute findings. No fracture or malalignment of the lumbosacral spine. * [id number] discovertebral degenerative change at the lumbosacral junction. Medications Medications Current Medications Acetaminophen (Acetaminophen 325 Mg Tablet) 650 mg PO Q6H PRN PRN Reason: Headache/Pain Mild Scale (1-3) Last Admin: 06/13/22 00:14 Dose: 650 mg Al Hydroxide/Mg Hydroxide (Magnesium Hydrox/Alum Hydrox 30 Ml Oral.Susp) 30 ml PO Q6H PRN PRN Reason: Heartburn/Nausea Last Admin: 06/13/22 21:43 Dose: 30 ml Bisacodyl (Bisacodyl 5 Mg Tablet.Dr) 10 mg PO DAILY PRN PRN Reason: Constipation Buspirone HCl (Buspirone Hcl 10 Mg Tablet) 10 mg PO Q4H PRN PRN Reason: Anxiety Last Admin: 06/17/22 07:52 Dose: 10 mg Cariprazine (Cariprazine Hcl 3 Mg Capsule) 3 mg PO DAILY [facility] Last Admin: 06/17/22 07:51 Dose: 3 mg Clonidine HCl (Clonidine Hcl 0.2 Mg Tablet) 0.2 mg PO BEDTIME PRN; Protocol PRN Reason: anxiety/insomnia Last Admin: 06/15/22 20:47 Dose: 0.2 mg Clonidine HCl (Clonidine Hcl 0.2 Mg Tablet) 0.2 mg PO Q4H PRN; Protocol PRN Reason: anxiety/insomnia Last Admin: 06/17/22 07:52 Dose: 0.2 mg Cyclobenzaprine HCl (Cyclobenzaprine Hcl 5 Mg Tablet) 15 mg PO Q6H PRN PRN Reason: muscle spasm Last Admin: 06/16/22 16:09 Dose: 15 mg Doxepin HCl (Doxepin Hcl 25 Mg Capsule) 150 mg PO BEDTIME [facility] Last Admin: 06/16/22 22:32 Dose: 150 mg Escitalopram Oxalate (Escitalopram Oxalate 10 Mg Tablet) 30 mg PO DAILY [facility] Last Admin: 06/17/22 07:51 Dose: 30 mg Lamotrigine (Lamotrigine 25 Mg Tablet) 25 mg PO DAILY [facility] Last Admin: 06/17/22 07:51 Dose: 25 mg Lidocaine (Lidocaine 4 % Patch Adh..Patch) 2 patch TRANSDERMA BID [facility]; Protocol Last Admin: 06/17/22 07:52 Dose: 2 patch Magnesium Hydroxide (Milk Of Magnesia 30 Ml Oral.Susp) 30 ml PO DAILY PRN PRN Reason: Constipation Last Admin: 06/13/22 08:36 Dose: 30 ml Mirtazapine (Mirtazapine 7.5 Mg Tablet) 7.5 mg PO BEDTIME [facility] Last Admin: 06/16/22 22:29 Dose: 7.5 mg Nicotine Polacrilex (Nicotine Polacrilex 2 Mg Gum) 4 mg BUCCAL Q2H PRN PRN Reason: Nicotine Cravings Last Admin: 06/17/22 08:55 Dose: 4 mg Oxcarbazepine (Oxcarbazepine 300 Mg Tablet) 300 mg PO BID [facility] Last Admin: 06/17/22 07:51 Dose: 300 mg Quetiapine Fumarate (Quetiapine Fumarate 25 Mg Tablet) 75 mg PO BEDTIME [facility] Last Admin: 06/16/22 22:31 Dose: 75 mg Quetiapine Fumarate (Quetiapine Fumarate 25 Mg Tablet) 75 mg PO Q4H PRN PRN Reason: anxiety/insomnia Last Admin: 06/17/22 07:52 Dose: 75 mg Allergies Allergies Allergy/AdvReac Type Severity Reaction Status Date / Time bee pollen [BEE STINGS] Allergy Unknown ANAPHYLAXIS Verified 06/04/22 14:04 penicillin V Allergy Unknown Hives Verified 06/04/22 14:04 Penicillins [PCN] Allergy Unknown HIVES Verified 06/04/22 14:04 Assessment & Plan Assessment & Plan (1) Bipolar II disorder: Status: Acute Code(s): F31.81 - Bipolar II disorder (2) PTSD (post-traumatic stress disorder): Status: Acute Code(s): F43.10 - Post-traumatic stress disorder, unspecified (3) Alcohol use disorder, severe, in sustained remission: Status: Acute Code(s): F10.21 - Alcohol dependence, in remission Plan HPI Patient is a 37-year-old male with history of depression, anxiety and PTSD, alcohol abuse in sustained remission who presents for worsening depression and SI. Initial Impression/formulation -patient has severe history of childhood and adolescent trauma that is likely very contributory to which he agrees -patient also has severe depression and anxiety. Patient reports what sounds like possibly discrete hypomanic episodes with some biological loading for bipolar from his father; still it is unclear if his hypomanic episodes are just him having a reprieve from depression or if they point towards an actual bipolar disorder; will provisionally dose with bipolar depression but will also gather more collateral from his -patient agrees to continue Trileptal and Lexapro for now; discussed mood stabilizing medication and patient agrees to start Vraylar (risks/side effects discussed, patient has question and agrees to continue with this medicine); other mood stabilizing medications considered were read trial of lithium or perhaps Lamictal. Patient's initial bipolar diagnosis was from when he was 14 years old while living in a extremely chaotic, unsafe environment and given this context diagnosis at that age seems premature. It seems that on Trileptal and Celexa patient was doing overall well and no hypomanic type episodes Collateral: on 06/06: Patient's discussed potential hypomanic episode. She agrees that there are 2 weeks when he will be in a better mood however she describes it as enjoyable, relaxed and as if he is just feeling better about life, but his regular self, joking around appropriately and working on house projects which he enjoys to do; she denies that he is hyperactive, engages in any excessive spending during this time or that there is any change in his libido; she does not find him to have insomnia to any degree different from his chronic insomnia; she says he talks more and they will set and have more natural conversations but it is not pressured in any way. -publicity writer leans away from diagnosis of bipolar disorder given his 's description and history of PTSD; however it still remains possible, that he is having a mild hypomanic episodes and he reports his father was diagnosed with bipolar disorder with clear manic episodes. Will leave as a provisional diagnosis for now however will also likely start Lamictal which can be helpful with PTSD and anxiety as well as bipolar depression if it is there, thus could supplant need for for Vraylar antipsychotic Hospital course: 06/06 patient reports anxiety a little better with PRNs however depression remains with lingering SI. Agrees to start Vraylar; agrees to continue with Lexapro but would like to taper off and discontinue Trileptal. After discussing patient's history with , publicity writer will leave bipolar depression as provisional diagnosis given biological loading, however his hypomanic episodes may very well be explained by causes other than bipolar disorder. Will continue to assess. 06/07 depressed, intermittent SI but will be safe given love for family; engage in CBT exercise and revealed more about traumatic history. Started Lamictal. Before further raising Vraylar, will give patient a chance to see if addressing trauma can relieve some of his depressive feelings. 06/08 Continue current regime. 06/09/22: Increase Vraylar to 3 mg daily 06/10 working dilligently on self, attending groups, doing CBT exercises; -reviewed Xray and only chronic mild/mod degenerative disc disease. -constipated, wonders if this is effecting his back pain; agrees to fleet enema -UA was intended to be ordered over weekend to r/o uti/kidney stone; ordered and WNL -was started on Remeron; will leave for now 06/11 continue current treatment plan 06/12 patient overall improving however struggling to accept that healing will take longer than he wants to do and that medication has a limited affect; agrees to increasing Lexapro and starting BuSpar. dc clonidine prn (pt thinks causes panic despite having been helpful daily unitl yesterday afternoon; pt trouble accepting panic likely coincided with taking clondine); 06/13 improved mood, less anxiety, medications helping; says wants to try clonidine and again. Hopefully patient is turning the corner will continue to monitor 06/14 much improved; continue current regimen 06/15 continue current treatment plan 06/16 continue treatmen plan 06/17 patient reports doing well, mood remains good, no SI, future oriented and eager to return home to see his family. Patient is future oriented and looking forward to continuing therapy as an outpatient. He feels that he is achieved much during his time here, the medications are working well and optimistic about continued stability. Patient request discharge. He was thinking of staying on to once a day however the acuity on the unit has been challenging and he would like to discharge tomorrow. Patient is not in imminent risk for harm to self or others and his request for discharge honored. Plan: CV Q 15 minute checks Continue Buspar 10mg q.i.d. prn (for anxiety; although normally for augmentation, some pt's find helpful as prn) Continue Remeron 7.5 mg q.h.s. Continue Lexapro 30mg (substituted for Celexa) since it seems to have been partially helpful and patient has significant PTSD Increased Seroquel qhs to 75mg (for continued interrupted sleep) Continue Trileptal to 300 mg b.i.d.; was partially helpful but patient wants to see if it makes a difference coming off this medication Continue Vraylar 3 mg daily for mood stability, bipolar depression; (Decided against lithium given hx of emotional numbing) continue Lamictal 25mg daily (for mood stability, PTSD, anxiety) Restarted clonidine PRN DC trazodone pt says not working; DC gabapentin; patient says causes irritability DC hydroxyzine; patient says no longer works in causes irritability Patient educated on: diagnosis and medication risk/benefits Reason for contiued inpatient stay Substantial Risk for: stable for discharge Time Spent With Patient Time: Total time managing care of this patient today ____ minutes.
[2022-06-17] MEDS: Cyclobenzaprine HCl 5 MG TABLET 15 MG PO (16:27)
[2022-06-17 16:40] VITALS: BP 126/87; PULSE 111; TEMP 36.6
[2022-06-17] MEDS: Mirtazapine 7.5 MG TABLET PO (20:53)
[2022-06-17] MEDS: Doxepin HCl 25 MG CAPSULE 150 MG PO (20:55)
[2022-06-18 01:50] VITALS: BP 118/76; PULSE 108
[2022-06-18] MEDS: Lidocaine 4 % Patch ADH..PATCH 2 PATCH TRANSDERMA (01:54)
[2022-06-18] MEDS: cloNIDine HCL 0.2 MG TABLET PO ×3 (01:54→10:38)
[2022-06-18] MEDS: QUEtiapine Fumarate 25 MG TABLET 75 MG PO ×3 (01:56→10:38)
[2022-06-18 05:55] VITALS: BP 135/72; PULSE 119
[2022-06-18] MEDS: busPIRone HCl 10 MG TABLET PO ×2 (06:28→10:38)
[2022-06-18] MEDS: Escitalopram Oxalate 10 MG TABLET 30 MG PO (08:46)
[2022-06-18] MEDS: Cariprazine HCl 3 MG CAPSULE PO (08:46)
[2022-06-18] MEDS: OXcarbazepine 300 MG TABLET PO (08:46)
[2022-06-18] MEDS: lamoTRIgine 25 MG TABLET PO (08:46)
--- NOTE | 2022-06-18 09:35 | PM.PSYDC ---
DS: Providers Provider Date of Service: 06/18/22 Date of admission: 06/04/22 14:50 Date of discharge: 06/18/22 Primary care physician: Marian Peralta NP Attending physician on admission: Rhett Souza Attending physician on discharge: Rhett Souza DS: Diagnosis Discharge Diagnosis (1) Bipolar II disorder: Status: Inactive (2) PTSD (post-traumatic stress disorder): Status: Acute (3) Alcohol use disorder, severe, in sustained remission: Status: Acute DS: Medications Discharge Medications Home Medications: Previous Rx's Medication Instructions Recorded buspirone 10 mg tablet 10 mg PO Q4H PRN Anxiety 30 days 06/18/22 #30 tabs cariprazine 3 mg capsule (Vraylar) 3 mg PO DAILY 30 days #30 caps 06/18/22 clonidine HCl 0.2 mg tablet 0.2 mg PO Q4H PRN anxiety/insomnia 06/18/22 30 days #60 tabs cyclobenzaprine 10 mg tablet 10 mg PO TID PRN muscle spasm 30 06/18/22 days #90 tabs doxepin 50 mg capsule 150 mg PO BEDTIME 30 days #90 caps 06/18/22 escitalopram oxalate 20 mg tablet 30 mg PO DAILY 30 days #45 tabs 06/18/22 lamotrigine 25 mg tablet See Rx Instructions .Route 06/18/22 .COMPLEX 30 days #57 tabs lidocaine 4 % topical patch 2 patch transdermal BID PRN pain 06/18/22 (Lidocaine Pain Relief) 30 days #60 ea mirtazapine 7.5 mg tablet 7.5 mg PO BEDTIME 30 days #30 tabs 06/18/22 oxcarbazepine 300 mg tablet 300 mg PO BID 30 days #60 tabs 06/18/22 quetiapine 50 mg tablet See Rx Instructions .Route 06/18/22 .COMPLEX PRN anxiety/insomnia #120 tabs Mental Status Exam Mental Status Exam Narrative: Pt is alert and oriented; behavior is cooperative, friendly, calm; dressed in casual attire, adequate hygiene; mood is described as good and affect congruent, noticeably brighter affect; eye contact appropriate; Speech is normal rate, volume and prosody and not pressured; no psychomotor retardation; thought process is organized and goal directed; Thought content is on discharge, continuing treatment; otherwise pertinent to relevant topics and without any delusional content, paranoid ideations or grandiosity; no SI; no HI. There is no evidence of perceptual disturbance and denies AVH. Patients insight and judgment are fair. Data Data Completed and Pending Completed studies during hospitalization [Text1]: 06/16/22 10:25 Urine Color Yellow Urine Appearance Clear Urine pH 6.5 Ur Specific [place] <= 1.005 Urine Protein Negative Urine Glucose (UA) Negative Urine Ketones 15 Urine Blood Negative Urine Nitrite Negative Ur Leukocyte Esterase Negative 06/09/22 Unknown Urine clean catch - Clean Catch Midstream Urine Culture - Final No growth. Imaging Diagnostic Imaging Impressions Lumbar Spine X-Ray 06/09/22 13:55 IMPRESSION: * No acute findings. No fracture or malalignment of the lumbosacral spine. * [id number] discovertebral degenerative change at the lumbosacral junction. 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 Hospital course: On admission, patient was depressed and anxious; he had intermittent suicidal thinking, not wanting to out of love for his family but feeling hopeless. Patient presented with diagnosis of bipolar disorder (diagnosed at 14 years old at which time he was living in an extremely chaotic, unsafe environment). He reported some vague symptoms manic episodes and thus bipolar disorder remain diagnosis however it was changed to a provisional diagnosis as collateral from his mitigated concerns for conner and his history made MDD/PTSD a very possible etiology. Patient agreed to continue Trileptal and Lexapro (substituted for Celexa) since they had proved partially helpful in the past (he also remained on Doxepin); he was also started on Vraylar. He was also started on Lamictal which not only has mood stabilizing qualities but is helpful for PTSD and anxiety. On the unit, patient worked hard, attended groups and was forthcoming in 1 on 1 sessions. He revealed significant childhood trauma history and began to understand how this history was contributing to his current, present a symptoms. While medications and milieu therapy helped, much of his eventual symptom relief also seemed to come from CBT/therapy exercises. Throughout his time in the unit, patient remained in good behavioral and impulse control. His depression lessened however his anxiety remained, with near panic type episodes; patient benefited from clonidine for anxiety and Seroquel for sleep; for continued insomnia patient was started by covering provider on Remeron which he wanted to continue with as well. Ultimately, his acute anxious episodes were best treated with BuSpar 10 mg which he used as a p.r.n.. Patient's mood significantly improved and depression abated; SI fully resolved. Anxiety continue to come and go however he felt much more capable of handling it and employed coping strategies learned on the unit. Patient remained in a good mood, future oriented and wanting to return home to see his family and eventually get back to work, something he enjoys. Patient's is very supportive and he returns to a stable living environment. Filer Helper discussed medication regimen and risks of polypharmacy and that as he continues to remain stable, it may be very possible to eliminate some of these medications; functional tester typewriters reviewed possible changes including that Lamictal might prove enough to get off Vraylar and that Remeron might become unnecessary for insomnia. Patient understood; currently he is very grateful for his stability and wanted to leave medications as they are but said he would work with his outpatient provider, with whom he has a good rapport, regarding medication management. Patient is eager to engage in therapy as an outpatient and understands that consistent weekly 1 on 1 therapy is likely an essential part of his continued stability. Patient asked for discharge. He is future oriented and optimistic. Patient is appropriate for treatment in the outpatient community, he is not in imminent risk for harm to self or others and his request for discharge honored. Status at Discharge Functional status at discharge: independent ambulation Overall status at discharge: patient is back to baseline Time Spent with Patient Time attestation: Total time managing care of this patient today ____ minutes. Time spent: Less than 30 minutes Discharge Plan Discharge Anticipated Discharge Date/Time: 06/18/22 11:30 Patient Disposition: Home, Self-Care Discharge Diagnosis: Bipolar depression (provisional) in full remission (vs MDD, recurrent, severe); PTSD Referrals: Carolyn Soares: Donavon Oconnor [Other] - 07/18/22 11:30 am (Follow-up discharge appointment with psychiatric prescriber Appointment had been scheduled with [facility] prior to his admission to [facility].) Octavio Mack MD [Physician] - 1 Week (OFFICE WILL REACH OUT TO PATIENT WITH F/U APPOINTMENT.) Discharge Medications: New cyclobenzaprine 10 mg tablet 10 mg PO TID PRN (Reason: muscle spasm) 30 Days Qty: 90 0RF clonidine HCl 0.2 mg Tablet 0.2 mg PO Q4H PRN (Reason: anxiety/insomnia) 30 Days Qty: 60 0RF Protocol: Hold for SBP< HOLD for SBP < : 90 escitalopram oxalate 20 mg tablet 30 mg PO DAILY 30 Days Qty: 45 0RF oxcarbazepine 300 mg Tablet 300 mg PO BID 30 Days Qty: 60 0RF buspirone 10 mg Tablet 10 mg PO Q4H PRN (Reason: Anxiety) 30 Days Qty: 30 0RF Vraylar 3 mg Capsule 3 mg PO DAILY 30 Days Qty: 30 0RF lamotrigine 25 mg Tablet See Rx Instructions .ROUTE .COMPLEX 30 Days Qty: 57 0RF Rx Instructions: Take 1 tablet for 3 days then take 2 tablets daily mirtazapine 7.5 mg Tablet 7.5 mg PO BEDTIME 30 Days Qty: 30 0RF quetiapine 50 mg tablet See Rx Instructions .ROUTE .COMPLEX PRN (Reason: anxiety/insomnia) Qty: 120 0RF Rx Instructions: Take 1-2 tabs t.i.d. as needed for anxiety or insomnia lidocaine [Lidocaine Pain Relief] 4 % Adhesive Patch,Medicated 2 patch transdermal BID PRN (Reason: pain) 30 Days Qty: 60 0RF Protocol: Apply to: Apply to: lower back/right shoulder Rx Instructions: apply to rt shoulder/lower back daily as needed for pain buspirone 10 mg tablet 10 mg PO QID PRN (Reason: anxiety) 30 Days Qty: 90 0RF Continued doxepin 50 mg capsule 150 mg PO BEDTIME 30 Days Qty: 90 0RF Discontinued clonidine HCl 0.1 mg tablet 1 tab PO BID citalopram 40 mg tablet 1 tab PO DAILY oxcarbazepine 600 mg tablet 1 tab PO BID gabapentin 100 mg capsule 1 cap PO BID Discharge Orders: Discharge Order (Routine); Ordered 06/18/22 Ordered By: Rhett Souza Diet: Regular diet Activity on Discharge: As tolerated Stand Alone Forms: Patient Portal Discharge page, Community Support Care Plan Goals: Maintain mood and safe behaviors Take medications as prescribed Continue to pursue sobriety Practice coping skills Continue with outpatient providers and reach out to them as needed Health Concerns: Mood stability and behaviors Chronic back/shoulder pain Plan of Treatment: Follow up with your PCP, psychiatric provider and other outpatient providers regarding above concerns Take medications as prescribed Assessment: Risk assessment at time of discharge:? Patient was interviewed prior to discharge and found to be fully oriented and without any SI or HI. Patient has insight and demonstrates good judgment in terms of wanting to pursue treatment. Patient is not in imminent risk of harm to self or others and has a safety plan that includes presenting to the closest ER or calling 911 if feeling unsafe.? Patient has been observed closely by nursing and unit staff throughout admission; patient has not engaged in any behaviors that suggest dangerousness to self or others and has demonstrated appropriate behaviors and impulse control Discharge Date/Time: 06/18/22 11:05
[2022-06-18] MEDS: Nicotine Polacrilex 2 MG GUM 4 MG BUCCAL (09:57)
[2022-06-18 10:29] VITALS: BP 119/69; PULSE 120
== END 2022-06-18 11:05 | disposition home or self-care (01) | DRG 753 ==
LOC: HO.ED 06-04 02:05 → HO.PM5 06-04 14:54
PROVIDERS: Clinical Nurse Specialist Psychiatric/Mental Health; Physician Assistant; Admitting Provider Psychiatry & Neurology Psychiatry; Emergency Provider Internal Medicine; PCP Nurse Practitioner Adult Health; Visit Provider Psychiatry & Neurology Psychiatry
DX: F31.81 Bipolar II disorder (principal); R45.851 Suicidal ideations; F17.210 Nicotine dependence, cigarettes, uncomplicated; F10.21 Alcohol dependence, in remission; Z71.6 Tobacco abuse counseling; F43.10 Post-traumatic stress disorder, unspecified; Z20.822 Contact with and (suspected) exposure to COVID-19; Z88.0 Allergy status to penicillin; Z79.899 Other long term (current) drug therapy
CPT/HCPCS: 72110; 80053; 80143; 80179; 80307; 81001; 81003; 82077; 83735; 85025; 87086; 87635; 93005; 99285

== ENCOUNTER 2023-05-21 17:15 | Inpatient (IN) | payer BC, SELFPAY ==
[2023-05-21 17:40] VITALS: BP 130/88; PULSE 120; RESP 18; TEMP 36.7; O2SAT 98; BMI 30.7
[2023-05-21 17:43] VITALS: RESP 16
[2023-05-21 18:08] LABS: MANUAL DIFF FLAG NO
[2023-05-21 18:12] LABS: Appearance Urine Clear; Color Urine Yellow; Glucose Urine UA Negative (Negative); Leukocyte Esterase Urine Negative (Negative); Nitrite Urine Negative (Negative); PH 5.5 (5.0-9.0); Urine Blood Negative (Negative); Urine Ketones Negative (Negative); Urine Protein Negative (Neg-Trace)
[2023-05-21 18:14] LABS: Basophils Absolute Auto 0.1 X10*3/uL (0.0-0.2); Basophils Percent Auto 0.8 % (0-2); Eosinophils Absolute Auto 0.4 X10*3/uL (0.0-0.4); Eosinophils Percent Auto 3.7 % (0-4); Hematocrit 44.2 % (42.0-52.0); Hemoglobin 15.1 g/dl (14.0-18.0); Imm Gran Abs Auto 0.04 X10*3/uL (0.00-0.03); Imm Gran Pct Auto 0.4 % (0.0-0.4); Lymphocytes Absolute Auto 3.1 X10*3/uL (1.2-4.9); Lymphocytes Percent Auto 31.9 % (20-40); Mean Corpuscular HGB Conc 34.2 g/dl (31.0-36.0); Mean Corpuscular Hemoglobin 29.5 pg (27.0-33.0); Mean Corpuscular Volume 86.3 fL (80.0-98.0); Monocytes Absolute Auto 0.7 X10*3/uL (0.1-1.2); Monocytes Percent Auto 6.8 % (2-11); Neutrophils Absolute Auto 5.5 x10*3/uL (2.0-8.3); Neutrophils Percent Auto 56.4 % (45-73); Platelet Count 274 X10*3/uL (160-400); Red Blood Count 5.12 X10*6/uL (4.60-5.80); Red Cell Distribution Width 12.9 % (11.0-16.0); White Blood Count 9.8 X10*3/uL (4.8-10.8)
[2023-05-21 18:18] LABS: IDNOW Serial# 152EDE1D
[2023-05-21 18:19] LABS: Amphetamine Screen Urine Not Detected (Not Detect); Barbiturates, Urine Not Detected (Not Detect); Benzodiazepines Screen Urine Not Detected (Not Detect); Cannabinoid Screen Urine POSITIVE (Not Detect); Cocaine Screen Urine Not Detected (Not Detect); Fentanyl, urine Not Detected (Not Detect); Opiate Screen Urine Not Detected (Not Detect); Phencyclidine Screen Urine Not Detected (Not Detect)
[2023-05-21 18:19] LABS: COVID-19 Test Positive (Negative)
[2023-05-21 18:29] LABS: Alanine Aminotransferase 55 U/L (0-40); Albumin Level 4.2 g/dL (3.5-5.0); Alkaline Phosphatase 88 U/L (39-117); Anion Gap 12 (12-20); Aspartate Amino Transferase 27 U/L (5-37); Bilirubin Total 0.3 mg/dL (0.0-1.0); Blood Urea Nitrogen 13 mg/dL (9-16); Calcium 9.4 mg/dL (8.4-10.2); Carbon Dioxide 26 mmol/L (22-29); Chloride 103 mmol/L (96-108); Creatinine Clr Calc Pharmacy 106.8; Estimated Glomerular Filt Rate > 60; Ethanol < 10 mg/dL; Glucose Random 94 mg/dL (60-115); Potassium 3.8 mmol/L (3.3-5.1); Sodium 137 mmol/L (135-145); Total Protein 7.2 g/dL (6.5-8.0)
--- NOTE | 2023-05-21 18:37 | ED.GENADULT ---
HPI - General Adult General Chief complaint: Psychiatric Symptoms Stated complaint: crisis Time Seen by Provider: 05/21/23 18:11 Source: patient, RN notes reviewed and old records reviewed Mode of arrival: ambulatory Limitations: no limitations History of Present Illness HPI narrative: 38-year-old male past medical history significant for bipolar disorder, alcohol abuse, PTSD presents for evaluation of suicidal ideation and anxiety. Patient reports that he has been feeling suicidal on and off for the last year. He reports his symptoms have been worse over the last couple of weeks. He was recently at inpatient psych about a month ago and was discharged to step-down for respite where he was discharged a few days ago. He believes that his medication changes were not appropriate and that his symptoms are worse. He reports testing positive for COVID-19 over a week ago but denies any fevers, chills, cough, shortness of breath, chest pain He is seeking medication adjustment. The patient denies any somatic complaints Patient reports being compliant with medications he was prescribed Related Data Home Medications Medication Instructions Recorded Confirmed benztropine 1 mg tablet 1 mg PO BID 05/21/23 05/21/23 buspirone 15 mg tablet 15 mg PO TID 05/21/23 05/21/23 citalopram 20 mg tablet 20 mg PO DAILY 05/21/23 05/21/23 clonidine HCl 0.1 mg tablet 0.1 mg PO BID 05/21/23 05/21/23 desvenlafaxine succinate 50 mg 50 mg PO DAILY 05/21/23 05/21/23 tablet,extended release 24 hr hydroxyzine pamoate 50 mg capsule 50 mg PO DAILY PRN anxiety 05/21/23 05/21/23 lurasidone 80 mg tablet 80 mg PO BEDTIME 05/21/23 05/21/23 naproxen 500 mg tablet 500 mg PO pain 05/21/23 quetiapine 100 mg tablet 100 mg PO DIRECTED 05/21/23 05/21/23 Previous Rx's Medication Instructions Recorded doxepin 50 mg capsule 150 mg (3 x 50 mg) PO BEDTIME 30 06/18/22 days #90 caps Allergies Allergy/AdvReac Type Severity Reaction Status Date / Time bee pollen [BEE STINGS] Allergy Unknown ANAPHYLAXIS Verified 05/21/23 17:48 penicillin V Allergy Unknown Hives Verified 05/21/23 17:48 Penicillins [PCN] Allergy Unknown HIVES Verified 05/21/23 17:48 Review of Systems Constitutional: Constitutional: Denies body ache(s), Denies chills and Denies fever(s) Eyes: Eyes: Denies blurry vision Cardiovascular: Cardiovascular: Denies chest pain and Denies dyspnea Respiratory: Respiratory: Denies cough and Denies dyspnea Gastrointestinal: Gastrointestinal: Denies abdominal pain, Denies nausea and Denies vomiting Musculoskeletal: Musculoskeletal: Denies back pain Integumentary/Breasts: Skin/Breast: Denies rash Psychiatric: Psychiatric: Reports anxiety, Reports depression and Reports suicidal ideation [facility] Past Medical History Medical History (Updated 05/21/23 @ 18:43 by Dangelo Akins) PTSD (post-traumatic stress disorder) Bipolar II disorder Social History Social History Household Members: Family Housing: House Do you presently have visiting nurse or other home services: No Alcohol intake: never Patient Tobacco Use Status: Current someday Tobacco user Tobacco use type: Cigar Smoked in Last 30 Days: Yes Second Hand Smoke Exposure: No Use of substances other than those prescribed or required for medical reasons: No Substance Use Type: Marijuana service: No Sexual orientation: Straight/Heterosexual Physical Exam ED Vital Signs: Vital Signs - 24 hr 05/21/23 17:40 05/21/23 17:43 Temperature 98.1 F Pulse Rate 120 H Respiratory Rate 18 16 Blood Pressure 130/88 Pulse Oximetry 98 Oxygen Delivery Method Room Air BMI result Body Mass Index 30.7 Const General: healthy appearing, comfortable, no acute distress, alert and awake Nutritional Appearance: well nourished Orientation/consciousness: patient oriented x3 HENMT Head: Yes normocephalic and Yes atraumatic Eyes Eyelids: Yes eyelids normal Conjunctivae: conjunctivae normal Sclerae: sclerae normal Corneas: corneas normal Pupils: Equal, round and reactive pupils present EOM: EOMs intact bilaterally Neck Neck: Yes full ROM Resp Effort & Inspection: normal respiratory effort, able to speak in complete sentences, no audible wheezes and not labored Auscultation: clear to auscultation bilaterally Cardio Rate: regular rate Rhythm: regular rhythm GI Inspection: No distended Palpation (GI): Soft to palpation, not firm, nontender, no guarding and not rigid Skin General skin exam: no rashes or lesions noted and elasticity normal Neuro General: patient oriented x3 Cranial nerves: Yes Equal, round and reactive pupils present and Yes Bilaterally intact EOM present Cognition (Neuro): normal cognition Extrem Other: Moving all extremities well without any obvious deformities Medical Decision Making Medical Decision Making [facility] Narrative: 38-year-old male presents for evaluation suicidal ideation. He is COVID positive but denies any symptoms, he has not hypoxic and reports he tested positive for over a week. Patient is medically cleared for care team evaluation Differential Diagnosis Differential Diagnoses: The differential diagnosis associated with the presentation includes Bipolar disorder Suicidal ideation Depression Anxiety Lab Data [facility] Lab Attestation statement: I reviewed the patient's lab results. No leukocytosis or anemia, normal platelet count. No significant electrolyte abnormalities. Tox screen positive for marijuana only 05/21/23 18:02 05/21/23 18:02 Labs: Lab Results 05/21/23 05/21/23 Range/Units 17:55 18:02 WBC 9.8 (4.8-10.8) X10*3/uL RBC 5.12 (4.60-5.80) X10*6/uL Hgb 15.1 (14.0-18.0) g/dl Hct 44.2 (42.0-52.0) % MCV 86.3 (80.0-98.0) fL MCH 29.5 (27.0-33.0) pg MCHC 34.2 (31.0-36.0) g/dl RDW 12.9 (11.0-16.0) % Plt Count 274 (160-400) X10*3/uL MPV 9.0 L (9.4-12.4) fL Immature Gran % (Auto) 0.4 (0.0-0.4) % Neut % (Auto) 56.4 (45-73) % Lymph % (Auto) 31.9 (20-40) % [place] % (Auto) 6.8 (2-11) % Eos % (Auto) 3.7 (0-4) % Baso % (Auto) 0.8 (0-2) % Lymph # (Auto) 3.1 (1.2-4.9) X10*3/uL [place] # (Auto) 0.7 (0.1-1.2) X10*3/uL Eos # (Auto) 0.4 (0.0-0.4) X10*3/uL Baso # (Auto) 0.1 (0.0-0.2) X10*3/uL Abs Immat Gran (auto) 0.04 H (0.00-0.03) X10*3/uL Absolute Neuts (auto) 5.5 (2.0-8.3) x10*3/uL Absolute Nucleated RBC 0.000 (0.0-0.012) X10*3/uL Nucleated RBC % (auto) 0.0 (0.0-0.2) /100WBC Sodium 137 (135-145) mmol/L Potassium 3.8 (3.3-5.1) mmol/L Chloride 103 (96-108) mmol/L Carbon Dioxide 26 (22-29) mmol/L Anion Gap 12 (12-20) BUN 13 (9-16) mg/dL Creatinine 1.15 (0.5-1.4) mg/dL Estim Creat Clear Calc 106.8 Estimated GFR > 60 Random Glucose 94 (60-115) mg/dL Calcium 9.4 (8.4-10.2) mg/dL Total Bilirubin 0.3 (0.0-1.0) mg/dL AST 27 (5-37) U/L ALT 55 H (0-40) U/L Alkaline Phosphatase 88 (39-117) U/L Total Protein 7.2 (6.5-8.0) g/dL Albumin 4.2 (3.5-5.0) g/dL Urine Color Yellow Urine Appearance Clear Urine pH 5.5 (5.0-9.0) Ur Specific [place] 1.010 (1.005-1.025) Urine Protein Negative (Neg-Trace) mg/dL Urine Glucose (UA) Negative (Negative) mg/dL Urine Ketones Negative (Negative) mg/dL Urine Blood Negative (Negative) Urine Nitrite Negative (Negative) Ur Leukocyte Esterase Negative (Negative) Urine Opiates Screen Not Detected (Not Detect) Urine Fentanyl Screen Not Detected (Not Detect) Ur Barbiturates Screen Not Detected (Not Detect) Ur Phencyclidine Scrn Not Detected (Not Detect) Ur Amphetamines Screen Not Detected (Not Detect) U Benzodiazepines Scrn Not Detected (Not Detect) Urine Cocaine Screen Not Detected (Not Detect) U Marijuana (THC) Screen POSITIVE H (Not Detect) Ethyl Alcohol < 10 mg/dL COVID-19 (MICA) Positive A (Negative) COVID-19 Clin Com See Note Discharge Plan Discharge Clinical Impression: Suicidal ideation Patient Disposition: Still a Patient Prescriptions: No Action doxepin 50 mg capsule 150 mg PO BEDTIME 30 Days Qty: 90 0RF clonidine HCl 0.1 mg tablet 0.1 mg PO BID hydroxyzine pamoate 50 mg capsule 50 mg PO DAILY PRN (Reason: anxiety) quetiapine 100 mg tablet 100 mg PO DIRECTED Rx Instructions: take 1 tablet in am, take 2 tablets in pm citalopram 20 mg tablet 20 mg PO DAILY benztropine 1 mg tablet 1 mg PO BID naproxen 500 mg tablet 500 mg PO buspirone 15 mg tablet 15 mg PO TID desvenlafaxine succinate 50 mg tablet extended release 24 hr 50 mg PO DAILY lurasidone 80 mg tablet 80 mg PO BEDTIME Interventions: [place]-Suicide Risk Severity Scale Last Done: 05/21/23 17:41
--- NOTE | 2023-05-21 18:55 | PC.NURSE ---
patient appears to remain at rest presently respirations are even and unlabored paitent appears in no distress.
[2023-05-21] MEDS: cloNIDine HCL 0.1 MG TABLET PO (22:45)
[2023-05-21] MEDS: QUEtiapine Fumarate 100 MG TABLET 200 MG PO (22:45)
[2023-05-21] MEDS: Doxepin HCl 25 MG CAPSULE 150 MG PO (23:01)
--- NOTE | 2023-05-22 | ECG_ITS ---
Test Reason : QT INTERVAL Blood Pressure : / mmHG Vent. Rate : 062 BPM Atrial Rate : 062 BPM P-R Int : 158 ms QRS Dur : 096 ms QT Int : 436 ms P-R-T Axes : 032 028 033 degrees QTc Int : 442 ms Normal sinus rhythm Cannot rule out Anterior infarct (cited on or before 04-JUN-2022) Abnormal ECG When compared with ECG of 04-JUN-2022 10:05, No significant change was found Referred By: Juan Diego De Leon Electronically Signed By:Espinoza Peralta
[2023-05-22 00:45] VITALS: BP 126/68; PULSE 77; RESP 16; TEMP 37.3; O2SAT 97
[2023-05-22] MEDS: busPIRone HCl 5 MG TABLET 15 MG PO (08:46)
[2023-05-22] MEDS: Escitalopram Oxalate 10 MG TABLET PO (08:47)
[2023-05-22] MEDS: cloNIDine HCL 0.1 MG TABLET PO (08:47)
[2023-05-22] MEDS: Benztropine Mesylate 1 MG TABLET PO (08:47)
--- NOTE | 2023-05-22 09:02 | PC.NURSE ---
This RN called [facility] about patient's covid test. Per the RN at [facility], he tested positive on 05/11. Pt is currently asymptomatic
[2023-05-22 13:16] VITALS: PULSE 82; RESP 14; TEMP 37.2; O2SAT 97
--- NOTE | 2023-05-22 13:18 | PC.NURSE ---
pt has been calm and cooperative this am. Offering no complaints to this RN. Willingly takes all medication except for Effexor, patient reports that he was unaware that he takes said medication and hence declined it. Pt is independent, ambulatory around [facility] pod. Aware of plan of care for inpt admission
[2023-05-22 14:31] VITALS: BMI 36.0
[2023-05-22 14:32] VITALS: BP 141/87; PULSE 89; RESP 15; TEMP 36.4; O2SAT 96
[2023-05-22] MEDS: hydrOXYzine HCL 50 MG TABLET PO (16:20)
--- NOTE | 2023-05-22 17:54 | PC.ADMIT ---
Pt arrived on the unit at 1430 via w/c from [facility] on a CV. Pt is a 38 year old cis-gender male with an admitting dx of SI and anxiety. PMH of bipolar d/o, alcohol abuse, and PTSD. Per crisis eval, pt reports feeling suicidal for the past year and have worsened over the past weeks. Pt is seeking medication changes. Pt presents as agitated, pressured speech, poor eye contact, and low frustration tolerance. Pt declined to sign ESTRELLA for and PCP. Pt became more irritable when this nurse asked him about the above people/agency. Pt also stated I don't want any visitors here . Pt currently on CIWA.
[2023-05-22 18:00] VITALS: BP 116/71; PULSE 84; RESP 16; TEMP 36.3; O2SAT 95
[2023-05-22] MEDS: Nicotine Polacrilex 2 MG GUM 4 MG BUCCAL (18:31)
[2023-05-22] MEDS: cloNIDine HCL 0.2 MG TABLET PO (19:40)
[2023-05-22] MEDS: traZODone HCL 50 MG TABLET PO (21:01)
[2023-05-22] MEDS: QUEtiapine Fumarate 100 MG TABLET 200 MG PO (21:01)
[2023-05-22] MEDS: Doxepin HCl 25 MG CAPSULE 150 MG PO (21:14)
[2023-05-23] MEDS: cloNIDine HCL 0.2 MG TABLET PO ×3 (08:53→20:53)
[2023-05-23] MEDS: Thiamine HCL 100 MG TABLET PO (08:53)
[2023-05-23] MEDS: Folic Acid 1 MG TABLET PO (08:54)
[2023-05-23] MEDS: Escitalopram Oxalate 10 MG TABLET PO (08:54)
[2023-05-23 09:01] VITALS: BP 112/72; PULSE 59; RESP 16; TEMP 36.3; O2SAT 97
[2023-05-23] MEDS: Nicotine Polacrilex 2 MG GUM 4 MG BUCCAL ×3 (09:09→20:52)
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
[2023-05-23 09:36] LABS: Estimated Average Glucose 105 mg/dL; Hemoglobin A1c % 5.3 % (<6.0)
[2023-05-23 09:47] LABS: Alanine Aminotransferase 51 U/L (0-40); Albumin Level 4.2 g/dL (3.5-5.0); Alkaline Phosphatase 89 U/L (39-117); Anion Gap 12 (12-20); Aspartate Amino Transferase 23 U/L (5-37); Bilirubin Total 0.4 mg/dL (0.0-1.0); Blood Urea Nitrogen 17 mg/dL (9-16); Calcium 9.5 mg/dL (8.4-10.2); Carbon Dioxide 28 mmol/L (22-29); Chloride 102 mmol/L (96-108); Cholesterol 218 mg/dL (<200); Creatinine Clr Calc Pharmacy 119.7; Estimated Glomerular Filt Rate > 60; Glucose Fasting 119 mg/dL (60-99); HDL Cholesterol 38 mg/dL (>40); LDL Cholesterol Calculated 135 mg/dL (<100); Potassium 4.7 mmol/L (3.3-5.1); Sodium 137 mmol/L (135-145); Total Protein 7.2 g/dL (6.5-8.0); Triglycerides 229 mg/dL (<150)
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
[2023-05-23] MEDS: OLANZapine 2.5 MG TABLET PO (13:06)
[2023-05-23 14:33] VITALS: BP 131/70; PULSE 130
[2023-05-23 19:45] VITALS: BP 136/93; PULSE 86; RESP 18; TEMP 36.6; O2SAT 97
[2023-05-23] MEDS: traZODone HCL 50 MG TABLET PO (20:53)
[2023-05-23] MEDS: Lurasidone HCl 40 MG TABLET PO (20:53)
[2023-05-23] MEDS: Doxepin HCl 25 MG CAPSULE 150 MG PO (20:53)
[2023-05-23] MEDS: QUEtiapine Fumarate 100 MG TABLET 200 MG PO (20:53)
[2023-05-24 06:00] VITALS: BP 107/68; PULSE 57; TEMP 36.2; O2SAT 98
[2023-05-24] MEDS: cloNIDine HCL 0.2 MG TABLET PO ×3 (09:17→21:59)
[2023-05-24] MEDS: OLANZapine 2.5 MG TABLET PO ×3 (09:17→21:59)
[2023-05-24] MEDS: Doxepin HCl 25 MG CAPSULE 50 MG PO (09:17)
[2023-05-24] MEDS: Folic Acid 1 MG TABLET PO (09:17)
--- NOTE | 2023-05-24 10:16 | P.PNPSI_ITS ---
Subjective Subjective Date of Service: 05/24/23 Reason For Visit: Depressed Interim History: Met with patient; discussed with team Patient says he is actually feeling a little better today. Not sure if it is just because he is at the hospital and addressing his depression or if it is because doxepin was increased. Says he is tired from this morning's dose but wants to continue with it. Still on board with ECT and says he discussed it with his who agrees. Patient said a little SI last night but not today. Mental Status Exam Mental Status Exam Narrative: Pt is alert and oriented; behavior is cooperative, polite and calm; patient is not in distress; dressed in casual attire, scruffy, unkempt; mood is described as depressed but not as bad and affect congruent, downcast; eye contact appropriate; Speech is normal rate, volume and prosody and not pressured; psychomotor retardation present; thought process is organized and goal directed; Thought content is on wishing he were ; tx; otherwise pertinent to relevant topics and without any delusional content, paranoid ideations or grandiosity; intermittent passive wish; no plan or intent; no HI. There is no evidence of perceptual disturbance and denies AVH. Patients insight and judgment impaired Diagnostics Vital Signs (24Hr): Vital Signs - 24 hr 05/23/23 14:33 05/23/23 19:45 05/24/23 06:00 Temperature 97.8 F 97.2 F Pulse Rate 130 H 86 57 Respiratory Rate 18 Blood Pressure 131/70 136/93 H 107/68 Pulse Oximetry 97 98 Oxygen Delivery Method Room Air Room Air BMI result Body Mass Index 36.0 Labs 05/21/23 18:02 05/23/23 09:17 Labs: Laboratory Results - last 48 hr 05/23/23 09:17 Sodium 137 Potassium 4.7 D Chloride 102 Carbon Dioxide 28 Anion Gap 12 BUN 17 H Creatinine 1.11 Estim Creat Clear Calc 119.7 Estimated GFR > 60 Fasting Glucose 119 H Estimat Average Glucose 105 Hemoglobin A1c % 5.3 Calcium 9.5 Total Bilirubin 0.4 AST 23 ALT 51 H Alkaline Phosphatase 89 Total Protein 7.2 Albumin 4.2 Triglycerides 229 H Cholesterol 218 H LDL Cholesterol, Calc 135 H HDL Cholesterol 38 L Medications Medications Current Medications Acetaminophen (Acetaminophen 325 Mg Tablet) 650 mg PO Q6H PRN PRN Reason: Headache/Pain Mild Scale (1-3) Al Hydroxide/Mg Hydroxide (Magnesium Hydrox/Alum Hydrox 30 Ml Oral.Susp) 30 ml PO Q6H PRN PRN Reason: Heartburn/Nausea Clonidine HCl (Clonidine Hcl 0.2 Mg Tablet) 0.2 mg PO TID COUNTS INCLUDE 234 BEDS AT THE [facility]; Protocol Last Admin: 05/24/23 09:17 Dose: 0.2 mg Doxepin HCl (Doxepin Hcl 25 Mg Capsule) 150 mg PO BEDTIME COUNTS INCLUDE 234 BEDS AT THE [facility] Last Admin: 05/23/23 20:53 Dose: 150 mg Doxepin HCl (Doxepin Hcl 25 Mg Capsule) 50 mg PO DAILY COUNTS INCLUDE 234 BEDS AT THE [facility] Last Admin: 05/24/23 09:17 Dose: 50 mg Folic Acid (Folic Acid 1 Mg Tablet) 1 mg PO DAILY COUNTS INCLUDE 234 BEDS AT THE [facility] Last Admin: 05/24/23 09:17 Dose: 1 mg Hydroxyzine HCl (Hydroxyzine Hcl 50 Mg Tablet) 50 mg PO Q6H PRN PRN Reason: anxiety Lurasidone HCl (Lurasidone Hcl 40 Mg Tablet) 40 mg PO BEDTIME COUNTS INCLUDE 234 BEDS AT THE [facility] Last Admin: 05/23/23 20:53 Dose: 40 mg Magnesium Hydroxide (Milk Of Magnesia 30 Ml Oral.Susp) 30 ml PO DAILY PRN PRN Reason: Constipation Nicotine (Nicotine 21 Mg Patch.Td24) 21 mg TRANSDERMA DAILY PRN PRN Reason: smoking cessation Nicotine Polacrilex (Nicotine Polacrilex 2 Mg Gum) 4 mg BUCCAL Q2H PRN PRN Reason: Nicotine Cravings Last Admin: 05/23/23 20:52 Dose: 4 mg Olanzapine (Olanzapine 2.5 Mg Tablet) 2.5 mg PO TID PRN PRN Reason: Anxiety Last Admin: 05/24/23 09:17 Dose: 2.5 mg Quetiapine Fumarate (Quetiapine Fumarate 100 Mg Tablet) 200 mg PO BEDTIME COUNTS INCLUDE 234 BEDS AT THE [facility] Last Admin: 05/23/23 20:53 Dose: 200 mg Thiamine HCl (Thiamine Hcl 100 Mg Tablet) 100 mg PO DAILY COUNTS INCLUDE 234 BEDS AT THE [facility] Last Admin: 05/23/23 08:53 Dose: 100 mg Trazodone HCl (Trazodone Hcl 50 Mg Tablet) 50 mg PO BEDTIME MRX1 PRN PRN Reason: Insomnia Last Admin: 05/23/23 20:53 Dose: 50 mg Allergies Allergies Allergy/AdvReac Type Severity Reaction Status Date / Time bee pollen [BEE STINGS] Allergy Unknown ANAPHYLAXIS Verified 05/21/23 17:48 penicillin V Allergy Unknown Hives Verified 05/21/23 17:48 Penicillins [PCN] Allergy Unknown HIVES Verified 05/21/23 17:48 Assessment & Plan Assessment & Plan (1) MDD (major depressive disorder), recurrent severe, without psychosis: Status: Acute Code(s): F33.2 - Major depressive disorder, recurrent severe without psychotic features (2) PTSD (post-traumatic stress disorder): Status: Acute Code(s): F43.10 - Post-traumatic stress disorder, unspecified (3) Alcohol use disorder, severe, in sustained remission: Status: Acute Code(s): F10.21 - Alcohol dependence, in remission Plan HPI: Patient is a 38-year-old male with history of refractory depression, PTSD, anxiety, alcohol abuse in sustained remission who presents for worsening depression and SI with no clear trigger. Patient was 1st psychiatrically admitted 05/2022 ?Patient reports that he was in overall good enough mood the following spring and summer, working, enjoying activities... For some unknown reason in the fall he started to get depressed again, eventually to the point where he stopped going to work, not attending ADLs, sleeping all the time and eventually developing suicidal ideation, love for his daughter being the protective factor the kept him safe. He was psychiatrically admitted and medications changed. Patient says he was doing overall well for the next 2 months but then in March he started getting depressed again; depression worsened and he went to respite where some of his meds were changed again; depression just continued and again not going to work, not attending to ADLs, and developing suicidal ideation. Patient denies any intent or plans, again protective factor being his family; however he feels miserable, would commit suicide if not for family and came to the hospital wanting help. Rough history of recent medication trials: 1. After he got sober around 2020, patient reports being stable for next 2.5 years on Celexa, Trileptal, and doxepin 2. First psychiatric admission 05/2022 [facility] and patient stabilized with Vraylar, Lexapro, low-dose Remeron, Seroquel and continued on doxepin and Trileptal ((started on Lamictal but may not have been titrated fully) 3. 2nd Psych admission 12/2022 for return of depression; stabilized on Latuda; discontinued from Vraylar, Lexapro and Trileptal 4. Respite 04/2023 BuSpar increased; patient was supposed to start Pristiq but never did; Latuda lowered due to side effects with intention of being discontinued Impression: Patient has refractory depression with numerous failed medication trials. It is unclear what triggers onset of depressive episodes; History of trauma is very likely a complicating factor however it is not clear to patient how so (at last admission, pt realized his first depressive episode may have started when his daughter became the same age he was when first getting traumatized, surfacing formally repressed memories of trauma). Patient seems to do okay after an admission but within a few months begins to decompensate causing some speculation that the active being hospitalized and subsequent change in meds might in some part be acting as a placebo. At patient's past admission, history of conner was thoroughly explored; once his provided collateral it seemed unlikely that patient was having actual manic episodes and did not have bipolar disorder. However this does remain a rule out given refractory depression (and biological loading) and it is possible that he has very mild hypomanic episodes. Unfortunately has failed several trials of mood stabilizers both Vraylar and Latuda. It does seem that TCA Doxepin has helped some and It is possible that TCAs might help where SSRIs have failed and this can be further explored. However, patient is depression is significant, with a strong urge to commit suicide, with his love for his family being his main protective factor. The severity of repeated depressive episodes, significantly impairing his ability to function in the community and refractory to multiple medication trials make ECT a viable option. Risks/side effects discussed with patient and patient is eager to pursue ECT, wanting relief from overwhelming depression. -strong consideration for ECT; will also consider getting back on Lexapro; Tegretol also possible option though would interfere with seizure from ECT; Lamictal also an option since it was unlikely ever titrated to high enough dose Hospital course: 05/23 patient's mood has improved a little bit; possibly due to therapeutic environment of being on the unit; also possible since doxepin was increased. Patient is enthusiastic about ECT; will continue to strongly consider however may hold off to see if medication management can continue to be increasingly effective PLAN: CV Q 15 Strongly considering ECT (getting medical clearance) Continue doxepin 75 mg in the morning; not sure if this dose will make him too tired, however literature suggests dividing doses if above 150 mg Continue doxepin 150 mg q.h.s. Continue Seroquel 200 mg q.h.s. DC BuSpar: Patient says has never helped DC Lexapro: Patient has not been on recently Taper and DC Latuda: Was at 120 mg, no help, developed akathisia and is in the process of being tapered and discontinued Medication trials: Seroquel: partially helpful Doxepin: partially helpful Trileptal: partially helpful but caused sexual side-effects Risperdal: no clear indication of positive effect (Taking as a child) [place]: not helpful; caused zombie like affect; not thinking clearly (Taking as a teenager) Depakote: For 1.5 years; no help, caused weight gain Vraylar: not helpful Latuda: akathesia, not helpful Lamcital: no clear indication of positive effect, but unclear if got to therapeutic dose Lexapro: no clear indication of positive effect Buspar: no clear indication of positive effect Prozac: no clear indication of positive effect; in teens, not sure what dose Celexa: used to help; was Partially helpful, but then effect wore off Clonidine: Partially helpful Gabapentin: Causes irritability Patient educated on: diagnosis, medication risk/benefits and ECT Informed Consent: understands Reason for continued inpatient stay Substantial Risk for: inability to function and rapid decompensation Time Spent With Patient Time: Total time managing care of this patient today ____ minutes.
[2023-05-24] MEDS: Thiamine HCL 100 MG TABLET PO (10:27)
[2023-05-24 15:00] VITALS: BP 112/69; PULSE 98
[2023-05-24] MEDS: Nicotine Polacrilex 2 MG GUM 4 MG BUCCAL ×2 (15:04→18:16)
[2023-05-24 18:00] VITALS: BP 147/58; PULSE 87; RESP 18; TEMP 36.4; O2SAT 97
[2023-05-24] MEDS: QUEtiapine Fumarate 100 MG TABLET 200 MG PO (21:59)
[2023-05-24] MEDS: Doxepin HCl 25 MG CAPSULE 150 MG PO (21:59)
[2023-05-24] MEDS: Lurasidone HCl 40 MG TABLET PO (21:59)
[2023-05-24] MEDS: traZODone HCL 50 MG TABLET PO (21:59)
[2023-05-25 08:28] VITALS: BP 115/65; PULSE 90; RESP 18; TEMP 36.4; O2SAT 95
[2023-05-25] MEDS: Thiamine HCL 100 MG TABLET PO (10:16)
[2023-05-25] MEDS: Doxepin HCl 25 MG CAPSULE 50 MG PO (10:16)
[2023-05-25] MEDS: cloNIDine HCL 0.2 MG TABLET PO ×3 (10:16→19:49)
[2023-05-25] MEDS: Folic Acid 1 MG TABLET PO (10:16)
--- NOTE | 2023-05-25 10:59 | HO.PSYCHPN ---
Subjective Subjective Date of Service: 05/25/23 Reason For Visit: Depressed Interim History: met with patient; discussed with team pt's mood has improved since coming to unit; depressive symptoms down to 7/10 (10 on admission) and no SI. Starting to tolerate Doxepin in AM and today not making him so tired. Gave pt print out on ECT to read; discussed treatment and pt agrees to hold off ECT for now since mood is improved (and frequently does during inpatient admissions). Last night much trouble sleeping; said tossing and turning and feeling cold; also Latuda tapering down and he slept much of day yesterday. Discussed meds/risks/side-effects. He agrees to switch to prn Seroquel since he finds it calming (rather than zyprexa); Agrees to increase in Trazodone. Mental Status Exam Mental Status Exam Narrative: Pt is alert and oriented; behavior is cooperative, polite and calm; patient is not in distress; dressed in casual attire, scruffy, unkempt; mood is described as depressed but not as bad and affect conguent, little brighter; eye contact appropriate; Speech is normal rate, volume and prosody and not pressured; still psychomotor retardation present; thought process is organized and goal directed; Thought content is on treatment; no SI; otherwise pertinent to relevant topics and without any delusional content, paranoid ideations or grandiosity; no SI; no HI. There is no evidence of perceptual disturbance and denies AVH. Patients insight and judgment impaired but improving Diagnostics Vital Signs (24Hr): Vital Signs - 24 hr 05/24/23 15:00 05/24/23 18:00 05/25/23 08:28 Temperature 97.5 F 97.6 F Pulse Rate 98 87 90 Respiratory Rate 18 18 Blood Pressure 112/69 147/58 H 115/65 Pulse Oximetry 97 95 Oxygen Delivery Method Room Air Room Air BMI result Body Mass Index 36.0 Labs 05/21/23 18:02 05/23/23 09:17 Medications Medications Current Medications Acetaminophen (Acetaminophen 325 Mg Tablet) 650 mg PO Q6H PRN PRN Reason: Headache/Pain Mild Scale (1-3) Al Hydroxide/Mg Hydroxide (Magnesium Hydrox/Alum Hydrox 30 Ml Oral.Susp) 30 ml PO Q6H PRN PRN Reason: Heartburn/Nausea Clonidine HCl (Clonidine Hcl 0.2 Mg Tablet) 0.2 mg PO TID [facility]; Protocol Last Admin: 05/25/23 10:16 Dose: 0.2 mg Doxepin HCl (Doxepin Hcl 25 Mg Capsule) 150 mg PO BEDTIME [facility] Last Admin: 05/24/23 21:59 Dose: 150 mg Doxepin HCl (Doxepin Hcl 25 Mg Capsule) 50 mg PO DAILY [facility] Last Admin: 05/25/23 10:16 Dose: 50 mg Folic Acid (Folic Acid 1 Mg Tablet) 1 mg PO DAILY [facility] Last Admin: 05/25/23 10:16 Dose: 1 mg Hydroxyzine HCl (Hydroxyzine Hcl 50 Mg Tablet) 50 mg PO Q6H PRN PRN Reason: anxiety Lurasidone HCl (Lurasidone Hcl 40 Mg Tablet) 40 mg PO BEDTIME [facility] Last Admin: 05/24/23 21:59 Dose: 40 mg Magnesium Hydroxide (Milk Of Magnesia 30 Ml Oral.Susp) 30 ml PO DAILY PRN PRN Reason: Constipation Nicotine (Nicotine 21 Mg Patch.Td24) 21 mg TRANSDERMA DAILY PRN PRN Reason: smoking cessation Nicotine Polacrilex (Nicotine Polacrilex 2 Mg Gum) 4 mg BUCCAL Q2H PRN PRN Reason: Nicotine Cravings Last Admin: 05/24/23 18:16 Dose: 4 mg Olanzapine (Olanzapine 2.5 Mg Tablet) 2.5 mg PO TID PRN PRN Reason: Anxiety Last Admin: 05/24/23 21:59 Dose: 2.5 mg Quetiapine Fumarate (Quetiapine Fumarate 100 Mg Tablet) 200 mg PO BEDTIME [facility] Last Admin: 05/24/23 21:59 Dose: 200 mg Thiamine HCl (Thiamine Hcl 100 Mg Tablet) 100 mg PO DAILY [facility] Last Admin: 05/25/23 10:16 Dose: 100 mg Trazodone HCl (Trazodone Hcl 50 Mg Tablet) 50 mg PO BEDTIME MRX1 PRN PRN Reason: Insomnia Last Admin: 05/24/23 21:59 Dose: 50 mg Allergies Allergies Allergy/AdvReac Type Severity Reaction Status Date / Time bee pollen [BEE STINGS] Allergy Unknown ANAPHYLAXIS Verified 05/21/23 17:48 penicillin V Allergy Unknown Hives Verified 05/21/23 17:48 Penicillins [PCN] Allergy Unknown HIVES Verified 05/21/23 17:48 Assessment & Plan Assessment & Plan (1) MDD (major depressive disorder), recurrent severe, without psychosis: Status: Acute Code(s): F33.2 - Major depressive disorder, recurrent severe without psychotic features (2) PTSD (post-traumatic stress disorder): Status: Acute Code(s): F43.10 - Post-traumatic stress disorder, unspecified (3) Alcohol use disorder, severe, in sustained remission: Status: Acute Code(s): F10.21 - Alcohol dependence, in remission Plan HPI: Patient is a 38-year-old male with history of refractory depression, PTSD, anxiety, alcohol abuse in sustained remission who presents for worsening depression and SI with no clear trigger. Patient was 1st psychiatrically admitted 05/2022 ?Patient reports that he was in overall good enough mood the following spring and summer, working, enjoying activities... For some unknown reason in the fall he started to get depressed again, eventually to the point where he stopped going to work, not attending ADLs, sleeping all the time and eventually developing suicidal ideation, love for his daughter being the protective factor the kept him safe. He was psychiatrically admitted and medications changed. Patient says he was doing overall well for the next 2 months but then in March he started getting depressed again; depression worsened and he went to respite where some of his meds were changed again; depression just continued and again not going to work, not attending to ADLs, and developing suicidal ideation. Patient denies any intent or plans, again protective factor being his family; however he feels miserable, would commit suicide if not for family and came to the hospital wanting help. Rough history of recent medication trials: 1. After he got sober around 2020, patient reports being stable for next 2.5 years on Celexa, Trileptal, and doxepin 2. First psychiatric admission 05/2022 [facility] and patient stabilized with Vraylar, Lexapro, low-dose Remeron, Seroquel and continued on doxepin and Trileptal ((started on Lamictal but may not have been titrated fully) 3. 2nd Psych admission 12/2022 for return of depression; stabilized on Latuda; discontinued from Vraylar, Lexapro and Trileptal 4. Respite 04/2023 BuSpar increased; patient was supposed to start Pristiq but never did; Latuda lowered due to side effects with intention of being discontinued Impression: Patient has refractory depression with numerous failed medication trials. It is unclear what triggers onset of depressive episodes; History of trauma is very likely a complicating factor however it is not clear to patient how so (at last admission, pt realized his first depressive episode may have started when his daughter became the same age he was when first getting traumatized, surfacing formally repressed memories of trauma). Patient seems to do okay after an admission but within a few months begins to decompensate causing some speculation that the active being hospitalized and subsequent change in meds might in some part be acting as a placebo. At patient's past admission, history of conner was thoroughly explored; once his provided collateral it seemed unlikely that patient was having actual manic episodes and did not have bipolar disorder. However this does remain a rule out given refractory depression (and biological loading) and it is possible that he has very mild hypomanic episodes. Unfortunately has failed several trials of mood stabilizers both Vraylar and Latuda. It does seem that TCA Doxepin has helped some and It is possible that TCAs might help where SSRIs have failed and this can be further explored. However, patient is depression is significant, with a strong urge to commit suicide, with his love for his family being his main protective factor. The severity of repeated depressive episodes, significantly impairing his ability to function in the community and refractory to multiple medication trials make ECT a viable option. Risks/side effects discussed with patient and patient is eager to pursue ECT, wanting relief from overwhelming depression. -strong consideration for ECT; will also consider getting back on Lexapro; Tegretol also possible option though would interfere with seizure from ECT; Lamictal also an option since it was unlikely ever titrated to high enough dose Hospital course: 05/23 patient's mood has improved a little bit; possibly due to therapeutic environment of being on the unit; also possible since doxepin was increased. Patient is enthusiastic about ECT; will continue to strongly consider however may hold off to see if medication management can continue to be increasingly effective 05/24 pt's mood has improved since coming to unit; depressive symptoms down to 7/10 (10 on admission) and no SI. Starting to tolerate Doxepin in AM and today not making him so tired. Gave pt print out on ECT to read; discussed treatment and pt agrees to hold off ECT for now since mood is improved (and frequently does during inpatient admissions). Last night much trouble sleeping; said tossing and turning and feeling cold; also Latuda tapering down and he slept much of day yesterday. Discussed meds/risks/side-effects. He agrees to switch to prn Seroquel since he finds it calming (rather than zyprexa); Agrees to increase in Trazodone. PLAN: CV Q 15 HOLD off ECT for tomorrow; pt getting a little better w/ meds Continue doxepin 75 mg in the morning; did not make to tired today; however literature suggests dividing doses if above 150 mg Continue doxepin 150 mg q.h.s. Continue Seroquel 200 mg q.h.s. ADded Seroquel 50mg prn for anxiety increased Trazodone to 100mg DC BuSpar: Patient says has never helped DC Lexapro: Patient has not been on recently Taper and DC Latuda: Was at 120 mg, no help, developed akathisia and is in the process of being tapered and discontinued Medication trials: Seroquel: partially helpful Doxepin: partially helpful Trileptal: partially helpful but caused sexual side-effects Risperdal: no clear indication of positive effect (Taking as a child) [place]: not helpful; caused zombie like affect; not thinking clearly (Taking as a teenager) Depakote: For 1.5 years; no help, caused weight gain Vraylar: not helpful Latuda: akathesia, not helpful Lamcital: no clear indication of positive effect, but unclear if got to therapeutic dose Lexapro: no clear indication of positive effect Buspar: no clear indication of positive effect Prozac: no clear indication of positive effect; in teens, not sure what dose Celexa: used to help; was Partially helpful, but then effect wore off Clonidine: Partially helpful Gabapentin: Causes irritability Patient educated on: diagnosis, medication risk/benefits and ECT Informed Consent: understands Reason for continued inpatient stay Substantial Risk for: rapid decompensation Time Spent With Patient Time: Total time managing care of this patient today ____ minutes.
[2023-05-25 16:06] VITALS: BP 113/70
[2023-05-25 16:08] VITALS: BP 113/70; PULSE 86; RESP 16; TEMP 36.8; O2SAT 95
[2023-05-25] MEDS: Nicotine Polacrilex 2 MG GUM 4 MG BUCCAL (16:50)
[2023-05-25] MEDS: QUEtiapine Fumarate 100 MG TABLET 200 MG PO (19:50)
[2023-05-25] MEDS: Lurasidone HCl 40 MG TABLET PO (19:50)
[2023-05-25] MEDS: Doxepin HCl 25 MG CAPSULE 150 MG PO (19:50)
[2023-05-25] MEDS: Acetaminophen 325 MG TABLET 650 MG PO (19:51)
[2023-05-26 08:10] VITALS: BP 113/68; PULSE 88; RESP 18; TEMP 36.4; O2SAT 94
[2023-05-26] MEDS: Doxepin HCl 25 MG CAPSULE 50 MG PO (08:57)
[2023-05-26] MEDS: Folic Acid 1 MG TABLET PO (08:57)
[2023-05-26] MEDS: cloNIDine HCL 0.2 MG TABLET PO ×3 (08:57→21:06)
[2023-05-26] MEDS: Nicotine Polacrilex 2 MG GUM 4 MG BUCCAL ×3 (08:58→18:33)
[2023-05-26] MEDS: Thiamine HCL 100 MG TABLET PO (08:58)
--- NOTE | 2023-05-26 09:28 | HO.PSYCHPN ---
Subjective Subjective Date of Service: 05/26/23 Reason For Visit: Depressed Interim History: met with patient; discussed with team; discussed case with Dr. Godinez Patient reports that he has a little better, that depression is 8/10 which he thinks is improved because he is on the unit and addressing his depression. Denies any SI. Patient however no longer thinks that increased doxepin is making much of a difference and it is certainly making him tired in the morning so would like the morning dose discontinued. Discussed medication management further and patient is open to Abilify and possibly retry a low dose of lithium. Also discussed ECT. [employer] Machine Operator shared discussion had with Dr. Godinez, and again reviewed risks/side effects. Patient would like to move forward with ECT and science writer agrees it is worth trying. Mental Status Exam Mental Status Exam Narrative: Pt is alert and oriented; behavior is cooperative, polite and calm; patient is not in distress; dressed in casual attire, scruffy, unkempt; mood is described as depressed and affect congruent, little brighter; eye contact appropriate; Speech is normal rate, volume and prosody and not pressured; still psychomotor retardation present; thought process is organized and goal directed; Thought content is on treatment; no SI; otherwise pertinent to relevant topics and without any delusional content, paranoid ideations or grandiosity; no SI; no HI. There is no evidence of perceptual disturbance and denies AVH. Patients insight and judgment impaired but improving Diagnostics Vital Signs (24Hr): Vital Signs - 24 hr 05/25/23 16:06 05/25/23 16:08 05/26/23 08:10 Temperature 98.2 F 97.5 F Pulse Rate 86 88 Respiratory Rate 16 18 Blood Pressure 113/70 113/70 113/68 Pulse Oximetry 95 94 Oxygen Delivery Method Room Air Room Air BMI result Body Mass Index 36.0 Labs 05/21/23 18:02 05/23/23 09:17 Medications Medications Current Medications Acetaminophen (Acetaminophen 325 Mg Tablet) 650 mg PO Q6H PRN PRN Reason: Headache/Pain Mild Scale (1-3) Last Admin: 05/25/23 19:51 Dose: 650 mg Al Hydroxide/Mg Hydroxide (Magnesium Hydrox/Alum Hydrox 30 Ml Oral.Susp) 30 ml PO Q6H PRN PRN Reason: Heartburn/Nausea Clonidine HCl (Clonidine Hcl 0.2 Mg Tablet) 0.2 mg PO TID [facility]; Protocol Last Admin: 05/26/23 08:57 Dose: 0.2 mg Doxepin HCl (Doxepin Hcl 25 Mg Capsule) 150 mg PO BEDTIME [facility] Last Admin: 05/25/23 19:50 Dose: 150 mg Doxepin HCl (Doxepin Hcl 25 Mg Capsule) 50 mg PO DAILY [facility] Last Admin: 05/26/23 08:57 Dose: 50 mg Folic Acid (Folic Acid 1 Mg Tablet) 1 mg PO DAILY [facility] Last Admin: 05/26/23 08:57 Dose: 1 mg Hydroxyzine HCl (Hydroxyzine Hcl 50 Mg Tablet) 50 mg PO Q6H PRN PRN Reason: anxiety Magnesium Hydroxide (Milk Of Magnesia 30 Ml Oral.Susp) 30 ml PO DAILY PRN PRN Reason: Constipation Nicotine (Nicotine 21 Mg Patch.Td24) 21 mg TRANSDERMA DAILY PRN PRN Reason: smoking cessation Nicotine Polacrilex (Nicotine Polacrilex 2 Mg Gum) 4 mg BUCCAL Q2H PRN PRN Reason: Nicotine Cravings Last Admin: 05/26/23 08:58 Dose: 4 mg Quetiapine Fumarate (Quetiapine Fumarate 100 Mg Tablet) 200 mg PO BEDTIME [facility] Last Admin: 05/25/23 19:50 Dose: 200 mg Quetiapine Fumarate (Quetiapine Fumarate 50 Mg Tablet) 50 mg PO Q4H PRN PRN Reason: anxiety Thiamine HCl (Thiamine Hcl 100 Mg Tablet) 100 mg PO DAILY [facility] Last Admin: 05/26/23 08:58 Dose: 100 mg Trazodone HCl (Trazodone Hcl 100 Mg Tablet) 100 mg PO BEDTIME MRX1 PRN PRN Reason: Insomnia Allergies Allergies Allergy/AdvReac Type Severity Reaction Status Date / Time bee pollen [BEE STINGS] Allergy Unknown ANAPHYLAXIS Verified 05/21/23 17:48 penicillin V Allergy Unknown Hives Verified 05/21/23 17:48 Penicillins [PCN] Allergy Unknown HIVES Verified 05/21/23 17:48 Assessment & Plan Assessment & Plan (1) MDD (major depressive disorder), recurrent severe, without psychosis: Status: Acute Code(s): F33.2 - Major depressive disorder, recurrent severe without psychotic features (2) PTSD (post-traumatic stress disorder): Status: Acute Code(s): F43.10 - Post-traumatic stress disorder, unspecified (3) Alcohol use disorder, severe, in sustained remission: Status: Acute Code(s): F10.21 - Alcohol dependence, in remission Plan HPI: Patient is a 38-year-old male with history of refractory depression, PTSD, anxiety, alcohol abuse in sustained remission who presents for worsening depression and SI with no clear trigger. Patient was 1st psychiatrically admitted 05/2022 ?Patient reports that he was in overall good enough mood the following spring and summer, working, enjoying activities... For some unknown reason in the fall he started to get depressed again, eventually to the point where he stopped going to work, not attending ADLs, sleeping all the time and eventually developing suicidal ideation, love for his daughter being the protective factor the kept him safe. He was psychiatrically admitted and medications changed. Patient says he was doing overall well for the next 2 months but then in March he started getting depressed again; depression worsened and he went to respite where some of his meds were changed again; depression just continued and again not going to work, not attending to ADLs, and developing suicidal ideation. Patient denies any intent or plans, again protective factor being his family; however he feels miserable, would commit suicide if not for family and came to the hospital wanting help. Rough history of recent medication trials: 1. After he got sober around 2020, patient reports being stable for next 2.5 years on Celexa, Trileptal, and doxepin 2. First psychiatric admission 05/2022 [facility] and patient stabilized with Vraylar, Lexapro, low-dose Remeron, Seroquel and continued on doxepin and Trileptal ((started on Lamictal but may not have been titrated fully) 3. 2nd Psych admission 12/2022 for return of depression; stabilized on Latuda; discontinued from Vraylar, Lexapro and Trileptal 4. Respite 04/2023 BuSpar increased; patient was supposed to start Pristiq but never did; Latuda lowered due to side effects with intention of being discontinued Impression: Patient has refractory depression with numerous failed medication trials. It is unclear what triggers onset of depressive episodes; History of trauma is very likely a complicating factor however it is not clear to patient how so (at last admission, pt realized his first depressive episode may have started when his daughter became the same age he was when first getting traumatized, surfacing formally repressed memories of trauma). Patient seems to do okay after an admission but within a few months begins to decompensate causing some speculation that the active being hospitalized and subsequent change in meds might in some part be acting as a placebo. At patient's past admission, history of conner was thoroughly explored; once his provided collateral it seemed unlikely that patient was having actual manic episodes and did not have bipolar disorder. However this does remain a rule out given refractory depression (and biological loading) and it is possible that he has very mild hypomanic episodes. Unfortunately has failed several trials of mood stabilizers both Vraylar and Latuda. It does seem that TCA Doxepin has helped some and It is possible that TCAs might help where SSRIs have failed and this can be further explored. However, patient is depression is significant, with a strong urge to commit suicide, with his love for his family being his main protective factor. The severity of repeated depressive episodes, significantly impairing his ability to function in the community and refractory to multiple medication trials make ECT a viable option. Risks/side effects discussed with patient and patient is eager to pursue ECT, wanting relief from overwhelming depression. -strong consideration for ECT; will also consider getting back on Lexapro; Tegretol also possible option though would interfere with seizure from ECT; Lamictal also an option since it was unlikely ever titrated to high enough dose Hospital course: 05/23 patient's mood has improved a little bit; possibly due to therapeutic environment of being on the unit; also possible since doxepin was increased. Patient is enthusiastic about ECT; will continue to strongly consider however may hold off to see if medication management can continue to be increasingly effective 05/24 pt's mood has improved since coming to unit; depressive symptoms down to /10 (10 on admission) and no SI. Starting to tolerate Doxepin in AM and today not making him so tired. Gave pt print out on ECT to read; discussed treatment and pt agrees to hold off ECT for now since mood is improved (and frequently does during inpatient admissions). Last night much trouble sleeping; said tossing and turning and feeling cold; also Latuda tapering down and he slept much of day yesterday. Discussed meds/risks/side-effects. He agrees to switch to prn Seroquel since he finds it calming (rather than zyprexa); Agrees to increase in Trazodone. 05/25 depression remains and not so different despite a.m. doxepin which is making patient too tired. Discussed case at length with Dr. Godinez who agrees with moving forward with ECT. 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 Given the severity of depression which includes SI, science writer, team and patient agree with moving forward with ECT. Discussed groups, coping skills and further medication management PLAN: CV Q 15 Scheduling ECT for 05/27 DC doxepin 75 mg in the morning; making him too tired Continue doxepin 150 mg q.h.s. Continue Seroquel 200 mg q.h.s. ADded Seroquel 50mg prn for anxiety increased Trazodone to 100mg DC BuSpar: Patient says has never helped DC Lexapro: Patient has not been on recently Taper and DC Latuda: Was at 120 mg, no help, developed akathisia and is in the process of being tapered and discontinued Medication trials: Seroquel: partially helpful Doxepin: partially helpful Trileptal: partially helpful but caused sexual side-effects Risperdal: no clear indication of positive effect (Taking as a child) [place]: not helpful; caused zombie like affect; not thinking clearly (Taking as a teenager) Depakote: For 1.5 years; no help, caused weight gain Vraylar: not helpful Latuda: akathesia, not helpful Lamcital: no clear indication of positive effect, but unclear if got to therapeutic dose Lexapro: no clear indication of positive effect Buspar: no clear indication of positive effect Prozac: no clear indication of positive effect; in teens, not sure what dose Celexa: used to help; was Partially helpful, but then effect wore off Clonidine: Partially helpful Gabapentin: Causes irritability Patient educated on: diagnosis, medication risk/benefits, ECT and therapeutic strategies Informed Consent: understands Reason for continued inpatient stay Substantial Risk for: inability to function and med/psych decompensation Time Spent With Patient Time: Total time managing care of this patient today ____ minutes.
[2023-05-26 14:49] VITALS: BP 112/78; PULSE 125
[2023-05-26 21:05] VITALS: BP 116/76; PULSE 124; TEMP 36.4
[2023-05-26] MEDS: Doxepin HCl 25 MG CAPSULE 150 MG PO (21:07)
[2023-05-26] MEDS: QUEtiapine Fumarate 100 MG TABLET 200 MG PO (21:09)
[2023-05-27 07:51] VITALS: BP 108/75; PULSE 82; RESP 16; TEMP 36.3; O2SAT 95
[2023-05-27] MEDS: Folic Acid 1 MG TABLET PO (08:44)
[2023-05-27] MEDS: Thiamine HCL 100 MG TABLET PO (08:44)
[2023-05-27] MEDS: cloNIDine HCL 0.2 MG TABLET PO ×3 (08:45→20:50)
[2023-05-27] MEDS: Nicotine Polacrilex 2 MG GUM 4 MG BUCCAL ×3 (09:20→18:52)
--- NOTE | 2023-05-27 09:31 | P.PNPSI_ITS ---
Subjective Subjective Date of Service: 05/27/23 Reason For Visit: Depressed Interim History: met with patient; discussed with team Review of Systems met w pt; discussed with team pt reports feeling much more down today; he is tearful, says not sure why. Wonders if maybe since no Doxepin, however first day w/out it (and only on it for a 2 days). Discussed ECT again and pt wants to go forward. asked for increased doxepin but at bedtime Mental Status Exam Mental Status Exam Narrative: Pt is alert and oriented; behavior is sad, tearful, but cooperative, polite and calm; patient is not in distress; dressed in casual attire, scruffy, unkempt; mood is described as depressed and affect congruent, downcast, tearful; eye contact appropriate; Speech is normal rate, volume and prosody and not pressured; still psychomotor retardation present; thought process is organized and goal directed; Thought content is on treatment; no SI; otherwise pertinent to relevant topics and without any delusional content, paranoid ideations or grandiosity; no SI; no HI. There is no evidence of perceptual disturbance and denies AVH. Patients insight and judgment impaired Diagnostics Vital Signs (24Hr): Vital Signs - 24 hr 05/26/23 14:49 05/26/23 21:05 05/27/23 07:51 Temperature 97.6 F 97.3 F Pulse Rate 125 H 124 H 82 Respiratory Rate 16 Blood Pressure 112/78 116/76 108/75 Pulse Oximetry 95 Oxygen Delivery Method Room Air BMI result Body Mass Index 36.0 Labs 05/21/23 18:02 05/23/23 09:17 Medications Medications Current Medications Acetaminophen (Acetaminophen 325 Mg Tablet) 650 mg PO Q6H PRN PRN Reason: Headache/Pain Mild Scale (1-3) Last Admin: 05/25/23 19:51 Dose: 650 mg Al Hydroxide/Mg Hydroxide (Magnesium Hydrox/Alum Hydrox 30 Ml Oral.Susp) 30 ml PO Q6H PRN PRN Reason: Heartburn/Nausea Clonidine HCl (Clonidine Hcl 0.2 Mg Tablet) 0.2 mg PO TID [facility]; Protocol Last Admin: 05/27/23 08:45 Dose: 0.2 mg Doxepin HCl (Doxepin Hcl 25 Mg Capsule) 150 mg PO BEDTIME [facility] Last Admin: 05/26/23 21:07 Dose: 150 mg Folic Acid (Folic Acid 1 Mg Tablet) 1 mg PO DAILY [facility] Last Admin: 05/27/23 08:44 Dose: 1 mg Hydroxyzine HCl (Hydroxyzine Hcl 50 Mg Tablet) 50 mg PO Q6H PRN PRN Reason: anxiety Magnesium Hydroxide (Milk Of Magnesia 30 Ml Oral.Susp) 30 ml PO DAILY PRN PRN Reason: Constipation Nicotine (Nicotine 21 Mg Patch.Td24) 21 mg TRANSDERMA DAILY PRN PRN Reason: smoking cessation Nicotine Polacrilex (Nicotine Polacrilex 2 Mg Gum) 4 mg BUCCAL Q2H PRN PRN Reason: Nicotine Cravings Last Admin: 05/27/23 09:20 Dose: 4 mg Quetiapine Fumarate (Quetiapine Fumarate 100 Mg Tablet) 200 mg PO BEDTIME [facility] Last Admin: 05/26/23 21:09 Dose: 200 mg Quetiapine Fumarate (Quetiapine Fumarate 50 Mg Tablet) 50 mg PO Q4H PRN PRN Reason: anxiety Thiamine HCl (Thiamine Hcl 100 Mg Tablet) 100 mg PO DAILY [facility] Last Admin: 05/27/23 08:44 Dose: 100 mg Trazodone HCl (Trazodone Hcl 100 Mg Tablet) 100 mg PO BEDTIME MRX1 PRN PRN Reason: Insomnia Allergies Allergies Allergy/AdvReac Type Severity Reaction Status Date / Time bee pollen [BEE STINGS] Allergy Unknown ANAPHYLAXIS Verified 05/21/23 17:48 penicillin V Allergy Unknown Hives Verified 05/21/23 17:48 Penicillins [PCN] Allergy Unknown HIVES Verified 05/21/23 17:48 Assessment & Plan Assessment & Plan (1) MDD (major depressive disorder), recurrent severe, without psychosis: Status: Acute Code(s): F33.2 - Major depressive disorder, recurrent severe without psychotic features (2) PTSD (post-traumatic stress disorder): Status: Acute Code(s): F43.10 - Post-traumatic stress disorder, unspecified (3) Alcohol use disorder, severe, in sustained remission: Status: Acute Code(s): F10.21 - Alcohol dependence, in remission Plan HPI: Patient is a 38-year-old male with history of refractory depression, PTSD, anxiety, alcohol abuse in sustained remission who presents for worsening depression and SI with no clear trigger. Patient was 1st psychiatrically admitted 05/2022 ?Patient reports that he was in overall good enough mood the following spring and summer, working, enjoying activities... For some unknown reason in the fall he started to get depressed again, eventually to the point where he stopped going to work, not attending ADLs, sleeping all the time and eventually developing suicidal ideation, love for his daughter being the protective factor the kept him safe. He was psychiatrically admitted and medications changed. Patient says he was doing overall well for the next 2 months but then in March he started getting depressed again; depression worsened and he went to respite where some of his meds were changed again; depression just continued and again not going to work, not attending to ADLs, and developing suicidal ideation. Patient denies any intent or plans, again protective factor being his family; however he feels miserable, would commit suicide if not for family and came to the hospital wanting help. Rough history of recent medication trials: 1. After he got sober around 2020, patient reports being stable for next 2.5 years on Celexa, Trileptal, and doxepin 2. First psychiatric admission 05/2022 [facility] and patient stabilized with Vraylar, Lexapro, low-dose Remeron, Seroquel and continued on doxepin and Trileptal ((started on Lamictal but may not have been titrated fully) 3. 2nd Psych admission 12/2022 for return of depression; stabilized on Latuda; discontinued from Vraylar, Lexapro and Trileptal 4. Respite 04/2023 BuSpar increased; patient was supposed to start Pristiq but never did; Latuda lowered due to side effects with intention of being discontinued Impression: Patient has refractory depression with numerous failed medication trials. It is unclear what triggers onset of depressive episodes; History of trauma is very likely a complicating factor however it is not clear to patient how so (at last admission, pt realized his first depressive episode may have started when his daughter became the same age he was when first getting traumatized, surfacing formally repressed memories of trauma). Patient seems to do okay after an admission but within a few months begins to decompensate causing some speculation that the active being hospitalized and subsequent change in meds might in some part be acting as a placebo. At patient's past admission, history of conner was thoroughly explored; once his provided collateral it seemed unlikely that patient was having actual manic episodes and did not have bipolar disorder. However this does remain a rule out given refractory depression (and biological loading) and it is possible that he has very mild hypomanic episodes. Unfortunately has failed several trials of mood stabilizers both Vraylar and Latuda. It does seem that TCA Doxepin has helped some and It is possible that TCAs might help where SSRIs have failed and this can be further explored. However, patient is depression is significant, with a strong urge to commit suicide, with his love for his family being his main protective factor. The severity of repeated depressive episodes, significantly impairing his ability to function in the community and refractory to multiple medication trials make ECT a viable option. Risks/side effects discussed with patient and patient is eager to pursue ECT, wanting relief from overwhelming depression. -strong consideration for ECT; will also consider getting back on Lexapro; Tegretol also possible option though would interfere with seizure from ECT; Lamictal also an option since it was unlikely ever titrated to high enough dose Hospital course: 05/23 patient's mood has improved a little bit; possibly due to therapeutic environment of being on the unit; also possible since doxepin was increased. Patient is enthusiastic about ECT; will continue to strongly consider however may hold off to see if medication management can continue to be increasingly effective 05/24 pt's mood has improved since coming to unit; depressive symptoms down to 7/10 (10 on admission) and no SI. Starting to tolerate Doxepin in AM and today not making him so tired. Gave pt print out on ECT to read; discussed treatment and pt agrees to hold off ECT for now since mood is improved (and frequently does during inpatient admissions). Last night much trouble sleeping; said tossing and turning and feeling cold; also Latuda tapering down and he slept much of day yesterday. Discussed meds/risks/side-effects. He agrees to switch to prn Seroquel since he finds it calming (rather than zyprexa); Agrees to increase in Trazodone. 05/25 depression remains and not so different despite a.m. doxepin which is making patient too tired. Discussed case at length with Dr. Godinez who agrees with moving forward with ECT. 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 Given the severity of depression which includes SI, video game script writer, team and patient agree with moving forward with ECT. Discussed groups, coping skills and further medication management 05/26 more depressed; asks for doxepin to be added to bedtime; wants ECT PLAN: CV Q 15 #1 ECT for 05/27 -NPO Increase to doxepin 175 mg q.h.s. Continue Seroquel 200 mg q.h.s. ADded Seroquel 50mg prn for anxiety increased Trazodone to 100mg DC BuSpar: Patient says has never helped DC Lexapro: Patient has not been on recently Taper and DC Latuda: Was at 120 mg, no help, developed akathisia and is in the process of being tapered and discontinued Medication trials: Seroquel: partially helpful Doxepin: partially helpful Trileptal: partially helpful but caused sexual side-effects Risperdal: no clear indication of positive effect (Taking as a child) [place]: not helpful; caused zombie like affect; not thinking clearly (Taking as a teenager) Depakote: For 1.5 years; no help, caused weight gain Vraylar: not helpful Latuda: akathesia, not helpful Lamcital: no clear indication of positive effect, but unclear if got to therapeutic dose Lexapro: no clear indication of positive effect Buspar: no clear indication of positive effect Prozac: no clear indication of positive effect; in teens, not sure what dose Celexa: used to help; was Partially helpful, but then effect wore off Clonidine: Partially helpful Gabapentin: Causes irritability Patient educated on: diagnosis, medication risk/benefits and ECT Informed Consent: understands Reason for continued inpatient stay Substantial Risk for: inability to function Time Spent With Patient Time: Total time managing care of this patient today ____ minutes.
[2023-05-27] MEDS: hydrOXYzine HCL 50 MG TABLET PO (12:07)
[2023-05-27 15:29] VITALS: BP 121/79; PULSE 101
[2023-05-27 17:12] VITALS: BP 105/71; PULSE 86; RESP 18; TEMP 36.9; O2SAT 99
[2023-05-27] MEDS: QUEtiapine Fumarate 100 MG TABLET 200 MG PO (20:50)
[2023-05-27] MEDS: Doxepin HCl 25 MG CAPSULE 125 MG PO (20:50)
[2023-05-28] VITALS (9 sets, daily range): BP systolic 105–147; BP diastolic 67–96; PULSE 71–100; RESP 16–21; TEMP 35.9–37; O2SAT 96–99
--- NOTE | 2023-05-28 09:45 | P.PNPSI_ITS ---
Subjective Subjective Date of Service: 05/28/23 Reason For Visit: Depressed Interim History: met with patient; discussed with team pt seen after ECT; says he feels ok and that he tolerated ECt well just feels tired. C/o tightness on right side of face/jaw following ECT procedure but getting better. Too tired to talk much but expreses hope ECT will help and wants to continue Mental Status Exam Mental Status Exam Narrative: Pt is alert and oriented; behavior is tired, calm, cooperative; patient is not in distress; dressed in casual attire, clean shaven; mood is described as Ok and affect congruent, less down; eye contact appropriate; Speech is normal rate, volume and prosody and not pressured; still psychomotor retardation present; thought process is organized and goal directed; Thought content is on treatment; no SI; otherwise pertinent to relevant topics and without any delusional content, paranoid ideations or grandiosity; no SI; no HI. There is no evidence of perceptual disturbance and denies AVH. Patients insight and judgment impaired Diagnostics Vital Signs (24Hr): Vital Signs - 24 hr 05/27/23 15:29 05/27/23 17:12 Temperature 98.4 F Pulse Rate 101 H 86 Respiratory Rate 18 Blood Pressure 121/79 105/71 Pulse Oximetry 99 Oxygen Delivery Method Room Air BMI result Body Mass Index 36.0 Labs 05/21/23 18:02 05/23/23 09:17 Medications Medications Current Medications Acetaminophen (Acetaminophen 325 Mg Tablet) 650 mg PO Q6H PRN PRN Reason: Headache/Pain Mild Scale (1-3) Last Admin: 05/25/23 19:51 Dose: 650 mg Al Hydroxide/Mg Hydroxide (Magnesium Hydrox/Alum Hydrox 30 Ml Oral.Susp) 30 ml PO Q6H PRN PRN Reason: Heartburn/Nausea Clonidine HCl (Clonidine Hcl 0.2 Mg Tablet) 0.2 mg PO TID [facility]; Protocol Last Admin: 05/27/23 20:50 Dose: 0.2 mg Doxepin HCl (Doxepin Hcl 25 Mg Capsule) 125 mg PO BEDTIME RIKKI Last Admin: 05/27/23 20:50 Dose: 125 mg Folic Acid (Folic Acid 1 Mg Tablet) 1 mg PO DAILY RIKKI Last Admin: 05/27/23 08:44 Dose: 1 mg Hydroxyzine HCl (Hydroxyzine Hcl 50 Mg Tablet) 50 mg PO Q6H PRN PRN Reason: anxiety Last Admin: 05/27/23 12:07 Dose: 50 mg Magnesium Hydroxide (Milk Of Magnesia 30 Ml Oral.Susp) 30 ml PO DAILY PRN PRN Reason: Constipation Nicotine (Nicotine 21 Mg Patch.Td24) 21 mg TRANSDERMA DAILY PRN PRN Reason: smoking cessation Nicotine Polacrilex (Nicotine Polacrilex 2 Mg Gum) 4 mg BUCCAL Q2H PRN PRN Reason: Nicotine Cravings Last Admin: 05/27/23 18:52 Dose: 4 mg Quetiapine Fumarate (Quetiapine Fumarate 100 Mg Tablet) 200 mg PO BEDTIME RIKKI Last Admin: 05/27/23 20:50 Dose: 200 mg Quetiapine Fumarate (Quetiapine Fumarate 50 Mg Tablet) 50 mg PO Q4H PRN PRN Reason: anxiety Thiamine HCl (Thiamine Hcl 100 Mg Tablet) 100 mg PO DAILY [facility] Last Admin: 05/27/23 08:44 Dose: 100 mg Trazodone HCl (Trazodone Hcl 100 Mg Tablet) 100 mg PO BEDTIME MRX1 PRN PRN Reason: Insomnia Allergies Allergies Allergy/AdvReac Type Severity Reaction Status Date / Time bee pollen [BEE STINGS] Allergy Unknown ANAPHYLAXIS Verified 05/21/23 17:48 penicillin V Allergy Unknown Hives Verified 05/21/23 17:48 Penicillins [PCN] Allergy Unknown HIVES Verified 05/21/23 17:48 Assessment & Plan Assessment & Plan (1) MDD (major depressive disorder), recurrent severe, without psychosis: Status: Acute Code(s): F33.2 - Major depressive disorder, recurrent severe without psychotic features (2) PTSD (post-traumatic stress disorder): Status: Acute Code(s): F43.10 - Post-traumatic stress disorder, unspecified (3) Alcohol use disorder, severe, in sustained remission: Status: Acute Code(s): F10.21 - Alcohol dependence, in remission Plan HPI: Patient is a 38-year-old male with history of refractory depression, PTSD, anxiety, alcohol abuse in sustained remission who presents for worsening depression and SI with no clear trigger. Patient was 1st psychiatrically admitted 05/2022 ?Patient reports that he was in overall good enough mood the following spring and summer, working, enjoying activities... For some unknown reason in the fall he started to get depressed again, eventually to the point where he stopped going to work, not attending ADLs, sleeping all the time and eventually developing suicidal ideation, love for his daughter being the protective factor the kept him safe. He was psychiatrically admitted and medications changed. Patient says he was doing overall well for the next 2 months but then in March he started getting depressed again; depression worsened and he went to respite where some of his meds were changed again; depression just continued and again not going to work, not attending to ADLs, and developing suicidal ideation. Patient denies any intent or plans, again protective factor being his family; however he feels miserable, would commit suicide if not for family and came to the hospital wanting help. Rough history of recent medication trials: 1. After he got sober around 2020, patient reports being stable for next 2.5 years on Celexa, Trileptal, and doxepin 2. First psychiatric admission 05/2022 [place] [facility] and patient stabilized with Vraylar, Lexapro, low-dose Remeron, Seroquel and continued on doxepin and Trileptal ((started on Lamictal but may not have been titrated fully) 3. 2nd Psych admission 12/2022 for return of depression; stabilized on Latuda; discontinued from Vraylar, Lexapro and Trileptal 4. Respite 04/2023 BuSpar increased; patient was supposed to start Pristiq but never did; Latuda lowered due to side effects with intention of being discontinued Impression: Patient has refractory depression with numerous failed medication trials. It is unclear what triggers onset of depressive episodes; History of trauma is very likely a complicating factor however it is not clear to patient how so (at last admission, pt realized his first depressive episode may have started when his daughter became the same age he was when first getting traumatized, surfacing formally repressed memories of trauma). Patient seems to do okay after an admission but within a few months begins to decompensate causing some speculation that the active being hospitalized and subsequent change in meds might in some part be acting as a placebo. At patient's past admission, history of conner was thoroughly explored; once his provided collateral it seemed unlikely that patient was having actual manic episodes and did not have bipolar disorder. However this does remain a rule out given refractory depression (and biological loading) and it is possible that he has very mild hypomanic episodes. Unfortunately has failed several trials of mood stabilizers both Vraylar and Latuda. It does seem that TCA Doxepin has helped some and It is possible that TCAs might help where SSRIs have failed and this can be further explored. However, patient is depression is significant, with a strong urge to commit suicide, with his love for his family being his main protective factor. The severity of repeated depressive episodes, significantly impairing his ability to function in the community and refractory to multiple medication trials make ECT a viable option. Risks/side effects discussed with patient and patient is eager to pursue ECT, wanting relief from overwhelming depression. -strong consideration for ECT; will also consider getting back on Lexapro; Tegretol also possible option though would interfere with seizure from ECT; Lamictal also an option since it was unlikely ever titrated to high enough dose Hospital course: 05/23 patient's mood has improved a little bit; possibly due to therapeutic environment of being on the unit; also possible since doxepin was increased. Patient is enthusiastic about ECT; will continue to strongly consider however may hold off to see if medication management can continue to be increasingly effective 05/24 pt's mood has improved since coming to unit; depressive symptoms down to 09/23 (10 on admission) and no SI. Starting to tolerate Doxepin in AM and today not making him so tired. Gave pt print out on ECT to read; discussed treatment and pt agrees to hold off ECT for now since mood is improved (and frequently does during inpatient admissions). Last night much trouble sleeping; said tossing and turning and feeling cold; also Latuda tapering down and he slept much of day yesterday. Discussed meds/risks/side-effects. He agrees to switch to prn Seroquel since he finds it calming (rather than zyprexa); Agrees to increase in Trazodone. 05/25 depression remains and not so different despite a.m. doxepin which is making patient too tired. Discussed case at length with Dr. Godinez who agrees with moving forward with ECT. 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 Discussed groups, coping skills and further medication management 05/26 more depressed; asks for doxepin to be added to bedtime; wants ECT 05/27 tolerated ECt and wants to continue; will hold off starting abilify for now, but will likely do so soon PLAN: CV Q 15 #2 ECT for 05/29 -NPO Increase to doxepin 175 mg q.h.s. Continue Seroquel 200 mg q.h.s. ADded Seroquel 50mg prn for anxiety increased Trazodone to 100mg DC BuSpar: Patient says has never helped DC Lexapro: Patient has not been on recently Taper and DC Latuda: Was at 120 mg, no help, developed akathisia and is in the process of being tapered and discontinued Medication trials: Seroquel: partially helpful Doxepin: partially helpful Trileptal: partially helpful but caused sexual side-effects Risperdal: no clear indication of positive effect (Taking as a child) Gates: not helpful; caused zombie like affect; not thinking clearly (Taking as a teenager) Depakote: For 1.5 years; no help, caused weight gain Vraylar: not helpful Latuda: akathesia, not helpful Lamcital: no clear indication of positive effect, but unclear if got to therapeutic dose Lexapro: no clear indication of positive effect Buspar: no clear indication of positive effect Prozac: no clear indication of positive effect; in teens, not sure what dose Celexa: used to help; was Partially helpful, but then effect wore off Clonidine: Partially helpful Gabapentin: Causes irritability Patient educated on: diagnosis, medication risk/benefits and ECT Informed Consent: understands Reason for continued inpatient stay Substantial Risk for: rapid decompensation Time Spent With Patient Time: Total time managing care of this patient today ____ minutes.
--- NOTE | 2023-05-28 13:33 | MHC.SHP ---
Pre-Procedural Eval Section A - 24 Hr Update-Section A only Date of Service: 05/28/23 The patient is an INPATIENT: Yes Changes since office visit: Yes Changes in Medication and Yes Patient answered all questions; No Cold of Flu in the past 2 weeks and No New Medical Problems The patient has been examined within 24 hours of the surgical procedure. The History & Physical has been completed within 30 days and I have reviewed it.: Yes Section B - Complete if H&P > 30 days Chief Complaint: Depressed Allergies: Allergies Allergy/AdvReac Type Severity Reaction Status Date / Time bee pollen [BEE STINGS] Allergy Unknown ANAPHYLAXIS Verified 05/21/23 17:48 penicillin V Allergy Unknown Hives Verified 05/21/23 17:48 Penicillins [PCN] Allergy Unknown HIVES Verified 05/21/23 17:48 Plan I have reviewed the history and physical and performed a pertinent physical examination on my patient. No changes have occurred unless specified. Time Spent With Patient Time: Total time managing care of this patient today ____ minutes.
--- NOTE | 2023-05-28 13:56 | HO.ECTPROC ---
ECT Procedure Note Diagnosis/Treatment Date of Service: 05/28/23 Diagnosis: Major Depressive Disorder Current Treatment Number: 1 Treatment: Series Interval Clinical Notes: The patient's case is reviewed with Dr. Souza chart reviewed patient able to give informed consent to ECT questions answered labs medical history reviewed the patient tolerated the 1st ECT treatment without difficulty there was a recommendation to add glycopyrrolate 0.2 mg pretreatment prior to the next treatment to reduce secretions the patient was treated right unilateral Time: Total time managing care of this patient today 35____ minutes. ECT Settings Device: THYMATRON DGx Electrode Placement: Right Unilateral Program/Pulse Width: 0.25 Energy Percent: 100 Seizure Duration By EEG (in seconds): 65 Medications Administration General Anesthetic: Etomidate (16) Muscle Relaxant: Succinylcholine (120) Ancillary Medications Analgesics: Torodol - Pre ECT Anti-emetics: Zofran - Pre ECT Miscillaneous Medications: Propofol (30) Airway Management Airway Management: Bag Mask Ventilation Treatment Recommendations Notes: recommend glyco pre tx 0.2 mg for secretions increase etomidate to 18 mg next treatment Pt Tolerated Procedure w/o Issue: Yes
[2023-05-28] MEDS: cloNIDine HCL 0.2 MG TABLET PO ×2 (14:45→20:47)
[2023-05-28] MEDS: Thiamine HCL 100 MG TABLET PO (14:45)
[2023-05-28] MEDS: Folic Acid 1 MG TABLET PO (14:45)
[2023-05-28] MEDS: Acetaminophen 325 MG TABLET 650 MG PO ×2 (14:46→23:07)
[2023-05-28] MEDS: Nicotine Polacrilex 2 MG GUM 4 MG BUCCAL (19:32)
[2023-05-28] MEDS: Doxepin HCl 25 MG CAPSULE 175 MG PO (20:46)
[2023-05-28] MEDS: QUEtiapine Fumarate 100 MG TABLET 200 MG PO (20:48)
[2023-05-29 07:00] VITALS: BMI 32.4
[2023-05-29] MEDS: Thiamine HCL 100 MG TABLET PO (09:01)
[2023-05-29] MEDS: cloNIDine HCL 0.2 MG TABLET PO ×3 (09:01→20:40)
[2023-05-29] MEDS: Folic Acid 1 MG TABLET PO (09:02)
--- NOTE | 2023-05-29 09:47 | P.PNPSI_ITS ---
Subjective Subjective Date of Service: 05/29/23 Reason For Visit: Depressed Interim History: Met with patient; discussed with team Patient reports he remains depressed however no SI. He remains very tired today, not sure if it is due to ECT or not. Wants to continue with ECT however. Discussed medication regimen including starting Abilify; financial writer reviewed risks/side effects of Abilify including the combined risks of being on 2 antipsychotics. Patient understood and felt that the potential benefit outweighed the risks at this time. Mental Status Exam Mental Status Exam Narrative: Pt is alert and oriented; behavior is tired, calm, cooperative; patient is not in distress; dressed in casual attire, clean shaven; mood is described as depressed but a little better and affect congruent, less down; eye contact appropriate; Speech is normal rate, volume and prosody and not pressured; still psychomotor retardation present; thought process is organized and goal directed; Thought content is on treatment; no SI; otherwise pertinent to relevant topics and without any delusional content, paranoid ideations or grandiosity; no SI; no HI. There is no evidence of perceptual disturbance and denies AVH. Patients insight and judgment impaired Diagnostics Vital Signs (24Hr): Vital Signs - 24 hr 05/28/23 10:22 05/28/23 12:43 05/28/23 14:00 Temperature 96.6 F L 97.9 F 98.6 F Pulse Rate 71 81 84 Respiratory Rate 18 16 21 H Blood Pressure 111/67 120/86 147/92 H Pulse Oximetry 97 99 97 Oxygen Delivery Method Room Air Nasal Cannula with ETCO2 Oxygen Flow Rate 2 05/28/23 14:05 05/28/23 14:10 05/28/23 14:15 Temperature Pulse Rate 75 89 88 Respiratory Rate 16 16 16 Blood Pressure 123/96 H 141/96 H 121/79 Pulse Oximetry 96 96 96 Oxygen Delivery Method Nasal Cannula with ETCO2 Nasal Cannula with ETCO2 Nasal Cannula with ETCO2 Oxygen Flow Rate 2 2 2 05/28/23 14:28 05/28/23 14:48 05/28/23 18:00 Temperature 98.2 F 98.1 F 98.3 F Pulse Rate 84 86 100 Respiratory Rate 16 18 Blood Pressure 138/90 H 121/74 105/71 Pulse Oximetry 96 97 96 Oxygen Delivery Method Room Air Room Air Oxygen Flow Rate BMI result Body Mass Index 36.0 Labs 05/21/23 18:02 05/23/23 09:17 Medications Medications Current Medications Acetaminophen (Acetaminophen 325 Mg Tablet) 650 mg PO Q6H PRN PRN Reason: Headache/Pain Mild Scale (1-3) Last Admin: 05/28/23 23:07 Dose: 650 mg Al Hydroxide/Mg Hydroxide (Magnesium Hydrox/Alum Hydrox 30 Ml Oral.Susp) 30 ml PO Q6H PRN PRN Reason: Heartburn/Nausea Clonidine HCl (Clonidine Hcl 0.2 Mg Tablet) 0.2 mg PO TID [facility]; Protocol Last Admin: 05/29/23 09:01 Dose: 0.2 mg Doxepin HCl (Doxepin Hcl 25 Mg Capsule) 175 mg PO BEDTIME [facility] Last Admin: 05/28/23 20:46 Dose: 175 mg Folic Acid (Folic Acid 1 Mg Tablet) 1 mg PO DAILY [facility] Last Admin: 05/29/23 09:02 Dose: 1 mg Hydroxyzine HCl (Hydroxyzine Hcl 50 Mg Tablet) 50 mg PO Q6H PRN PRN Reason: anxiety Last Admin: 05/27/23 12:07 Dose: 50 mg Magnesium Hydroxide (Milk Of Magnesia 30 Ml Oral.Susp) 30 ml PO DAILY PRN PRN Reason: Constipation Nicotine (Nicotine 21 Mg Patch.Td24) 21 mg TRANSDERMA DAILY PRN PRN Reason: smoking cessation Nicotine Polacrilex (Nicotine Polacrilex 2 Mg Gum) 4 mg BUCCAL Q2H PRN PRN Reason: Nicotine Cravings Last Admin: 05/28/23 19:32 Dose: 4 mg Quetiapine Fumarate (Quetiapine Fumarate 100 Mg Tablet) 200 mg PO BEDTIME [facility] Last Admin: 05/28/23 20:48 Dose: 200 mg Quetiapine Fumarate (Quetiapine Fumarate 50 Mg Tablet) 50 mg PO Q4H PRN PRN Reason: anxiety Thiamine HCl (Thiamine Hcl 100 Mg Tablet) 100 mg PO DAILY [facility] Last Admin: 05/29/23 09:01 Dose: 100 mg Trazodone HCl (Trazodone Hcl 100 Mg Tablet) 100 mg PO BEDTIME MRX1 PRN PRN Reason: Insomnia Allergies Allergies Allergy/AdvReac Type Severity Reaction Status Date / Time bee pollen [BEE STINGS] Allergy Unknown ANAPHYLAXIS Verified 05/21/23 17:48 penicillin V Allergy Unknown Hives Verified 05/21/23 17:48 Penicillins [PCN] Allergy Unknown HIVES Verified 05/21/23 17:48 Assessment & Plan Assessment & Plan (1) MDD (major depressive disorder), recurrent severe, without psychosis: Status: Acute Code(s): F33.2 - Major depressive disorder, recurrent severe without psychotic features (2) PTSD (post-traumatic stress disorder): Status: Acute Code(s): F43.10 - Post-traumatic stress disorder, unspecified (3) Alcohol use disorder, severe, in sustained remission: Status: Acute Code(s): F10.21 - Alcohol dependence, in remission Plan HPI: Patient is a 38-year-old male with history of refractory depression, PTSD, anxiety, alcohol abuse in sustained remission who presents for worsening depression and SI with no clear trigger. Patient was 1st psychiatrically admitted 05/2022 ?Patient reports that he was in overall good enough mood the following spring and summer, working, enjoying activities... For some unknown reason in the fall he started to get depressed again, eventually to the point where he stopped going to work, not attending ADLs, sleeping all the time and eventually developing suicidal ideation, love for his daughter being the protective factor the kept him safe. He was psychiatrically admitted and medications changed. Patient says he was doing overall well for the next 2 months but then in March he started getting depressed again; depression worsened and he went to respite where some of his meds were changed again; depression just continued and again not going to work, not attending to ADLs, and developing suicidal ideation. Patient denies any intent or plans, again protective factor being his family; however he feels miserable, would commit suicide if not for family and came to the hospital wanting help. Rough history of recent medication trials: 1. After he got sober around 2020, patient reports being stable for next 2.5 years on Celexa, Trileptal, and doxepin 2. First psychiatric admission 05/2022 [place] [facility] and patient stabilized with Vraylar, Lexapro, low-dose Remeron, Seroquel and continued on doxepin and Trileptal ((started on Lamictal but may not have been titrated fully) 3. 2nd Psych admission 12/2022 for return of depression; stabilized on Latuda; discontinued from Vraylar, Lexapro and Trileptal 4. Respite 04/2023 BuSpar increased; patient was supposed to start Pristiq but never did; Latuda lowered due to side effects with intention of being discontinued Impression: Patient has refractory depression with numerous failed medication trials. It is unclear what triggers onset of depressive episodes; History of trauma is very likely a complicating factor however it is not clear to patient how so (at last admission, pt realized his first depressive episode may have started when his daughter became the same age he was when first getting traumatized, surfacing formally repressed memories of trauma). Patient seems to do okay after an admission but within a few months begins to decompensate causing some speculation that the active being hospitalized and subsequent change in meds might in some part be acting as a placebo. At patient's past admission, history of conner was thoroughly explored; once his provided collateral it seemed unlikely that patient was having actual manic episodes and did not have bipolar disorder. However this does remain a rule out given refractory depression (and biological loading) and it is possible that he has very mild hypomanic episodes. Unfortunately has failed several trials of mood stabilizers both Vraylar and Latuda. It does seem that TCA Doxepin has helped some and It is possible that TCAs might help where SSRIs have failed and this can be further explored. However, patient is depression is significant, with a strong urge to commit suicide, with his love for his family being his main protective factor. The severity of repeated depressive episodes, significantly impairing his ability to function in the community and refractory to multiple medication trials make ECT a viable option. Risks/side effects discussed with patient and patient is eager to pursue ECT, wanting relief from overwhelming depression. -strong consideration for ECT; will also consider getting back on Lexapro; Tegretol also possible option though would interfere with seizure from ECT; Lamictal also an option since it was unlikely ever titrated to high enough dose Hospital course: 05/23 patient's mood has improved a little bit; possibly due to therapeutic environment of being on the unit; also possible since doxepin was increased. Patient is enthusiastic about ECT; will continue to strongly consider however may hold off to see if medication management can continue to be increasingly effective 05/24 pt's mood has improved since coming to unit; depressive symptoms down to 7/10 (10 on admission) and no SI. Starting to tolerate Doxepin in AM and today not making him so tired. Gave pt print out on ECT to read; discussed treatment and pt agrees to hold off ECT for now since mood is improved (and frequently does during inpatient admissions). Last night much trouble sleeping; said tossing and turning and feeling cold; also Latuda tapering down and he slept much of day yesterday. Discussed meds/risks/side-effects. He agrees to switch to prn Seroquel since he finds it calming (rather than zyprexa); Agrees to increase in Trazodone. 05/25 depression remains and not so different despite a.m. doxepin which is making patient too tired. Discussed case at length with Dr. Godinez who agrees with moving forward with ECT. 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 Given the severity of depression which includes SI, financial writer, team and patient agree with moving forward with ECT. Discussed groups, coping skills and further medication management 05/26 more depressed; asks for doxepin to be added to bedtime; wants ECT 05/27 tolerated ECt and wants to continue; will hold off starting abilify for now, but will likely do so soon 05/28 Patient reports he remains depressed however no SI. He remains very tired today, not sure if it is due to ECT or not. Wants to continue with ECT however. Discussed medication regimen including starting Abilify; financial writer reviewed risks/side effects of Abilify including the combined risks of being on 2 antipsychotics. Patient understood and felt that the potential benefit outweighed the risks at this time. Overall Seroquel makes patient too sedated to go further PLAN: CV Q 15 #2 ECT for 05/29 -NPO START Abilify 5 mg daily Continue doxepin 175 mg q.h.s. Continue Seroquel 200 mg q.h.s. ADded Seroquel 50mg prn for anxiety increased Trazodone to 100mg DC BuSpar: Patient says has never helped DC Lexapro: Patient has not been on recently Taper and DC Latuda: Was at 120 mg, no help, developed akathisia and is in the process of being tapered and discontinued Hx of Medication trials: Seroquel: partially helpful Doxepin: partially helpful Trileptal: partially helpful but caused sexual side-effects Risperdal: no clear indication of positive effect (Taking as a child) [place]: not helpful; caused zombie like affect; not thinking clearly (Taking as a teenager) Depakote: For 1.5 years; no help, caused weight gain Vraylar: not helpful Latuda: akathesia, not helpful Lamcital: no clear indication of positive effect, but unclear if got to therapeutic dose Lexapro: no clear indication of positive effect Buspar: no clear indication of positive effect Prozac: no clear indication of positive effect; in teens, not sure what dose Celexa: used to help; was Partially helpful, but then effect wore off Clonidine: Partially helpful Gabapentin: Causes irritability Patient educated on: diagnosis, medication risk/benefits and ECT Informed Consent: understands Reason for continued inpatient stay Substantial Risk for: inability to function and rapid decompensation Time Spent With Patient Time: Total time managing care of this patient today ____ minutes.
[2023-05-29 10:57] VITALS: BP 114/72; PULSE 63; RESP 18; TEMP 36; O2SAT 96
[2023-05-29 14:44] VITALS: BP 109/71; PULSE 64
[2023-05-29] MEDS: ARIPiprazole 5 MG TABLET PO (16:38)
[2023-05-29] MEDS: Nicotine Polacrilex 2 MG GUM 4 MG BUCCAL ×2 (16:38→19:07)
[2023-05-29 18:00] VITALS: BP 115/74; PULSE 76; RESP 18; TEMP 36.6; O2SAT 96
[2023-05-29] MEDS: Doxepin HCl 25 MG CAPSULE 175 MG PO (20:39)
[2023-05-29] MEDS: QUEtiapine Fumarate 100 MG TABLET 200 MG PO (20:40)
[2023-05-30] VITALS (10 sets, daily range): BP systolic 96–140; BP diastolic 56–90; PULSE 49–94; RESP 16–18; TEMP 35.9–36.7; O2SAT 95–98
--- NOTE | 2023-05-30 08:39 | HO.ANESPROP2 ---
[facility] Active Problems Active Problems: All Active Problems (Updated 05/23/23 @ 16:16 by Rhett Souza MD) MDD (major depressive disorder), recurrent severe, without psychosis (Acute) Pre-op evaluation (Acute) Suicidal ideation (Acute) Alcohol use disorder, severe, in sustained remission (Acute) PTSD (post-traumatic stress disorder) (Acute) Past Medical History Medical History (Updated 05/23/23 @ 16:16 by Rhett Souza MD) MDD (major depressive disorder), recurrent severe, without psychosis PTSD (post-traumatic stress disorder) Bipolar II disorder Family History Family history of problems with anesthesia: No Surgical History History of Problems with Anesthesia: No Social History Social History Household Members: Spouse and Children Household Members Other:: , daughter Housing: House Do you presently have visiting nurse or other home services: No Alcohol intake: never Patient Tobacco Use Status: Current everyday Tobacco user Tobacco use type: Cigarette Cigarette Packs Per Day: 1 Cigarettes Per Day: 20.0 Years Smoked: 6-7 years Smoked in Last 30 Days: Yes e-Cigarette/Vaping Use: Former Use Patient Interested in Nicotine Replacement: Yes (nicorette gum) Patient Given Instructions on How to Stop Smoking: Yes (Pt interested in quitting.) Date Education Initiated: 05/22/23 Second Hand Smoke Exposure: No Use of substances other than those prescribed or required for medical reasons: No Substance Use Type: Marijuana Currently Displaying Signs/Symptoms of Drug Intoxication Withdrawal: No Any prior treatment program specific to substance use: Yes ([facility] detox in past.) Have you been hit, kicked, punched, or otherwise hurt by someone within the past year? If so, by whom?: No Do you feel safe in your current relationship?: Yes Is there a partner from a previous relationship who is making you feel unsafe now?: No Are you made to feel afraid or neglected: Yes Bahai Healthcare Practices: Ep[employer] Are you DNR?: No Advance Directives: No Advance Directives Information Provided: No Do you have thoughts of harming others: None Do you have a plan to hurt others: No Plan Recently lost weight without trying: No How much weight loss: Not applicable Eating poorly because of decreased appetite: No Nutrition screen score: 0 Nutrition Risks: No Nutritional Risk Poor oral hygiene: No service: No Sexual orientation: Straight/Heterosexual Meds Allergies Allergy/AdvReac Type Severity Reaction Status Date / Time bee pollen [BEE STINGS] Allergy Unknown ANAPHYLAXIS Verified 05/21/23 17:48 penicillin V Allergy Unknown Hives Verified 05/21/23 17:48 Penicillins [PCN] Allergy Unknown HIVES Verified 05/21/23 17:48 Active Medications: Current Medications Acetaminophen (Acetaminophen 325 Mg Tablet) 650 mg PO Q6H PRN PRN Reason: Headache/Pain Mild Scale (1-3) Last Admin: 05/28/23 23:07 Dose: 650 mg Al Hydroxide/Mg Hydroxide (Magnesium Hydrox/Alum Hydrox 30 Ml Oral.Susp) 30 ml PO Q6H PRN PRN Reason: Heartburn/Nausea Aripiprazole (Aripiprazole 5 Mg Tablet) 5 mg PO DAILY [facility] Clonidine HCl (Clonidine Hcl 0.2 Mg Tablet) 0.2 mg PO TID [facility]; Protocol Last Admin: 05/29/23 20:40 Dose: 0.2 mg Doxepin HCl (Doxepin Hcl 25 Mg Capsule) 175 mg PO BEDTIME [facility] Last Admin: 05/29/23 20:39 Dose: 175 mg Folic Acid (Folic Acid 1 Mg Tablet) 1 mg PO DAILY [facility] Last Admin: 05/29/23 09:02 Dose: 1 mg Hydroxyzine HCl (Hydroxyzine Hcl 50 Mg Tablet) 50 mg PO Q6H PRN PRN Reason: anxiety Last Admin: 05/27/23 12:07 Dose: 50 mg Magnesium Hydroxide (Milk Of Magnesia 30 Ml Oral.Susp) 30 ml PO DAILY PRN PRN Reason: Constipation Nicotine (Nicotine 21 Mg Patch.Td24) 21 mg TRANSDERMA DAILY PRN PRN Reason: smoking cessation Nicotine Polacrilex (Nicotine Polacrilex 2 Mg Gum) 4 mg BUCCAL Q2H PRN PRN Reason: Nicotine Cravings Last Admin: 05/29/23 19:07 Dose: 4 mg Quetiapine Fumarate (Quetiapine Fumarate 100 Mg Tablet) 200 mg PO BEDTIME [facility] Last Admin: 05/29/23 20:40 Dose: 200 mg Quetiapine Fumarate (Quetiapine Fumarate 50 Mg Tablet) 50 mg PO Q4H PRN PRN Reason: anxiety Thiamine HCl (Thiamine Hcl 100 Mg Tablet) 100 mg PO DAILY [facility] Last Admin: 05/29/23 09:01 Dose: 100 mg Trazodone HCl (Trazodone Hcl 100 Mg Tablet) 100 mg PO BEDTIME MRX1 PRN PRN Reason: Insomnia Home Medications Medication Instructions Recorded Confirmed Last Taken Type benztropine 1 mg tablet 1 mg PO BID 05/21/23 05/21/23 05/20/23 History buspirone 15 mg tablet 15 mg PO TID 05/21/23 05/21/23 05/20/23 History citalopram 20 mg tablet 20 mg PO DAILY 05/21/23 05/21/23 05/20/23 History clonidine HCl 0.1 mg tablet 0.1 mg PO BID 05/21/23 05/21/23 05/20/23 History desvenlafaxine succinate 50 mg 50 mg PO DAILY 05/21/23 05/21/23 05/20/23 History tablet,extended release 24 hr hydroxyzine pamoate 50 mg capsule 50 mg PO DAILY PRN anxiety 05/21/23 05/21/23 05/20/23 History lurasidone 80 mg tablet 80 mg PO BEDTIME 05/21/23 05/21/23 05/20/23 History naproxen 500 mg tablet 500 mg PO pain 05/21/23 05/20/23 History quetiapine 100 mg tablet 100 mg PO DIRECTED 05/21/23 05/21/23 05/20/23 History Exam Height,Weight and Vital Signs: Height 5 ft 11 in Weight 105.3 kg Last Vital Signs Temp 97.1 F 05/30/23 08:29 Pulse 73 05/30/23 08:29 Resp 16 05/30/23 08:29 BP 118/81 05/30/23 08:29 Pulse Ox 96 05/30/23 08:29 O2 Del Method Room Air 05/30/23 08:29 O2 Flow Rate 2 05/28/23 14:15 Pertinent Lab Results Pertinent Lab Results: Laboratory Tests 05/21/23 05/21/23 05/23/23 17:55 18:02 09:17 WBC 9.8 RBC 5.12 Hgb 15.1 Hct 44.2 MCV 86.3 MCH 29.5 MCHC 34.2 RDW 12.9 Plt Count 274 MPV 9.0 L Immature Gran % (Auto) 0.4 Neut % (Auto) 56.4 Lymph % (Auto) 31.9 [place] % (Auto) 6.8 Eos % (Auto) 3.7 Baso % (Auto) 0.8 Lymph # (Auto) 3.1 [place] # (Auto) 0.7 Eos # (Auto) 0.4 Baso # (Auto) 0.1 Abs Immat Gran (auto) 0.04 H Absolute Neuts (auto) 5.5 Absolute Nucleated RBC 0.000 Nucleated RBC % (auto) 0.0 Sodium 137 137 Potassium 3.8 4.7 D Chloride 103 102 Carbon Dioxide 26 28 Anion Gap 12 12 BUN 13 17 H Creatinine 1.15 1.11 Estim Creat Clear Calc 106.8 119.7 Estimated GFR > 60 > 60 Random Glucose 94 Fasting Glucose 119 H Estimat Average Glucose 105 Hemoglobin A1c % 5.3 Calcium 9.4 9.5 Total Bilirubin 0.3 0.4 AST 27 23 ALT 55 H 51 H Alkaline Phosphatase 88 89 Total Protein 7.2 7.2 Albumin 4.2 4.2 Triglycerides 229 H Cholesterol 218 H LDL Cholesterol, Calc 135 H HDL Cholesterol 38 L Urine Color Yellow Urine Appearance Clear Urine pH 5.5 Ur Specific [place] 1.010 Urine Protein Negative Urine Glucose (UA) Negative Urine Ketones Negative Urine Blood Negative Urine Nitrite Negative Ur Leukocyte Esterase Negative Urine Opiates Screen Not Detected Urine Fentanyl Screen Not Detected Ur Barbiturates Screen Not Detected Ur Phencyclidine Scrn Not Detected Ur Amphetamines Screen Not Detected U Benzodiazepines Scrn Not Detected Urine Cocaine Screen Not Detected U Marijuana (THC) Screen POSITIVE H Ethyl Alcohol < 10 COVID-19 ([facility]) Positive A COVID-19 Clin Com See Note Airway Mallampati Class: II TM Dist: >3cm Neck ROM: Full Heart: rrr Lungs: cta Assessment and Plan Assessment Anesthesia Assessment: Anesthesia Plan Discussed and Chart Reviewed Final Anesthetic Review Family History of Problems with Anesthesia: No History of Problems with Anesthesia: No NPO: Yes ASA Class: III Final Preanesthetic Review: No Changes in Pt Med Stat, Meds/Allgs Chart Reviewed and Consent Obtained/Reviewed Patient Risk: Intermediate Procedure Risk: Intermediate Anesthetic Plan Anesthetic Plan: GA Disposition: Standard PACU
[2023-05-30] MEDS: Lactated Ringers 1,000 ML 50 ML IVCONT (08:50)
--- NOTE | 2023-05-30 09:59 | MHC.SHP ---
Pre-Procedural Eval Section A - 24 Hr Update-Section A only Date of Service: 05/30/23 The patient is an INPATIENT: Yes Changes since office visit: Yes Patient answered all questions; No Cold of Flu in the past 2 weeks, No New Medical Problems and No Changes in Medication The patient has been examined within 24 hours of the surgical procedure. The History & Physical has been completed within 30 days and I have reviewed it.: Yes Section B - Complete if H&P > 30 days Chief Complaint: Depressed Allergies: Allergies Allergy/AdvReac Type Severity Reaction Status Date / Time bee pollen [BEE STINGS] Allergy Unknown ANAPHYLAXIS Verified 05/21/23 17:48 penicillin V Allergy Unknown Hives Verified 05/21/23 17:48 Penicillins [PCN] Allergy Unknown HIVES Verified 05/21/23 17:48 Plan I have reviewed the history and physical and performed a pertinent physical examination on my patient. No changes have occurred unless specified. Time Spent With Patient Time: Total time managing care of this patient today ____ minutes.
[2023-05-30] MEDS: Thiamine HCL 100 MG TABLET PO (11:29)
[2023-05-30] MEDS: cloNIDine HCL 0.2 MG TABLET PO ×3 (11:29→20:59)
[2023-05-30] MEDS: Folic Acid 1 MG TABLET PO (11:30)
[2023-05-30] MEDS: ARIPiprazole 5 MG TABLET PO (11:30)
--- NOTE | 2023-05-30 14:38 | HO.PSYCHPN ---
Subjective Subjective Date of Service: 05/30/23 Reason For Visit: Depressed Subjective Notes: Conditional Voluntary Interim History: Reviewed with Dr. Godinez. Keeping to self, active on unit. Pt reports feeling tired today; pt stated, I'm just feeling really tired after ECT. I still feel just as depressed and my anxiety is high . Pt reports he did sleep well last night. denies SI/HI/VH/AH. Medication Compliance: Yes Side effects from medications: No Review of Systems Constitutional: Reports as per HPI Eyes: Reports as per HPI Reports as per HPI Cardiovascular: Reports as per HPI Respiratory: Reports as per HPI Gastrointestinal: Reports as per HPI Genitourinary: Reports as per HPI Musculoskeletal: Reports as per HPI Skin/Breast: Reports as per HPI Reports as per HPI Psychiatric: Reports as per HPI Endocrine: Reports as per HPI Hematologic/Lymphatic: Reports as per HPI Allergic/Immunologic: Reports as per HPI Mental Status Exam Mental Status Exam Narrative: Pt is alert and oriented; behavior is calm; dressed in casual attire; mood is described as anxious and depressed ; eye contact appropriate; Speech is normal rate, soft spoken; thought process is organized; Thought content is on tx; denies SI/HI/VH/AH. Diagnostics Vital Signs (24Hr): Vital Signs - 24 hr 05/29/23 14:44 05/29/23 18:00 05/30/23 08:07 Temperature 97.9 F 96.6 F L Pulse Rate 64 76 59 Respiratory Rate 18 16 Blood Pressure 109/71 115/74 106/65 Pulse Oximetry 96 96 Oxygen Delivery Method Room Air 05/30/23 08:29 05/30/23 10:35 05/30/23 10:40 Temperature 97.1 F 98.1 F Pulse Rate 73 94 85 Respiratory Rate 16 16 16 Blood Pressure 118/81 123/81 119/61 Pulse Oximetry 96 95 97 Oxygen Delivery Method Room Air Room Air Room Air 05/30/23 10:45 05/30/23 10:50 05/30/23 11:05 Temperature 97.8 F Pulse Rate 87 74 84 Respiratory Rate 16 16 16 Blood Pressure 114/70 115/65 120/69 Pulse Oximetry 97 97 98 Oxygen Delivery Method Room Air Room Air Room Air 05/30/23 11:41 Temperature 97.3 F Pulse Rate 80 Respiratory Rate 18 Blood Pressure 111/69 Pulse Oximetry 97 Oxygen Delivery Method BMI result Body Mass Index 32.4 Labs 05/21/23 18:02 05/23/23 09:17 Medications Medications Current Medications Acetaminophen (Acetaminophen 325 Mg Tablet) 650 mg PO Q6H PRN PRN Reason: Headache/Pain Mild Scale (1-3) Last Admin: 05/28/23 23:07 Dose: 650 mg Al Hydroxide/Mg Hydroxide (Magnesium Hydrox/Alum Hydrox 30 Ml Oral.Susp) 30 ml PO Q6H PRN PRN Reason: Heartburn/Nausea Aripiprazole (Aripiprazole 5 Mg Tablet) 5 mg PO DAILY [facility] Last Admin: 05/30/23 11:30 Dose: 5 mg Clonidine HCl (Clonidine Hcl 0.2 Mg Tablet) 0.2 mg PO TID [facility]; Protocol Last Admin: 05/30/23 11:29 Dose: 0.2 mg Doxepin HCl (Doxepin Hcl 25 Mg Capsule) 175 mg PO BEDTIME [facility] Last Admin: 05/29/23 20:39 Dose: 175 mg Folic Acid (Folic Acid 1 Mg Tablet) 1 mg PO DAILY [facility] Last Admin: 05/30/23 11:30 Dose: 1 mg Hydroxyzine HCl (Hydroxyzine Hcl 50 Mg Tablet) 50 mg PO Q6H PRN PRN Reason: anxiety Last Admin: 05/27/23 12:07 Dose: 50 mg Magnesium Hydroxide (Milk Of Magnesia 30 Ml Oral.Susp) 30 ml PO DAILY PRN PRN Reason: Constipation Nicotine (Nicotine 21 Mg Patch.Td24) 21 mg TRANSDERMA DAILY PRN PRN Reason: smoking cessation Nicotine Polacrilex (Nicotine Polacrilex 2 Mg Gum) 4 mg BUCCAL Q2H PRN PRN Reason: Nicotine Cravings Last Admin: 05/29/23 19:07 Dose: 4 mg Quetiapine Fumarate (Quetiapine Fumarate 100 Mg Tablet) 200 mg PO BEDTIME [facility] Last Admin: 05/29/23 20:40 Dose: 200 mg Quetiapine Fumarate (Quetiapine Fumarate 50 Mg Tablet) 50 mg PO Q4H PRN PRN Reason: anxiety Thiamine HCl (Thiamine Hcl 100 Mg Tablet) 100 mg PO DAILY [facility] Last Admin: 05/30/23 11:29 Dose: 100 mg Trazodone HCl (Trazodone Hcl 100 Mg Tablet) 100 mg PO BEDTIME MRX1 PRN PRN Reason: Insomnia Allergies Allergies Allergy/AdvReac Type Severity Reaction Status Date / Time bee pollen [BEE STINGS] Allergy Unknown ANAPHYLAXIS Verified 05/21/23 17:48 penicillin V Allergy Unknown Hives Verified 05/21/23 17:48 Penicillins [PCN] Allergy Unknown HIVES Verified 05/21/23 17:48 Assessment & Plan Assessment & Plan (1) MDD (major depressive disorder), recurrent severe, without psychosis: Status: Acute Code(s): F33.2 - Major depressive disorder, recurrent severe without psychotic features (2) PTSD (post-traumatic stress disorder): Status: Acute Code(s): F43.10 - Post-traumatic stress disorder, unspecified (3) Alcohol use disorder, severe, in sustained remission: Status: Acute Code(s): F10.21 - Alcohol dependence, in remission Plan HPI: Patient is a 38-year-old male with history of refractory depression, PTSD, anxiety, alcohol abuse in sustained remission who presents for worsening depression and SI with no clear trigger. Patient was 1st psychiatrically admitted 05/2022 ?Patient reports that he was in overall good enough mood the following spring and summer, working, enjoying activities... For some unknown reason in the fall he started to get depressed again, eventually to the point where he stopped going to work, not attending ADLs, sleeping all the time and eventually developing suicidal ideation, love for his daughter being the protective factor the kept him safe. He was psychiatrically admitted and medications changed. Patient says he was doing overall well for the next 2 months but then in March he started getting depressed again; depression worsened and he went to respite where some of his meds were changed again; depression just continued and again not going to work, not attending to ADLs, and developing suicidal ideation. Patient denies any intent or plans, again protective factor being his family; however he feels miserable, would commit suicide if not for family and came to the hospital wanting help. Rough history of recent medication trials: 1. After he got sober around 2020, patient reports being stable for next 2.5 years on Celexa, Trileptal, and doxepin 2. First psychiatric admission 05/2022 [facility] and patient stabilized with Vraylar, Lexapro, low-dose Remeron, Seroquel and continued on doxepin and Trileptal ((started on Lamictal but may not have been titrated fully) 3. 2nd Psych admission 12/2022 for return of depression; stabilized on Latuda; discontinued from Vraylar, Lexapro and Trileptal 4. Respite 04/2023 BuSpar increased; patient was supposed to start Pristiq but never did; Latuda lowered due to side effects with intention of being discontinued Impression: Patient has refractory depression with numerous failed medication trials. It is unclear what triggers onset of depressive episodes; History of trauma is very likely a complicating factor however it is not clear to patient how so (at last admission, pt realized his first depressive episode may have started when his daughter became the same age he was when first getting traumatized, surfacing formally repressed memories of trauma). Patient seems to do okay after an admission but within a few months begins to decompensate causing some speculation that the active being hospitalized and subsequent change in meds might in some part be acting as a placebo. At patient's past admission, history of conner was thoroughly explored; once his provided collateral it seemed unlikely that patient was having actual manic episodes and did not have bipolar disorder. However this does remain a rule out given refractory depression (and biological loading) and it is possible that he has very mild hypomanic episodes. Unfortunately has failed several trials of mood stabilizers both Vraylar and Latuda. It does seem that TCA Doxepin has helped some and It is possible that TCAs might help where SSRIs have failed and this can be further explored. However, patient is depression is significant, with a strong urge to commit suicide, with his love for his family being his main protective factor. The severity of repeated depressive episodes, significantly impairing his ability to function in the community and refractory to multiple medication trials make ECT a viable option. Risks/side effects discussed with patient and patient is eager to pursue ECT, wanting relief from overwhelming depression. -strong consideration for ECT; will also consider getting back on Lexapro; Tegretol also possible option though would interfere with seizure from ECT; Lamictal also an option since it was unlikely ever titrated to high enough dose Hospital course: 05/23 patient's mood has improved a little bit; possibly due to therapeutic environment of being on the unit; also possible since doxepin was increased. Patient is enthusiastic about ECT; will continue to strongly consider however may hold off to see if medication management can continue to be increasingly effective 05/24 pt's mood has improved since coming to unit; depressive symptoms down to 09/23 (10 on admission) and no SI. Starting to tolerate Doxepin in AM and today not making him so tired. Gave pt print out on ECT to read; discussed treatment and pt agrees to hold off ECT for now since mood is improved (and frequently does during inpatient admissions). Last night much trouble sleeping; said tossing and turning and feeling cold; also Latuda tapering down and he slept much of day yesterday. Discussed meds/risks/side-effects. He agrees to switch to prn Seroquel since he finds it calming (rather than zyprexa); Agrees to increase in Trazodone. 05/25 depression remains and not so different despite a.m. doxepin which is making patient too tired. Discussed case at length with Dr. Godinez who agrees with moving forward with ECT. 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 Given the severity of depression which includes SI, curriculum writer, team and patient agree with moving forward with ECT. Discussed groups, coping skills and further medication management 05/26 more depressed; asks for doxepin to be added to bedtime; wants ECT 05/27 tolerated ECt and wants to continue; will hold off starting abilify for now, but will likely do so soon 05/28 Patient reports he remains depressed however no SI. He remains very tired today, not sure if it is due to ECT or not. Wants to continue with ECT however. Discussed medication regimen including starting Abilify; curriculum writer reviewed risks/side effects of Abilify including the combined risks of being on 2 antipsychotics. Patient understood and felt that the potential benefit outweighed the risks at this time. Overall Seroquel makes patient too sedated to go further 05/29: continue current tx plan. PLAN: CV Q 15 #2 ECT for 05/29 -NPO START Abilify 5 mg daily Continue doxepin 175 mg q.h.s. Continue Seroquel 200 mg q.h.s. ADded Seroquel 50mg prn for anxiety increased Trazodone to 100mg DC BuSpar: Patient says has never helped DC Lexapro: Patient has not been on recently Taper and DC Latuda: Was at 120 mg, no help, developed akathisia and is in the process of being tapered and discontinued Hx of Medication trials: Seroquel: partially helpful Doxepin: partially helpful Trileptal: partially helpful but caused sexual side-effects Risperdal: no clear indication of positive effect (Taking as a child) [place]: not helpful; caused zombie like affect; not thinking clearly (Taking as a teenager) Depakote: For 1.5 years; no help, caused weight gain Vraylar: not helpful Latuda: akathesia, not helpful Lamcital: no clear indication of positive effect, but unclear if got to therapeutic dose Lexapro: no clear indication of positive effect Buspar: no clear indication of positive effect Prozac: no clear indication of positive effect; in teens, not sure what dose Celexa: used to help; was Partially helpful, but then effect wore off Clonidine: Partially helpful Gabapentin: Causes irritability Patient educated on: diagnosis and medication risk/benefits Informed Consent: understands Reason for continued inpatient stay Substantial Risk for: med/psych decompensation Time Spent With Patient Time: Total time managing care of this patient today _20___ minutes.
[2023-05-30] MEDS: Nicotine Polacrilex 2 MG GUM 4 MG BUCCAL (20:03)
[2023-05-30] MEDS: QUEtiapine Fumarate 100 MG TABLET 200 MG PO (20:59)
[2023-05-30] MEDS: Doxepin HCl 25 MG CAPSULE 175 MG PO (20:59)
[2023-05-31] MEDS: Thiamine HCL 100 MG TABLET PO (09:00)
[2023-05-31] MEDS: Folic Acid 1 MG TABLET PO (09:00)
[2023-05-31] MEDS: cloNIDine HCL 0.2 MG TABLET PO ×3 (09:00→21:15)
[2023-05-31] MEDS: ARIPiprazole 5 MG TABLET PO (09:00)
[2023-05-31 09:06] VITALS: BP 117/69; PULSE 92; RESP 18; TEMP 36.1; O2SAT 97
[2023-05-31] MEDS: Nicotine Polacrilex 2 MG GUM 4 MG BUCCAL ×3 (09:48→18:33)
--- NOTE | 2023-05-31 10:38 | HO.PSYCHPN ---
Subjective Subjective Date of Service: 05/31/23 Reason For Visit: Depressed Subjective Notes: Conditional Voluntary Interim History: Patient was seen and discussed in rounds today. Records and plans were reviewed. He has been stable but continues to be depressed with flat affect. He is guarded. He is receiving ECT and tolerated it better for the last episode. Eating and sleeping adequately. No complaints. No changes were made Review of Systems Review of Systems Yes all other systems are reviewed and are negative Mental Status Exam Mental Status Exam Narrative: In today's visit he is alert, oriented and pleasant. Normal speech. Good eye contact. Affect is appropriate and varied. No signs of psychosis. No suicidal homicidal ideations. Cognitively is intact to observation. Judgment is intact Diagnostics Vital Signs (24Hr): Vital Signs - 24 hr 05/30/23 10:40 05/30/23 10:45 05/30/23 10:50 Temperature Pulse Rate 85 87 74 Respiratory Rate 16 16 16 Blood Pressure 119/61 114/70 115/65 Pulse Oximetry 97 97 97 Oxygen Delivery Method Room Air Room Air Room Air 05/30/23 11:05 05/30/23 11:41 05/30/23 14:43 Temperature 97.8 F 97.3 F Pulse Rate 84 80 49 L Respiratory Rate 16 18 Blood Pressure 120/69 111/69 96/56 L Pulse Oximetry 98 97 Oxygen Delivery Method Room Air 05/30/23 18:00 05/31/23 09:06 Temperature 97.3 F 97.0 F Pulse Rate 90 92 Respiratory Rate 18 18 Blood Pressure 140/90 H 117/69 Pulse Oximetry 98 97 Oxygen Delivery Method Room Air Room Air BMI result Body Mass Index 32.4 Labs 05/21/23 18:02 05/23/23 09:17 Medications Medications Current Medications Acetaminophen (Acetaminophen 325 Mg Tablet) 650 mg PO Q6H PRN PRN Reason: Headache/Pain Mild Scale (1-3) Last Admin: 05/28/23 23:07 Dose: 650 mg Al Hydroxide/Mg Hydroxide (Magnesium Hydrox/Alum Hydrox 30 Ml Oral.Susp) 30 ml PO Q6H PRN PRN Reason: Heartburn/Nausea Aripiprazole (Aripiprazole 5 Mg Tablet) 5 mg PO DAILY [facility] Last Admin: 05/31/23 09:00 Dose: 5 mg Clonidine HCl (Clonidine Hcl 0.2 Mg Tablet) 0.2 mg PO TID [facility]; Protocol Last Admin: 05/31/23 09:00 Dose: 0.2 mg Doxepin HCl (Doxepin Hcl 25 Mg Capsule) 175 mg PO BEDTIME [facility] Last Admin: 05/30/23 20:59 Dose: 175 mg Folic Acid (Folic Acid 1 Mg Tablet) 1 mg PO DAILY [facility] Last Admin: 05/31/23 09:00 Dose: 1 mg Hydroxyzine HCl (Hydroxyzine Hcl 50 Mg Tablet) 50 mg PO Q6H PRN PRN Reason: anxiety Last Admin: 05/27/23 12:07 Dose: 50 mg Magnesium Hydroxide (Milk Of Magnesia 30 Ml Oral.Susp) 30 ml PO DAILY PRN PRN Reason: Constipation Nicotine (Nicotine 21 Mg Patch.Td24) 21 mg TRANSDERMA DAILY PRN PRN Reason: smoking cessation Nicotine Polacrilex (Nicotine Polacrilex 2 Mg Gum) 4 mg BUCCAL Q2H PRN PRN Reason: Nicotine Cravings Last Admin: 05/31/23 09:48 Dose: 4 mg Quetiapine Fumarate (Quetiapine Fumarate 100 Mg Tablet) 200 mg PO BEDTIME [facility] Last Admin: 05/30/23 20:59 Dose: 200 mg Quetiapine Fumarate (Quetiapine Fumarate 50 Mg Tablet) 50 mg PO Q4H PRN PRN Reason: anxiety Thiamine HCl (Thiamine Hcl 100 Mg Tablet) 100 mg PO DAILY [facility] Last Admin: 05/31/23 09:00 Dose: 100 mg Trazodone HCl (Trazodone Hcl 100 Mg Tablet) 100 mg PO BEDTIME MRX1 PRN PRN Reason: Insomnia Allergies Allergies Allergy/AdvReac Type Severity Reaction Status Date / Time bee pollen [BEE STINGS] Allergy Unknown ANAPHYLAXIS Verified 05/21/23 17:48 penicillin V Allergy Unknown Hives Verified 05/21/23 17:48 Penicillins [PCN] Allergy Unknown HIVES Verified 05/21/23 17:48 Assessment & Plan Assessment & Plan (1) MDD (major depressive disorder), recurrent severe, without psychosis: Status: Acute Code(s): F33.2 - Major depressive disorder, recurrent severe without psychotic features (2) PTSD (post-traumatic stress disorder): Status: Acute Code(s): F43.10 - Post-traumatic stress disorder, unspecified (3) Alcohol use disorder, severe, in sustained remission: Status: Acute Code(s): F10.21 - Alcohol dependence, in remission Plan HPI: Patient is a 38-year-old male with history of refractory depression, PTSD, anxiety, alcohol abuse in sustained remission who presents for worsening depression and SI with no clear trigger. Patient was 1st psychiatrically admitted 05/2022 ?Patient reports that he was in overall good enough mood the following spring and summer, working, enjoying activities... For some unknown reason in the fall he started to get depressed again, eventually to the point where he stopped going to work, not attending ADLs, sleeping all the time and eventually developing suicidal ideation, love for his daughter being the protective factor the kept him safe. He was psychiatrically admitted and medications changed. Patient says he was doing overall well for the next 2 months but then in March he started getting depressed again; depression worsened and he went to respite where some of his meds were changed again; depression just continued and again not going to work, not attending to ADLs, and developing suicidal ideation. Patient denies any intent or plans, again protective factor being his family; however he feels miserable, would commit suicide if not for family and came to the hospital wanting help. Rough history of recent medication trials: 1. After he got sober around 2020, patient reports being stable for next 2.5 years on Celexa, Trileptal, and doxepin 2. First psychiatric admission 05/2022 [facility] and patient stabilized with Vraylar, Lexapro, low-dose Remeron, Seroquel and continued on doxepin and Trileptal ((started on Lamictal but may not have been titrated fully) 3. 2nd Psych admission 12/2022 for return of depression; stabilized on Latuda; discontinued from Vraylar, Lexapro and Trileptal 4. Respite 04/2023 BuSpar increased; patient was supposed to start Pristiq but never did; Latuda lowered due to side effects with intention of being discontinued Impression: Patient has refractory depression with numerous failed medication trials. It is unclear what triggers onset of depressive episodes; History of trauma is very likely a complicating factor however it is not clear to patient how so (at last admission, pt realized his first depressive episode may have started when his daughter became the same age he was when first getting traumatized, surfacing formally repressed memories of trauma). Patient seems to do okay after an admission but within a few months begins to decompensate causing some speculation that the active being hospitalized and subsequent change in meds might in some part be acting as a placebo. At patient's past admission, history of conner was thoroughly explored; once his provided collateral it seemed unlikely that patient was having actual manic episodes and did not have bipolar disorder. However this does remain a rule out given refractory depression (and biological loading) and it is possible that he has very mild hypomanic episodes. Unfortunately has failed several trials of mood stabilizers both Vraylar and Latuda. It does seem that TCA Doxepin has helped some and It is possible that TCAs might help where SSRIs have failed and this can be further explored. However, patient is depression is significant, with a strong urge to commit suicide, with his love for his family being his main protective factor. The severity of repeated depressive episodes, significantly impairing his ability to function in the community and refractory to multiple medication trials make ECT a viable option. Risks/side effects discussed with patient and patient is eager to pursue ECT, wanting relief from overwhelming depression. -strong consideration for ECT; will also consider getting back on Lexapro; Tegretol also possible option though would interfere with seizure from ECT; Lamictal also an option since it was unlikely ever titrated to high enough dose Hospital course: 05/23 patient's mood has improved a little bit; possibly due to therapeutic environment of being on the unit; also possible since doxepin was increased. Patient is enthusiastic about ECT; will continue to strongly consider however may hold off to see if medication management can continue to be increasingly effective 05/24 pt's mood has improved since coming to unit; depressive symptoms down to 7/10 (10 on admission) and no SI. Starting to tolerate Doxepin in AM and today not making him so tired. Gave pt print out on ECT to read; discussed treatment and pt agrees to hold off ECT for now since mood is improved (and frequently does during inpatient admissions). Last night much trouble sleeping; said tossing and turning and feeling cold; also Latuda tapering down and he slept much of day yesterday. Discussed meds/risks/side-effects. He agrees to switch to prn Seroquel since he finds it calming (rather than zyprexa); Agrees to increase in Trazodone. 05/25 depression remains and not so different despite a.m. doxepin which is making patient too tired. Discussed case at length with Dr. Godinez who agrees with moving forward with ECT. 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 Given the severity of depression which includes SI, expert medical writer, team and patient agree with moving forward with ECT. Discussed groups, coping skills and further medication management 05/26 more depressed; asks for doxepin to be added to bedtime; wants ECT 05/27 tolerated ECt and wants to continue; will hold off starting abilify for now, but will likely do so soon 05/28 Patient reports he remains depressed however no SI. He remains very tired today, not sure if it is due to ECT or not. Wants to continue with ECT however. Discussed medication regimen including starting Abilify; expert medical writer reviewed risks/side effects of Abilify including the combined risks of being on 2 antipsychotics. Patient understood and felt that the potential benefit outweighed the risks at this time. Overall Seroquel makes patient too sedated to go further 05/29: continue current tx plan. 05/31/2023: Continue current regimen and plans PLAN: CV Q 15 #2 ECT for 05/29 -NPO START Abilify 5 mg daily Continue doxepin 175 mg q.h.s. Continue Seroquel 200 mg q.h.s. ADded Seroquel 50mg prn for anxiety increased Trazodone to 100mg DC BuSpar: Patient says has never helped DC Lexapro: Patient has not been on recently Taper and DC Latuda: Was at 120 mg, no help, developed akathisia and is in the process of being tapered and discontinued Hx of Medication trials: Seroquel: partially helpful Doxepin: partially helpful Trileptal: partially helpful but caused sexual side-effects Risperdal: no clear indication of positive effect (Taking as a child) [place]: not helpful; caused zombie like affect; not thinking clearly (Taking as a teenager) Depakote: For 1.5 years; no help, caused weight gain Vraylar: not helpful Latuda: akathesia, not helpful Lamcital: no clear indication of positive effect, but unclear if got to therapeutic dose Lexapro: no clear indication of positive effect Buspar: no clear indication of positive effect Prozac: no clear indication of positive effect; in teens, not sure what dose Celexa: used to help; was Partially helpful, but then effect wore off Clonidine: Partially helpful Gabapentin: Causes irritability Reason for continued inpatient stay Substantial Risk for: med/psych decompensation Time Spent With Patient Time: Total time managing care of this patient today ____ minutes.
[2023-05-31 15:08] VITALS: BP 124/81; PULSE 87
[2023-05-31 18:00] VITALS: BP 119/79; PULSE 74; RESP 16; TEMP 36.8; O2SAT 97
[2023-05-31] MEDS: QUEtiapine Fumarate 50 MG TABLET PO (18:33)
[2023-05-31] MEDS: hydrOXYzine HCL 50 MG TABLET PO (18:33)
[2023-05-31] MEDS: Doxepin HCl 25 MG CAPSULE 175 MG PO (21:15)
[2023-05-31] MEDS: QUEtiapine Fumarate 100 MG TABLET 200 MG PO (21:15)
[2023-06-01] MEDS: Folic Acid 1 MG TABLET PO (07:56)
[2023-06-01] MEDS: ARIPiprazole 5 MG TABLET PO (07:56)
[2023-06-01] MEDS: cloNIDine HCL 0.2 MG TABLET PO ×3 (07:56→21:06)
[2023-06-01] MEDS: Thiamine HCL 100 MG TABLET PO (07:56)
[2023-06-01] MEDS: Nicotine Polacrilex 2 MG GUM 4 MG BUCCAL ×4 (07:56→19:03)
[2023-06-01 08:04] VITALS: BP 107/68; PULSE 73; RESP 16; TEMP 36.3; O2SAT 95
--- NOTE | 2023-06-01 08:38 | P.PNPSI_ITS ---
Subjective Subjective Date of Service: 06/01/23 Reason For Visit: Depressed Subjective Notes: Conditional Voluntary Interim History: Patient was seen and discussed in rounds today. Records and plans were reviewed. He is awaiting his 3rd ECT tomorrow. No benefits as of yet. Denies any side effects. Eating and sleeping adequately. No changes were made today Review of Systems Review of Systems Yes all other systems are reviewed and are negative Diagnostics Vital Signs (24Hr): Vital Signs - 24 hr 05/31/23 09:06 05/31/23 15:08 05/31/23 18:00 Temperature 97.0 F 98.3 F Pulse Rate 92 87 74 Respiratory Rate 18 16 Blood Pressure 117/69 124/81 119/79 Pulse Oximetry 97 97 Oxygen Delivery Method Room Air Room Air 06/01/23 08:04 Temperature 97.3 F Pulse Rate 73 Respiratory Rate 16 Blood Pressure 107/68 Pulse Oximetry 95 Oxygen Delivery Method Room Air BMI result Body Mass Index 32.4 Labs 05/21/23 18:02 05/23/23 09:17 Medications Medications Current Medications Acetaminophen (Acetaminophen 325 Mg Tablet) 650 mg PO Q6H PRN PRN Reason: Headache/Pain Mild Scale (1-3) Last Admin: 05/28/23 23:07 Dose: 650 mg Al Hydroxide/Mg Hydroxide (Magnesium Hydrox/Alum Hydrox 30 Ml Oral.Susp) 30 ml PO Q6H PRN PRN Reason: Heartburn/Nausea Aripiprazole (Aripiprazole 5 Mg Tablet) 5 mg PO DAILY [facility] Last Admin: 06/01/23 07:56 Dose: 5 mg Clonidine HCl (Clonidine Hcl 0.2 Mg Tablet) 0.2 mg PO TID [facility]; Protocol Last Admin: 06/01/23 07:56 Dose: 0.2 mg Doxepin HCl (Doxepin Hcl 25 Mg Capsule) 175 mg PO BEDTIME [facility]KKI Last Admin: 05/31/23 21:15 Dose: 175 mg Folic Acid (Folic Acid 1 Mg Tablet) 1 mg PO DAILY [facility] Last Admin: 06/01/23 07:56 Dose: 1 mg Hydroxyzine HCl (Hydroxyzine Hcl 50 Mg Tablet) 50 mg PO Q6H PRN PRN Reason: anxiety Last Admin: 05/31/23 18:33 Dose: 50 mg Magnesium Hydroxide (Milk Of Magnesia 30 Ml Oral.Susp) 30 ml PO DAILY PRN PRN Reason: Constipation Nicotine (Nicotine 21 Mg Patch.Td24) 21 mg TRANSDERMA DAILY PRN PRN Reason: smoking cessation Nicotine Polacrilex (Nicotine Polacrilex 2 Mg Gum) 4 mg BUCCAL Q2H PRN PRN Reason: Nicotine Cravings Last Admin: 06/01/23 07:56 Dose: 4 mg Quetiapine Fumarate (Quetiapine Fumarate 100 Mg Tablet) 200 mg PO BEDTIME RIKKI Last Admin: 05/31/23 21:15 Dose: 200 mg Quetiapine Fumarate (Quetiapine Fumarate 50 Mg Tablet) 50 mg PO Q4H PRN PRN Reason: anxiety Last Admin: 05/31/23 18:33 Dose: 50 mg Thiamine HCl (Thiamine Hcl 100 Mg Tablet) 100 mg PO DAILY [facility] Last Admin: 06/01/23 07:56 Dose: 100 mg Trazodone HCl (Trazodone Hcl 100 Mg Tablet) 100 mg PO BEDTIME MRX1 PRN PRN Reason: Insomnia Allergies Allergies Allergy/AdvReac Type Severity Reaction Status Date / Time bee pollen [BEE STINGS] Allergy Unknown ANAPHYLAXIS Verified 05/21/23 17:48 penicillin V Allergy Unknown Hives Verified 05/21/23 17:48 Penicillins [PCN] Allergy Unknown HIVES Verified 05/21/23 17:48 Assessment & Plan Assessment & Plan (1) MDD (major depressive disorder), recurrent severe, without psychosis: Status: Acute Code(s): F33.2 - Major depressive disorder, recurrent severe without psychotic features (2) PTSD (post-traumatic stress disorder): Status: Acute Code(s): F43.10 - Post-traumatic stress disorder, unspecified (3) Alcohol use disorder, severe, in sustained remission: Status: Acute Code(s): F10.21 - Alcohol dependence, in remission Plan HPI: Patient is a 38-year-old male with history of refractory depression, PTSD, anxiety, alcohol abuse in sustained remission who presents for worsening depression and SI with no clear trigger. Patient was 1st psychiatrically admitted 05/2022 ?Patient reports that he was in overall good enough mood the following spring and summer, working, enjoying activities... For some unknown reason in the fall he started to get depressed again, eventually to the point where he stopped going to work, not attending ADLs, sleeping all the time and eventually developing suicidal ideation, love for his daughter being the protective factor the kept him safe. He was psychiatrically admitted and medications changed. Patient says he was doing overall well for the next 2 months but then in March he started getting depressed again; depression worsened and he went to respite where some of his meds were changed again; depression just continued and again not going to work, not attending to ADLs, and developing suicidal ideation. Patient denies any intent or plans, again protective factor being his family; however he feels miserable, would commit suicide if not for family and came to the hospital wanting help. Rough history of recent medication trials: 1. After he got sober around 2020, patient reports being stable for next 2.5 years on Celexa, Trileptal, and doxepin 2. First psychiatric admission 05/2022 [facility] and patient stabilized with Vraylar, Lexapro, low-dose Remeron, Seroquel and continued on doxepin and Trileptal ((started on Lamictal but may not have been titrated fully) 3. 2nd Psych admission 12/2022 for return of depression; stabilized on Latuda; discontinued from Vraylar, Lexapro and Trileptal 4. Respite 04/2023 BuSpar increased; patient was supposed to start Pristiq but never did; Latuda lowered due to side effects with intention of being discontinued Impression: Patient has refractory depression with numerous failed medication trials. It is unclear what triggers onset of depressive episodes; History of trauma is very likely a complicating factor however it is not clear to patient how so (at last admission, pt realized his first depressive episode may have started when his daughter became the same age he was when first getting traumatized, surfacing formally repressed memories of trauma). Patient seems to do okay after an admission but within a few months begins to decompensate causing some speculation that the active being hospitalized and subsequent change in meds might in some part be acting as a placebo. At patient's past admission, history of conner was thoroughly explored; once his provided collateral it seemed unlikely that patient was having actual manic episodes and did not have bipolar disorder. However this does remain a rule out given refractory depression (and biological loading) and it is possible that he has very mild hypomanic episodes. Unfortunately has failed several trials of mood stabilizers both Vraylar and Latuda. It does seem that TCA Doxepin has helped some and It is possible that TCAs might help where SSRIs have failed and this can be further explored. However, patient is depression is significant, with a strong urge to commit suicide, with his love for his family being his main protective factor. The severity of repeated depressive episodes, significantly impairing his ability to function in the community and refractory to multiple medication trials make ECT a viable option. Risks/side effects discussed with patient and patient is eager to pursue ECT, wanting relief from overwhelming depression. -strong consideration for ECT; will also consider getting back on Lexapro; Tegretol also possible option though would interfere with seizure from ECT; Lamictal also an option since it was unlikely ever titrated to high enough dose Hospital course: 05/23 patient's mood has improved a little bit; possibly due to therapeutic environment of being on the unit; also possible since doxepin was increased. Patient is enthusiastic about ECT; will continue to strongly consider however may hold off to see if medication management can continue to be increasingly effective 05/24 pt's mood has improved since coming to unit; depressive symptoms down to 09/23 (10 on admission) and no SI. Starting to tolerate Doxepin in AM and today not making him so tired. Gave pt print out on ECT to read; discussed treatment and pt agrees to hold off ECT for now since mood is improved (and frequently does during inpatient admissions). Last night much trouble sleeping; said tossing and turning and feeling cold; also Latuda tapering down and he slept much of day yesterday. Discussed meds/risks/side-effects. He agrees to switch to prn Seroquel since he finds it calming (rather than zyprexa); Agrees to increase in Trazodone. 05/25 depression remains and not so different despite a.m. doxepin which is making patient too tired. Discussed case at length with Dr. Godinez who agrees with moving forward with ECT. 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 Discussed groups, coping skills and further medication management 05/26 more depressed; asks for doxepin to be added to bedtime; wants ECT 05/27 tolerated ECt and wants to continue; will hold off starting abilify for now, but will likely do so soon 05/28 Patient reports he remains depressed however no SI. He remains very tired today, not sure if it is due to ECT or not. Wants to continue with ECT however. 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 Patient understood and felt that the potential benefit outweighed the risks at this time. Overall Seroquel makes patient too sedated to go further 05/29: continue current tx plan. 05/31/2023: Continue current regimen and plans 06/01/2023: Continue current regimen and plans PLAN: CV Q 15 #2 ECT for 05/29 -NPO START Abilify 5 mg daily Continue doxepin 175 mg q.h.s. Continue Seroquel 200 mg q.h.s. ADded Seroquel 50mg prn for anxiety increased Trazodone to 100mg DC BuSpar: Patient says has never helped DC Lexapro: Patient has not been on recently Taper and DC Latuda: Was at 120 mg, no help, developed akathisia and is in the process of being tapered and discontinued Hx of Medication trials: Seroquel: partially helpful Doxepin: partially helpful Trileptal: partially helpful but caused sexual side-effects Risperdal: no clear indication of positive effect (Taking as a child) [place]: not helpful; caused zombie like affect; not thinking clearly (Taking as a teenager) Depakote: For 1.5 years; no help, caused weight gain Vraylar: not helpful Latuda: akathesia, not helpful Lamcital: no clear indication of positive effect, but unclear if got to therapeutic dose Lexapro: no clear indication of positive effect Buspar: no clear indication of positive effect Prozac: no clear indication of positive effect; in teens, not sure what dose Celexa: used to help; was Partially helpful, but then effect wore off Clonidine: Partially helpful Gabapentin: Causes irritability Reason for continued inpatient stay Substantial Risk for: med/psych decompensation Time Spent With Patient Time: Total time managing care of this patient today ____ minutes.
[2023-06-01] MEDS: Acetaminophen 325 MG TABLET 650 MG PO (11:42)
--- NOTE | 2023-06-01 14:22 | HO.ECTPROC ---
ECT Procedure Note Diagnosis/Treatment Date of Service: 05/30/23 Diagnosis: Major Depressive Disorder Previous ECT Date: 05/28/23 Current Treatment Number: 2 Treatment: Series Interval Clinical Notes: pt tolerated first ect some jaw discomfort soft bite block used etom inc 18 mg Time: Total time managing care of this patient today _30___ minutes. ECT Settings Device: THYMATRON DGx Electrode Placement: Right Unilateral Program/Pulse Width: 0.25 Energy Percent: 100 Seizure Duration By EEG (in seconds): 42 Medications Administration General Anesthetic: Etomidate (18) Muscle Relaxant: Succinylcholine (120 plus 20) Ancillary Medications Analgesics: Torodol - Pre ECT Anti-emetics: Zofran - Pre ECT Cardiovascular Medications: Glycopyrrolate (0.2 pre tx ) Miscillaneous Medications: Propofol Airway Management Airway Management: Bag Mask Ventilation Treatment Recommendations No Changes Recommended: No change Notes: Consider increase in succinylcholine to 140 pretreatment The patient did have postop transient confusion did response reassurance Midazolam 2 mg given postop consider change to propofol he is being treated right unilateral 0.25 which is already a relatively low level stimulation
[2023-06-01 15:09] VITALS: BP 107/73; PULSE 87
[2023-06-01] MEDS: QUEtiapine Fumarate 50 MG TABLET PO (16:26)
[2023-06-01] MEDS: hydrOXYzine HCL 50 MG TABLET PO (16:26)
[2023-06-01 21:00] VITALS: BP 99/63; PULSE 81; TEMP 36.5
[2023-06-01] MEDS: QUEtiapine Fumarate 100 MG TABLET 200 MG PO (21:03)
[2023-06-01] MEDS: Doxepin HCl 25 MG CAPSULE 175 MG PO (21:04)
[2023-06-02] VITALS (9 sets, daily range): BP systolic 107–148; BP diastolic 65–90; PULSE 72–121; RESP 15–18; TEMP 36.1–37.2; O2SAT 91–100
--- NOTE | 2023-06-02 | ECG_ITS ---
Test Reason : qtc check Blood Pressure : / mmHG Vent. Rate : 065 BPM Atrial Rate : 065 BPM P-R Int : 170 ms QRS Dur : 092 ms QT Int : 416 ms P-R-T Axes : 031 028 034 degrees QTc Int : 432 ms Normal sinus rhythm Normal ECG When compared with ECG of 22-MAY-2023 08:52, No significant change was found Referred By: Rhett Souza Electronically Signed By:MARELY SORIA
--- NOTE | 2023-06-02 06:46 | P.CONAN_ITS ---
[facility] Active Problems Active Problems: All Active Problems (Updated 05/23/23 @ 16:16 by Rhett Souza MD) MDD (major depressive disorder), recurrent severe, without psychosis (Acute) Pre-op evaluation (Acute) Suicidal ideation (Acute) Alcohol use disorder, severe, in sustained remission (Acute) PTSD (post-traumatic stress disorder) (Acute) Past Medical History Medical History (Updated 05/23/23 @ 16:16 by Rhett Souza MD) MDD (major depressive disorder), recurrent severe, without psychosis PTSD (post-traumatic stress disorder) Bipolar II disorder Family History Family history of problems with anesthesia: No Surgical History History of Problems with Anesthesia: No Social History Social History Household Members: Spouse and Children Household Members Other:: , daughter Housing: House Do you presently have visiting nurse or other home services: No Alcohol intake: never Patient Tobacco Use Status: Current everyday Tobacco user Tobacco use type: Cigarette Cigarette Packs Per Day: 1 Cigarettes Per Day: 20.0 Years Smoked: 6-7 years Smoked in Last 30 Days: Yes e-Cigarette/Vaping Use: Former Use Patient Interested in Nicotine Replacement: Yes (nicorette gum) Patient Given Instructions on How to Stop Smoking: Yes (Pt interested in quitting.) Date Education Initiated: 05/22/23 Second Hand Smoke Exposure: No Use of substances other than those prescribed or required for medical reasons: No Substance Use Type: Marijuana Currently Displaying Signs/Symptoms of Drug Intoxication Withdrawal: No Any prior treatment program specific to substance use: Yes ([facility] detox in past.) Have you been hit, kicked, punched, or otherwise hurt by someone within the past year? If so, by whom?: No Do you feel safe in your current relationship?: Yes Is there a partner from a previous relationship who is making you feel unsafe now?: No Are you made to feel afraid or neglected: Yes [facility] Practices: Nondenominational Are you DNR?: No Advance Directives: No Advance Directives Information Provided: No Do you have thoughts of harming others: None Do you have a plan to hurt others: No Plan Recently lost weight without trying: No How much weight loss: Not applicable Eating poorly because of decreased appetite: No Nutrition screen score: 0 Nutrition Risks: No Nutritional Risk Poor oral hygiene: No service: No Sexual orientation: Straight/Heterosexual Meds Allergies Allergy/AdvReac Type Severity Reaction Status Date / Time bee pollen [BEE STINGS] Allergy Unknown ANAPHYLAXIS Verified 05/21/23 17:48 penicillin V Allergy Unknown Hives Verified 05/21/23 17:48 Penicillins [PCN] Allergy Unknown HIVES Verified 05/21/23 17:48 Active Medications: Current Medications Acetaminophen (Acetaminophen 325 Mg Tablet) 650 mg PO Q6H PRN PRN Reason: Headache/Pain Mild Scale (1-3) Last Admin: 06/01/23 11:42 Dose: 650 mg Al Hydroxide/Mg Hydroxide (Magnesium Hydrox/Alum Hydrox 30 Ml Oral.Susp) 30 ml PO Q6H PRN PRN Reason: Heartburn/Nausea Aripiprazole (Aripiprazole 5 Mg Tablet) 5 mg PO DAILY [facility] Last Admin: 06/01/23 07:56 Dose: 5 mg Clonidine HCl (Clonidine Hcl 0.2 Mg Tablet) 0.2 mg PO TID [facility]; Protocol Last Admin: 06/01/23 21:06 Dose: 0.2 mg Doxepin HCl (Doxepin Hcl 25 Mg Capsule) 175 mg PO BEDTIME [facility] Last Admin: 06/01/23 21:04 Dose: 175 mg Folic Acid (Folic Acid 1 Mg Tablet) 1 mg PO DAILY [facility] Last Admin: 06/01/23 07:56 Dose: 1 mg Hydroxyzine HCl (Hydroxyzine Hcl 50 Mg Tablet) 50 mg PO Q6H PRN PRN Reason: anxiety Last Admin: 06/01/23 16:26 Dose: 50 mg Magnesium Hydroxide (Milk Of Magnesia 30 Ml Oral.Susp) 30 ml PO DAILY PRN PRN Reason: Constipation Nicotine (Nicotine 21 Mg Patch.Td24) 21 mg TRANSDERMA DAILY PRN PRN Reason: smoking cessation Nicotine Polacrilex (Nicotine Polacrilex 2 Mg Gum) 4 mg BUCCAL Q2H PRN PRN Reason: Nicotine Cravings Last Admin: 06/01/23 19:03 Dose: 4 mg Quetiapine Fumarate (Quetiapine Fumarate 100 Mg Tablet) 200 mg PO BEDTIME RIKKI Last Admin: 06/01/23 21:03 Dose: 200 mg Quetiapine Fumarate (Quetiapine Fumarate 50 Mg Tablet) 50 mg PO Q4H PRN PRN Reason: anxiety Last Admin: 06/01/23 16:26 Dose: 50 mg Thiamine HCl (Thiamine Hcl 100 Mg Tablet) 100 mg PO DAILY [facility] Last Admin: 06/01/23 07:56 Dose: 100 mg Trazodone HCl (Trazodone Hcl 100 Mg Tablet) 100 mg PO BEDTIME MRX1 PRN PRN Reason: Insomnia Home Medications Medication Instructions Recorded Confirmed Last Taken Type benztropine 1 mg tablet 1 mg PO BID 05/21/23 05/21/23 05/20/23 History buspirone 15 mg tablet 15 mg PO TID 05/21/23 05/21/23 05/20/23 History citalopram 20 mg tablet 20 mg PO DAILY 05/21/23 05/21/23 05/20/23 History clonidine HCl 0.1 mg tablet 0.1 mg PO BID 05/21/23 05/21/23 05/20/23 History desvenlafaxine succinate 50 mg 50 mg PO DAILY 05/21/23 05/21/23 05/20/23 History tablet,extended release 24 hr hydroxyzine pamoate 50 mg capsule 50 mg PO DAILY PRN anxiety 05/21/23 05/21/23 05/20/23 History lurasidone 80 mg tablet 80 mg PO BEDTIME 05/21/23 05/21/23 05/20/23 History naproxen 500 mg tablet 500 mg PO pain 05/21/23 05/20/23 History quetiapine 100 mg tablet 100 mg PO DIRECTED 05/21/23 05/21/23 05/20/23 History Exam Height,Weight and Vital Signs: Height 5 ft 11 in Weight 105.3 kg Last Vital Signs Temp 97 F 06/02/23 06:43 Pulse 75 06/02/23 06:43 Resp 16 06/02/23 06:43 BP 117/73 06/02/23 06:43 Pulse Ox 96 06/02/23 06:43 O2 Del Method Room Air 06/02/23 06:43 O2 Flow Rate 2 05/28/23 14:15 Pertinent Lab Results Pertinent Lab Results: Laboratory Tests 05/21/23 05/21/23 05/23/23 17:55 18:02 09:17 WBC 9.8 RBC 5.12 Hgb 15.1 Hct 44.2 MCV 86.3 MCH 29.5 MCHC 34.2 RDW 12.9 Plt Count 274 MPV 9.0 L Immature Gran % (Auto) 0.4 Neut % (Auto) 56.4 Lymph % (Auto) 31.9 [place] % (Auto) 6.8 Eos % (Auto) 3.7 Baso % (Auto) 0.8 Lymph # (Auto) 3.1 [place] # (Auto) 0.7 Eos # (Auto) 0.4 Baso # (Auto) 0.1 Abs Immat Gran (auto) 0.04 H Absolute Neuts (auto) 5.5 Absolute Nucleated RBC 0.000 Nucleated RBC % (auto) 0.0 Sodium 137 137 Potassium 3.8 4.7 D Chloride 103 102 Carbon Dioxide 26 28 Anion Gap 12 12 BUN 13 17 H Creatinine 1.15 1.11 Estim Creat Clear Calc 106.8 119.7 Estimated GFR > 60 > 60 Random Glucose 94 Fasting Glucose 119 H Estimat Average Glucose 105 Hemoglobin A1c % 5.3 Calcium 9.4 9.5 Total Bilirubin 0.3 0.4 AST 27 23 ALT 55 H 51 H Alkaline Phosphatase 88 89 Total Protein 7.2 7.2 Albumin 4.2 4.2 Triglycerides 229 H Cholesterol 218 H LDL Cholesterol, Calc 135 H HDL Cholesterol 38 L Urine Color Yellow Urine Appearance Clear Urine pH 5.5 Ur Specific [place] 1.010 Urine Protein Negative Urine Glucose (UA) Negative Urine Ketones Negative Urine Blood Negative Urine Nitrite Negative Ur Leukocyte Esterase Negative Urine Opiates Screen Not Detected Urine Fentanyl Screen Not Detected Ur Barbiturates Screen Not Detected Ur Phencyclidine Scrn Not Detected Ur Amphetamines Screen Not Detected U Benzodiazepines Scrn Not Detected Urine Cocaine Screen Not Detected U Marijuana (THC) Screen POSITIVE H Ethyl Alcohol < 10 COVID-19 ([facility]ICA) Positive A COVID-19 Clin Com See Note Airway Mallampati Class: II TM Dist: >3cm Neck ROM: Full Heart: rrr Lungs: cta Assessment and Plan Assessment Anesthesia Assessment: Anesthesia Plan Discussed and Chart Reviewed Final Anesthetic Review Family History of Problems with Anesthesia: No History of Problems with Anesthesia: No NPO: Yes ASA Class: III Final Preanesthetic Review: No Changes in Pt Med Stat, Meds/Allgs Chart Reviewed and Consent Obtained/Reviewed Patient Risk: Intermediate Procedure Risk: Intermediate Anesthetic Plan Anesthetic Plan: GA Disposition: Standard PACU
--- NOTE | 2023-06-02 07:07 | MHC.SHP ---
Pre-Procedural Eval Section A - 24 Hr Update-Section A only Date of Service: 06/02/23 The patient is an INPATIENT: Yes Changes since office visit: Yes Changes in Medication and Yes Patient answered all questions; No Cold of Flu in the past 2 weeks and No New Medical Problems The patient has been examined within 24 hours of the surgical procedure. The History & Physical has been completed within 30 days and I have reviewed it.: Yes Section B - Complete if H&P > 30 days Chief Complaint: Depressed Allergies: Allergies Allergy/AdvReac Type Severity Reaction Status Date / Time bee pollen [BEE STINGS] Allergy Unknown ANAPHYLAXIS Verified 05/21/23 17:48 penicillin V Allergy Unknown Hives Verified 05/21/23 17:48 Penicillins [PCN] Allergy Unknown HIVES Verified 05/21/23 17:48 Plan I have reviewed the history and physical and performed a pertinent physical examination on my patient. No changes have occurred unless specified. Time Spent With Patient Time: Total time managing care of this patient today ____ minutes.
--- NOTE | 2023-06-02 07:38 | HO.ECTPROC ---
ECT Procedure Note Diagnosis/Treatment Date of Service: 06/02/23 Diagnosis: Major Depressive Disorder Previous ECT Date: 05/30/23 Current Treatment Number: 3 Treatment: Series Interval Clinical Notes: pt without change to this pt no cognitive side effects inc pw 0.5 Time: Total time managing care of this patient today _30___ minutes. ECT Settings Device: THYMATRON DGx Electrode Placement: Right Unilateral Program/Pulse Width: 0.50 Energy Percent: 100 Seizure Duration By EEG (in seconds): 55 Medications Administration General Anesthetic: Etomidate (18) Muscle Relaxant: Succinylcholine (140) Ancillary Medications Analgesics: Torodol - Pre ECT Anti-emetics: Zofran - Pre ECT Cardiovascular Medications: Glycopyrrolate (0.2 pretx) Miscillaneous Medications: Midazolam (2 mg) and Haldol (5mg) Airway Management Airway Management: Bag Mask Ventilation Treatment Recommendations No Changes Recommended: No change Notes: haldol 5 given post for post op agitation ? consider brevital may have better post op transition
[2023-06-02] MEDS: Haloperidol Lactate 5 MG/ML VIAL IVPUSH (07:42)
--- NOTE | 2023-06-02 08:05 | HO.PSYCHPN ---
Subjective Subjective Date of Service: 06/02/23 Reason For Visit: Depressed Interim History: Met with patient; discussed with team; reviewed chart met with pt at ECT and then later on unit Patient reports that his weekend was okay. Still quite depressed, but no SI. Says not feeling any better but also not feeling any worse; tolerating ECT and Abilify and wants to continue with both. Said feels very tired after ECT but otherwise no side effects. Mental Status Exam Mental Status Exam Narrative: Pt is alert and oriented; behavior is tired, calm, cooperative; patient is not in distress; dressed in casual attire, scruffy, mood is described as depressed but a little better and affect congruent, more calm, less anxious; eye contact appropriate; Speech is normal rate, volume and prosody and not pressured; still psychomotor retardation present; thought process is organized and goal directed; Thought content is on treatment; no SI; otherwise pertinent to relevant topics and without any delusional content, paranoid ideations or grandiosity; no SI; no HI. There is no evidence of perceptual disturbance and denies AVH. Patients insight and judgment impaired but improving Diagnostics Vital Signs (24Hr): Vital Signs - 24 hr 06/01/23 15:09 06/01/23 21:00 06/02/23 06:43 Temperature 97.7 F 97 F Pulse Rate 87 81 75 Respiratory Rate 16 Blood Pressure 107/73 99/63 117/73 Pulse Oximetry 96 Oxygen Delivery Method Room Air Oxygen Flow Rate 06/02/23 07:40 06/02/23 07:45 06/02/23 07:50 Temperature 98.9 F Pulse Rate 121 H 105 H 101 H Respiratory Rate 16 18 16 Blood Pressure 148/90 H 112/72 107/68 Pulse Oximetry 94 94 94 Oxygen Delivery Method Nasal Cannula with ETCO2 Nasal Cannula with ETCO2 Nasal Cannula with ETCO2 Oxygen Flow Rate 2 2 2 06/02/23 07:55 Temperature Pulse Rate 80 Respiratory Rate 15 Blood Pressure 107/72 Pulse Oximetry 91 L Oxygen Delivery Method Nasal Cannula with ETCO2 Oxygen Flow Rate 2 BMI result Body Mass Index 32.4 Labs 05/21/23 18:02 05/23/23 09:17 Medications Medications Current Medications Acetaminophen (Acetaminophen 325 Mg Tablet) 650 mg PO Q6H PRN PRN Reason: Headache/Pain Mild Scale (1-3) Last Admin: 06/01/23 11:42 Dose: 650 mg Al Hydroxide/Mg Hydroxide (Magnesium Hydrox/Alum Hydrox 30 Ml Oral.Susp) 30 ml PO Q6H PRN PRN Reason: Heartburn/Nausea Aripiprazole (Aripiprazole 5 Mg Tablet) 5 mg PO DAILY [facility] Last Admin: 06/01/23 07:56 Dose: 5 mg Clonidine HCl (Clonidine Hcl 0.2 Mg Tablet) 0.2 mg PO TID [facility]; Protocol Last Admin: 06/01/23 21:06 Dose: 0.2 mg Doxepin HCl (Doxepin Hcl 25 Mg Capsule) 175 mg PO BEDTIME [facility] Last Admin: 06/01/23 21:04 Dose: 175 mg Folic Acid (Folic Acid 1 Mg Tablet) 1 mg PO DAILY [facility] Last Admin: 06/01/23 07:56 Dose: 1 mg Hydroxyzine HCl (Hydroxyzine Hcl 50 Mg Tablet) 50 mg PO Q6H PRN PRN Reason: anxiety Last Admin: 06/01/23 16:26 Dose: 50 mg Magnesium Hydroxide (Milk Of Magnesia 30 Ml Oral.Susp) 30 ml PO DAILY PRN PRN Reason: Constipation Nicotine (Nicotine 21 Mg Patch.Td24) 21 mg TRANSDERMA DAILY PRN PRN Reason: smoking cessation Nicotine Polacrilex (Nicotine Polacrilex 2 Mg Gum) 4 mg BUCCAL Q2H PRN PRN Reason: Nicotine Cravings Last Admin: 06/01/23 19:03 Dose: 4 mg Quetiapine Fumarate (Quetiapine Fumarate 100 Mg Tablet) 200 mg PO BEDTIME [facility] Last Admin: 06/01/23 21:03 Dose: 200 mg Quetiapine Fumarate (Quetiapine Fumarate 50 Mg Tablet) 50 mg PO Q4H PRN PRN Reason: anxiety Last Admin: 06/01/23 16:26 Dose: 50 mg Thiamine HCl (Thiamine Hcl 100 Mg Tablet) 100 mg PO DAILY [facility] Last Admin: 06/01/23 07:56 Dose: 100 mg Trazodone HCl (Trazodone Hcl 100 Mg Tablet) 100 mg PO BEDTIME MRX1 PRN PRN Reason: Insomnia Allergies Allergies Allergy/AdvReac Type Severity Reaction Status Date / Time bee pollen [BEE STINGS] Allergy Unknown ANAPHYLAXIS Verified 05/21/23 17:48 penicillin V Allergy Unknown Hives Verified 05/21/23 17:48 Penicillins [PCN] Allergy Unknown HIVES Verified 05/21/23 17:48 Assessment & Plan Assessment & Plan (1) MDD (major depressive disorder), recurrent severe, without psychosis: Status: Acute Code(s): F33.2 - Major depressive disorder, recurrent severe without psychotic features (2) PTSD (post-traumatic stress disorder): Status: Acute Code(s): F43.10 - Post-traumatic stress disorder, unspecified (3) Alcohol use disorder, severe, in sustained remission: Status: Acute Code(s): F10.21 - Alcohol dependence, in remission Plan HPI: Patient is a 38-year-old male with history of refractory depression, PTSD, anxiety, alcohol abuse in sustained remission who presents for worsening depression and SI with no clear trigger. Patient was 1st psychiatrically admitted 05/2022 ?Patient reports that he was in overall good enough mood the following spring and summer, working, enjoying activities... For some unknown reason in the fall he started to get depressed again, eventually to the point where he stopped going to work, not attending ADLs, sleeping all the time and eventually developing suicidal ideation, love for his daughter being the protective factor the kept him safe. He was psychiatrically admitted and medications changed. Patient says he was doing overall well for the next 2 months but then in March he started getting depressed again; depression worsened and he went to respite where some of his meds were changed again; depression just continued and again not going to work, not attending to ADLs, and developing suicidal ideation. Patient denies any intent or plans, again protective factor being his family; however he feels miserable, would commit suicide if not for family and came to the hospital wanting help. Rough history of recent medication trials: 1. After he got sober around 2020, patient reports being stable for next 2.5 years on Celexa, Trileptal, and doxepin 2. First psychiatric admission 05/2022 [facility] and patient stabilized with Vraylar, Lexapro, low-dose Remeron, Seroquel and continued on doxepin and Trileptal ((started on Lamictal but may not have been titrated fully) 3. 2nd Psych admission 12/2022 for return of depression; stabilized on Latuda; discontinued from Vraylar, Lexapro and Trileptal 4. Respite 04/2023 BuSpar increased; patient was supposed to start Pristiq but never did; Latuda lowered due to side effects with intention of being discontinued Impression: Patient has refractory depression with numerous failed medication trials. It is unclear what triggers onset of depressive episodes; History of trauma is very likely a complicating factor however it is not clear to patient how so (at last admission, pt realized his first depressive episode may have started when his daughter became the same age he was when first getting traumatized, surfacing formally repressed memories of trauma). Patient seems to do okay after an admission but within a few months begins to decompensate causing some speculation that the active being hospitalized and subsequent change in meds might in some part be acting as a placebo. At patient's past admission, history of conner was thoroughly explored; once his provided collateral it seemed unlikely that patient was having actual manic episodes and did not have bipolar disorder. However this does remain a rule out given refractory depression (and biological loading) and it is possible that he has very mild hypomanic episodes. Unfortunately has failed several trials of mood stabilizers both Vraylar and Latuda. It does seem that TCA Doxepin has helped some and It is possible that TCAs might help where SSRIs have failed and this can be further explored. However, patient is depression is significant, with a strong urge to commit suicide, with his love for his family being his main protective factor. The severity of repeated depressive episodes, significantly impairing his ability to function in the community and refractory to multiple medication trials make ECT a viable option. Risks/side effects discussed with patient and patient is eager to pursue ECT, wanting relief from overwhelming depression. -strong consideration for ECT; will also consider getting back on Lexapro; Tegretol also possible option though would interfere with seizure from ECT; Lamictal also an option since it was unlikely ever titrated to high enough dose Hospital course: 05/23 patient's mood has improved a little bit; possibly due to therapeutic environment of being on the unit; also possible since doxepin was increased. Patient is enthusiastic about ECT; will continue to strongly consider however may hold off to see if medication management can continue to be increasingly effective 05/24 pt's mood has improved since coming to unit; depressive symptoms down to 7/10 (10 on admission) and no SI. Starting to tolerate Doxepin in AM and today not making him so tired. Gave pt print out on ECT to read; discussed treatment and pt agrees to hold off ECT for now since mood is improved (and frequently does during inpatient admissions). Last night much trouble sleeping; said tossing and turning and feeling cold; also Latuda tapering down and he slept much of day yesterday. Discussed meds/risks/side-effects. He agrees to switch to prn Seroquel since he finds it calming (rather than zyprexa); Agrees to increase in Trazodone. 05/25 depression remains and not so different despite a.m. doxepin which is making patient too tired. Discussed case at length with Dr. Godinez who agrees with moving forward with ECT. 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 Given the severity of depression which includes SI, underwriter, team and patient agree with moving forward with ECT. Discussed groups, coping skills and further medication management 05/26 more depressed; asks for doxepin to be added to bedtime; wants ECT 05/27 tolerated ECt and wants to continue; will hold off starting abilify for now, but will likely do so soon 05/28 Patient reports he remains depressed however no SI. He remains very tired today, not sure if it is due to ECT or not. Wants to continue with ECT however. Discussed medication regimen including starting Abilify; underwriter reviewed risks/side effects of Abilify including the combined risks of being on 2 antipsychotics. Patient understood and felt that the potential benefit outweighed the risks at this time. Overall Seroquel makes patient too sedated to go further 06/01 little better but still reports much depression; tolerating ECT (#3) other than headache; wants to continue PLAN: CV Q 15 #4 ECT for 06/03 -NPO Continue Abilify 5 mg daily Continue doxepin 175 mg q.h.s. Continue Seroquel 200 mg q.h.s. ADded Seroquel 50mg prn for anxiety increased Trazodone to 100mg DC BuSpar: Patient says has never helped DC Lexapro: Patient has not been on recently Taper and DC Latuda: Was at 120 mg, no help, developed akathisia and is in the process of being tapered and discontinued Hx of Medication trials: Seroquel: partially helpful Doxepin: partially helpful Trileptal: partially helpful but caused sexual side-effects Risperdal: no clear indication of positive effect (Taking as a child) [place]: not helpful; caused zombie like affect; not thinking clearly (Taking as a teenager) Depakote: For 1.5 years; no help, caused weight gain Vraylar: not helpful Latuda: akathesia, not helpful Lamcital: no clear indication of positive effect, but unclear if got to therapeutic dose Lexapro: no clear indication of positive effect Buspar: no clear indication of positive effect Prozac: no clear indication of positive effect; in teens, not sure what dose Celexa: used to help; was Partially helpful, but then effect wore off Clonidine: Partially helpful Gabapentin: Causes irritability Patient educated on: diagnosis, medication risk/benefits and ECT Informed Consent: understands Reason for continued inpatient stay Substantial Risk for: rapid decompensation Time Spent With Patient Time: Total time managing care of this patient today ____ minutes.
[2023-06-02] MEDS: Folic Acid 1 MG TABLET PO (08:54)
[2023-06-02] MEDS: Thiamine HCL 100 MG TABLET PO (08:54)
[2023-06-02] MEDS: Acetaminophen 325 MG TABLET 650 MG PO ×3 (08:54→23:27)
[2023-06-02] MEDS: cloNIDine HCL 0.2 MG TABLET PO ×2 (08:54→20:19)
[2023-06-02] MEDS: ARIPiprazole 5 MG TABLET PO (08:54)
[2023-06-02] MEDS: Nicotine Polacrilex 2 MG GUM 4 MG BUCCAL ×2 (17:12→18:38)
[2023-06-02] MEDS: QUEtiapine Fumarate 50 MG TABLET PO (18:38)
[2023-06-02] MEDS: hydrOXYzine HCL 50 MG TABLET PO (18:38)
[2023-06-02] MEDS: QUEtiapine Fumarate 100 MG TABLET 200 MG PO (20:19)
[2023-06-02] MEDS: Doxepin HCl 25 MG CAPSULE 175 MG PO (20:20)
[2023-06-03] MEDS: Acetaminophen 325 MG TABLET 650 MG PO (06:35)
[2023-06-03 09:03] VITALS: BP 123/81; PULSE 90; RESP 18; TEMP 36.6; O2SAT 98
[2023-06-03] MEDS: Folic Acid 1 MG TABLET PO (09:06)
[2023-06-03] MEDS: Thiamine HCL 100 MG TABLET PO (09:06)
[2023-06-03] MEDS: ARIPiprazole 5 MG TABLET PO (09:06)
[2023-06-03] MEDS: cloNIDine HCL 0.2 MG TABLET PO ×3 (09:06→20:45)
[2023-06-03] MEDS: Ibuprofen 600 MG TABLET PO ×2 (09:49→19:00)
[2023-06-03 14:45] VITALS: BP 131/65; PULSE 91
[2023-06-03] MEDS: Nicotine Polacrilex 2 MG GUM 4 MG BUCCAL (18:18)
[2023-06-03 19:35] VITALS: BP 138/78; PULSE 86; RESP 18; TEMP 36.6; O2SAT 97
[2023-06-03] MEDS: QUEtiapine Fumarate 100 MG TABLET 200 MG PO (20:45)
[2023-06-03] MEDS: Doxepin HCl 25 MG CAPSULE 175 MG PO (20:45)
--- NOTE | 2023-06-03 23:42 | HO.PSYCHPN ---
Subjective Subjective Date of Service: 06/03/23 Reason For Visit: Depressed Interim History: met with patient; discussed with team pt feeling anxiety and depression are getting better; no SI for several days now and he's really starting to miss his and daughter which he feels is directly due to climbing out of his depression. Says feeling hopeful and excited to get back and have a clear headed relationship with my and daughter... looking forward to ECT saying he thinks it's helping. Mental Status Exam Mental Status Exam Narrative: Pt is alert and oriented; behavior is tired, calm, cooperative; patient is not in distress; dressed in casual attire, scruffy, mood is described as getting better and affect congruent, calm, brighter; eye contact appropriate; Speech is normal rate, volume and prosody and not pressured; still psychomotor retardation present; thought process is organized and goal directed; Thought content is on treatment, family; no SI; otherwise pertinent to relevant topics and without any delusional content, paranoid ideations or grandiosity; no SI; no HI. There is no evidence of perceptual disturbance and denies AVH. Patients insight and judgment fair. Diagnostics Vital Signs (24Hr): Vital Signs - 24 hr 06/03/23 09:03 06/03/23 14:45 06/03/23 19:35 Temperature 98 F 97.8 F Pulse Rate 90 91 86 Respiratory Rate 18 18 Blood Pressure 123/81 131/65 138/78 Pulse Oximetry 98 97 Oxygen Delivery Method Room Air Room Air BMI result Body Mass Index 32.4 Labs 05/21/23 18:02 05/23/23 09:17 Medications Medications Current Medications Acetaminophen (Acetaminophen 325 Mg Tablet) 650 mg PO Q6H PRN PRN Reason: Headache/Pain Mild Scale (1-3) Last Admin: 06/03/23 06:35 Dose: 650 mg Al Hydroxide/Mg Hydroxide (Magnesium Hydrox/Alum Hydrox 30 Ml Oral.Susp) 30 ml PO Q6H PRN PRN Reason: Heartburn/Nausea Aripiprazole (Aripiprazole 5 Mg Tablet) 5 mg PO DAILY RIKKI Last Admin: 06/03/23 09:06 Dose: 5 mg Clonidine HCl (Clonidine Hcl 0.2 Mg Tablet) 0.2 mg PO TID RIKKI; Protocol Last Admin: 06/03/23 20:45 Dose: 0.2 mg Doxepin HCl (Doxepin Hcl 25 Mg Capsule) 175 mg PO BEDTIME [facility] Last Admin: 06/03/23 20:45 Dose: 175 mg Folic Acid (Folic Acid 1 Mg Tablet) 1 mg PO DAILY [facility] Last Admin: 06/03/23 09:06 Dose: 1 mg Hydroxyzine HCl (Hydroxyzine Hcl 50 Mg Tablet) 50 mg PO Q6H PRN PRN Reason: anxiety Last Admin: 06/02/23 18:38 Dose: 50 mg Ibuprofen (Ibuprofen 600 Mg Tablet) 600 mg PO Q8H PRN PRN Reason: Pain, Mild (Pain Scale 1-3) Last Admin: 06/03/23 19:00 Dose: 600 mg Magnesium Hydroxide (Milk Of Magnesia 30 Ml Oral.Susp) 30 ml PO DAILY PRN PRN Reason: Constipation Nicotine (Nicotine 21 Mg Patch.Td24) 21 mg TRANSDERMA DAILY PRN PRN Reason: smoking cessation Nicotine Polacrilex (Nicotine Polacrilex 2 Mg Gum) 4 mg BUCCAL Q2H PRN PRN Reason: Nicotine Cravings Last Admin: 06/03/23 18:18 Dose: 4 mg Quetiapine Fumarate (Quetiapine Fumarate 100 Mg Tablet) 200 mg PO BEDTIME [facility] Last Admin: 06/03/23 20:45 Dose: 200 mg Quetiapine Fumarate (Quetiapine Fumarate 50 Mg Tablet) 50 mg PO Q4H PRN PRN Reason: anxiety Last Admin: 06/02/23 18:38 Dose: 50 mg Thiamine HCl (Thiamine Hcl 100 Mg Tablet) 100 mg PO DAILY [facility] Last Admin: 06/03/23 09:06 Dose: 100 mg Trazodone HCl (Trazodone Hcl 100 Mg Tablet) 100 mg PO BEDTIME MRX1 PRN PRN Reason: Insomnia Allergies Allergies Allergy/AdvReac Type Severity Reaction Status Date / Time bee pollen [BEE STINGS] Allergy Unknown ANAPHYLAXIS Verified 05/21/23 17:48 penicillin V Allergy Unknown Hives Verified 05/21/23 17:48 Penicillins [PCN] Allergy Unknown HIVES Verified 05/21/23 17:48 Assessment & Plan Assessment & Plan (1) MDD (major depressive disorder), recurrent severe, without psychosis: Status: Acute Code(s): F33.2 - Major depressive disorder, recurrent severe without psychotic features (2) PTSD (post-traumatic stress disorder): Status: Acute Code(s): F43.10 - Post-traumatic stress disorder, unspecified (3) Alcohol use disorder, severe, in sustained remission: Status: Acute Code(s): F10.21 - Alcohol dependence, in remission Plan HPI: Patient is a 38-year-old male with history of refractory depression, PTSD, anxiety, alcohol abuse in sustained remission who presents for worsening depression and SI with no clear trigger. Patient was 1st psychiatrically admitted 05/2022 ?Patient reports that he was in overall good enough mood the following spring and summer, working, enjoying activities... For some unknown reason in the fall he started to get depressed again, eventually to the point where he stopped going to work, not attending ADLs, sleeping all the time and eventually developing suicidal ideation, love for his daughter being the protective factor the kept him safe. He was psychiatrically admitted and medications changed. Patient says he was doing overall well for the next 2 months but then in March he started getting depressed again; depression worsened and he went to respite where some of his meds were changed again; depression just continued and again not going to work, not attending to ADLs, and developing suicidal ideation. Patient denies any intent or plans, again protective factor being his family; however he feels miserable, would commit suicide if not for family and came to the hospital wanting help. Rough history of recent medication trials: 1. After he got sober around 2020, patient reports being stable for next 2.5 years on Celexa, Trileptal, and doxepin 2. First psychiatric admission 05/2022 [place] [facility] and patient stabilized with Vraylar, Lexapro, low-dose Remeron, Seroquel and continued on doxepin and Trileptal ((started on Lamictal but may not have been titrated fully) 3. 2nd Psych admission 12/2022 for return of depression; stabilized on Latuda; discontinued from Vraylar, Lexapro and Trileptal 4. Respite 04/2023 BuSpar increased; patient was supposed to start Pristiq but never did; Latuda lowered due to side effects with intention of being discontinued Impression: Patient has refractory depression with numerous failed medication trials. It is unclear what triggers onset of depressive episodes; History of trauma is very likely a complicating factor however it is not clear to patient how so (at last admission, pt realized his first depressive episode may have started when his daughter became the same age he was when first getting traumatized, surfacing formally repressed memories of trauma). Patient seems to do okay after an admission but within a few months begins to decompensate causing some speculation that the active being hospitalized and subsequent change in meds might in some part be acting as a placebo. At patient's past admission, history of conner was thoroughly explored; once his provided collateral it seemed unlikely that patient was having actual manic episodes and did not have bipolar disorder. However this does remain a rule out given refractory depression (and biological loading) and it is possible that he has very mild hypomanic episodes. Unfortunately has failed several trials of mood stabilizers both Vraylar and Latuda. It does seem that TCA Doxepin has helped some and It is possible that TCAs might help where SSRIs have failed and this can be further explored. However, patient is depression is significant, with a strong urge to commit suicide, with his love for his family being his main protective factor. The severity of repeated depressive episodes, significantly impairing his ability to function in the community and refractory to multiple medication trials make ECT a viable option. Risks/side effects discussed with patient and patient is eager to pursue ECT, wanting relief from overwhelming depression. -strong consideration for ECT; will also consider getting back on Lexapro; Tegretol also possible option though would interfere with seizure from ECT; Lamictal also an option since it was unlikely ever titrated to high enough dose Hospital course: 05/23 patient's mood has improved a little bit; possibly due to therapeutic environment of being on the unit; also possible since doxepin was increased. Patient is enthusiastic about ECT; will continue to strongly consider however may hold off to see if medication management can continue to be increasingly effective 05/24 pt's mood has improved since coming to unit; depressive symptoms down to 7/10 (10 on admission) and no SI. Starting to tolerate Doxepin in AM and today not making him so tired. Gave pt print out on ECT to read; discussed treatment and pt agrees to hold off ECT for now since mood is improved (and frequently does during inpatient admissions). Last night much trouble sleeping; said tossing and turning and feeling cold; also Latuda tapering down and he slept much of day yesterday. Discussed meds/risks/side-effects. He agrees to switch to prn Seroquel since he finds it calming (rather than zyprexa); Agrees to increase in Trazodone. 05/25 depression remains and not so different despite a.m. doxepin which is making patient too tired. Discussed case at length with Dr. Godinez who agrees with moving forward with ECT. 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 Given the severity of depression which includes SI, investigative writer, team and patient agree with moving forward with ECT. Discussed groups, coping skills and further medication management 05/26 more depressed; asks for doxepin to be added to bedtime; wants ECT 05/27 tolerated ECt and wants to continue; will hold off starting abilify for now, but will likely do so soon 05/28 Patient reports he remains depressed however no SI. He remains very tired today, not sure if it is due to ECT or not. Wants to continue with ECT however. Discussed medication regimen including starting Abilify; investigative writer reviewed risks/side effects of Abilify including the combined risks of being on 2 antipsychotics. Patient understood and felt that the potential benefit outweighed the risks at this time. Overall Seroquel makes patient too sedated to go further 06/01 little better but still reports much depression; tolerating ECT (#3) other than headache; wants to continue 06/02 patient reports he is starting to feel much better that ECT is helping; affect noticeably brighter. Patient starting to feel optimistic and missing his family which he feels is significant change from depressive state; says he's excited to get back and have a clear headed relationship with my and daughter... Discussed the role of ECT and medication now and in the future PLAN: CV Q 15 #4 ECT for 06/03 -NPO Continue Abilify 5 mg daily Continue doxepin 175 mg q.h.s. Continue Seroquel 200 mg q.h.s. ADded Seroquel 50mg prn for anxiety increased Trazodone to 100mg DC BuSpar: Patient says has never helped DC Lexapro: Patient has not been on recently Taper and DC Latuda: Was at 120 mg, no help, developed akathisia and is in the process of being tapered and discontinued Hx of Medication trials: Seroquel: partially helpful Doxepin: partially helpful Trileptal: partially helpful but caused sexual side-effects Risperdal: no clear indication of positive effect (Taking as a child) Crellin: not helpful; caused zombie like affect; not thinking clearly (Taking as a teenager) Depakote: For 1.5 years; no help, caused weight gain Vraylar: not helpful Latuda: akathesia, not helpful Lamcital: no clear indication of positive effect, but unclear if got to therapeutic dose Lexapro: no clear indication of positive effect Buspar: no clear indication of positive effect Prozac: no clear indication of positive effect; in teens, not sure what dose Celexa: used to help; was Partially helpful, but then effect wore off Clonidine: Partially helpful Gabapentin: Causes irritability Patient educated on: diagnosis, medication risk/benefits, ECT and therapeutic strategies Informed Consent: understands Reason for continued inpatient stay Substantial Risk for: rapid decompensation Time Spent With Patient Time: Total time managing care of this patient today ____ minutes.
[2023-06-04] VITALS (9 sets, daily range): BP systolic 105–160; BP diastolic 53–98; PULSE 69–100; RESP 16–18; TEMP 36.1–36.8; O2SAT 94–98
--- NOTE | 2023-06-04 06:43 | P.CONAN_ITS ---
[facility] Active Problems Active Problems: All Active Problems (Updated 05/23/23 @ 16:16 by Rhett Souza MD) MDD (major depressive disorder), recurrent severe, without psychosis (Acute) Pre-op evaluation (Acute) Suicidal ideation (Acute) Alcohol use disorder, severe, in sustained remission (Acute) PTSD (post-traumatic stress disorder) (Acute) Past Medical History Medical History (Updated 05/23/23 @ 16:16 by Rhett Souza MD) MDD (major depressive disorder), recurrent severe, without psychosis PTSD (post-traumatic stress disorder) Bipolar II disorder Family History Family history of problems with anesthesia: No Surgical History History of Problems with Anesthesia: No Social History Social History Household Members: Spouse and Children Household Members Other:: , daughter Housing: House Do you presently have visiting nurse or other home services: No Alcohol intake: never Patient Tobacco Use Status: Current everyday Tobacco user Tobacco use type: Cigarette Cigarette Packs Per Day: 1 Cigarettes Per Day: 20.0 Years Smoked: 6-7 years Smoked in Last 30 Days: Yes e-Cigarette/Vaping Use: Former Use Patient Interested in Nicotine Replacement: Yes (nicorette gum) Patient Given Instructions on How to Stop Smoking: Yes (Pt interested in quitting.) Date Education Initiated: 05/22/23 Second Hand Smoke Exposure: No Use of substances other than those prescribed or required for medical reasons: No Substance Use Type: Marijuana Currently Displaying Signs/Symptoms of Drug Intoxication Withdrawal: No Any prior treatment program specific to substance use: Yes ([facility] detox in past.) Have you been hit, kicked, punched, or otherwise hurt by someone within the past year? If so, by whom?: No Do you feel safe in your current relationship?: Yes Is there a partner from a previous relationship who is making you feel unsafe now?: No Are you made to feel afraid or neglected: Yes Zoroastrianism Healthcare Practices: Holiness Are you DNR?: No Advance Directives: No Advance Directives Information Provided: No Do you have thoughts of harming others: None Do you have a plan to hurt others: No Plan Recently lost weight without trying: No How much weight loss: Not applicable Eating poorly because of decreased appetite: No Nutrition screen score: 0 Nutrition Risks: No Nutritional Risk Poor oral hygiene: No service: No Sexual orientation: Straight/Heterosexual Meds Allergies Allergy/AdvReac Type Severity Reaction Status Date / Time bee pollen [BEE STINGS] Allergy Unknown ANAPHYLAXIS Verified 05/21/23 17:48 penicillin V Allergy Unknown Hives Verified 05/21/23 17:48 Penicillins [PCN] Allergy Unknown HIVES Verified 05/21/23 17:48 Active Medications: Current Medications Acetaminophen (Acetaminophen 325 Mg Tablet) 650 mg PO Q6H PRN PRN Reason: Headache/Pain Mild Scale (1-3) Last Admin: 06/03/23 06:35 Dose: 650 mg Al Hydroxide/Mg Hydroxide (Magnesium Hydrox/Alum Hydrox 30 Ml Oral.Susp) 30 ml PO Q6H PRN PRN Reason: Heartburn/Nausea Aripiprazole (Aripiprazole 5 Mg Tablet) 5 mg PO DAILY [facility] Last Admin: 06/03/23 09:06 Dose: 5 mg Clonidine HCl (Clonidine Hcl 0.2 Mg Tablet) 0.2 mg PO TID [facility]; Protocol Last Admin: 06/03/23 20:45 Dose: 0.2 mg Doxepin HCl (Doxepin Hcl 25 Mg Capsule) 175 mg PO BEDTIME [facility] Last Admin: 06/03/23 20:45 Dose: 175 mg Folic Acid (Folic Acid 1 Mg Tablet) 1 mg PO DAILY [facility] Last Admin: 06/03/23 09:06 Dose: 1 mg Hydroxyzine HCl (Hydroxyzine Hcl 50 Mg Tablet) 50 mg PO Q6H PRN PRN Reason: anxiety Last Admin: 06/02/23 18:38 Dose: 50 mg Ibuprofen (Ibuprofen 600 Mg Tablet) 600 mg PO Q8H PRN PRN Reason: Pain, Mild (Pain Scale 1-3) Last Admin: 06/03/23 19:00 Dose: 600 mg Magnesium Hydroxide (Milk Of Magnesia 30 Ml Oral.Susp) 30 ml PO DAILY PRN PRN Reason: Constipation Nicotine (Nicotine 21 Mg Patch.Td24) 21 mg TRANSDERMA DAILY PRN PRN Reason: smoking cessation Nicotine Polacrilex (Nicotine Polacrilex 2 Mg Gum) 4 mg BUCCAL Q2H PRN PRN Reason: Nicotine Cravings Last Admin: 06/03/23 18:18 Dose: 4 mg Quetiapine Fumarate (Quetiapine Fumarate 100 Mg Tablet) 200 mg PO BEDTIME [facility] Last Admin: 06/03/23 20:45 Dose: 200 mg Quetiapine Fumarate (Quetiapine Fumarate 50 Mg Tablet) 50 mg PO Q4H PRN PRN Reason: anxiety Last Admin: 06/02/23 18:38 Dose: 50 mg Thiamine HCl (Thiamine Hcl 100 Mg Tablet) 100 mg PO DAILY [facility]KKI Last Admin: 06/03/23 09:06 Dose: 100 mg Trazodone HCl (Trazodone Hcl 100 Mg Tablet) 100 mg PO BEDTIME MRX1 PRN PRN Reason: Insomnia Home Medications Medication Instructions Recorded Confirmed Last Taken Type benztropine 1 mg tablet 1 mg PO BID 05/21/23 05/21/23 05/20/23 History buspirone 15 mg tablet 15 mg PO TID 05/21/23 05/21/23 05/20/23 History citalopram 20 mg tablet 20 mg PO DAILY 05/21/23 05/21/23 05/20/23 History clonidine HCl 0.1 mg tablet 0.1 mg PO BID 05/21/23 05/21/23 05/20/23 History desvenlafaxine succinate 50 mg 50 mg PO DAILY 05/21/23 05/21/23 05/20/23 History tablet,extended release 24 hr hydroxyzine pamoate 50 mg capsule 50 mg PO DAILY PRN anxiety 05/21/23 05/21/23 05/20/23 History lurasidone 80 mg tablet 80 mg PO BEDTIME 05/21/23 05/21/23 05/20/23 History naproxen 500 mg tablet 500 mg PO pain 05/21/23 05/20/23 History quetiapine 100 mg tablet 100 mg PO DIRECTED 05/21/23 05/21/23 05/20/23 History Exam Height,Weight and Vital Signs: Height 5 ft 11 in Weight 105.3 kg Last Vital Signs Temp 97.8 F 06/03/23 19:35 Pulse 86 06/03/23 19:35 Resp 18 06/03/23 19:35 BP 138/78 06/03/23 19:35 Pulse Ox 97 06/03/23 19:35 O2 Del Method Room Air 06/03/23 19:35 O2 Flow Rate 2 06/02/23 07:55 Pertinent Lab Results Pertinent Lab Results: Laboratory Tests 05/21/23 05/21/23 05/23/23 17:55 18:02 09:17 WBC 9.8 RBC 5.12 Hgb 15.1 Hct 44.2 MCV 86.3 MCH 29.5 MCHC 34.2 RDW 12.9 Plt Count 274 MPV 9.0 L Immature Gran % (Auto) 0.4 Neut % (Auto) 56.4 Lymph % (Auto) 31.9 [place] % (Auto) 6.8 Eos % (Auto) 3.7 Baso % (Auto) 0.8 Lymph # (Auto) 3.1 [place] # (Auto) 0.7 Eos # (Auto) 0.4 Baso # (Auto) 0.1 Abs Immat Gran (auto) 0.04 H Absolute Neuts (auto) 5.5 Absolute Nucleated RBC 0.000 Nucleated RBC % (auto) 0.0 Sodium 137 137 Potassium 3.8 4.7 D Chloride 103 102 Carbon Dioxide 26 28 Anion Gap 12 12 BUN 13 17 H Creatinine 1.15 1.11 Estim Creat Clear Calc 106.8 119.7 Estimated GFR > 60 > 60 Random Glucose 94 Fasting Glucose 119 H Estimat Average Glucose 105 Hemoglobin A1c % 5.3 Calcium 9.4 9.5 Total Bilirubin 0.3 0.4 AST 27 23 ALT 55 H 51 H Alkaline Phosphatase 88 89 Total Protein 7.2 7.2 Albumin 4.2 4.2 Triglycerides 229 H Cholesterol 218 H LDL Cholesterol, Calc 135 H HDL Cholesterol 38 L Urine Color Yellow Urine Appearance Clear Urine pH 5.5 Ur Specific [place] 1.010 Urine Protein Negative Urine Glucose (UA) Negative Urine Ketones Negative Urine Blood Negative Urine Nitrite Negative Ur Leukocyte Esterase Negative Urine Opiates Screen Not Detected Urine Fentanyl Screen Not Detected Ur Barbiturates Screen Not Detected Ur Phencyclidine Scrn Not Detected Ur Amphetamines Screen Not Detected U Benzodiazepines Scrn Not Detected Urine Cocaine Screen Not Detected U Marijuana (THC) Screen POSITIVE H Ethyl Alcohol < 10 COVID-19 ([facility]) Positive A COVID-19 Clin Com See Note Airway Mallampati Class: II TM Dist: >3cm Neck ROM: Full Heart: rrr Lungs: cta Assessment and Plan Assessment Anesthesia Assessment: Anesthesia Plan Discussed and Chart Reviewed Final Anesthetic Review Family History of Problems with Anesthesia: No History of Problems with Anesthesia: No NPO: Yes ASA Class: III Final Preanesthetic Review: No Changes in Pt Med Stat, Meds/Allgs Chart Reviewed and Consent Obtained/Reviewed Patient Risk: Intermediate Procedure Risk: Intermediate Anesthetic Plan Anesthetic Plan: GA Disposition: Standard PACU
--- NOTE | 2023-06-04 07:45 | MHC.SHP ---
Pre-Procedural Eval Section A - 24 Hr Update-Section A only Date of Service: 06/04/23 The patient is an INPATIENT: Yes Changes since office visit: Yes Changes in Medication and Yes Patient answered all questions; No Cold of Flu in the past 2 weeks and No New Medical Problems The patient has been examined within 24 hours of the surgical procedure. The History & Physical has been completed within 30 days and I have reviewed it.: Yes Section B - Complete if H&P > 30 days Chief Complaint: Depressed Allergies: Allergies Allergy/AdvReac Type Severity Reaction Status Date / Time bee pollen [BEE STINGS] Allergy Unknown ANAPHYLAXIS Verified 05/21/23 17:48 penicillin V Allergy Unknown Hives Verified 05/21/23 17:48 Penicillins [PCN] Allergy Unknown HIVES Verified 05/21/23 17:48 Plan I have reviewed the history and physical and performed a pertinent physical examination on my patient. No changes have occurred unless specified. Time Spent With Patient Time: Total time managing care of this patient today ____ minutes.
--- NOTE | 2023-06-04 08:40 | P.PNPSI_ITS ---
Subjective Subjective Date of Service: 06/04/23 Reason For Visit: Depressed Interim History: Met with patient; discussed with team very tired after ECT and not up for talking much, however says mood remains getting better and wants to continue. Mental Status Exam Mental Status Exam Narrative: Pt is alert and oriented; behavior is tired, calm, cooperative; patient is not in distress; dressed in casual attire, scruffy, mood is described as getting better and affect congruent, calm, brighter; eye contact appropriate; Speech is normal rate, volume and prosody and not pressured; still psychomotor retardation present; thought process is organized and goal directed; Thought content is on treatment, family; no SI; otherwise pertinent to relevant topics and without any delusional content, paranoid ideations or grandiosity; no SI; no HI. There is no evidence of perceptual disturbance and denies AVH. Patients insight and judgment fair. Diagnostics Vital Signs (24Hr): Vital Signs - 24 hr 06/03/23 09:03 06/03/23 14:45 06/03/23 19:35 Temperature 98 F 97.8 F Pulse Rate 90 91 86 Respiratory Rate 18 18 Blood Pressure 123/81 131/65 138/78 Pulse Oximetry 98 97 Oxygen Delivery Method Room Air Room Air Oxygen Flow Rate 06/04/23 06:44 06/04/23 08:17 06/04/23 08:22 Temperature 97.5 F 98.3 F Pulse Rate 75 98 100 Respiratory Rate 16 18 16 Blood Pressure 108/79 118/94 H 122/98 H Pulse Oximetry 95 96 98 Oxygen Delivery Method Room Air Nasal Cannula with ETCO2 Nasal Cannula with ETCO2 Oxygen Flow Rate 2 2 06/04/23 08:27 06/04/23 08:37 Temperature Pulse Rate 91 92 Respiratory Rate 17 16 Blood Pressure 113/60 121/88 Pulse Oximetry 96 96 Oxygen Delivery Method Nasal Cannula with ETCO2 Room Air Nasal Cannula with ETCO2 Oxygen Flow Rate 2 BMI result Body Mass Index 32.4 Labs 05/21/23 18:02 05/23/23 09:17 Medications Medications Current Medications Acetaminophen (Acetaminophen 325 Mg Tablet) 650 mg PO Q6H PRN PRN Reason: Headache/Pain Mild Scale (1-3) Last Admin: 06/03/23 06:35 Dose: 650 mg Al Hydroxide/Mg Hydroxide (Magnesium Hydrox/Alum Hydrox 30 Ml Oral.Susp) 30 ml PO Q6H PRN PRN Reason: Heartburn/Nausea Aripiprazole (Aripiprazole 5 Mg Tablet) 5 mg PO DAILY [facility] Last Admin: 06/03/23 09:06 Dose: 5 mg Clonidine HCl (Clonidine Hcl 0.2 Mg Tablet) 0.2 mg PO TID [facility]; Protocol Last Admin: 06/03/23 20:45 Dose: 0.2 mg Doxepin HCl (Doxepin Hcl 25 Mg Capsule) 175 mg PO BEDTIME [facility] Last Admin: 06/03/23 20:45 Dose: 175 mg Folic Acid (Folic Acid 1 Mg Tablet) 1 mg PO DAILY [facility] Last Admin: 06/03/23 09:06 Dose: 1 mg Hydroxyzine HCl (Hydroxyzine Hcl 50 Mg Tablet) 50 mg PO Q6H PRN PRN Reason: anxiety Last Admin: 06/02/23 18:38 Dose: 50 mg Lactated Ringer's (Lr) 1,000 mls @ 50 mls/hr IVCONT .Q20H [facility] Ibuprofen (Ibuprofen 600 Mg Tablet) 600 mg PO Q8H PRN PRN Reason: Pain, Mild (Pain Scale 1-3) Last Admin: 06/03/23 19:00 Dose: 600 mg Magnesium Hydroxide (Milk Of Magnesia 30 Ml Oral.Susp) 30 ml PO DAILY PRN PRN Reason: Constipation Nicotine (Nicotine 21 Mg Patch.Td24) 21 mg TRANSDERMA DAILY PRN PRN Reason: smoking cessation Nicotine Polacrilex (Nicotine Polacrilex 2 Mg Gum) 4 mg BUCCAL Q2H PRN PRN Reason: Nicotine Cravings Last Admin: 06/03/23 18:18 Dose: 4 mg Quetiapine Fumarate (Quetiapine Fumarate 100 Mg Tablet) 200 mg PO BEDTIME [facility] Last Admin: 06/03/23 20:45 Dose: 200 mg Quetiapine Fumarate (Quetiapine Fumarate 50 Mg Tablet) 50 mg PO Q4H PRN PRN Reason: anxiety Last Admin: 06/02/23 18:38 Dose: 50 mg Thiamine HCl (Thiamine Hcl 100 Mg Tablet) 100 mg PO DAILY [facility] Last Admin: 06/03/23 09:06 Dose: 100 mg Trazodone HCl (Trazodone Hcl 100 Mg Tablet) 100 mg PO BEDTIME MRX1 PRN PRN Reason: Insomnia Allergies Allergies Allergy/AdvReac Type Severity Reaction Status Date / Time bee pollen [BEE STINGS] Allergy Unknown ANAPHYLAXIS Verified 05/21/23 17:48 penicillin V Allergy Unknown Hives Verified 05/21/23 17:48 Penicillins [PCN] Allergy Unknown HIVES Verified 05/21/23 17:48 Assessment & Plan Assessment & Plan (1) MDD (major depressive disorder), recurrent severe, without psychosis: Status: Acute Code(s): F33.2 - Major depressive disorder, recurrent severe without psychotic features (2) PTSD (post-traumatic stress disorder): Status: Acute Code(s): F43.10 - Post-traumatic stress disorder, unspecified (3) Alcohol use disorder, severe, in sustained remission: Status: Acute Code(s): F10.21 - Alcohol dependence, in remission Plan HPI: Patient is a 38-year-old male with history of refractory depression, PTSD, anxiety, alcohol abuse in sustained remission who presents for worsening depression and SI with no clear trigger. Patient was 1st psychiatrically admitted 05/2022 ?Patient reports that he was in overall good enough mood the following spring and summer, working, enjoying activities... For some unknown reason in the fall he started to get depressed again, eventually to the point where he stopped going to work, not attending ADLs, sleeping all the time and eventually developing suicidal ideation, love for his daughter being the protective factor the kept him safe. He was psychiatrically admitted and medications changed. Patient says he was doing overall well for the next 2 months but then in March he started getting depressed again; depression worsened and he went to respite where some of his meds were changed again; depression just continued and again not going to work, not attending to ADLs, and developing suicidal ideation. Patient denies any intent or plans, again protective factor being his family; however he feels miserable, would commit suicide if not for family and came to the hospital wanting help. Rough history of recent medication trials: 1. After he got sober around 2020, patient reports being stable for next 2.5 years on Celexa, Trileptal, and doxepin 2. First psychiatric admission 05/2022 [facility] and patient stabilized with Vraylar, Lexapro, low-dose Remeron, Seroquel and continued on doxepin and Trileptal ((started on Lamictal but may not have been titrated fully) 3. 2nd Psych admission 12/2022 for return of depression; stabilized on Latuda; discontinued from Vraylar, Lexapro and Trileptal 4. Respite 04/2023 BuSpar increased; patient was supposed to start Pristiq but never did; Latuda lowered due to side effects with intention of being discontinued Impression: Patient has refractory depression with numerous failed medication trials. It is unclear what triggers onset of depressive episodes; History of trauma is very likely a complicating factor however it is not clear to patient how so (at last admission, pt realized his first depressive episode may have started when his daughter became the same age he was when first getting traumatized, surfacing formally repressed memories of trauma). Patient seems to do okay after an admission but within a few months begins to decompensate causing some speculation that the active being hospitalized and subsequent change in meds might in some part be acting as a placebo. At patient's past admission, history of conner was thoroughly explored; once his provided collateral it seemed unlikely that patient was having actual manic episodes and did not have bipolar disorder. However this does remain a rule out given refractory depression (and biological loading) and it is possible that he has very mild hypomanic episodes. Unfortunately has failed several trials of mood stabilizers both Vraylar and Latuda. It does seem that TCA Doxepin has helped some and It is possible that TCAs might help where SSRIs have failed and this can be further explored. However, patient is depression is significant, with a strong urge to commit suicide, with his love for his family being his main protective factor. The severity of repeated depressive episodes, significantly impairing his ability to function in the community and refractory to multiple medication trials make ECT a viable option. Risks/side effects discussed with patient and patient is eager to pursue ECT, wanting relief from overwhelming depression. -strong consideration for ECT; will also consider getting back on Lexapro; Tegretol also possible option though would interfere with seizure from ECT; Lamictal also an option since it was unlikely ever titrated to high enough dose Hospital course: 05/23 patient's mood has improved a little bit; possibly due to therapeutic environment of being on the unit; also possible since doxepin was increased. Patient is enthusiastic about ECT; will continue to strongly consider however may hold off to see if medication management can continue to be increasingly effective 05/24 pt's mood has improved since coming to unit; depressive symptoms down to 7/10 (10 on admission) and no SI. Starting to tolerate Doxepin in AM and today not making him so tired. Gave pt print out on ECT to read; discussed treatment and pt agrees to hold off ECT for now since mood is improved (and frequently does during inpatient admissions). Last night much trouble sleeping; said tossing and turning and feeling cold; also Latuda tapering down and he slept much of day yesterday. Discussed meds/risks/side-effects. He agrees to switch to prn Seroquel since he finds it calming (rather than zyprexa); Agrees to increase in Trazodone. 05/25 depression remains and not so different despite a.m. doxepin which is making patient too tired. Discussed case at length with Dr. Godinez who agrees with moving forward with ECT. 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 Given the severity of depression which includes SI, script writer, team and patient agree with moving forward with ECT. Discussed groups, coping skills and further medication management 05/26 more depressed; asks for doxepin to be added to bedtime; wants ECT 05/27 tolerated ECt and wants to continue; will hold off starting abilify for now, but will likely do so soon 05/28 Patient reports he remains depressed however no SI. He remains very tired today, not sure if it is due to ECT or not. Wants to continue with ECT however. Discussed medication regimen including starting Abilify; script writer reviewed risks/side effects of Abilify including the combined risks of being on 2 antipsychotics. Patient understood and felt that the potential benefit outweighed the risks at this time. Overall Seroquel makes patient too sedated to go further 06/01 little better but still reports much depression; tolerating ECT (#3) other than headache; wants to continue 06/02 patient reports he is starting to feel much better that ECT is helping; affect noticeably brighter. Patient starting to feel optimistic and missing his family which he feels is significant change from depressive state; says he's excited to get back and have a clear headed relationship with my and daughter... Discussed the role of ECT and medication now and in the future 06/03 continue treatment plan; tolerating Abilify PLAN: CV Q 15 #5 ECT for Monday 06/05 -NPO Continue Abilify 5 mg daily Continue doxepin 175 mg q.h.s. Continue Seroquel 200 mg q.h.s. ADded Seroquel 50mg prn for anxiety increased Trazodone to 100mg DC BuSpar: Patient says has never helped DC Lexapro: Patient has not been on recently Taper and DC Latuda: Was at 120 mg, no help, developed akathisia and is in the process of being tapered and discontinued Hx of Medication trials: Seroquel: partially helpful Doxepin: partially helpful Trileptal: partially helpful but caused sexual side-effects Risperdal: no clear indication of positive effect (Taking as a child) Vanderwagen: not helpful; caused zombie like affect; not thinking clearly (Taking as a teenager) Depakote: For 1.5 years; no help, caused weight gain Vraylar: not helpful Latuda: akathesia, not helpful Lamcital: no clear indication of positive effect, but unclear if got to therapeutic dose Lexapro: no clear indication of positive effect Buspar: no clear indication of positive effect Prozac: no clear indication of positive effect; in teens, not sure what dose Celexa: used to help; was Partially helpful, but then effect wore off Clonidine: Partially helpful Gabapentin: Causes irritability Patient educated on: diagnosis, medication risk/benefits and ECT Informed Consent: understands Reason for continued inpatient stay Substantial Risk for: med/psych decompensation Time Spent With Patient Time: Total time managing care of this patient today ____ minutes.
[2023-06-04] MEDS: Folic Acid 1 MG TABLET PO (09:32)
[2023-06-04] MEDS: Ibuprofen 600 MG TABLET PO ×2 (09:32→22:49)
[2023-06-04] MEDS: Thiamine HCL 100 MG TABLET PO (09:32)
[2023-06-04] MEDS: ARIPiprazole 5 MG TABLET PO (09:32)
[2023-06-04] MEDS: cloNIDine HCL 0.2 MG TABLET PO ×3 (09:32→20:07)
[2023-06-04] MEDS: Acetaminophen 325 MG TABLET 650 MG PO (15:51)
[2023-06-04] MEDS: QUEtiapine Fumarate 100 MG TABLET 200 MG PO (20:07)
[2023-06-04] MEDS: Doxepin HCl 25 MG CAPSULE 175 MG PO (20:08)
[2023-06-05] MEDS: cloNIDine HCL 0.2 MG TABLET PO ×3 (09:38→20:41)
[2023-06-05] MEDS: ARIPiprazole 5 MG TABLET PO (09:38)
[2023-06-05] MEDS: Thiamine HCL 100 MG TABLET PO (09:38)
[2023-06-05] MEDS: Folic Acid 1 MG TABLET PO (09:38)
[2023-06-05 09:51] VITALS: BP 117/60; PULSE 57; RESP 18; TEMP 36.1; O2SAT 97
--- NOTE | 2023-06-05 10:04 | HO.PSYCHPN ---
Subjective Subjective Date of Service: 06/05/23 Reason For Visit: Depressed Interim History: met with; discussed in team pt said mood is good and though depression not fully gone, overall feels good. pt is optimistic. Discussed continuing w/ ECT further and then next week to decide if 6 sessions is enough or if he should continue but as an outpt; discussed role of maintenance ECT. Discussed abilify wants to continue but agrees to leave at current dose. Mental Status Exam Mental Status Exam Narrative: Pt is alert and oriented; behavior is tired, calm, cooperative; patient is not in distress; dressed in casual attire, scruffy, mood is described as goodr and affect congruent, calm, brighter; eye contact appropriate; Speech is normal rate, volume and prosody and not pressured; no psychomotor retardation present; thought process is organized and goal directed; Thought content is on treatment, family; no SI; otherwise pertinent to relevant topics and without any delusional content, paranoid ideations or grandiosity; no SI; no HI. There is no evidence of perceptual disturbance and denies AVH. Patients insight and judgment fair. Diagnostics Vital Signs (24Hr): Vital Signs - 24 hr 06/04/23 15:47 06/04/23 16:59 06/05/23 09:51 Temperature 97.1 F 96.9 F Pulse Rate 88 69 57 Respiratory Rate 16 18 Blood Pressure 160/70 H 109/73 117/60 Pulse Oximetry 98 97 Oxygen Delivery Method Room Air Room Air BMI result Body Mass Index 32.4 Labs 05/21/23 18:02 05/23/23 09:17 Medications Medications Current Medications Acetaminophen (Acetaminophen 325 Mg Tablet) 650 mg PO Q6H PRN PRN Reason: Headache/Pain Mild Scale (1-3) Last Admin: 06/04/23 15:51 Dose: 650 mg Al Hydroxide/Mg Hydroxide (Magnesium Hydrox/Alum Hydrox 30 Ml Oral.Susp) 30 ml PO Q6H PRN PRN Reason: Heartburn/Nausea Aripiprazole (Aripiprazole 5 Mg Tablet) 5 mg PO DAILY RIKKI Last Admin: 06/05/23 09:38 Dose: 5 mg Clonidine HCl (Clonidine Hcl 0.2 Mg Tablet) 0.2 mg PO TID RIKKI; Protocol Last Admin: 06/05/23 09:38 Dose: 0.2 mg Doxepin HCl (Doxepin Hcl 25 Mg Capsule) 175 mg PO BEDTIME [facility] Last Admin: 06/04/23 20:08 Dose: 175 mg Folic Acid (Folic Acid 1 Mg Tablet) 1 mg PO DAILY [facility] Last Admin: 06/05/23 09:38 Dose: 1 mg Hydroxyzine HCl (Hydroxyzine Hcl 50 Mg Tablet) 50 mg PO Q6H PRN PRN Reason: anxiety Last Admin: 06/02/23 18:38 Dose: 50 mg Ibuprofen (Ibuprofen 600 Mg Tablet) 600 mg PO Q8H PRN PRN Reason: Pain, Mild (Pain Scale 4-6) Last Admin: 06/04/23 22:49 Dose: 600 mg Magnesium Hydroxide (Milk Of Magnesia 30 Ml Oral.Susp) 30 ml PO DAILY PRN PRN Reason: Constipation Nicotine (Nicotine 21 Mg Patch.Td24) 21 mg TRANSDERMA DAILY PRN PRN Reason: smoking cessation Nicotine Polacrilex (Nicotine Polacrilex 2 Mg Gum) 4 mg BUCCAL Q2H PRN PRN Reason: Nicotine Cravings Last Admin: 06/03/23 18:18 Dose: 4 mg Quetiapine Fumarate (Quetiapine Fumarate 100 Mg Tablet) 200 mg PO BEDTIME [facility] Last Admin: 06/04/23 20:07 Dose: 200 mg Quetiapine Fumarate (Quetiapine Fumarate 50 Mg Tablet) 50 mg PO Q4H PRN PRN Reason: anxiety Last Admin: 06/02/23 18:38 Dose: 50 mg Thiamine HCl (Thiamine Hcl 100 Mg Tablet) 100 mg PO DAILY [facility] Last Admin: 06/05/23 09:38 Dose: 100 mg Trazodone HCl (Trazodone Hcl 100 Mg Tablet) 100 mg PO BEDTIME MRX1 PRN PRN Reason: Insomnia Allergies Allergies Allergy/AdvReac Type Severity Reaction Status Date / Time bee pollen [BEE STINGS] Allergy Unknown ANAPHYLAXIS Verified 05/21/23 17:48 penicillin V Allergy Unknown Hives Verified 05/21/23 17:48 Penicillins [PCN] Allergy Unknown HIVES Verified 05/21/23 17:48 Assessment & Plan Assessment & Plan (1) MDD (major depressive disorder), recurrent severe, without psychosis: Status: Acute Code(s): F33.2 - Major depressive disorder, recurrent severe without psychotic features (2) PTSD (post-traumatic stress disorder): Status: Acute Code(s): F43.10 - Post-traumatic stress disorder, unspecified (3) Alcohol use disorder, severe, in sustained remission: Status: Acute Code(s): F10.21 - Alcohol dependence, in remission Plan HPI: Patient is a 38-year-old male with history of refractory depression, PTSD, anxiety, alcohol abuse in sustained remission who presents for worsening depression and SI with no clear trigger. Patient was 1st psychiatrically admitted 05/2022 ?Patient reports that he was in overall good enough mood the following spring and summer, working, enjoying activities... For some unknown reason in the fall he started to get depressed again, eventually to the point where he stopped going to work, not attending ADLs, sleeping all the time and eventually developing suicidal ideation, love for his daughter being the protective factor the kept him safe. He was psychiatrically admitted and medications changed. Patient says he was doing overall well for the next 2 months but then in March he started getting depressed again; depression worsened and he went to respite where some of his meds were changed again; depression just continued and again not going to work, not attending to ADLs, and developing suicidal ideation. Patient denies any intent or plans, again protective factor being his family; however he feels miserable, would commit suicide if not for family and came to the hospital wanting help. Rough history of recent medication trials: 1. After he got sober around 2020, patient reports being stable for next 2.5 years on Celexa, Trileptal, and doxepin 2. First psychiatric admission 05/2022 [place] [facility] and patient stabilized with Vraylar, Lexapro, low-dose Remeron, Seroquel and continued on doxepin and Trileptal ((started on Lamictal but may not have been titrated fully) 3. 2nd Psych admission 12/2022 for return of depression; stabilized on Latuda; discontinued from Vraylar, Lexapro and Trileptal 4. Respite 04/2023 BuSpar increased; patient was supposed to start Pristiq but never did; Latuda lowered due to side effects with intention of being discontinued Impression: Patient has refractory depression with numerous failed medication trials. It is unclear what triggers onset of depressive episodes; History of trauma is very likely a complicating factor however it is not clear to patient how so (at last admission, pt realized his first depressive episode may have started when his daughter became the same age he was when first getting traumatized, surfacing formally repressed memories of trauma). Patient seems to do okay after an admission but within a few months begins to decompensate causing some speculation that the active being hospitalized and subsequent change in meds might in some part be acting as a placebo. At patient's past admission, history of conner was thoroughly explored; once his provided collateral it seemed unlikely that patient was having actual manic episodes and did not have bipolar disorder. However this does remain a rule out given refractory depression (and biological loading) and it is possible that he has very mild hypomanic episodes. Unfortunately has failed several trials of mood stabilizers both Vraylar and Latuda. It does seem that TCA Doxepin has helped some and It is possible that TCAs might help where SSRIs have failed and this can be further explored. However, patient is depression is significant, with a strong urge to commit suicide, with his love for his family being his main protective factor. The severity of repeated depressive episodes, significantly impairing his ability to function in the community and refractory to multiple medication trials make ECT a viable option. Risks/side effects discussed with patient and patient is eager to pursue ECT, wanting relief from overwhelming depression. -strong consideration for ECT; will also consider getting back on Lexapro; Tegretol also possible option though would interfere with seizure from ECT; Lamictal also an option since it was unlikely ever titrated to high enough dose Hospital course: 05/23 patient's mood has improved a little bit; possibly due to therapeutic environment of being on the unit; also possible since doxepin was increased. Patient is enthusiastic about ECT; will continue to strongly consider however may hold off to see if medication management can continue to be increasingly effective 05/24 pt's mood has improved since coming to unit; depressive symptoms down to 7/10 (10 on admission) and no SI. Starting to tolerate Doxepin in AM and today not making him so tired. Gave pt print out on ECT to read; discussed treatment and pt agrees to hold off ECT for now since mood is improved (and frequently does during inpatient admissions). Last night much trouble sleeping; said tossing and turning and feeling cold; also Latuda tapering down and he slept much of day yesterday. Discussed meds/risks/side-effects. He agrees to switch to prn Seroquel since he finds it calming (rather than zyprexa); Agrees to increase in Trazodone. 05/25 depression remains and not so different despite a.m. doxepin which is making patient too tired. Discussed case at length with Dr. Godinez who agrees with moving forward with ECT. 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 Given the severity of depression which includes SI, science writer, team and patient agree with moving forward with ECT. Discussed groups, coping skills and further medication management 05/26 more depressed; asks for doxepin to be added to bedtime; wants ECT 05/27 tolerated ECt and wants to continue; will hold off starting abilify for now, but will likely do so soon 05/28 Patient reports he remains depressed however no SI. He remains very tired today, not sure if it is due to ECT or not. Wants to continue with ECT however. Discussed medication regimen including starting Abilify; science writer reviewed risks/side effects of Abilify including the combined risks of being on 2 antipsychotics. Patient understood and felt that the potential benefit outweighed the risks at this time. Overall Seroquel makes patient too sedated to go further 06/01 little better but still reports much depression; tolerating ECT (#3) other than headache; wants to continue 06/02 patient reports he is starting to feel much better that ECT is helping; affect noticeably brighter. Patient starting to feel optimistic and missing his family which he feels is significant change from depressive state; says he's excited to get back and have a clear headed relationship with my and daughter... Discussed the role of ECT and medication now and in the future 06/03 continue treatment plan; tolerating Abilify 06/04 pt said mood is good and though depression not fully gone, overall feels good. pt is optimistic. Discussed continuing w/ ECT further and then next week to decide if 6 sessions is enough or if he should continue but as an outpt; discussed role of maintenance ECT. Discussed abilify wants to continue but agrees to leave at current dose. -continue ECT to make sure not stopping prematurely and risking decomp PLAN: CV Q 15 #5 ECT for Monday 06/05 -NPO Continue Abilify 5 mg daily Continue doxepin 175 mg q.h.s. Continue Seroquel 200 mg q.h.s. ADded Seroquel 50mg prn for anxiety increased Trazodone to 100mg DC BuSpar: Patient says has never helped DC Lexapro: Patient has not been on recently Taper and DC Latuda: Was at 120 mg, no help, developed akathisia and is in the process of being tapered and discontinued Hx of Medication trials: Seroquel: partially helpful Doxepin: partially helpful Trileptal: partially helpful but caused sexual side-effects Risperdal: no clear indication of positive effect (Taking as a child) [place]: not helpful; caused zombie like affect; not thinking clearly (Taking as a teenager) Depakote: For 1.5 years; no help, caused weight gain Vraylar: not helpful Latuda: akathesia, not helpful Lamcital: no clear indication of positive effect, but unclear if got to therapeutic dose Lexapro: no clear indication of positive effect Buspar: no clear indication of positive effect Prozac: no clear indication of positive effect; in teens, not sure what dose Celexa: used to help; was Partially helpful, but then effect wore off Clonidine: Partially helpful Gabapentin: Causes irritability Patient educated on: diagnosis, medication risk/benefits and ECT Informed Consent: understands Reason for continued inpatient stay Substantial Risk for: med/psych decompensation Time Spent With Patient Time: Total time managing care of this patient today ____ minutes.
[2023-06-05 10:35] VITALS: BMI 35.5
--- NOTE | 2023-06-05 10:45 | HO.ECTPROC ---
ECT Procedure Note Diagnosis/Treatment Date of Service: 06/04/23 Diagnosis: Major Depressive Disorder Previous ECT Date: 06/02/23 Current Treatment Number: 4 Treatment: Series Interval Clinical Notes: pt starting to feel somewhat better no c/o cognitive side effects Time: Total time managing care of this patient today _30___ minutes. ECT Settings Device: THYMATRON DGx Electrode Placement: Right Unilateral Program/Pulse Width: 0.50 Energy Percent: 100 Seizure Duration By EEG (in seconds): 42 Medications Administration General Anesthetic: Etomidate (18) Muscle Relaxant: Succinylcholine (140? add manjit) Ancillary Medications Analgesics: Torodol - Pre ECT Miscillaneous Medications: Midazolam (2) and Haldol (5) Airway Management Airway Management: Bag Mask Ventilation Treatment Recommendations Notes: consider brevital rocuronium did better with haldol
[2023-06-05] MEDS: Ibuprofen 600 MG TABLET PO (12:01)
[2023-06-05] MEDS: Nicotine Polacrilex 2 MG GUM 4 MG BUCCAL ×2 (12:01→18:30)
[2023-06-05 14:37] VITALS: BP 109/64; PULSE 84
[2023-06-05 17:45] VITALS: BP 131/66; PULSE 62; RESP 16; TEMP 36.4; O2SAT 98
[2023-06-05] MEDS: Doxepin HCl 25 MG CAPSULE 175 MG PO (20:41)
[2023-06-05] MEDS: QUEtiapine Fumarate 100 MG TABLET 200 MG PO (20:41)
[2023-06-06] VITALS (11 sets, daily range): BP systolic 110–145; BP diastolic 62–85; PULSE 74–122; RESP 14–18; TEMP 36.2–37.4; O2SAT 96–98
--- NOTE | 2023-06-06 07:27 | MHC.SHP ---
Pre-Procedural Eval Section A - 24 Hr Update-Section A only Date of Service: 06/06/23 The patient is an INPATIENT: Yes Changes since office visit: Yes Patient answered all questions; No Cold of Flu in the past 2 weeks, No New Medical Problems and No Changes in Medication The patient has been examined within 24 hours of the surgical procedure. The History & Physical has been completed within 30 days and I have reviewed it.: Yes Section B - Complete if H&P > 30 days Chief Complaint: Depressed Allergies: Allergies Allergy/AdvReac Type Severity Reaction Status Date / Time bee pollen [BEE STINGS] Allergy Unknown ANAPHYLAXIS Verified 05/21/23 17:48 penicillin V Allergy Unknown Hives Verified 05/21/23 17:48 Penicillins [PCN] Allergy Unknown HIVES Verified 05/21/23 17:48 Plan I have reviewed the history and physical and performed a pertinent physical examination on my patient. No changes have occurred unless specified. Time Spent With Patient Time: Total time managing care of this patient today ____ minutes.
--- NOTE | 2023-06-06 07:27 | HO.ECTPROC ---
ECT Procedure Note Diagnosis/Treatment Date of Service: 06/06/23 Diagnosis: Major Depressive Disorder Previous ECT Date: 06/04/23 Current Treatment Number: 5 Interval Clinical Notes: The patient has been feeling better complaints of intermittent headache no cognitive complaints The patient was changed from etomidate to Brevital this was much smoother recovery could try and lower Brevital Time: Total time managing care of this patient today _30___ minutes. ECT Settings Device: THYMATRON DGx Electrode Placement: Right Unilateral Program/Pulse Width: 0.50 Energy Percent: 100 Seizure Duration By EEG (in seconds): 24 Medications Administration General Anesthetic: Methohexital (150) Muscle Relaxant: Succinylcholine (140) Ancillary Medications Analgesics: Torodol - Pre ECT Anti-emetics: Zofran - Pre ECT Miscillaneous Medications: Midazolam (2 mg) Airway Management Airway Management: Bag Mask Ventilation Treatment Recommendations No Changes Recommended: No change Notes: consider dec brevital Pt Tolerated Procedure w/o Issue: Yes
[2023-06-06] MEDS: Thiamine HCL 100 MG TABLET PO (09:33)
[2023-06-06] MEDS: cloNIDine HCL 0.2 MG TABLET PO ×3 (09:33→19:38)
[2023-06-06] MEDS: Folic Acid 1 MG TABLET PO (09:33)
[2023-06-06] MEDS: ARIPiprazole 5 MG TABLET PO (09:33)
[2023-06-06] MEDS: Ibuprofen 600 MG TABLET PO (12:19)
[2023-06-06] MEDS: Acetaminophen 325 MG TABLET 650 MG PO (12:19)
[2023-06-06] MEDS: Doxepin HCl 25 MG CAPSULE 175 MG PO (19:37)
[2023-06-06] MEDS: QUEtiapine Fumarate 100 MG TABLET 200 MG PO (19:38)
--- NOTE | 2023-06-06 20:01 | P.PNPSI_ITS ---
Subjective Subjective Date of Service: 06/06/23 Reason For Visit: Depressed Interim History: Met with patient; discussed with team doing well; says not tired after ECT today. Will stay weekend, get ECT friday and then w/ Dr. Godinez will reasses going forward. Ceramic Chemist talked with Dr. Godinez who agrees likely dc next week +/- ECt as outpt, but likely benefit from Maintenance ECT Mental Status Exam Mental Status Exam Narrative: Pt is alert and oriented; behavior is tired, calm, cooperative; patient is not in distress; dressed in casual attire, scruffy, mood is described as good and affect congruent, calm, brighter; eye contact appropriate; Speech is normal rate, volume and prosody and not pressured; no psychomotor retardation present; thought process is organized and goal directed; Thought content is on treatment, family; no SI; otherwise pertinent to relevant topics and without any delusional content, paranoid ideations or grandiosity; no SI; no HI. There is no evidence of perceptual disturbance and denies AVH. Patients insight and judgment fair. Diagnostics Vital Signs (24Hr): Vital Signs - 24 hr 06/06/23 06:35 06/06/23 07:55 06/06/23 08:00 Temperature 97.9 F 99.3 F Pulse Rate 74 119 H 118 H Respiratory Rate 16 16 15 Blood Pressure 131/85 145/77 H 134/79 Pulse Oximetry 97 96 97 Oxygen Delivery Method Room Air Nasal Cannula with ETCO2 Nasal Cannula with ETCO2 Oxygen Flow Rate 2 2 06/06/23 08:05 06/06/23 08:10 06/06/23 08:25 Temperature Pulse Rate 120 H 122 H 103 H Respiratory Rate 14 14 16 Blood Pressure 129/78 126/75 125/71 Pulse Oximetry 97 97 97 Oxygen Delivery Method Nasal Cannula with ETCO2 Nasal Cannula with ETCO2 Nasal Cannula with ETCO2 Oxygen Flow Rate 2 2 2 06/06/23 08:40 06/06/23 08:55 06/06/23 09:17 Temperature 97.9 F 97.1 F Pulse Rate 101 H 91 87 Respiratory Rate 16 16 16 Blood Pressure 120/73 124/67 110/70 Pulse Oximetry 97 97 97 Oxygen Delivery Method Nasal Cannula with ETCO2 Nasal Cannula with ETCO2 Oxygen Flow Rate 2 2 06/06/23 14:44 Temperature Pulse Rate 101 H Respiratory Rate Blood Pressure 112/69 Pulse Oximetry Oxygen Delivery Method Oxygen Flow Rate BMI result Body Mass Index 35.5 Labs 05/21/23 18:02 05/23/23 09:17 Medications Medications Current Medications Acetaminophen (Acetaminophen 325 Mg Tablet) 650 mg PO Q6H PRN PRN Reason: Headache/Pain Mild Scale (1-3) Last Admin: 06/06/23 12:19 Dose: 650 mg Al Hydroxide/Mg Hydroxide (Magnesium Hydrox/Alum Hydrox 30 Ml Oral.Susp) 30 ml PO Q6H PRN PRN Reason: Heartburn/Nausea Aripiprazole (Aripiprazole 5 Mg Tablet) 5 mg PO DAILY [facility] Last Admin: 06/06/23 09:33 Dose: 5 mg Clonidine HCl (Clonidine Hcl 0.2 Mg Tablet) 0.2 mg PO TID [facility]; Protocol Last Admin: 06/06/23 19:38 Dose: 0.2 mg Doxepin HCl (Doxepin Hcl 25 Mg Capsule) 175 mg PO BEDTIME [facility] Last Admin: 06/06/23 19:37 Dose: 175 mg Folic Acid (Folic Acid 1 Mg Tablet) 1 mg PO DAILY [facility] Last Admin: 06/06/23 09:33 Dose: 1 mg Hydroxyzine HCl (Hydroxyzine Hcl 50 Mg Tablet) 50 mg PO Q6H PRN PRN Reason: anxiety Last Admin: 06/02/23 18:38 Dose: 50 mg Ibuprofen (Ibuprofen 600 Mg Tablet) 600 mg PO Q8H PRN PRN Reason: Pain, Mild (Pain Scale 4-6) Last Admin: 06/06/23 12:19 Dose: 600 mg Magnesium Hydroxide (Milk Of Magnesia 30 Ml Oral.Susp) 30 ml PO DAILY PRN PRN Reason: Constipation Nicotine (Nicotine 21 Mg Patch.Td24) 21 mg TRANSDERMA DAILY PRN PRN Reason: smoking cessation Nicotine Polacrilex (Nicotine Polacrilex 2 Mg Gum) 4 mg BUCCAL Q2H PRN PRN Reason: Nicotine Cravings Last Admin: 06/05/23 18:30 Dose: 4 mg Quetiapine Fumarate (Quetiapine Fumarate 100 Mg Tablet) 200 mg PO BEDTIME [facility] Last Admin: 06/06/23 19:38 Dose: 200 mg Quetiapine Fumarate (Quetiapine Fumarate 50 Mg Tablet) 50 mg PO Q4H PRN PRN Reason: anxiety Last Admin: 06/02/23 18:38 Dose: 50 mg Thiamine HCl (Thiamine Hcl 100 Mg Tablet) 100 mg PO DAILY [facility] Last Admin: 06/06/23 09:33 Dose: 100 mg Trazodone HCl (Trazodone Hcl 100 Mg Tablet) 100 mg PO BEDTIME MRX1 PRN PRN Reason: Insomnia Allergies Allergies Allergy/AdvReac Type Severity Reaction Status Date / Time bee pollen [BEE STINGS] Allergy Unknown ANAPHYLAXIS Verified 05/21/23 17:48 penicillin V Allergy Unknown Hives Verified 05/21/23 17:48 Penicillins [PCN] Allergy Unknown HIVES Verified 05/21/23 17:48 Assessment & Plan Assessment & Plan (1) MDD (major depressive disorder), recurrent severe, without psychosis: Status: Acute Code(s): F33.2 - Major depressive disorder, recurrent severe without psychotic features (2) PTSD (post-traumatic stress disorder): Status: Acute Code(s): F43.10 - Post-traumatic stress disorder, unspecified (3) Alcohol use disorder, severe, in sustained remission: Status: Acute Code(s): F10.21 - Alcohol dependence, in remission Plan HPI: Patient is a 38-year-old male with history of refractory depression, PTSD, anxiety, alcohol abuse in sustained remission who presents for worsening depression and SI with no clear trigger. Patient was 1st psychiatrically admitted 05/2022 ?Patient reports that he was in overall good enough mood the following spring and summer, working, enjoying activities... For some unknown reason in the fall he started to get depressed again, eventually to the point where he stopped going to work, not attending ADLs, sleeping all the time and eventually developing suicidal ideation, love for his daughter being the protective factor the kept him safe. He was psychiatrically admitted and medications changed. Patient says he was doing overall well for the next 2 months but then in March he started getting depressed again; depression worsened and he went to respite where some of his meds were changed again; depression just continued and again not going to work, not attending to ADLs, and developing suicidal ideation. Patient denies any intent or plans, again protective factor being his family; however he feels miserable, would commit suicide if not for family and came to the hospital wanting help. Rough history of recent medication trials: 1. After he got sober around 2020, patient reports being stable for next 2.5 years on Celexa, Trileptal, and doxepin 2. First psychiatric admission 05/2022 [facility] and patient stabilized with Vraylar, Lexapro, low-dose Remeron, Seroquel and continued on doxepin and Trileptal ((started on Lamictal but may not have been titrated fully) 3. 2nd Psych admission 12/2022 for return of depression; stabilized on Latuda; discontinued from Vraylar, Lexapro and Trileptal 4. Respite 04/2023 BuSpar increased; patient was supposed to start Pristiq but never did; Latuda lowered due to side effects with intention of being discontinued Impression: Patient has refractory depression with numerous failed medication trials. It is unclear what triggers onset of depressive episodes; History of trauma is very likely a complicating factor however it is not clear to patient how so (at last admission, pt realized his first depressive episode may have started when his daughter became the same age he was when first getting traumatized, surfacing formally repressed memories of trauma). Patient seems to do okay after an admission but within a few months begins to decompensate causing some speculation that the active being hospitalized and subsequent change in meds might in some part be acting as a placebo. At patient's past admission, history of conner was thoroughly explored; once his provided collateral it seemed unlikely that patient was having actual manic episodes and did not have bipolar disorder. However this does remain a rule out given refractory depression (and biological loading) and it is possible that he has very mild hypomanic episodes. Unfortunately has failed several trials of mood stabilizers both Vraylar and Latuda. It does seem that TCA Doxepin has helped some and It is possible that TCAs might help where SSRIs have failed and this can be further explored. However, patient is depression is significant, with a strong urge to commit suicide, with his love for his family being his main protective factor. The severity of repeated depressive episodes, significantly impairing his ability to function in the community and refractory to multiple medication trials make ECT a viable option. Risks/side effects discussed with patient and patient is eager to pursue ECT, wanting relief from overwhelming depression. -strong consideration for ECT; will also consider getting back on Lexapro; Tegretol also possible option though would interfere with seizure from ECT; Lamictal also an option since it was unlikely ever titrated to high enough dose Hospital course: 05/23 patient's mood has improved a little bit; possibly due to therapeutic environment of being on the unit; also possible since doxepin was increased. Patient is enthusiastic about ECT; will continue to strongly consider however may hold off to see if medication management can continue to be increasingly effective 05/24 pt's mood has improved since coming to unit; depressive symptoms down to 09/23 (10 on admission) and no SI. Starting to tolerate Doxepin in AM and today not making him so tired. Gave pt print out on ECT to read; discussed treatment and pt agrees to hold off ECT for now since mood is improved (and frequently does during inpatient admissions). Last night much trouble sleeping; said tossing and turning and feeling cold; also Latuda tapering down and he slept much of day yesterday. Discussed meds/risks/side-effects. He agrees to switch to prn Seroquel since he finds it calming (rather than zyprexa); Agrees to increase in Trazodone. 05/25 depression remains and not so different despite a.m. doxepin which is making patient too tired. Discussed case at length with Dr. Godinez who agrees with moving forward with ECT. 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 Given the severity of depression which includes SI, typewriter tester, team and patient agree with moving forward with ECT. Discussed groups, coping skills and further medication management 05/26 more depressed; asks for doxepin to be added to bedtime; wants ECT 05/27 tolerated ECt and wants to continue; will hold off starting abilify for now, but will likely do so soon 05/28 Patient reports he remains depressed however no SI. He remains very tired today, not sure if it is due to ECT or not. Wants to continue with ECT however. Discussed medication regimen including starting Abilify; typewriter tester reviewed risks/side effects of Abilify including the combined risks of being on 2 antipsychotics. Patient understood and felt that the potential benefit outweighed the risks at this time. Overall Seroquel makes patient too sedated to go further 06/01 little better but still reports much depression; tolerating ECT (#3) other than headache; wants to continue 06/02 patient reports he is starting to feel much better that ECT is helping; affect noticeably brighter. Patient starting to feel optimistic and missing his family which he feels is significant change from depressive state; says he's excited to get back and have a clear headed relationship with my and daughter... Discussed the role of ECT and medication now and in the future 06/03 continue treatment plan; tolerating Abilify 06/04 pt said mood is good and though depression not fully gone, overall feels good. pt is optimistic. Discussed continuing w/ ECT further and then next week to decide if 6 sessions is enough or if he should continue but as an outpt; discussed role of maintenance ECT. Discussed abilify wants to continue but agrees to leave at current dose. -continue ECT to make sure not stopping prematurely and risking decomp 06/05 doing well; says not tired after ECT today. Will stay weekend, get ECT friday and then w/ Dr. Godinez will reasses going forward. Ceramic Chemist talked with Dr. Godinez who agrees likely dc next week +/- ECt as outpt, but likely benefit from Maintenance ECT PLAN: CV Q 15 #6 ECT for Thursday 06/08 -NPO Continue Abilify 5 mg daily Continue doxepin 175 mg q.h.s. Continue Seroquel 200 mg q.h.s. ADded Seroquel 50mg prn for anxiety increased Trazodone to 100mg DC BuSpar: Patient says has never helped DC Lexapro: Patient has not been on recently Taper and DC Latuda: Was at 120 mg, no help, developed akathisia and is in the process of being tapered and discontinued Hx of Medication trials: Seroquel: partially helpful Doxepin: partially helpful Trileptal: partially helpful but caused sexual side-effects Risperdal: no clear indication of positive effect (Taking as a child) Refton: not helpful; caused zombie like affect; not thinking clearly (Taking as a teenager) Depakote: For 1.5 years; no help, caused weight gain Vraylar: not helpful Latuda: akathesia, not helpful Lamcital: no clear indication of positive effect, but unclear if got to therapeutic dose Lexapro: no clear indication of positive effect Buspar: no clear indication of positive effect Prozac: no clear indication of positive effect; in teens, not sure what dose Celexa: used to help; was Partially helpful, but then effect wore off Clonidine: Partially helpful Gabapentin: Causes irritability Patient educated on: diagnosis, medication risk/benefits and ECT Informed Consent: understands Reason for continued inpatient stay Substantial Risk for: stable for discharge Time Spent With Patient Time: Total time managing care of this patient today ____ minutes.
[2023-06-07 08:00] VITALS: BP 112/76; PULSE 56; RESP 16; TEMP 36.4; O2SAT 97
[2023-06-07] MEDS: Folic Acid 1 MG TABLET PO (08:50)
[2023-06-07] MEDS: ARIPiprazole 5 MG TABLET PO (08:50)
[2023-06-07] MEDS: cloNIDine HCL 0.2 MG TABLET PO ×3 (08:50→20:18)
[2023-06-07] MEDS: Thiamine HCL 100 MG TABLET PO (08:50)
--- NOTE | 2023-06-07 09:48 | P.PNPSI_ITS ---
Subjective Subjective Date of Service: 06/07/23 Reason For Visit: Depressed Interim History: Met with patient; discussed with team doing well; feels ECT has been very helpful. I feel it's helping. says not tired after ECT today. ECT friday and then w/ Dr. Godinez will reasses going forward. Possible DC next week +/- ECT as outpt, but likely benefit from Maintenance ECT No SI. Pleasant on approach. Review of Systems Review of Systems Patient has no acute medical complaints at this time Yes all other systems are reviewed and are negative Constitutional: Reports as per HPI, Denies body ache(s), Denies chills and Denies fever(s) Eyes: Reports as per HPI and Denies blurry vision Reports as per HPI Cardiovascular: Reports as per HPI, Denies chest pain and Denies dyspnea Respiratory: Reports as per HPI, Denies cough and Denies dyspnea Gastrointestinal: Reports as per HPI, Denies abdominal pain, Denies nausea and Denies vomiting Genitourinary: Reports as per HPI Musculoskeletal: Reports as per HPI and Denies back pain Skin/Breast: Reports as per HPI and Denies rash Reports as per HPI Psychiatric: Reports as per HPI, Reports anxiety, Reports depression and Reports suicidal ideation Endocrine: Reports as per HPI Hematologic/Lymphatic: Reports as per HPI Allergic/Immunologic: Reports as per HPI Mental Status Exam Mental Status Exam Narrative: Pt is alert and oriented; behavior is tired, calm, cooperative; patient is not in distress; dressed in casual attire, scruffy, mood is described as good and affect congruent, calm, brighter; eye contact appropriate; Speech is normal rate, volume and prosody and not pressured; no psychomotor retardation present; thought process is organized and goal directed; Thought content is on treatment, family; no SI; otherwise pertinent to relevant topics and without any delusional content, paranoid ideations or grandiosity; no SI; no HI. There is no evidence of perceptual disturbance and denies AVH. Patients insight and judgment fair. Diagnostics Vital Signs (24Hr): Vital Signs - 24 hr 06/06/23 14:44 06/06/23 18:00 Temperature 97.8 F Pulse Rate 101 H 98 Respiratory Rate 18 Blood Pressure 112/69 118/62 Pulse Oximetry 98 Oxygen Delivery Method Room Air BMI result Body Mass Index 35.5 Labs 05/21/23 18:02 05/23/23 09:17 Medications Medications Current Medications Acetaminophen (Acetaminophen 325 Mg Tablet) 650 mg PO Q6H PRN PRN Reason: Headache/Pain Mild Scale (1-3) Last Admin: 06/06/23 12:19 Dose: 650 mg Al Hydroxide/Mg Hydroxide (Magnesium Hydrox/Alum Hydrox 30 Ml Oral.Susp) 30 ml PO Q6H PRN PRN Reason: Heartburn/Nausea Aripiprazole (Aripiprazole 5 Mg Tablet) 5 mg PO DAILY [facility] Last Admin: 06/07/23 08:50 Dose: 5 mg Clonidine HCl (Clonidine Hcl 0.2 Mg Tablet) 0.2 mg PO TID [facility]; Protocol Last Admin: 06/07/23 08:50 Dose: 0.2 mg Doxepin HCl (Doxepin Hcl 25 Mg Capsule) 175 mg PO BEDTIME [facility] Last Admin: 06/06/23 19:37 Dose: 175 mg Folic Acid (Folic Acid 1 Mg Tablet) 1 mg PO DAILY [facility] Last Admin: 06/07/23 08:50 Dose: 1 mg Hydroxyzine HCl (Hydroxyzine Hcl 50 Mg Tablet) 50 mg PO Q6H PRN PRN Reason: anxiety Last Admin: 06/02/23 18:38 Dose: 50 mg Ibuprofen (Ibuprofen 600 Mg Tablet) 600 mg PO Q8H PRN PRN Reason: Pain, Mild (Pain Scale 4-6) Last Admin: 06/06/23 12:19 Dose: 600 mg Magnesium Hydroxide (Milk Of Magnesia 30 Ml Oral.Susp) 30 ml PO DAILY PRN PRN Reason: Constipation Nicotine (Nicotine 21 Mg Patch.Td24) 21 mg TRANSDERMA DAILY PRN PRN Reason: smoking cessation Nicotine Polacrilex (Nicotine Polacrilex 2 Mg Gum) 4 mg BUCCAL Q2H PRN PRN Reason: Nicotine Cravings Last Admin: 06/05/23 18:30 Dose: 4 mg Quetiapine Fumarate (Quetiapine Fumarate 100 Mg Tablet) 200 mg PO BEDTIME [facility] Last Admin: 06/06/23 19:38 Dose: 200 mg Quetiapine Fumarate (Quetiapine Fumarate 50 Mg Tablet) 50 mg PO Q4H PRN PRN Reason: anxiety Last Admin: 06/02/23 18:38 Dose: 50 mg Thiamine HCl (Thiamine Hcl 100 Mg Tablet) 100 mg PO DAILY [facility] Last Admin: 06/07/23 08:50 Dose: 100 mg Trazodone HCl (Trazodone Hcl 100 Mg Tablet) 100 mg PO BEDTIME MRX1 PRN PRN Reason: Insomnia Allergies Allergies Allergy/AdvReac Type Severity Reaction Status Date / Time bee pollen [BEE STINGS] Allergy Unknown ANAPHYLAXIS Verified 05/21/23 17:48 penicillin V Allergy Unknown Hives Verified 05/21/23 17:48 Penicillins [PCN] Allergy Unknown HIVES Verified 05/21/23 17:48 Assessment & Plan Assessment & Plan (1) MDD (major depressive disorder), recurrent severe, without psychosis: Status: Acute Code(s): F33.2 - Major depressive disorder, recurrent severe without psychotic features (2) PTSD (post-traumatic stress disorder): Status: Acute Code(s): F43.10 - Post-traumatic stress disorder, unspecified (3) Alcohol use disorder, severe, in sustained remission: Status: Acute Code(s): F10.21 - Alcohol dependence, in remission Plan HPI: Patient is a 38-year-old male with history of refractory depression, PTSD, anxiety, alcohol abuse in sustained remission who presents for worsening depression and SI with no clear trigger. Patient was 1st psychiatrically admitted 05/2022 ?Patient reports that he was in overall good enough mood the following spring and summer, working, enjoying activities... For some unknown reason in the fall he started to get depressed again, eventually to the point where he stopped going to work, not attending ADLs, sleeping all the time and eventually developing suicidal ideation, love for his daughter being the protective factor the kept him safe. He was psychiatrically admitted and medications changed. Patient says he was doing overall well for the next 2 months but then in March he started getting depressed again; depression worsened and he went to respite where some of his meds were changed again; depression just continued and again not going to work, not attending to ADLs, and developing suicidal ideation. Patient denies any intent or plans, again protective factor being his family; however he feels miserable, would commit suicide if not for family and came to the hospital wanting help. Rough history of recent medication trials: 1. After he got sober around 2020, patient reports being stable for next 2.5 years on Celexa, Trileptal, and doxepin 2. First psychiatric admission 05/2022 [place] [facility] and patient stabilized with Vraylar, Lexapro, low-dose Remeron, Seroquel and continued on doxepin and Trileptal ((started on Lamictal but may not have been titrated fully) 3. 2nd Psych admission 12/2022 for return of depression; stabilized on Latuda; discontinued from Vraylar, Lexapro and Trileptal 4. Respite 04/2023 BuSpar increased; patient was supposed to start Pristiq but never did; Latuda lowered due to side effects with intention of being discontinued Impression: Patient has refractory depression with numerous failed medication trials. It is unclear what triggers onset of depressive episodes; History of trauma is very likely a complicating factor however it is not clear to patient how so (at last admission, pt realized his first depressive episode may have started when his daughter became the same age he was when first getting traumatized, surfacing formally repressed memories of trauma). Patient seems to do okay after an admission but within a few months begins to decompensate causing some speculation that the active being hospitalized and subsequent change in meds might in some part be acting as a placebo. At patient's past admission, history of conner was thoroughly explored; once his provided collateral it seemed unlikely that patient was having actual manic episodes and did not have bipolar disorder. However this does remain a rule out given refractory depression (and biological loading) and it is possible that he has very mild hypomanic episodes. Unfortunately has failed several trials of mood stabilizers both Vraylar and Latuda. It does seem that TCA Doxepin has helped some and It is possible that TCAs might help where SSRIs have failed and this can be further explored. However, patient is depression is significant, with a strong urge to commit suicide, with his love for his family being his main protective factor. The severity of repeated depressive episodes, significantly impairing his ability to function in the community and refractory to multiple medication trials make ECT a viable option. Risks/side effects discussed with patient and patient is eager to pursue ECT, wanting relief from overwhelming depression. -strong consideration for ECT; will also consider getting back on Lexapro; Tegretol also possible option though would interfere with seizure from ECT; Lamictal also an option since it was unlikely ever titrated to high enough dose Hospital course: 05/23 patient's mood has improved a little bit; possibly due to therapeutic environment of being on the unit; also possible since doxepin was increased. Patient is enthusiastic about ECT; will continue to strongly consider however may hold off to see if medication management can continue to be increasingly effective 05/24 pt's mood has improved since coming to unit; depressive symptoms down to 09/23 (10 on admission) and no SI. Starting to tolerate Doxepin in AM and today not making him so tired. Gave pt print out on ECT to read; discussed treatment and pt agrees to hold off ECT for now since mood is improved (and frequently does during inpatient admissions). Last night much trouble sleeping; said tossing and turning and feeling cold; also Latuda tapering down and he slept much of day yesterday. Discussed meds/risks/side-effects. He agrees to switch to prn Seroquel since he finds it calming (rather than zyprexa); Agrees to increase in Trazodone. 05/25 depression remains and not so different despite a.m. doxepin which is making patient too tired. Discussed case at length with Dr. Godinez who agrees with moving forward with ECT. 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 Given the severity of depression which includes SI, communications writer, team and patient agree with moving forward with ECT. Discussed groups, coping skills and further medication management 05/26 more depressed; asks for doxepin to be added to bedtime; wants ECT 05/27 tolerated ECt and wants to continue; will hold off starting abilify for now, but will likely do so soon 05/28 Patient reports he remains depressed however no SI. He remains very tired today, not sure if it is due to ECT or not. Wants to continue with ECT however. Discussed medication regimen including starting Abilify; communications writer reviewed risks/side effects of Abilify including the combined risks of being on 2 antipsychotics. Patient understood and felt that the potential benefit outweighed the risks at this time. Overall Seroquel makes patient too sedated to go further 06/01 little better but still reports much depression; tolerating ECT (#3) other than headache; wants to continue 06/02 patient reports he is starting to feel much better that ECT is helping; affect noticeably brighter. Patient starting to feel optimistic and missing his family which he feels is significant change from depressive state; says he's excited to get back and have a clear headed relationship with my and daughter... Discussed the role of ECT and medication now and in the future 06/06: continue current management and treatment plan. PLAN: CV Q 15 #4 ECT for 06/03 -NPO Continue Abilify 5 mg daily Continue doxepin 175 mg q.h.s. Continue Seroquel 200 mg q.h.s. ADded Seroquel 50mg prn for anxiety increased Trazodone to 100mg DC BuSpar: Patient says has never helped DC Lexapro: Patient has not been on recently Taper and DC Latuda: Was at 120 mg, no help, developed akathisia and is in the process of being tapered and discontinued Hx of Medication trials: Seroquel: partially helpful Doxepin: partially helpful Trileptal: partially helpful but caused sexual side-effects Risperdal: no clear indication of positive effect (Taking as a child) [place]: not helpful; caused zombie like affect; not thinking clearly (Taking as a teenager) Depakote: For 1.5 years; no help, caused weight gain Vraylar: not helpful Latuda: akathesia, not helpful Lamcital: no clear indication of positive effect, but unclear if got to therapeutic dose Lexapro: no clear indication of positive effect Buspar: no clear indication of positive effect Prozac: no clear indication of positive effect; in teens, not sure what dose Celexa: used to help; was Partially helpful, but then effect wore off Clonidine: Partially helpful Gabapentin: Causes irritability Reason for continued inpatient stay Substantial Risk for: harm to self, inability to function and rapid decompensation Time Spent With Patient Time: Total time managing care of this patient today ____ minutes.
[2023-06-07 14:53] VITALS: BP 125/79; PULSE 86
[2023-06-07] MEDS: Ibuprofen 600 MG TABLET PO (14:55)
[2023-06-07 17:34] VITALS: BP 111/82; PULSE 80; TEMP 38.4; O2SAT 98
[2023-06-07 17:38] VITALS: TEMP 36.4
[2023-06-07] MEDS: Doxepin HCl 25 MG CAPSULE 175 MG PO (20:17)
[2023-06-07] MEDS: QUEtiapine Fumarate 100 MG TABLET 200 MG PO (20:18)
[2023-06-08] MEDS: Folic Acid 1 MG TABLET PO (08:47)
[2023-06-08] MEDS: ARIPiprazole 5 MG TABLET PO (08:47)
[2023-06-08] MEDS: Thiamine HCL 100 MG TABLET PO (08:47)
[2023-06-08] MEDS: cloNIDine HCL 0.2 MG TABLET PO ×3 (08:47→20:21)
--- NOTE | 2023-06-08 09:07 | P.PNPSI_ITS ---
Subjective Subjective Date of Service: 06/08/23 Reason For Visit: Depressed Interim History: Met with patient; discussed with team doing well; feels ECT has been very helpful. ECT friday and then w/ Dr. Godinez will reasses going forward. Possible DC next week +/- ECT as outpt, but likely benefit from Maintenance ECT No SI. Pleasant on approach. Review of Systems Review of Systems Patient has no acute medical complaints at this time Yes all other systems are reviewed and are negative Constitutional: Reports as per HPI, Denies body ache(s), Denies chills and Denies fever(s) Eyes: Reports as per HPI and Denies blurry vision Reports as per HPI Cardiovascular: Reports as per HPI, Denies chest pain and Denies dyspnea Respiratory: Reports as per HPI, Denies cough and Denies dyspnea Gastrointestinal: Reports as per HPI, Denies abdominal pain, Denies nausea and Denies vomiting Genitourinary: Reports as per HPI Musculoskeletal: Reports as per HPI and Denies back pain Skin/Breast: Reports as per HPI and Denies rash Reports as per HPI Psychiatric: Reports as per HPI, Reports anxiety, Reports depression and Reports suicidal ideation Endocrine: Reports as per HPI Hematologic/Lymphatic: Reports as per HPI Allergic/Immunologic: Reports as per HPI Mental Status Exam Mental Status Exam Narrative: Pt is alert and oriented; behavior is tired, calm, cooperative; patient is not in distress; dressed in casual attire, scruffy, mood is described as good and affect congruent, calm, brighter; eye contact appropriate; Speech is normal rate, volume and prosody and not pressured; no psychomotor retardation present; thought process is organized and goal directed; Thought content is on treatment, family; no SI; otherwise pertinent to relevant topics and without any delusional content, paranoid ideations or grandiosity; no SI; no HI. There is no evidence of perceptual disturbance and denies AVH. Patients insight and judgment fair. Diagnostics Vital Signs (24Hr): Vital Signs - 24 hr 06/07/23 14:53 06/07/23 17:34 06/07/23 17:38 Temperature 101.1 F H 97.6 F Pulse Rate 86 80 Blood Pressure 125/79 111/82 Pulse Oximetry 98 Oxygen Delivery Method Room Air BMI result Body Mass Index 35.5 Labs 05/21/23 18:02 05/23/23 09:17 Medications Medications Current Medications Acetaminophen (Acetaminophen 325 Mg Tablet) 650 mg PO Q6H PRN PRN Reason: Headache/Pain Mild Scale (1-3) Last Admin: 06/06/23 12:19 Dose: 650 mg Al Hydroxide/Mg Hydroxide (Magnesium Hydrox/Alum Hydrox 30 Ml Oral.Susp) 30 ml PO Q6H PRN PRN Reason: Heartburn/Nausea Aripiprazole (Aripiprazole 5 Mg Tablet) 5 mg PO DAILY [facility] Last Admin: 06/08/23 08:47 Dose: 5 mg Clonidine HCl (Clonidine Hcl 0.2 Mg Tablet) 0.2 mg PO TID [facility]; Protocol Last Admin: 06/08/23 08:47 Dose: 0.2 mg Doxepin HCl (Doxepin Hcl 25 Mg Capsule) 175 mg PO BEDTIME [facility] Last Admin: 06/07/23 20:17 Dose: 175 mg Folic Acid (Folic Acid 1 Mg Tablet) 1 mg PO DAILY [facility] Last Admin: 06/08/23 08:47 Dose: 1 mg Hydroxyzine HCl (Hydroxyzine Hcl 50 Mg Tablet) 50 mg PO Q6H PRN PRN Reason: anxiety Last Admin: 06/02/23 18:38 Dose: 50 mg Ibuprofen (Ibuprofen 600 Mg Tablet) 600 mg PO Q8H PRN PRN Reason: Pain, Mild (Pain Scale 4-6) Last Admin: 06/07/23 14:55 Dose: 600 mg Magnesium Hydroxide (Milk Of Magnesia 30 Ml Oral.Susp) 30 ml PO DAILY PRN PRN Reason: Constipation Nicotine (Nicotine 21 Mg Patch.Td24) 21 mg TRANSDERMA DAILY PRN PRN Reason: smoking cessation Nicotine Polacrilex (Nicotine Polacrilex 2 Mg Gum) 4 mg BUCCAL Q2H PRN PRN Reason: Nicotine Cravings Last Admin: 06/05/23 18:30 Dose: 4 mg Quetiapine Fumarate (Quetiapine Fumarate 100 Mg Tablet) 200 mg PO BEDTIME [facility] Last Admin: 06/07/23 20:18 Dose: 200 mg Quetiapine Fumarate (Quetiapine Fumarate 50 Mg Tablet) 50 mg PO Q4H PRN PRN Reason: anxiety Last Admin: 06/02/23 18:38 Dose: 50 mg Thiamine HCl (Thiamine Hcl 100 Mg Tablet) 100 mg PO DAILY [facility] Last Admin: 06/08/23 08:47 Dose: 100 mg Trazodone HCl (Trazodone Hcl 100 Mg Tablet) 100 mg PO BEDTIME MRX1 PRN PRN Reason: Insomnia Allergies Allergies Allergy/AdvReac Type Severity Reaction Status Date / Time bee pollen [BEE STINGS] Allergy Unknown ANAPHYLAXIS Verified 05/21/23 17:48 penicillin V Allergy Unknown Hives Verified 05/21/23 17:48 Penicillins [PCN] Allergy Unknown HIVES Verified 05/21/23 17:48 Assessment & Plan Assessment & Plan (1) MDD (major depressive disorder), recurrent severe, without psychosis: Status: Acute Code(s): F33.2 - Major depressive disorder, recurrent severe without psychotic features (2) PTSD (post-traumatic stress disorder): Status: Acute Code(s): F43.10 - Post-traumatic stress disorder, unspecified (3) Alcohol use disorder, severe, in sustained remission: Status: Acute Code(s): F10.21 - Alcohol dependence, in remission Plan HPI: Patient is a 38-year-old male with history of refractory depression, PTSD, anxiety, alcohol abuse in sustained remission who presents for worsening depression and SI with no clear trigger. Patient was 1st psychiatrically admitted 05/2022 ?Patient reports that he was in overall good enough mood the following spring and summer, working, enjoying activities... For some unknown reason in the fall he started to get depressed again, eventually to the point where he stopped going to work, not attending ADLs, sleeping all the time and eventually developing suicidal ideation, love for his daughter being the protective factor the kept him safe. He was psychiatrically admitted and medications changed. Patient says he was doing overall well for the next 2 months but then in March he started getting depressed again; depression worsened and he went to respite where some of his meds were changed again; depression just continued and again not going to work, not attending to ADLs, and developing suicidal ideation. Patient denies any intent or plans, again protective factor being his family; however he feels miserable, would commit suicide if not for family and came to the hospital wanting help. Rough history of recent medication trials: 1. After he got sober around 2020, patient reports being stable for next 2.5 years on Celexa, Trileptal, and doxepin 2. First psychiatric admission 05/2022 [facility] and patient stabilized with Vraylar, Lexapro, low-dose Remeron, Seroquel and continued on doxepin and Trileptal ((started on Lamictal but may not have been titrated fully) 3. 2nd Psych admission 12/2022 for return of depression; stabilized on Latuda; discontinued from Vraylar, Lexapro and Trileptal 4. Respite 04/2023 BuSpar increased; patient was supposed to start Pristiq but never did; Latuda lowered due to side effects with intention of being discontinued Impression: Patient has refractory depression with numerous failed medication trials. It is unclear what triggers onset of depressive episodes; History of trauma is very likely a complicating factor however it is not clear to patient how so (at last admission, pt realized his first depressive episode may have started when his daughter became the same age he was when first getting traumatized, surfacing formally repressed memories of trauma). Patient seems to do okay after an admission but within a few months begins to decompensate causing some speculation that the active being hospitalized and subsequent change in meds might in some part be acting as a placebo. At patient's past admission, history of conner was thoroughly explored; once his provided collateral it seemed unlikely that patient was having actual manic episodes and did not have bipolar disorder. However this does remain a rule out given refractory depression (and biological loading) and it is possible that he has very mild hypomanic episodes. Unfortunately has failed several trials of mood stabilizers both Vraylar and Latuda. It does seem that TCA Doxepin has helped some and It is possible that TCAs might help where SSRIs have failed and this can be further explored. However, patient is depression is significant, with a strong urge to commit suicide, with his love for his family being his main protective factor. The severity of repeated depressive episodes, significantly impairing his ability to function in the community and refractory to multiple medication trials make ECT a viable option. Risks/side effects discussed with patient and patient is eager to pursue ECT, wanting relief from overwhelming depression. -strong consideration for ECT; will also consider getting back on Lexapro; Tegretol also possible option though would interfere with seizure from ECT; Lamictal also an option since it was unlikely ever titrated to high enough dose Hospital course: 05/23 patient's mood has improved a little bit; possibly due to therapeutic environment of being on the unit; also possible since doxepin was increased. Patient is enthusiastic about ECT; will continue to strongly consider however may hold off to see if medication management can continue to be increasingly effective 05/24 pt's mood has improved since coming to unit; depressive symptoms down to 09/23 (10 on admission) and no SI. Starting to tolerate Doxepin in AM and today not making him so tired. Gave pt print out on ECT to read; discussed treatment and pt agrees to hold off ECT for now since mood is improved (and frequently does during inpatient admissions). Last night much trouble sleeping; said tossing and turning and feeling cold; also Latuda tapering down and he slept much of day yesterday. Discussed meds/risks/side-effects. He agrees to switch to prn Seroquel since he finds it calming (rather than zyprexa); Agrees to increase in Trazodone. 05/25 depression remains and not so different despite a.m. doxepin which is making patient too tired. Discussed case at length with Dr. Godinez who agrees with moving forward with ECT. 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 Discussed groups, coping skills and further medication management 05/26 more depressed; asks for doxepin to be added to bedtime; wants ECT 05/27 tolerated ECt and wants to continue; will hold off starting abilify for now, but will likely do so soon 05/28 Patient reports he remains depressed however no SI. He remains very tired today, not sure if it is due to ECT or not. Wants to continue with ECT however. Discussed medication regimen including starting Abilify; freelance writer reviewed risks/side effects of Abilify including the combined risks of being on 2 antipsychotics. Patient understood and felt that the potential benefit outweighed the risks at this time. Overall Seroquel makes patient too sedated to go further 06/01 little better but still reports much depression; tolerating ECT (#3) other than headache; wants to continue 3/19 patient reports he is starting to feel much better that ECT is helping; affect noticeably brighter. Patient starting to feel optimistic and missing his family which he feels is significant change from depressive state; says he's excited to get back and have a clear headed relationship with my and daughter... Discussed the role of ECT and medication now and in the future 06/06: continue current management and treatment plan. 06/07: continue current management and treatment plan. PLAN: CV Q 15 #4 ECT for 06/03 -NPO Continue Abilify 5 mg daily Continue doxepin 175 mg q.h.s. Continue Seroquel 200 mg q.h.s. ADded Seroquel 50mg prn for anxiety increased Trazodone to 100mg DC BuSpar: Patient says has never helped DC Lexapro: Patient has not been on recently Taper and DC Latuda: Was at 120 mg, no help, developed akathisia and is in the process of being tapered and discontinued Hx of Medication trials: Seroquel: partially helpful Doxepin: partially helpful Trileptal: partially helpful but caused sexual side-effects Risperdal: no clear indication of positive effect (Taking as a child) Fritch: not helpful; caused zombie like affect; not thinking clearly (Taking as a teenager) Depakote: For 1.5 years; no help, caused weight gain Vraylar: not helpful Latuda: akathesia, not helpful Lamcital: no clear indication of positive effect, but unclear if got to therapeutic dose Lexapro: no clear indication of positive effect Buspar: no clear indication of positive effect Prozac: no clear indication of positive effect; in teens, not sure what dose Celexa: used to help; was Partially helpful, but then effect wore off Clonidine: Partially helpful Gabapentin: Causes irritability Reason for continued inpatient stay Substantial Risk for: inability to function and rapid decompensation Time Spent With Patient Time: Total time managing care of this patient today ____ minutes.
[2023-06-08 09:14] VITALS: BP 116/73; PULSE 68; RESP 16; TEMP 36.5; O2SAT 94
[2023-06-08] MEDS: Ibuprofen 600 MG TABLET PO (12:21)
[2023-06-08 14:32] VITALS: BP 107/73; PULSE 119
[2023-06-08] MEDS: Nicotine Polacrilex 2 MG GUM 4 MG BUCCAL ×2 (15:51→18:52)
[2023-06-08 18:00] VITALS: BP 137/85; PULSE 73; RESP 16; TEMP 36.5; O2SAT 97
[2023-06-08] MEDS: Doxepin HCl 25 MG CAPSULE 175 MG PO (20:20)
[2023-06-08] MEDS: QUEtiapine Fumarate 100 MG TABLET 200 MG PO (20:21)
[2023-06-09] VITALS (10 sets, daily range): BP systolic 116–158; BP diastolic 71–112; PULSE 80–129; RESP 12–18; TEMP 36.2–36.9; O2SAT 95–100
--- NOTE | 2023-06-09 07:08 | MHC.SHP ---
Pre-Procedural Eval Section A - 24 Hr Update-Section A only Date of Service: 06/09/23 The patient is an INPATIENT: Yes Changes since office visit: No Cold of Flu in the past 2 weeks, No New Medical Problems, No Changes in Medication and No Patient answered all questions The patient has been examined within 24 hours of the surgical procedure. The History & Physical has been completed within 30 days and I have reviewed it.: Yes Section B - Complete if H&P > 30 days Chief Complaint: Depressed Allergies: Allergies Allergy/AdvReac Type Severity Reaction Status Date / Time bee pollen [BEE STINGS] Allergy Unknown ANAPHYLAXIS Verified 05/21/23 17:48 penicillin V Allergy Unknown Hives Verified 05/21/23 17:48 Penicillins [PCN] Allergy Unknown HIVES Verified 05/21/23 17:48 Plan I have reviewed the history and physical and performed a pertinent physical examination on my patient. No changes have occurred unless specified. Time Spent With Patient Time: Total time managing care of this patient today ____ minutes.
--- NOTE | 2023-06-09 07:29 | HO.ECTPROC ---
ECT Procedure Note Diagnosis/Treatment Date of Service: 06/09/23 Diagnosis: Major Depressive Disorder Previous ECT Date: 06/06/23 Current Treatment Number: 6 Treatment: Series Interval Clinical Notes: The patient reported improvement of dysphoria, less anxious, he is going to be discharged tomorrow. On interview, he denied side effects with the previous ECT. Mood much better as per his report and observation of the staff. ECT done as usual, no complications, woke up with no problems. Time: Total time managing care of this patient today __30__ minutes. ECT Settings Device: THYMATRON DGx Electrode Placement: Right Unilateral Program/Pulse Width: 0.50 Energy Percent: 100 Seizure Duration By EEG (in seconds): 13 By Motor Observation (in seconds): 13 Medications Administration General Anesthetic: Methohexital (150) Muscle Relaxant: Succinylcholine (140) Ancillary Medications Analgesics: Torodol - Pre ECT Anti-emetics: Zofran - Pre ECT Airway Management Airway Management: Bag Mask Ventilation Treatment Recommendations No Changes Recommended: No change Pt Tolerated Procedure w/o Issue: Yes
--- NOTE | 2023-06-09 07:55 | HO.ANESPROP2 ---
[facility] Active Problems Active Problems: All Active Problems (Updated 05/23/23 @ 16:16 by Rhett Souza MD) MDD (major depressive disorder), recurrent severe, without psychosis (Acute) Pre-op evaluation (Acute) Suicidal ideation (Acute) Alcohol use disorder, severe, in sustained remission (Acute) PTSD (post-traumatic stress disorder) (Acute) Past Medical History Medical History MDD (major depressive disorder), recurrent severe, without psychosis PTSD (post-traumatic stress disorder) Bipolar II disorder Functional capacity: independent ambulation Family History Family history of problems with anesthesia: No Surgical History History of Problems with Anesthesia: No Social History Social History Household Members: Spouse and Children Household Members Other:: , daughter Housing: House Do you presently have visiting nurse or other home services: No Alcohol intake: never Patient Tobacco Use Status: Current everyday Tobacco user Tobacco use type: Cigarette Cigarette Packs Per Day: 1 Cigarettes Per Day: 20.0 Years Smoked: 6-7 years Smoked in Last 30 Days: Yes e-Cigarette/Vaping Use: Former Use Patient Interested in Nicotine Replacement: Yes (nicorette gum) Patient Given Instructions on How to Stop Smoking: Yes (Pt interested in quitting.) Date Education Initiated: 05/22/23 Second Hand Smoke Exposure: No Use of substances other than those prescribed or required for medical reasons: No Substance Use Type: Marijuana Currently Displaying Signs/Symptoms of Drug Intoxication Withdrawal: No Any prior treatment program specific to substance use: Yes ([facility] detox in past.) Have you been hit, kicked, punched, or otherwise hurt by someone within the past year? If so, by whom?: No Do you feel safe in your current relationship?: Yes Is there a partner from a previous relationship who is making you feel unsafe now?: No Are you made to feel afraid or neglected: Yes Rastafari Healthcare Practices: Confucianist Are you DNR?: No Advance Directives: No Advance Directives Information Provided: No Do you have thoughts of harming others: None Do you have a plan to hurt others: No Plan Recently lost weight without trying: No How much weight loss: Not applicable Eating poorly because of decreased appetite: No Nutrition screen score: 0 Nutrition Risks: No Nutritional Risk Poor oral hygiene: No service: No Sexual orientation: Straight/Heterosexual Meds Allergies Allergy/AdvReac Type Severity Reaction Status Date / Time bee pollen [BEE STINGS] Allergy Unknown ANAPHYLAXIS Verified 05/21/23 17:48 penicillin V Allergy Unknown Hives Verified 05/21/23 17:48 Penicillins [PCN] Allergy Unknown HIVES Verified 05/21/23 17:48 Active Medications: Current Medications Acetaminophen (Acetaminophen 325 Mg Tablet) 650 mg PO Q6H PRN PRN Reason: Headache/Pain Mild Scale (1-3) Last Admin: 06/06/23 12:19 Dose: 650 mg Al Hydroxide/Mg Hydroxide (Magnesium Hydrox/Alum Hydrox 30 Ml Oral.Susp) 30 ml PO Q6H PRN PRN Reason: Heartburn/Nausea Aripiprazole (Aripiprazole 5 Mg Tablet) 5 mg PO DAILY [facility] Last Admin: 06/08/23 08:47 Dose: 5 mg Clonidine HCl (Clonidine Hcl 0.2 Mg Tablet) 0.2 mg PO TID [facility]; Protocol Last Admin: 06/08/23 20:21 Dose: 0.2 mg Doxepin HCl (Doxepin Hcl 25 Mg Capsule) 175 mg PO BEDTIME [facility] Last Admin: 06/08/23 20:20 Dose: 175 mg Folic Acid (Folic Acid 1 Mg Tablet) 1 mg PO DAILY [facility] Last Admin: 06/08/23 08:47 Dose: 1 mg Hydroxyzine HCl (Hydroxyzine Hcl 50 Mg Tablet) 50 mg PO Q6H PRN PRN Reason: anxiety Last Admin: 06/02/23 18:38 Dose: 50 mg Ibuprofen (Ibuprofen 600 Mg Tablet) 600 mg PO Q8H PRN PRN Reason: Pain, Mild (Pain Scale 4-6) Last Admin: 06/08/23 12:21 Dose: 600 mg Magnesium Hydroxide (Milk Of Magnesia 30 Ml Oral.Susp) 30 ml PO DAILY PRN PRN Reason: Constipation Nicotine (Nicotine 21 Mg Patch.Td24) 21 mg TRANSDERMA DAILY PRN PRN Reason: smoking cessation Nicotine Polacrilex (Nicotine Polacrilex 2 Mg Gum) 4 mg BUCCAL Q2H PRN PRN Reason: Nicotine Cravings Last Admin: 06/08/23 18:52 Dose: 4 mg Quetiapine Fumarate (Quetiapine Fumarate 100 Mg Tablet) 200 mg PO BEDTIME [facility] Last Admin: 06/08/23 20:21 Dose: 200 mg Quetiapine Fumarate (Quetiapine Fumarate 50 Mg Tablet) 50 mg PO Q4H PRN PRN Reason: anxiety Last Admin: 06/02/23 18:38 Dose: 50 mg Thiamine HCl (Thiamine Hcl 100 Mg Tablet) 100 mg PO DAILY [facility] Last Admin: 06/08/23 08:47 Dose: 100 mg Trazodone HCl (Trazodone Hcl 100 Mg Tablet) 100 mg PO BEDTIME MRX1 PRN PRN Reason: Insomnia Home Medications Medication Instructions Recorded Confirmed Last Taken Type benztropine 1 mg tablet 1 mg PO BID 05/21/23 05/21/23 05/20/23 History buspirone 15 mg tablet 15 mg PO TID 05/21/23 05/21/23 05/20/23 History citalopram 20 mg tablet 20 mg PO DAILY 05/21/23 05/21/23 05/20/23 History clonidine HCl 0.1 mg tablet 0.1 mg PO BID 05/21/23 05/21/23 05/20/23 History desvenlafaxine succinate 50 mg 50 mg PO DAILY 05/21/23 05/21/23 05/20/23 History tablet,extended release 24 hr hydroxyzine pamoate 50 mg capsule 50 mg PO DAILY PRN anxiety 05/21/23 05/21/23 05/20/23 History lurasidone 80 mg tablet 80 mg PO BEDTIME 05/21/23 05/21/23 05/20/23 History naproxen 500 mg tablet 500 mg PO pain 05/21/23 05/20/23 History quetiapine 100 mg tablet 100 mg PO DIRECTED 05/21/23 05/21/23 05/20/23 History Exam Height,Weight and Vital Signs: Height 5 ft 11 in Weight 115.5 kg Last Vital Signs Temp 97.1 F 06/09/23 06:46 Pulse 80 06/09/23 06:46 Resp 16 06/09/23 06:46 BP 132/90 H 06/09/23 06:46 Pulse Ox 98 06/09/23 06:46 O2 Del Method Room Air 06/09/23 06:46 O2 Flow Rate 2 06/06/23 08:55 Pertinent Lab Results Pertinent Lab Results: Laboratory Tests 05/21/23 05/21/23 05/23/23 17:55 18:02 09:17 WBC 9.8 RBC 5.12 Hgb 15.1 Hct 44.2 MCV 86.3 MCH 29.5 MCHC 34.2 RDW 12.9 Plt Count 274 MPV 9.0 L Immature Gran % (Auto) 0.4 Neut % (Auto) 56.4 Lymph % (Auto) 31.9 Moore % (Auto) 6.8 Eos % (Auto) 3.7 Baso % (Auto) 0.8 Lymph # (Auto) 3.1 Moore # (Auto) 0.7 Eos # (Auto) 0.4 Baso # (Auto) 0.1 Abs Immat Gran (auto) 0.04 H Absolute Neuts (auto) 5.5 Absolute Nucleated RBC 0.000 Nucleated RBC % (auto) 0.0 Sodium 137 137 Potassium 3.8 4.7 D Chloride 103 102 Carbon Dioxide 26 28 Anion Gap 12 12 BUN 13 17 H Creatinine 1.15 1.11 Estim Creat Clear Calc 106.8 119.7 Estimated GFR > 60 > 60 Random Glucose 94 Fasting Glucose 119 H Estimat Average Glucose 105 Hemoglobin A1c % 5.3 Calcium 9.4 9.5 Total Bilirubin 0.3 0.4 AST 27 23 ALT 55 H 51 H Alkaline Phosphatase 88 89 Total Protein 7.2 7.2 Albumin 4.2 4.2 Triglycerides 229 H Cholesterol 218 H LDL Cholesterol, Calc 135 H HDL Cholesterol 38 L Urine Color Yellow Urine Appearance Clear Urine pH 5.5 Ur Specific [place] 1.010 Urine Protein Negative Urine Glucose (UA) Negative Urine Ketones Negative Urine Blood Negative Urine Nitrite Negative Ur Leukocyte Esterase Negative Urine Opiates Screen Not Detected Urine Fentanyl Screen Not Detected Ur Barbiturates Screen Not Detected Ur Phencyclidine Scrn Not Detected Ur Amphetamines Screen Not Detected U Benzodiazepines Scrn Not Detected Urine Cocaine Screen Not Detected U Marijuana (THC) Screen POSITIVE H Ethyl Alcohol < 10 COVID-19 ([facility]) Positive A COVID-19 Clin Com See Note Airway Mallampati Class: III TM Dist: >3cm Neck ROM: Full Heart: RRR Lungs: CTA Assessment and Plan Assessment Anesthesia Assessment: Anesthesia Plan Discussed Final Anesthetic Review Family History of Problems with Anesthesia: No History of Problems with Anesthesia: No ASA Class: III Final Preanesthetic Review: Meds/Allgs Chart Reviewed, Consent Obtained/Reviewed and Anes Risks/Benef Reviewed Patient Risk: Intermediate Procedure Risk: Low Anesthetic Plan Anesthetic Plan: GA Disposition: Standard PACU
--- NOTE | 2023-06-09 08:36 | HO.POSTANES ---
Post Anesthesia Evaluation Post Anesthesia Evaluation Date of Service: 06/09/23 Vital Signs: Vital Signs Temp Pulse Resp BP Pulse Ox O2 Del Method O2 Flow Rate 06/09/23 08:23 98.1 F 107 H 16 116/80 97 Room Air 06/09/23 08:08 107 H 16 119/78 96 Room Air 06/09/23 08:03 102 H 12 124/86 95 Nasal Cannula with ETCO2 2 06/09/23 07:58 106 H 12 125/86 95 Nasal Cannula with ETCO2 2 06/09/23 07:53 98.1 F 129 H 16 158/112 H 100 Nasal Cannula with ETCO2 2 06/09/23 06:46 97.1 F 80 16 132/90 H 98 Room Air 06/09/23 06:28 97.3 F 89 16 119/81 98 Anesthesia: General Mental Status: Awake Pain Control: Satisfactory Nausea/Vomiting: None Hydration: Adequate Anesthesia-Related Issues: No Anes. Related Issues
[2023-06-09] MEDS: Folic Acid 1 MG TABLET PO (08:54)
[2023-06-09] MEDS: cloNIDine HCL 0.2 MG TABLET PO ×3 (08:54→20:08)
[2023-06-09] MEDS: Thiamine HCL 100 MG TABLET PO (08:54)
[2023-06-09] MEDS: ARIPiprazole 5 MG TABLET PO (08:55)
--- NOTE | 2023-06-09 10:04 | P.PNPSI_ITS ---
Subjective Subjective Date of Service: 06/09/23 Reason For Visit: Depressed Interim History: met with patient; discussed with team; reviewed chart pt says he's good and is with noticeably brighter affect. He feels ready to go home and would like to dc on Friday. Discussed ECT and about having one more treatment which he says would be like a harris on the top... and agrees to outpt ECT this friday. [facility] Dipper discussed with Dr. Strong who agrees. Mental Status Exam Mental Status Exam Narrative: Pt is alert and oriented; behavior is tired, calm, cooperative; patient is not in distress; dressed in casual attire, scruffy, mood is described as good and affect congruent, calm, brighter; eye contact appropriate; Speech is normal rate, volume and prosody and not pressured; no psychomotor retardation present; thought process is organized and goal directed; Thought content is on treatment, family; no SI; otherwise pertinent to relevant topics and without any delusional content, paranoid ideations or grandiosity; no SI; no HI. There is no evidence of perceptual disturbance and denies AVH. Patients insight and judgment fair. Diagnostics Vital Signs (24Hr): Vital Signs - 24 hr 06/08/23 14:32 06/08/23 18:00 06/09/23 06:28 Temperature 97.7 F 97.3 F Pulse Rate 119 H 73 89 Respiratory Rate 16 16 Blood Pressure 107/73 137/85 119/81 Pulse Oximetry 97 98 Oxygen Delivery Method Room Air Oxygen Flow Rate 06/09/23 06:46 06/09/23 07:53 06/09/23 07:58 Temperature 97.1 F 98.1 F Pulse Rate 80 129 H 106 H Respiratory Rate 16 16 12 Blood Pressure 132/90 H 158/112 H 125/86 Pulse Oximetry 98 100 95 Oxygen Delivery Method Room Air Nasal Cannula with ETCO2 Nasal Cannula with ETCO2 Oxygen Flow Rate 2 2 06/09/23 08:03 06/09/23 08:08 06/09/23 08:23 Temperature 98.1 F Pulse Rate 102 H 107 H 107 H Respiratory Rate 12 16 16 Blood Pressure 124/86 119/78 116/80 Pulse Oximetry 95 96 97 Oxygen Delivery Method Nasal Cannula with ETCO2 Room Air Room Air Oxygen Flow Rate 2 06/09/23 08:38 Temperature 97.6 F Pulse Rate 118 H Respiratory Rate 18 Blood Pressure 123/71 Pulse Oximetry 98 Oxygen Delivery Method Oxygen Flow Rate BMI result Body Mass Index 35.5 Labs 05/21/23 18:02 05/23/23 09:17 Medications Medications Current Medications Acetaminophen (Acetaminophen 325 Mg Tablet) 650 mg PO Q6H PRN PRN Reason: Headache/Pain Mild Scale (1-3) Last Admin: 06/06/23 12:19 Dose: 650 mg Al Hydroxide/Mg Hydroxide (Magnesium Hydrox/Alum Hydrox 30 Ml Oral.Susp) 30 ml PO Q6H PRN PRN Reason: Heartburn/Nausea Aripiprazole (Aripiprazole 5 Mg Tablet) 5 mg PO DAILY [facility] Last Admin: 06/09/23 08:55 Dose: 5 mg Clonidine HCl (Clonidine Hcl 0.2 Mg Tablet) 0.2 mg PO TID [facility]; Protocol Last Admin: 06/09/23 08:54 Dose: 0.2 mg Doxepin HCl (Doxepin Hcl 25 Mg Capsule) 175 mg PO BEDTIME [facility] Last Admin: 06/08/23 20:20 Dose: 175 mg Folic Acid (Folic Acid 1 Mg Tablet) 1 mg PO DAILY [facility] Last Admin: 06/09/23 08:54 Dose: 1 mg Hydroxyzine HCl (Hydroxyzine Hcl 50 Mg Tablet) 50 mg PO Q6H PRN PRN Reason: anxiety Last Admin: 06/02/23 18:38 Dose: 50 mg Ibuprofen (Ibuprofen 600 Mg Tablet) 600 mg PO Q8H PRN PRN Reason: Pain, Mild (Pain Scale 4-6) Last Admin: 06/08/23 12:21 Dose: 600 mg Magnesium Hydroxide (Milk Of Magnesia 30 Ml Oral.Susp) 30 ml PO DAILY PRN PRN Reason: Constipation Nicotine (Nicotine 21 Mg Patch.Td24) 21 mg TRANSDERMA DAILY PRN PRN Reason: smoking cessation Nicotine Polacrilex (Nicotine Polacrilex 2 Mg Gum) 4 mg BUCCAL Q2H PRN PRN Reason: Nicotine Cravings Last Admin: 06/08/23 18:52 Dose: 4 mg Quetiapine Fumarate (Quetiapine Fumarate 100 Mg Tablet) 200 mg PO BEDTIME [facility] Last Admin: 06/08/23 20:21 Dose: 200 mg Quetiapine Fumarate (Quetiapine Fumarate 50 Mg Tablet) 50 mg PO Q4H PRN PRN Reason: anxiety Last Admin: 06/02/23 18:38 Dose: 50 mg Thiamine HCl (Thiamine Hcl 100 Mg Tablet) 100 mg PO DAILY [facility] Last Admin: 06/09/23 08:54 Dose: 100 mg Trazodone HCl (Trazodone Hcl 100 Mg Tablet) 100 mg PO BEDTIME MRX1 PRN PRN Reason: Insomnia Allergies Allergies Allergy/AdvReac Type Severity Reaction Status Date / Time bee pollen [BEE STINGS] Allergy Unknown ANAPHYLAXIS Verified 05/21/23 17:48 penicillin V Allergy Unknown Hives Verified 05/21/23 17:48 Penicillins [PCN] Allergy Unknown HIVES Verified 05/21/23 17:48 Assessment & Plan Assessment & Plan (1) MDD (major depressive disorder), recurrent severe, without psychosis: Status: Acute Code(s): F33.2 - Major depressive disorder, recurrent severe without psychotic features (2) PTSD (post-traumatic stress disorder): Status: Acute Code(s): F43.10 - Post-traumatic stress disorder, unspecified (3) Alcohol use disorder, severe, in sustained remission: Status: Acute Code(s): F10.21 - Alcohol dependence, in remission Plan HPI: Patient is a 38-year-old male with history of refractory depression, PTSD, anxiety, alcohol abuse in sustained remission who presents for worsening depression and SI with no clear trigger. Patient was 1st psychiatrically admitted 05/2022 ?Patient reports that he was in overall good enough mood the following spring and summer, working, enjoying activities... For some unknown reason in the fall he started to get depressed again, eventually to the point where he stopped going to work, not attending ADLs, sleeping all the time and eventually developing suicidal ideation, love for his daughter being the protective factor the kept him safe. He was psychiatrically admitted and medications changed. Patient says he was doing overall well for the next 2 months but then in March he started getting depressed again; depression worsened and he went to respite where some of his meds were changed again; depression just continued and again not going to work, not attending to ADLs, and developing suicidal ideation. Patient denies any intent or plans, again protective factor being his family; however he feels miserable, would commit suicide if not for family and came to the hospital wanting help. Rough history of recent medication trials: 1. After he got sober around 2020, patient reports being stable for next 2.5 years on Celexa, Trileptal, and doxepin 2. First psychiatric admission 05/2022 [facility] and patient stabilized with Vraylar, Lexapro, low-dose Remeron, Seroquel and continued on doxepin and Trileptal ((started on Lamictal but may not have been titrated fully) 3. 2nd Psych admission 12/2022 for return of depression; stabilized on Latuda; discontinued from Vraylar, Lexapro and Trileptal 4. Respite 04/2023 BuSpar increased; patient was supposed to start Pristiq but never did; Latuda lowered due to side effects with intention of being discontinued Impression: Patient has refractory depression with numerous failed medication trials. It is unclear what triggers onset of depressive episodes; History of trauma is very likely a complicating factor however it is not clear to patient how so (at last admission, pt realized his first depressive episode may have started when his daughter became the same age he was when first getting traumatized, surfacing formally repressed memories of trauma). Patient seems to do okay after an admission but within a few months begins to decompensate causing some speculation that the active being hospitalized and subsequent change in meds might in some part be acting as a placebo. At patient's past admission, history of conner was thoroughly explored; once his provided collateral it seemed unlikely that patient was having actual manic episodes and did not have bipolar disorder. However this does remain a rule out given refractory depression (and biological loading) and it is possible that he has very mild hypomanic episodes. Unfortunately has failed several trials of mood stabilizers both Vraylar and Latuda. It does seem that TCA Doxepin has helped some and It is possible that TCAs might help where SSRIs have failed and this can be further explored. However, patient is depression is significant, with a strong urge to commit suicide, with his love for his family being his main protective factor. The severity of repeated depressive episodes, significantly impairing his ability to function in the community and refractory to multiple medication trials make ECT a viable option. Risks/side effects discussed with patient and patient is eager to pursue ECT, wanting relief from overwhelming depression. -strong consideration for ECT; will also consider getting back on Lexapro; Tegretol also possible option though would interfere with seizure from ECT; Lamictal also an option since it was unlikely ever titrated to high enough dose Hospital course: 05/23 patient's mood has improved a little bit; possibly due to therapeutic environment of being on the unit; also possible since doxepin was increased. Patient is enthusiastic about ECT; will continue to strongly consider however may hold off to see if medication management can continue to be increasingly effective 05/24 pt's mood has improved since coming to unit; depressive symptoms down to 09/23 (10 on admission) and no SI. Starting to tolerate Doxepin in AM and today not making him so tired. Gave pt print out on ECT to read; discussed treatment and pt agrees to hold off ECT for now since mood is improved (and frequently does during inpatient admissions). Last night much trouble sleeping; said tossing and turning and feeling cold; also Latuda tapering down and he slept much of day yesterday. Discussed meds/risks/side-effects. He agrees to switch to prn Seroquel since he finds it calming (rather than zyprexa); Agrees to increase in Trazodone. 05/25 depression remains and not so different despite a.m. doxepin which is making patient too tired. Discussed case at length with Dr. Strong who agrees with moving forward with ECT. 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 Given the severity of depression which includes SI, database report writer, team and patient agree with moving forward with ECT. Discussed groups, coping skills and further medication management 05/26 more depressed; asks for doxepin to be added to bedtime; wants ECT 05/27 tolerated ECt and wants to continue; will hold off starting abilify for now, but will likely do so soon 05/28 Patient reports he remains depressed however no SI. He remains very tired today, not sure if it is due to ECT or not. Wants to continue with ECT however. Discussed medication regimen including starting Abilify; database report writer reviewed risks/side effects of Abilify including the combined risks of being on 2 antipsychotics. Patient understood and felt that the potential benefit outweighed the risks at this time. Overall Seroquel makes patient too sedated to go further 06/01 little better but still reports much depression; tolerating ECT (#3) other than headache; wants to continue 06/02 patient reports he is starting to feel much better that ECT is helping; affect noticeably brighter. Patient starting to feel optimistic and missing his family which he feels is significant change from depressive state; says he's excited to get back and have a clear headed relationship with my and daughter... Discussed the role of ECT and medication now and in the future 06/08 remains in good mood w/ bright affect; deneis depression and feeling much better; grateful for ECT; no med side-effects. Pt would like to dc home to family tomorrow and f/u as outpt for ECT this next friday; in discussion w/ dr. Strong will likely switch over to outpt periodic ECT treatments for maintance. Pt remains in good behavioral and impulse control, appropriate w/ peers and staff and is future oriented, looking forward to seeing his family. He returns to safe, supportive environment w/ outpt providers in place. He appropriate to return to community for treatment; he is not in imminent risk of harm to self or others and request for dc honored. PLAN: CV Q 15 dc friday 06/09 convert to outpt ECT with Dr. strong as clinically indicated. Continue Abilify 5 mg daily Continue doxepin 175 mg q.h.s. Continue Seroquel 200 mg q.h.s. ADded Seroquel 50mg prn for anxiety increased Trazodone to 100mg DC BuSpar: Patient says has never helped DC Lexapro: Patient has not been on recently Taper and DC Latuda: Was at 120 mg, no help, developed akathisia and is in the process of being tapered and discontinued Hx of Medication trials: Seroquel: partially helpful Doxepin: partially helpful Trileptal: partially helpful but caused sexual side-effects Risperdal: no clear indication of positive effect (Taking as a child) [place]: not helpful; caused zombie like affect; not thinking clearly (Taking as a teenager) Depakote: For 1.5 years; no help, caused weight gain Vraylar: not helpful Latuda: akathesia, not helpful Lamcital: no clear indication of positive effect, but unclear if got to therapeutic dose Lexapro: no clear indication of positive effect Buspar: no clear indication of positive effect Prozac: no clear indication of positive effect; in teens, not sure what dose Celexa: used to help; was Partially helpful, but then effect wore off Clonidine: Partially helpful Gabapentin: Causes irritability Patient educated on: diagnosis, medication risk/benefits and ECT Informed Consent: understands Reason for continued inpatient stay Substantial Risk for: stable for discharge Time Spent With Patient Time: Total time managing care of this patient today ____ minutes.
[2023-06-09] MEDS: Nicotine Polacrilex 2 MG GUM 4 MG BUCCAL ×2 (10:49→13:09)
[2023-06-09] MEDS: Ibuprofen 600 MG TABLET PO (13:09)
[2023-06-09] MEDS: hydrOXYzine HCL 50 MG TABLET PO (17:06)
--- NOTE | 2023-06-09 17:53 | P.DS_ITS ---
DS: Providers Provider Date of Service: 06/10/23 Date of admission: 05/22/23 14:11 Date of discharge: 06/10/23 Primary care physician: Unknown Physician Attending physician on admission: Rhett Souza Consults: 05/23/23 11:53 Consult to Hospitalist Routine Comment: Consulting Provider: Hospitalist Reason For Exam: medical assessment for ECT clearance Attending physician on discharge: Rhett Souza DS: Diagnosis Discharge Diagnosis (1) MDD (major depressive disorder), recurrent severe, without psychosis: Status: Acute (2) PTSD (post-traumatic stress disorder): Status: Acute (3) Alcohol use disorder, severe, in sustained remission: Status: Acute DS: Medications Discharge Medications Home Medications: Previous Rx's Medication Instructions Recorded aripiprazole 5 mg tablet (Abilify) 5 mg PO DAILY 30 days #30 tabs 06/09/23 clonidine HCl 0.2 mg tablet 0.2 mg PO TID 30 days #90 tabs 06/09/23 doxepin 150 mg capsule 150 mg PO BEDTIME 30 days #30 caps 06/09/23 doxepin 25 mg capsule 25 mg PO BEDTIME 30 days #30 caps 06/09/23 hydroxyzine pamoate 50 mg capsule 50 mg PO BID PRN anxiety #30 caps 06/09/23 nicotine (polacrilex) 4 mg gum 4 mg buccal Q2H PRN nicotine 06/09/23 cravings 30 days #100 ea quetiapine 200 mg tablet 200 mg PO BEDTIME 30 days #30 tabs 06/09/23 quetiapine 50 mg tablet 50 mg PO Q4H PRN anxiety 30 days 06/09/23 #30 tabs Mental Status Exam Mental Status Exam Narrative: Pt is alert and oriented; behavior is calm, cooperative, pleasant and friendly;; patient is not in distress; dressed in casual attire; mood is described as good and affect congruent, calm, bright; eye contact appropriate; Speech is normal rate, volume and prosody and not pressured; no psychomotor retardation present; thought process is organized and goal directed; Thought content is on treatment, family; no SI, no HI; pertinent to relevant topics and without any delusional content, paranoid ideations or grandiosity; There is no evidence of perceptual disturbance and denies AVH. Patients insight and judgment fair. DS: Summary Hospital Course Hospital Course: HPI: Patient is a 38-year-old male with history of refractory depression, PTSD, anxiety, alcohol abuse in sustained remission who presents for worsening depression and SI with no clear trigger. Patient was 1st psychiatrically admitted 05/2022 ?Patient reports that he was in overall good enough mood the following spring and summer, working, enjoying activities... For some unknown reason in the fall he started to get depressed again, eventually to the point where he stopped going to work, not attending ADLs, sleeping all the time and eventually developing suicidal ideation, love for his daughter being the protective factor the kept him safe. He was psychiatrically admitted and medications changed. Patient says he was doing overall well for the next 2 months but then in March he started getting depressed again; depression worsened and he went to respite where some of his meds were changed again; depression just continued and again not going to work, not attending to ADLs, and developing suicidal ideation. Patient denies any intent or plans, again protective factor being his family; however he feels miserable, would commit suicide if not for family and came to the hospital wanting help. Rough history of recent medication trials: 1. After he got sober around 2020, patient reports being stable for next 2.5 years on Celexa, Trileptal, and doxepin 2. First psychiatric admission 05/2022 [facility] and patient stabilized with Vraylar, Lexapro, low-dose Remeron, Seroquel and continued on doxepin and Trileptal ((started on Lamictal but may not have been titrated fully) 3. 2nd Psych admission 12/2022 for return of depression; stabilized on Latuda; discontinued from Vraylar, Lexapro and Trileptal 4. Respite 04/2023 BuSpar increased; patient was supposed to start Pristiq but never did; Latuda lowered due to side effects with intention of being discontinued Impression: Patient has refractory depression with numerous failed medication trials. It is unclear what triggers onset of depressive episodes; History of trauma is very li yonas a complicating factor however it is not clear to patient how so (at last admission, pt realized his first depressive episode may have started when his daughter became the same age he was when first getting traumatized, surfacing formally repressed memories of trauma). Patient seems to do okay after an admission but within a few months begins to decompensate causing some speculation that the active being hospitalized and subsequent change in meds might in some part be acting as a placebo. At patient's past admission, history of conner was thoroughly explored; once his provided collateral it seemed unlikely that patient was having actual manic episodes and did not have bipolar disorder. However this does remain a rule out given refractory depression (and biological loading) and it is possible that he has very mild hypomanic episodes. Unfortunately has failed several trials of mood stabilizers both Vraylar and Latuda. It does seem that TCA Doxepin has helped some and It is possible that TCAs might help where SSRIs have failed and this can be further explored. However, patient is depression is significant, with a strong urge to commit suicide, with his love for his family being his main protective factor. The severity of repeated depressive episodes, significantly impairing his ability to function in the community and refractory to multiple medication trials make ECT a viable option. Risks/side effects discussed with patient and patient is eager to pursue ECT, wanting relief from overwhelming depression. Hospital course: In short, patient presented with severe depression, SI and feeling hopeless. Extensive med review was done and it was not totally clear why patient would get better for few months after psychiatric admissions, whether it was due to medication change or it was part placebo effect from admission/new medications. At any rate, patient was continued on clonidine, doxepin (which was increased) and Seroquel.? Patient was a candidate for ECT, wanted to start with treatments and did so which proved effective, with little side effect. He was also started on Abilify 5 mg. Patient's mood significantly improved and depression fully abated. SI fully resolved and patient's affect was noticeably brighter. He was optimistic, looking forward to returning home and hopeful about eventually returning to work, saying I'm excited to get back and have a clear headed relationship with my and daughter... . Patient also agreed to continue with ECT somewhere between once a week to once a month (TBD) as a maintenance treatment. On discharge, patient remained in good mood, with bright affect, no depression, no SI, grateful for treatment and future oriented; he is appropriate to continue treatment in the community and is returning to his family, a safe and supportive environment. He will also be attending partial day program post discharge. Patient is not in imminent risk of harm to self or others and request for dc honored. Hx of Medication trials: Seroquel: partially helpful Doxepin: partially helpful Trileptal: partially helpful but caused sexual side-effects Risperdal: no clear indication of positive effect (Taking as a child) [place]: not helpful; caused zombie like affect; not thinking clearly (Taking as a teenager) Depakote: For 1.5 years; no help, caused weight gain Vraylar: not helpful Latuda: akathesia, not helpful Lamcital: no clear indication of positive effect, but unclear if got to therapeutic dose Lexapro: no clear indication of positive effect Buspar: no clear indication of positive effect Prozac: no clear indication of positive effect; in teens, not sure what dose Celexa: used to help; was Partially helpful, but then effect wore off Clonidine: Partially helpful Gabapentin: Causes irritability Time spent discussing smoking cessation with patient: 3 to 10 minutes Status at Discharge Functional status at discharge: independent ambulation Overall status at discharge: patient is back to baseline Time Spent with Patient Time attestation: Total time managing care of this patient today __40__ minutes. Time spent: Greater than 30 minutes Discharge Plan Discharge Anticipated Discharge Date/Time: 06/10/23 11:00 Patient Disposition: Home, Self-Care Discharge Diagnosis: MDD, recurrent, severe without psychosis, in full remission Referrals: [facility] [Other] - 06/11/23 9:00 am (They will call for the intake and the program will begin directly after intake at 10am. ) [facility] w Carolyn OTOOLE [Other] - 06/12/23 4:30 pm (Telehealth) [facility] w Rhett Hurd [Other] - 1 Week Physician,Unknown J [Primary Care Provider] - 1 Week Discharge Medications: New nicotine (polacrilex) 4 mg gum 4 mg buccal Q2H PRN (Reason: nicotine cravings) 30 Days Qty: 100 0RF doxepin 25 mg Capsule 25 mg PO BEDTIME 30 Days Qty: 30 0RF Rx Instructions: take with 150mg capsule aripiprazole [Abilify] 5 mg Tablet 5 mg PO DAILY 30 Days Qty: 30 0RF quetiapine 50 mg Tablet 50 mg PO Q4H PRN (Reason: anxiety) 30 Days Qty: 30 0RF Continued doxepin 150 mg capsule 150 mg PO BEDTIME 30 Days Qty: 30 0RF Rx Instructions: take with 25mg capsule Changed quetiapine 200 mg tablet 200 mg PO BEDTIME 30 Days Qty: 30 0RF hydroxyzine pamoate 50 mg capsule 50 mg PO BID PRN (Reason: anxiety) Qty: 30 0RF clonidine HCl 0.2 mg tablet 0.2 mg PO TID 30 Days Qty: 90 0RF Discontinued citalopram 20 mg tablet 20 mg PO DAILY benztropine 1 mg tablet 1 mg PO BID naproxen 500 mg tablet 500 mg PO buspirone 15 mg tablet 15 mg PO TID desvenlafaxine succinate 50 mg tablet extended release 24 hr 50 mg PO DAILY lurasidone 80 mg tablet 80 mg PO BEDTIME Discharge Orders: Discharge Order (Routine); Ordered 06/10/23 Ordered By: Rhett Souza Diet: Regular diet Activity on Discharge: As tolerated Stand Alone Forms: Patient Portal Discharge page Care Plan Goals: Maintain mood and safe behaviors Take medications as prescribed Continue to pursue sobriety Practice coping skills Continue with outpatient providers and reach out to them as needed Health Concerns: Mood stability and behaviors Plan of Treatment: Follow up with your PCP, psychiatric provider and other outpatient providers regarding above concerns Take medications as prescribed Assessment: Risk assessment at time of discharge:? Patient was interviewed prior to discharge and found to be fully oriented and without any SI or HI. Patient has improved insight and judgment and wants to continue treatment. Patient is not in imminent risk of harm to self or others and has a safety plan that includes presenting to the closest ER or calling 911 if feeling unsafe.? Patient has been observed closely by nursing and unit staff throughout admission; patient has not engaged in any behaviors that suggest dangerousness to self or others and has demonstrated appropriate behaviors and impulse control
[2023-06-09] MEDS: Doxepin HCl 25 MG CAPSULE 175 MG PO (20:08)
[2023-06-09] MEDS: QUEtiapine Fumarate 100 MG TABLET 200 MG PO (20:08)
[2023-06-10 08:00] VITALS: BP 120/71; PULSE 63; RESP 18; TEMP 36.4; O2SAT 95
[2023-06-10] MEDS: Folic Acid 1 MG TABLET PO (08:27)
[2023-06-10] MEDS: Thiamine HCL 100 MG TABLET PO (08:27)
[2023-06-10] MEDS: Ibuprofen 600 MG TABLET PO (08:27)
[2023-06-10] MEDS: cloNIDine HCL 0.2 MG TABLET PO (08:27)
[2023-06-10] MEDS: ARIPiprazole 5 MG TABLET PO (08:27)
== END 2023-06-10 11:24 | disposition home or self-care (01) | DRG 751 ==
LOC: HO.ED 19:05 → HO.PM5 05-22 14:18
PROVIDERS: Psychiatry & Neurology Psychiatry; Admitting Provider Psychiatry & Neurology Psychiatry; Emergency Provider Internal Medicine; Visit Provider Psychiatry & Neurology Psychiatry
PROC: GZB4ZZZ Other Electroconvulsive Therapy (ICD-10-PCS; CPT 90870; principal; 2023-05-28 08:00)
PROC: (CPT 90870; principal; 2023-05-30 15:00)
DX: F33.2 Major depressive disorder, recurrent severe without psychotic features (principal); U07.1 COVID-19; R45.851 Suicidal ideations; F43.10 Post-traumatic stress disorder, unspecified; F10.21 Alcohol dependence, in remission; F17.210 Nicotine dependence, cigarettes, uncomplicated; Z71.6 Tobacco abuse counseling; Z79.899 Other long term (current) drug therapy
CPT/HCPCS: 36415; 80053; 80061; 80307; 81003; 83036; 85025; 87635; 90870; 93005; 99285; J0330; J0461; J1596; J1630; J1805; J1885; J2250; J2405; J2704; J7120

== ENCOUNTER → 2023-05-22 08:52 | Outpatient (BNV) | payer BC, SELFPAY | PROVIDERS: Admitting Provider Psychiatry & Neurology Psychiatry; Emergency Provider Internal Medicine; Visit Provider Internal Medicine Cardiovascular Disease | DX: R45.851 Suicidal ideations (principal); R94.31 Abnormal electrocardiogram [ECG] [EKG] | CPT/HCPCS: 93010 ==

== ENCOUNTER 2023-05-22 14:11 | Outpatient (BNV) | payer BC, SELFPAY | END 2023-06-02 11:24 | PROVIDERS: Admitting Provider Psychiatry & Neurology Psychiatry; Emergency Provider Internal Medicine; Visit Provider Internal Medicine | DX: I45.89 Other specified conduction disorders (principal) | CPT/HCPCS: 93010 ==

== ENCOUNTER → 2023-05-22 14:11 | Outpatient (BNV) | payer BC, SELFPAY | PROVIDERS: Admitting Provider Psychiatry & Neurology Psychiatry; Emergency Provider Internal Medicine; Visit Provider Psychiatry & Neurology Psychiatry | DX: F33.2 Major depressive disorder, recurrent severe without psychotic features (principal) | CPT/HCPCS: 90870 ==

== ENCOUNTER → 2023-05-22 14:11 | Outpatient (BNV) | payer BC, SELFPAY | PROVIDERS: Admitting Provider Psychiatry & Neurology Psychiatry; Emergency Provider Internal Medicine; Visit Provider Psychiatry & Neurology Psychiatry | DX: F33.2 Major depressive disorder, recurrent severe without psychotic features (principal); F10.21 Alcohol dependence, in remission; F43.11 Post-traumatic stress disorder, acute | CPT/HCPCS: 90870; 99222; 99231; 99232; 99239 ==

== ENCOUNTER → 2023-05-22 14:11 | Outpatient (BNV) | payer BC, SELFPAY | PROVIDERS: Admitting Provider Psychiatry & Neurology Psychiatry; Emergency Provider Internal Medicine; Visit Provider Student in an Organized Health Care Education/Training Program | DX: Z02.2 Encounter for examination for admission to residential institution (principal) | CPT/HCPCS: 99429 ==

== ENCOUNTER 2023-06-13 06:00 | Day surgery (SDC) | payer BC, SELFPAY ==
[2023-06-13] VITALS (7 sets, daily range): BP systolic 118–146; BP diastolic 78–100; PULSE 99–109; RESP 13–18; TEMP 36.1–36.3; O2SAT 94–97; BMI 32.1
--- NOTE | 2023-06-13 06:54 | P.CONAN_ITS ---
[facility] Active Problems Active Problems: All Active Problems (Updated 05/23/23 @ 16:16 by Rhett Souza MD) MDD (major depressive disorder), recurrent severe, without psychosis (Acute) Pre-op evaluation (Acute) Suicidal ideation (Acute) Alcohol use disorder, severe, in sustained remission (Acute) PTSD (post-traumatic stress disorder) (Acute) Past Medical History Medical History MDD (major depressive disorder), recurrent severe, without psychosis PTSD (post-traumatic stress disorder) Bipolar II disorder Family History Family history of problems with anesthesia: No Surgical History History of Problems with Anesthesia: No Social History Social History Household Members: Spouse and Children Household Members Other:: , daughter Housing: House Do you presently have visiting nurse or other home services: No Alcohol intake: never Patient Tobacco Use Status: Current everyday Tobacco user Tobacco use type: Cigarette Cigarette Packs Per Day: 1 Cigarettes Per Day: 20.0 Years Smoked: 6-7 years e-Cigarette/Vaping Use: Former Use Second Hand Smoke Exposure: No Substance Use Type: Marijuana Advance Directives: No Advance Directives Information Provided: Yes service: No Sexual orientation: Straight/Heterosexual Meds Allergies Allergy/AdvReac Type Severity Reaction Status Date / Time bee pollen [BEE STINGS] Allergy Unknown ANAPHYLAXIS Verified 05/21/23 17:48 penicillin V Allergy Unknown Hives Verified 05/21/23 17:48 Penicillins [PCN] Allergy Unknown HIVES Verified 05/21/23 17:48 Active Medications: Current Medications Lactated Ringer's (Lr) 1,000 mls @ 50 mls/hr IVCONT .Q20H RIKKI Exam Height,Weight and Vital Signs: Height 5 ft 11 in Weight 104.326 kg Last Vital Signs Temp 97.4 F 06/13/23 06:34 Pulse 109 H 06/13/23 06:34 Resp 14 06/13/23 06:34 BP 131/86 06/13/23 06:34 Pulse Ox 95 06/13/23 06:34 O2 Del Method Room Air 06/13/23 06:34 Airway Mallampati Class: II (cap front tooth left) TM Dist: >3cm Neck ROM: Full Heart: rrr Lungs: cta Assessment and Plan Assessment Anesthesia Assessment: Anesthesia Plan Discussed and Chart Reviewed Final Anesthetic Review Family History of Problems with Anesthesia: No History of Problems with Anesthesia: No NPO: Yes ASA Class: III Final Preanesthetic Review: No Changes in Pt Med Stat, Meds/Allgs Chart Reviewed and Consent Obtained/Reviewed Patient Risk: Intermediate Procedure Risk: Intermediate Anesthetic Plan Anesthetic Plan: GA Disposition: Standard PACU
--- NOTE | 2023-06-13 07:13 | MHC.SHP ---
Pre-Procedural Eval Section A - 24 Hr Update-Section A only Date of Service: 06/13/23 The patient is an INPATIENT: No Changes since office visit: No Cold of Flu in the past 2 weeks, No New Medical Problems, No Changes in Medication and No Patient answered all questions The patient has been examined within 24 hours of the surgical procedure. The History & Physical has been completed within 30 days and I have reviewed it.: Yes Section B - Complete if H&P > 30 days Chief Complaint: Major depressive disorder, recurrent, severe with Allergies: Allergies Allergy/AdvReac Type Severity Reaction Status Date / Time bee pollen [BEE STINGS] Allergy Unknown ANAPHYLAXIS Verified 05/21/23 17:48 penicillin V Allergy Unknown Hives Verified 05/21/23 17:48 Penicillins [PCN] Allergy Unknown HIVES Verified 05/21/23 17:48 Plan I have reviewed the history and physical and performed a pertinent physical examination on my patient. No changes have occurred unless specified. Time Spent With Patient Time: Total time managing care of this patient today ____ minutes.
--- NOTE | 2023-06-13 07:44 | HO.ECTPROC ---
ECT Procedure Note Diagnosis/Treatment Date of Service: 06/13/23 Diagnosis: Major Depressive Disorder Previous ECT Date: 06/09/23 Current Treatment Number: 7 Treatment: Series Interval Clinical Notes: The patient reported feeling much better, now discharged, at home. Denies side effects with previous ECT. ECT done as usual, he had a short seizure but overall, with no complications. Before the ECT, while he was under anesthesia, he was tachycardic and need a low dose of beta blockers. Woke up well. Time: Total time managing care of this patient today __30__ minutes. ECT Settings Device: THYMATRON DGx Electrode Placement: Right Unilateral Program/Pulse Width: 0.50 Energy Percent: 100 Seizure Duration By EEG (in seconds): 17 By Motor Observation (in seconds): 8 Medications Administration General Anesthetic: Methohexital (150) Muscle Relaxant: Succinylcholine (140) Ancillary Medications Analgesics: Torodol - Pre ECT Anti-emetics: Zofran - Pre ECT Cardiovascular Medications: Labetolol (5 cc before ECT) Airway Management Airway Management: Bag Mask Ventilation Treatment Recommendations No Changes Recommended: No change Pt Tolerated Procedure w/o Issue: Yes
== END 2023-06-13 08:50 | disposition home or self-care (01) ==
PROVIDERS: Visit Provider Psychiatry & Neurology Psychiatry
PROC: (CPT 90870; principal; 2023-06-13 07:00)
DX: F33.2 Major depressive disorder, recurrent severe without psychotic features (principal); F43.10 Post-traumatic stress disorder, unspecified; Z79.899 Other long term (current) drug therapy; Z79.1 Long term (current) use of non-steroidal anti-inflammatories (NSAID); Z88.0 Allergy status to penicillin; F17.210 Nicotine dependence, cigarettes, uncomplicated
CPT/HCPCS: 90870; J0330; J1885; J2405

== ENCOUNTER → 2023-06-13 06:00 | Outpatient (BNV) | payer BC, SELFPAY | PROVIDERS: Visit Provider Psychiatry & Neurology Psychiatry | DX: F33.3 Major depressive disorder, recurrent, severe with psychotic symptoms (principal) | CPT/HCPCS: 90870 ==

== ENCOUNTER 2023-06-20 05:55 | Day surgery (SDC) | payer BC, SELFPAY ==
[2023-06-20 06:32] VITALS: BP 148/96; PULSE 111; RESP 20; TEMP 36.6; O2SAT 93; BMI 32.1
--- NOTE | 2023-06-20 07:12 | P.CONAN_ITS ---
[facility] Active Problems Active Problems: All Active Problems MDD (major depressive disorder), recurrent severe, without psychosis (Acute) Alcohol use disorder, severe, in sustained remission (Acute) PTSD (post-traumatic stress disorder) (Acute) Past Medical History Medical History MDD (major depressive disorder), recurrent severe, without psychosis PTSD (post-traumatic stress disorder) Bipolar II disorder Family History Family history of problems with anesthesia: No Surgical History History of Problems with Anesthesia: No Social History Social History Household Members: Spouse and Children Household Members Other:: , daughter Housing: House Do you presently have visiting nurse or other home services: No Alcohol intake: never Patient Tobacco Use Status: Current everyday Tobacco user Tobacco use type: Cigarette Cigarette Packs Per Day: 1 Cigarettes Per Day: 20.0 Years Smoked: 6-7 years e-Cigarette/Vaping Use: Former Use Second Hand Smoke Exposure: No Substance Use Type: Marijuana Advance Directives: No Advance Directives Information Provided: Yes service: No Sexual orientation: Straight/Heterosexual Meds Allergies Allergy/AdvReac Type Severity Reaction Status Date / Time bee pollen [BEE STINGS] Allergy Unknown ANAPHYLAXIS Verified 05/21/23 17:48 penicillin V Allergy Unknown Hives Verified 05/21/23 17:48 Penicillins [PCN] Allergy Unknown HIVES Verified 05/21/23 17:48 Exam Height,Weight and Vital Signs: Height 5 ft 11 in Weight 104.326 kg Last Vital Signs Temp 97.8 F 06/20/23 06:32 Pulse 111 H 06/20/23 06:32 Resp 20 06/20/23 06:32 BP 148/96 H 06/20/23 06:32 Pulse Ox 93 06/20/23 06:32 O2 Del Method Room Air 06/20/23 06:32 Airway Mallampati Class: III TM Dist: >3cm Neck ROM: Full Loose/Missing/Broken Teeth: No Heart: RRR Lungs: CTA Assessment and Plan Final Anesthetic Review Family History of Problems with Anesthesia: No History of Problems with Anesthesia: No NPO: Yes ASA Class: II Final Preanesthetic Review: Meds/Allgs Chart Reviewed, Consent Obtained/Reviewed and Anes Risks/Benef Reviewed Patient Risk: Low Procedure Risk: Intermediate Anesthetic Plan Anesthetic Plan: GA Disposition: Standard PACU
--- NOTE | 2023-06-20 07:18 | MHC.SHP ---
Pre-Procedural Eval Section A - 24 Hr Update-Section A only Date of Service: 06/20/23 The patient is an INPATIENT: No Changes since office visit: No Cold of Flu in the past 2 weeks, No New Medical Problems, No Changes in Medication and No Patient answered all questions The patient has been examined within 24 hours of the surgical procedure. The History & Physical has been completed within 30 days and I have reviewed it.: Yes Section B - Complete if H&P > 30 days Chief Complaint: Major depressive disorder, recurrent, severe with Details of Present Illness: pt doing well with maintenance ect Relevant Social History: None Medical History: No relevant PMH History of Previous Operations: No relevant previous surgery Allergies: Allergies Allergy/AdvReac Type Severity Reaction Status Date / Time bee pollen [BEE STINGS] Allergy Unknown ANAPHYLAXIS Verified 05/21/23 17:48 penicillin V Allergy Unknown Hives Verified 05/21/23 17:48 Penicillins [PCN] Allergy Unknown HIVES Verified 05/21/23 17:48 Review of Systems Sugical H&P ROS: Negative: Neurological and Psychiatric Exam Surgical H&P Exam: Normal: HEENT, Normal: Skin and Normal: Neurological Plan Diagnosis/Plan: Unchanged I have reviewed the history and physical and performed a pertinent physical examination on my patient. No changes have occurred unless specified. Time Spent With Patient Time: Total time managing care of this patient today ____ minutes.
--- NOTE | 2023-06-20 07:21 | HO.ECTPROC ---
ECT Procedure Note Diagnosis/Treatment Date of Service: 06/20/23 Diagnosis: Major Depressive Disorder Previous ECT Date: 06/13/23 Current Treatment Number: 8 Treatment: Maintenance Interval Clinical Notes: pt reports depression remains resolved and he's overall feeling much better. Reports improved concentration and memory. Mild headache post ECT which resolves w/ tylenol No new medical concerns Time: Total time managing care of this patient today ____ minutes. ECT Settings Device: THYMATRON DGx Electrode Placement: Right Unilateral Program/Pulse Width: 0.50 Energy Percent: 100 Seizure Duration By EEG (in seconds): 5 Medications Administration General Anesthetic: Methohexital (150) Muscle Relaxant: Succinylcholine (140) Ancillary Medications Analgesics: Torodol - Pre ECT Anti-emetics: Zofran - Pre ECT Cardiovascular Medications: Esmolol (20 (Pre)) Miscillaneous Medications: Other (esmolol 30 post) Airway Management Airway Management: Bag Mask Ventilation Treatment Recommendations Electrode Placement: Rt temporal/ Lt frontal Program/Pulse Width: 0.50 Energy Percent: 100 Notes: pt had short seizure; recommend changing to Rt temporal/Left Frontal (or bifrontal) consider increasing Succ to 160mg consider using twitch monitor Next ECT on 07/02/23 Pt Tolerated Procedure w/o Issue: Yes
[2023-06-20 07:47] VITALS: BP 169/98; PULSE 90; RESP 16; TEMP 37.4; O2SAT 97
[2023-06-20 07:52] VITALS: BP 123/91; PULSE 113; RESP 16; O2SAT 94
[2023-06-20 07:57] VITALS: BP 128/88; PULSE 109; RESP 16; O2SAT 96
[2023-06-20 08:02] VITALS: BP 134/91; PULSE 108; RESP 16; TEMP 37; O2SAT 96
[2023-06-20 08:16] VITALS: BP 134/84; PULSE 106; RESP 16; O2SAT 96
== END 2023-06-20 08:40 | disposition home or self-care (01) ==
PROVIDERS: Visit Provider Psychiatry & Neurology Psychiatry
PROC: (CPT 90870; principal; 2023-06-20 07:30)
DX: F33.2 Major depressive disorder, recurrent severe without psychotic features (principal); F43.10 Post-traumatic stress disorder, unspecified; Z79.899 Other long term (current) drug therapy; Z79.1 Long term (current) use of non-steroidal anti-inflammatories (NSAID); Z88.0 Allergy status to penicillin; F17.210 Nicotine dependence, cigarettes, uncomplicated
CPT/HCPCS: 90870; J0330; J1805; J1885; J2405

== ENCOUNTER → 2023-06-20 05:55 | Outpatient (BNV) | payer BC, SELFPAY | PROVIDERS: Visit Provider Psychiatry & Neurology Psychiatry | DX: F33.3 Major depressive disorder, recurrent, severe with psychotic symptoms (principal) | CPT/HCPCS: 90870 ==

== ENCOUNTER 2023-07-02 05:58 | Day surgery (SDC) | payer BC, SELFPAY ==
[2023-07-02] VITALS (8 sets, daily range): BP systolic 124–150; BP diastolic 84–95; PULSE 93–123; RESP 12–20; TEMP 36.3–37.2; O2SAT 94–98; BMI 33.5
--- NOTE | 2023-07-02 08:03 | MHC.SHP ---
Pre-Procedural Eval Section A - 24 Hr Update-Section A only Date of Service: 07/02/23 The patient is an INPATIENT: No Changes since office visit: No Cold of Flu in the past 2 weeks, No New Medical Problems, No Changes in Medication and No Patient answered all questions The patient has been examined within 24 hours of the surgical procedure. The History & Physical has been completed within 30 days and I have reviewed it.: Yes Section B - Complete if H&P > 30 days Chief Complaint: depression Details of Present Illness: pt doing well with maintenance ect Relevant Social History: None Medical History: No relevant PMH History of Previous Operations: No relevant previous surgery Allergies: Allergies Allergy/AdvReac Type Severity Reaction Status Date / Time bee pollen [BEE STINGS] Allergy Unknown ANAPHYLAXIS Verified 05/21/23 17:48 penicillin V Allergy Unknown Hives Verified 05/21/23 17:48 Penicillins [PCN] Allergy Unknown HIVES Verified 05/21/23 17:48 Review of Systems Sugical H&P ROS: Negative: Cardiovascular, Respiratory, Neurological and Psychiatric Exam Surgical H&P Exam: Normal: HEENT, Normal: Heart (rr), Normal: Lungs (clear ), Normal: Skin and Normal: Neurological Exam Comment: clear sensorium Plan Diagnosis/Plan: Unchanged I have reviewed the history and physical and performed a pertinent physical examination on my patient. No changes have occurred unless specified. Time Spent With Patient Time: Total time managing care of this patient today ____ minutes.
--- NOTE | 2023-07-02 08:05 | HO.ECTPROC ---
ECT Procedure Note Diagnosis/Treatment Date of Service: 07/02/23 Diagnosis: Major Depressive Disorder Previous ECT Date: 06/20/23 Current Treatment Number: 9 Treatment: Maintenance Interval Clinical Notes: Patient continues to show stability and great improvement with ECT no complaints of side effects had short seizure last treatment was changed to bifrontal succinylcholine increased to 160 mg No new medical concerns Time: Total time managing care of this patient today ____ minutes. ECT Settings Device: THYMATRON DGx Electrode Placement: Bifrontal Program/Pulse Width: 0.50 Energy Percent: 100 Seizure Duration By EEG (in seconds): 61 Medications Administration General Anesthetic: Methohexital (150) Muscle Relaxant: Succinylcholine (160) Ancillary Medications Analgesics: Torodol - Pre ECT Anti-emetics: Zofran - Pre ECT Cardiovascular Medications: Esmolol (30 post) Airway Management Airway Management: Bag Mask Ventilation Treatment Recommendations Electrode Placement: Bifrontal Program/Pulse Width: 0.50 Energy Percent: 100 Notes: f/u tx 2 weeks some confusion post ect
--- NOTE | 2023-07-02 08:39 | HO.ANESPROP2 ---
FORMERLY [facility], [facility]–1983 Active Problems Active Problems: All Active Problems MDD (major depressive disorder), recurrent severe, without psychosis (Acute) Alcohol use disorder, severe, in sustained remission (Acute) PTSD (post-traumatic stress disorder) (Acute) Past Medical History Medical History MDD (major depressive disorder), recurrent severe, without psychosis PTSD (post-traumatic stress disorder) Bipolar II disorder Family History Family history of problems with anesthesia: No Surgical History History of Problems with Anesthesia: No Social History Social History Household Members: Spouse and Children Household Members Other:: , daughter Housing: House Do you presently have visiting nurse or other home services: No Alcohol intake: never Patient Tobacco Use Status: Current everyday Tobacco user Tobacco use type: Cigarette Cigarette Packs Per Day: 1 Cigarettes Per Day: 20.0 Years Smoked: 6-7 years e-Cigarette/Vaping Use: Former Use Second Hand Smoke Exposure: No Substance Use Type: Marijuana Advance Directives: No Advance Directives Information Provided: Yes service: No Sexual orientation: Straight/Heterosexual Meds Allergies Allergy/AdvReac Type Severity Reaction Status Date / Time bee pollen [BEE STINGS] Allergy Unknown ANAPHYLAXIS Verified 05/21/23 17:48 penicillin V Allergy Unknown Hives Verified 05/21/23 17:48 Penicillins [PCN] Allergy Unknown HIVES Verified 05/21/23 17:48 Exam Height,Weight and Vital Signs: Height 5 ft 11 in Weight 108.862 kg Last Vital Signs Temp 97.5 F 07/02/23 06:41 Pulse 98 07/02/23 06:41 Resp 18 07/02/23 06:41 BP 126/85 07/02/23 06:41 Pulse Ox 95 07/02/23 06:41 O2 Del Method Room Air 07/02/23 06:41 Airway Mallampati Class: III TM Dist: >3cm Neck ROM: Full Assessment and Plan Assessment Anesthesia Assessment: Anesthesia Plan Discussed and Chart Reviewed Final Anesthetic Review Family History of Problems with Anesthesia: No History of Problems with Anesthesia: No NPO: Yes ASA Class: II Final Preanesthetic Review: No Changes in Pt Med Stat, Meds/Allgs Chart Reviewed, Consent Obtained/Reviewed and Anes Risks/Benef Reviewed Patient Risk: Intermediate Procedure Risk: Low Anesthetic Plan Anesthetic Plan: GA Disposition: Standard PACU
== END 2023-07-02 10:06 | disposition home or self-care (01) ==
PROVIDERS: Visit Provider Psychiatry & Neurology Psychiatry
PROC: (CPT 90870; principal; 2023-07-02 15:30)
DX: F33.2 Major depressive disorder, recurrent severe without psychotic features (principal); F43.11 Post-traumatic stress disorder, acute; Z79.899 Other long term (current) drug therapy; Z79.1 Long term (current) use of non-steroidal anti-inflammatories (NSAID); Z88.0 Allergy status to penicillin; F10.91 Alcohol use, unspecified, in remission; F17.210 Nicotine dependence, cigarettes, uncomplicated
CPT/HCPCS: 90870; J1805; J1885; J2250

== ENCOUNTER → 2023-07-02 05:58 | Outpatient (BNV) | payer BC, SELFPAY | PROVIDERS: Visit Provider Psychiatry & Neurology Psychiatry | DX: F33.3 Major depressive disorder, recurrent, severe with psychotic symptoms (principal) | CPT/HCPCS: 90870 ==

== ENCOUNTER 2023-07-21 06:01 | Day surgery (SDC) | payer BC, SELFPAY ==
[2023-07-21] VITALS (8 sets, daily range): BP systolic 105–144; BP diastolic 65–88; PULSE 71–100; RESP 13–16; TEMP 36.4–36.7; O2SAT 96–99; BMI 32.8
--- NOTE | 2023-07-21 06:41 | P.CONAN_ITS ---
[facility] Active Problems Active Problems: All Active Problems MDD (major depressive disorder), recurrent severe, without psychosis (Acute) Alcohol use disorder, severe, in sustained remission (Acute) PTSD (post-traumatic stress disorder) (Acute) Past Medical History Medical History MDD (major depressive disorder), recurrent severe, without psychosis PTSD (post-traumatic stress disorder) Bipolar II disorder Family History Family history of problems with anesthesia: No Surgical History History of Problems with Anesthesia: No Social History Social History Household Members: Spouse and Children Household Members Other:: , daughter Housing: House Do you presently have visiting nurse or other home services: No Alcohol intake: never Patient Tobacco Use Status: Current everyday Tobacco user Tobacco use type: Cigarette Cigarette Packs Per Day: 1 Cigarettes Per Day: 20.0 Years Smoked: 6-7 years e-Cigarette/Vaping Use: Former Use Second Hand Smoke Exposure: No Substance Use Type: Marijuana Advance Directives: No Advance Directives Information Provided: Yes service: No Sexual orientation: Straight/Heterosexual Meds Allergies Allergy/AdvReac Type Severity Reaction Status Date / Time bee pollen [BEE STINGS] Allergy Unknown ANAPHYLAXIS Verified 05/21/23 17:48 penicillin V Allergy Unknown Hives Verified 05/21/23 17:48 Penicillins [PCN] Allergy Unknown HIVES Verified 05/21/23 17:48 Exam Airway Mallampati Class: II (cap top front left tooth) TM Dist: >3cm Neck ROM: Full Heart: rrr Lungs: cta Assessment and Plan Assessment Anesthesia Assessment: Anesthesia Plan Discussed and Chart Reviewed Final Anesthetic Review Family History of Problems with Anesthesia: No History of Problems with Anesthesia: No NPO: Yes ASA Class: III Final Preanesthetic Review: No Changes in Pt Med Stat, Meds/Allgs Chart Reviewed and Consent Obtained/Reviewed Patient Risk: Intermediate Procedure Risk: Intermediate Anesthetic Plan Anesthetic Plan: GA Disposition: Standard PACU
--- NOTE | 2023-07-21 07:02 | MHC.SHP ---
Pre-Procedural Eval Section A - 24 Hr Update-Section A only Date of Service: 07/21/23 The patient is an INPATIENT: No Changes since office visit: No Cold of Flu in the past 2 weeks, No New Medical Problems, No Changes in Medication and No Patient answered all questions Section B - Complete if H&P > 30 days Chief Complaint: depression Details of Present Illness: mood good, no depression Relevant Family History (Specify if Yes): No Relevant Social History: None Present Medications: see Short Stay Collaborative assessment (current home meds; no changes) Medical History: No relevant PMH History of Previous Operations: No relevant previous surgery Allergies: Allergies Allergy/AdvReac Type Severity Reaction Status Date / Time bee pollen [BEE STINGS] Allergy Unknown ANAPHYLAXIS Verified 05/21/23 17:48 penicillin V Allergy Unknown Hives Verified 05/21/23 17:48 Penicillins [PCN] Allergy Unknown HIVES Verified 05/21/23 17:48 Review of Systems Sugical H&P ROS: Negative: Cardiovascular, Respiratory, Neurological and Psychiatric Exam Surgical H&P Exam: Normal: Heart, Normal: Lungs and Normal: Skin Plan Diagnosis/Plan: Unchanged I have reviewed the history and physical and performed a pertinent physical examination on my patient. No changes have occurred unless specified. Time Spent With Patient Time: Total time managing care of this patient today ____ minutes.
--- NOTE | 2023-07-21 07:16 | HO.ECTPROC ---
ECT Procedure Note Diagnosis/Treatment Date of Service: 07/21/23 Diagnosis: Major Depressive Disorder Previous ECT Date: 07/02/23 Current Treatment Number: 10 (07/21/23) Treatment: Maintenance Interval Clinical Notes: Patient continues to be in good mood, remain stable and show significant improvement with ECT; no complaints of side effects. No new medical concerns Continued with bifrontal (which has improved seizure duration) continued with increased dose of succinylcholine 160 mg Time: Total time managing care of this patient today ____ minutes. ECT Settings Device: THYMATRON DGx Electrode Placement: Bifrontal Program/Pulse Width: 0.50 Energy Percent: 100 Seizure Duration By EEG (in seconds): 51 By Motor Observation (in seconds): 51 Medications Administration General Anesthetic: Methohexital (150) Muscle Relaxant: Succinylcholine (160) Ancillary Medications Analgesics: Torodol - Pre ECT Anti-emetics: Zofran - Pre ECT Cardiovascular Medications: Esmolol (30 post) Miscillaneous Medications: Midazolam (2mg POST ect) Airway Management Airway Management: Bag Mask Ventilation Treatment Recommendations No Changes Recommended: No change Electrode Placement: Bifrontal Program/Pulse Width: 0.50 Energy Percent: 100 Notes: some confusion post ect which is typical for him f/u tx 4 weeks Pt Tolerated Procedure w/o Issue: Yes
== END 2023-07-21 09:09 | disposition home or self-care (01) ==
PROVIDERS: Visit Provider Psychiatry & Neurology Psychiatry
PROC: (CPT 90870; principal; 2023-07-21 07:30)
DX: F33.2 Major depressive disorder, recurrent severe without psychotic features (principal); F43.10 Post-traumatic stress disorder, unspecified; F17.210 Nicotine dependence, cigarettes, uncomplicated; Z79.899 Other long term (current) drug therapy; Z88.0 Allergy status to penicillin
CPT/HCPCS: 90870; J0330; J1805; J1885; J2250; J2405

== ENCOUNTER → 2023-07-21 06:01 | Outpatient (BNV) | payer BC, SELFPAY | PROVIDERS: Visit Provider Psychiatry & Neurology Psychiatry | DX: F33.3 Major depressive disorder, recurrent, severe with psychotic symptoms (principal) | CPT/HCPCS: 90870 ==

== ENCOUNTER 2023-09-22 15:25 | Outpatient (REF) | payer BC, SELFPAY ==
[2023-09-22 16:40] LABS: MANUAL DIFF FLAG NO
[2023-09-22 17:14] LABS: Basophils Absolute Auto 0.1 X10*3/uL (0.0-0.2); Basophils Percent Auto 0.7 % (0-2); Eosinophils Absolute Auto 0.1 X10*3/uL (0.0-0.4); Eosinophils Percent Auto 1.4 % (0-4); Hematocrit 46.9 % (42.0-52.0); Hemoglobin 15.6 g/dl (14.0-18.0); Imm Gran Abs Auto 0.02 X10*3/uL (0.00-0.03); Imm Gran Pct Auto 0.3 % (0.0-0.4); Lymphocytes Absolute Auto 2.6 X10*3/uL (1.2-4.9); Lymphocytes Percent Auto 35.7 % (20-40); Mean Corpuscular HGB Conc 33.3 g/dl (31.0-36.0); Mean Corpuscular Hemoglobin 29.7 pg (27.0-33.0); Mean Corpuscular Volume 89.3 fL (80.0-98.0); Mean Platelet Volume 9.7 fL (9.4-12.4); Monocytes Absolute Auto 0.5 X10*3/uL (0.1-1.2); Monocytes Percent Auto 6.8 % (2-11); Neutrophils Percent Auto 55.1 % (45-73); Platelet Count 264 X10*3/uL (160-400); Red Blood Count 5.25 X10*6/uL (4.60-5.80); White Blood Count 7.3 X10*3/uL (4.8-10.8)
[2023-09-22 18:03] LABS: Alanine Aminotransferase 21 U/L (0-40); Albumin Level 4.5 g/dL (3.5-5.0); Alkaline Phosphatase 70 U/L (39-117); Anion Gap 14 (12-20); Aspartate Amino Transferase 21 U/L (5-37); Bilirubin Total 0.3 mg/dL (0.0-1.0); Blood Urea Nitrogen 12 mg/dL (9-16); Calcium 9.9 mg/dL (8.4-10.2); Carbon Dioxide 24 mmol/L (22-29); Chloride 105 mmol/L (96-108); Estimated Glomerular Filt Rate > 60; Glucose Random 87 mg/dL (60-115); Potassium 4.8 mmol/L (3.3-5.1); Sodium 138 mmol/L (135-145); Total Protein 7.3 g/dL (6.5-8.0)
[2023-09-22 18:20] LABS: TSH reflex Free T4 1.09 uIU/mL (0.32-4.0)
[2023-09-22 18:26] LABS: Folate 11.7 ng/mL (> or = 4.0); Vitamin B12 600 pg/mL (200-900)
== END 2023-09-22 15:26 | disposition home or self-care (01) ==
LOC: HO.LAB 15:25
PROVIDERS: Visit Provider Psychiatry & Neurology Psychiatry
DX: Z01.818 Encounter for other preprocedural examination (principal); F43.10 Post-traumatic stress disorder, unspecified; F31.4 Bipolar disorder, current episode depressed, severe, without psychotic features
CPT/HCPCS: 36415; 80053; 82607; 82746; 84443; 85025

== ENCOUNTER 2023-09-22 15:25 | Outpatient (AMB) | payer BC, SELFPAY ==
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
== END 2023-09-22 16:39 | disposition home or self-care (01) ==
LOC: HO.HOP 15:25
PROVIDERS: Visit Provider Psychiatry & Neurology Psychiatry
DX: F31.4 Bipolar disorder, current episode depressed, severe, without psychotic features (principal)
CPT/HCPCS: 99215; 99417

== ENCOUNTER → 2023-09-23 10:56 | Outpatient (REF) | payer BC, SELFPAY ==
--- NOTE | 2023-09-23 10:59 | ECG_ITS ---
Test Reason : F31.81 Blood Pressure : / mmHG Vent. Rate : 078 BPM Atrial Rate : 078 BPM P-R Int : 156 ms QRS Dur : 090 ms QT Int : 372 ms P-R-T Axes : 033 018 026 degrees QTc Int : 424 ms Normal sinus rhythm Normal ECG When compared with ECG of 02-JUN-2023 11:24, No significant change was found Referred By: Caio Godinez Electronically Signed By:Espinoza Peralta
== END ==
LOC: HO.CARD 10:56
PROVIDERS: Visit Provider Psychiatry & Neurology Psychiatry
DX: Z01.818 Encounter for other preprocedural examination (principal); F31.81 Bipolar II disorder
CPT/HCPCS: 93005

== ENCOUNTER → 2023-09-23 10:59 | Outpatient (BNV) | payer BC, SELFPAY | PROVIDERS: Visit Provider Internal Medicine Cardiovascular Disease | DX: F31.81 Bipolar II disorder (principal) | CPT/HCPCS: 93010 ==

== ENCOUNTER 2023-10-10 05:47 | Day surgery (SDC) | payer BC, SELFPAY ==
[2023-10-10] VITALS (8 sets, daily range): BP systolic 107–134; BP diastolic 53–75; PULSE 76–103; RESP 14–20; TEMP 36–36.3; O2SAT 95–98; BMI 33.5
--- NOTE | 2023-10-10 06:43 | HO.ANESPROP2 ---
FORMERLY [facility] Active Problems Active Problems: All Active Problems Bipolar disorder with severe depression (Acute) Pre-op evaluation (Acute) Bipolar II disorder (Acute) MDD (major depressive disorder), recurrent severe, without psychosis (Acute) Alcohol use disorder, severe, in sustained remission (Acute) PTSD (post-traumatic stress disorder) (Acute) Past Medical History Medical History (Updated 09/22/23 @ 22:10 by Caio Godinez MD) Bipolar II disorder MDD (major depressive disorder), recurrent severe, without psychosis PTSD (post-traumatic stress disorder) Family History Family history of problems with anesthesia: No Surgical History History of Problems with Anesthesia: No Social History Social History Household Members: Spouse and Children Household Members Other:: , daughter Housing: House Do you presently have visiting nurse or other home services: No Alcohol intake: never Patient Tobacco Use Status: Current everyday Tobacco user Tobacco use type: Cigarette Cigarette Packs Per Day: 1 Cigarettes Per Day: 20.0 Years Smoked: 6-7 years e-Cigarette/Vaping Use: Former Use Second Hand Smoke Exposure: No Substance Use Type: Marijuana Advance Directives: No Advance Directives Information Provided: Yes service: No Sexual orientation: Straight/Heterosexual Meds Allergies Allergy/AdvReac Type Severity Reaction Status Date / Time bee pollen [BEE STINGS] Allergy Unknown ANAPHYLAXIS Verified 05/21/23 17:48 penicillin V Allergy Unknown Hives Verified 05/21/23 17:48 Penicillins [PCN] Allergy Unknown HIVES Verified 05/21/23 17:48 Active Medications: Current Medications Lactated Ringer's (Lr) 1,000 mls @ 50 mls/hr IVCONT .Q20H RIKKI Exam Height,Weight and Vital Signs: Height 5 ft 11 in Weight 108.862 kg Last Vital Signs Temp 96.8 F 10/10/23 06:28 Pulse 80 10/10/23 06:28 Resp 16 10/10/23 06:28 BP 117/75 10/10/23 06:28 Pulse Ox 97 10/10/23 06:28 O2 Del Method Room Air 10/10/23 06:28 Airway Mallampati Class: III TM Dist: >3cm Neck ROM: Full Heart: rrr Lungs: cta Assessment and Plan Assessment Anesthesia Assessment: Anesthesia Plan Discussed and Chart Reviewed Final Anesthetic Review Family History of Problems with Anesthesia: No History of Problems with Anesthesia: No NPO: Yes ASA Class: III Final Preanesthetic Review: No Changes in Pt Med Stat, Meds/Allgs Chart Reviewed and Consent Obtained/Reviewed Patient Risk: Intermediate Procedure Risk: Intermediate Anesthetic Plan Anesthetic Plan: GA Disposition: Standard PACU
[2023-10-10] MEDS: Lactated Ringers 1,000 ML 50 ML IVCONT (06:45)
--- NOTE | 2023-10-10 07:04 | MHC.SHP ---
Pre-Procedural Eval Section A - 24 Hr Update-Section A only Date of Service: 10/10/23 Section B - Complete if H&P > 30 days Chief Complaint: Major depressive disorder, recurrent, severe with Details of Present Illness: recurrent depression Present Medications: see Short Stay Collaborative assessment History of Previous Operations: No relevant previous surgery (ect) Allergies: Allergies Allergy/AdvReac Type Severity Reaction Status Date / Time bee pollen [BEE STINGS] Allergy Unknown ANAPHYLAXIS Verified 05/21/23 17:48 penicillin V Allergy Unknown Hives Verified 05/21/23 17:48 Penicillins [PCN] Allergy Unknown HIVES Verified 05/21/23 17:48 Review of Systems Sugical H&P ROS: Negative: Cardiovascular, Respiratory and Neurological and Yes, Specify: Psychiatric (depression passive si) Exam Surgical H&P Exam: Normal: Heart, Normal: Lungs and Normal: Neurological Exam Comment: 117/75 Plan Diagnosis/Plan: Unchanged I have reviewed the history and physical and performed a pertinent physical examination on my patient. No changes have occurred unless specified. Time Spent With Patient Time: Total time managing care of this patient today ____ minutes.
--- NOTE | 2023-10-10 07:05 | HO.ECTPROC ---
ECT Procedure Note Diagnosis/Treatment Date of Service: 10/10/23 Current Treatment Number: 1 Treatment: Series Interval Clinical Notes: Treatment done bifrontally one hundred fifty Brevital 160 succinylcholine did not need LMA 10 mg esmolol pretreatment Versed 2 mg post Time: Total time managing care of this patient today ____ minutes. ECT Settings Device: THYMATRON DGx Electrode Placement: Bifrontal Program/Pulse Width: 0.50 Energy Percent: 100 Seizure Duration By EEG (in seconds): 77 Medications Administration General Anesthetic: Methohexital (150) Muscle Relaxant: Succinylcholine Ancillary Medications Analgesics: Torodol - Pre ECT Anti-emetics: Zofran - Pre ECT Miscillaneous Medications: Midazolam Airway Management Airway Management: Bag Mask Ventilation Treatment Recommendations No Changes Recommended: No change
== END 2023-10-10 08:55 | disposition home or self-care (01) ==
PROVIDERS: Visit Provider Psychiatry & Neurology Psychiatry
PROC: (CPT 90870; principal; 2023-10-10 07:00)
DX: F31.4 Bipolar disorder, current episode depressed, severe, without psychotic features (principal); F31.81 Bipolar II disorder; F43.10 Post-traumatic stress disorder, unspecified; F10.21 Alcohol dependence, in remission; Z79.899 Other long term (current) drug therapy; Z88.0 Allergy status to penicillin; F17.210 Nicotine dependence, cigarettes, uncomplicated
CPT/HCPCS: 90870; J0330; J1805; J1885; J2250; J2405

== ENCOUNTER → 2023-10-10 05:47 | Outpatient (BNV) | payer BC, SELFPAY | PROVIDERS: Visit Provider Psychiatry & Neurology Psychiatry | DX: F33.3 Major depressive disorder, recurrent, severe with psychotic symptoms (principal) | CPT/HCPCS: 90870 ==

== ENCOUNTER 2023-10-13 05:48 | Day surgery (SDC) | payer BC, SELFPAY ==
[2023-10-13] VITALS (8 sets, daily range): BP systolic 101–157; BP diastolic 62–93; PULSE 65–88; RESP 15–20; TEMP 36.1–37.4; O2SAT 95–98; BMI 33.5
--- NOTE | 2023-10-13 07:07 | MHC.SHP ---
Pre-Procedural Eval Section A - 24 Hr Update-Section A only Date of Service: 10/13/23 The patient is an INPATIENT: No Changes since office visit: Yes Cold of Flu in the past 2 weeks, Yes New Medical Problems, Yes Changes in Medication and Yes Patient answered all questions The patient has been examined within 24 hours of the surgical procedure. The History & Physical has been completed within 30 days and I have reviewed it.: No Section B - Complete if H&P > 30 days Chief Complaint: Major depressive disorder, recurrent, severe with Allergies: Allergies Allergy/AdvReac Type Severity Reaction Status Date / Time bee pollen [BEE STINGS] Allergy Unknown ANAPHYLAXIS Verified 05/21/23 17:48 penicillin V Allergy Unknown Hives Verified 05/21/23 17:48 Penicillins [PCN] Allergy Unknown HIVES Verified 05/21/23 17:48 Plan I have reviewed the history and physical and performed a pertinent physical examination on my patient. No changes have occurred unless specified. Time Spent With Patient Time: Total time managing care of this patient today ____ minutes.
--- NOTE | 2023-10-13 07:37 | HO.ECTPROC ---
ECT Procedure Note Diagnosis/Treatment Date of Service: 10/13/23 Diagnosis: Major Depressive Disorder Previous ECT Date: 10/10/23 Current Treatment Number: 2 Treatment: Series Interval Clinical Notes: The patient reported a new epsiode of depression, had ECT last Friday, no side effects as per his report. ECT done bifrontal as usual, no complications, no changes on anesthesia. Woke up well. Time: Total time managing care of this patient today __30__ minutes. ECT Settings Device: THYMATRON DGx Electrode Placement: Bifrontal Program/Pulse Width: 0.50 Energy Percent: 100 Seizure Duration By EEG (in seconds): 38 By Motor Observation (in seconds): 16 Medications Administration General Anesthetic: Methohexital (150) Muscle Relaxant: Succinylcholine (160) Ancillary Medications Cardiovascular Medications: Esmolol (30) Miscillaneous Medications: Midazolam (2 mg post ECT) Airway Management Airway Management: Bag Mask Ventilation Treatment Recommendations No Changes Recommended: No change Pt Tolerated Procedure w/o Issue: Yes
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
== END 2023-10-13 08:56 | disposition home or self-care (01) ==
PROVIDERS: Visit Provider Psychiatry & Neurology Psychiatry
PROC: (CPT 90870; principal; 2023-10-13 08:00)
DX: F33.2 Major depressive disorder, recurrent severe without psychotic features (principal); F31.81 Bipolar II disorder; F43.10 Post-traumatic stress disorder, unspecified; F10.21 Alcohol dependence, in remission; Z79.899 Other long term (current) drug therapy; Z88.0 Allergy status to penicillin; F17.210 Nicotine dependence, cigarettes, uncomplicated
CPT/HCPCS: 90870; J0330; J1805; J1885; J2250; J2405

== ENCOUNTER → 2023-10-13 05:48 | Outpatient (BNV) | payer BC, SELFPAY | PROVIDERS: Visit Provider Psychiatry & Neurology Psychiatry | DX: F33.3 Major depressive disorder, recurrent, severe with psychotic symptoms (principal) | CPT/HCPCS: 90870 ==

== ENCOUNTER 2023-10-15 05:54 | Day surgery (SDC) | payer BC, SELFPAY ==
[2023-10-15] VITALS (7 sets, daily range): BP systolic 113–177; BP diastolic 68–96; PULSE 83–114; RESP 14–18; TEMP 36.3–36.8; O2SAT 95–98; BMI 33.5
--- NOTE | 2023-10-15 07:05 | MHC.SHP ---
Pre-Procedural Eval Section A - 24 Hr Update-Section A only Date of Service: 10/15/23 Changes since office visit: Yes Patient answered all questions; No Cold of Flu in the past 2 weeks, No New Medical Problems and No Changes in Medication The patient has been examined within 24 hours of the surgical procedure. The History & Physical has been completed within 30 days and I have reviewed it.: Yes Section B - Complete if H&P > 30 days Chief Complaint: Major depressive disorder, recurrent, severe with Allergies: Allergies Allergy/AdvReac Type Severity Reaction Status Date / Time bee pollen [BEE STINGS] Allergy Unknown ANAPHYLAXIS Verified 05/21/23 17:48 penicillin V Allergy Unknown Hives Verified 05/21/23 17:48 Penicillins [PCN] Allergy Unknown HIVES Verified 05/21/23 17:48 Plan I have reviewed the history and physical and performed a pertinent physical examination on my patient. No changes have occurred unless specified. Time Spent With Patient Time: Total time managing care of this patient today ____ minutes.
--- NOTE | 2023-10-15 07:05 | HO.ECTPROC ---
ECT Procedure Note Diagnosis/Treatment Date of Service: 10/15/23 Diagnosis: Major Depressive Disorder Previous ECT Date: 10/10/23 Current Treatment Number: 3 Treatment: Series Interval Clinical Notes: The patient reported a new epsiode of depression, had ECT last Friday, no side effects as per his report. ECT done bifrontal as usual, no complications, no changes on anesthesia. Woke up well. Time: Total time managing care of this patient today ____ minutes. ECT Settings Device: THYMATRON DGx Electrode Placement: Bifrontal Program/Pulse Width: 0.50 Energy Percent: 100 Seizure Duration By EEG (in seconds): 47 Medications Administration General Anesthetic: Methohexital (150) Muscle Relaxant: Succinylcholine (160) Ancillary Medications Analgesics: Torodol - Pre ECT Anti-emetics: Zofran - Pre ECT Cardiovascular Medications: Esmolol (10 post plus 20 for bp and pulse ) Miscillaneous Medications: Midazolam (2 mg post ECT) Airway Management Airway Management: Bag Mask Ventilation Treatment Recommendations No Changes Recommended: No change Pt Tolerated Procedure w/o Issue: Yes
--- NOTE | 2023-10-15 07:09 | HO.ANESPROP2 ---
[facility] Active Problems Active Problems: All Active Problems Bipolar disorder with severe depression (Acute) Pre-op evaluation (Acute) Bipolar II disorder (Acute) MDD (major depressive disorder), recurrent severe, without psychosis (Acute) Alcohol use disorder, severe, in sustained remission (Acute) PTSD (post-traumatic stress disorder) (Acute) Past Medical History Medical History Bipolar II disorder MDD (major depressive disorder), recurrent severe, without psychosis PTSD (post-traumatic stress disorder) Family History Family history of problems with anesthesia: No Surgical History History of Problems with Anesthesia: No Social History Social History Household Members: Spouse and Children Household Members Other:: , daughter Housing: House Do you presently have visiting nurse or other home services: No Alcohol intake: never Patient Tobacco Use Status: Current everyday Tobacco user Tobacco use type: Cigarette Cigarette Packs Per Day: 1 Cigarettes Per Day: 20.0 Years Smoked: 6-7 years e-Cigarette/Vaping Use: Former Use Second Hand Smoke Exposure: No Substance Use Type: Marijuana Are you DNR?: No Advance Directives: No Advance Directives Information Provided: Yes service: No Sexual orientation: Straight/Heterosexual Meds Allergies Allergy/AdvReac Type Severity Reaction Status Date / Time bee pollen [BEE STINGS] Allergy Unknown ANAPHYLAXIS Verified 05/21/23 17:48 penicillin V Allergy Unknown Hives Verified 05/21/23 17:48 Penicillins [PCN] Allergy Unknown HIVES Verified 05/21/23 17:48 Exam Height,Weight and Vital Signs: Height 5 ft 11 in Weight 108.862 kg Last Vital Signs Temp 97.4 F 10/15/23 06:43 Pulse 88 10/15/23 06:43 Resp 14 10/15/23 06:43 BP 113/82 10/15/23 06:43 Pulse Ox 95 10/15/23 06:43 O2 Del Method Room Air 10/15/23 06:43 Airway Mallampati Class: II TM Dist: >3cm Neck ROM: Full Loose/Missing/Broken Teeth: No Heart: RRR Lungs: CTA Assessment and Plan Assessment Anesthesia Assessment: Anesthesia Plan Discussed and Chart Reviewed Final Anesthetic Review Family History of Problems with Anesthesia: No History of Problems with Anesthesia: No NPO: Yes ASA Class: III Final Preanesthetic Review: Meds/Allgs Chart Reviewed, Consent Obtained/Reviewed and Anes Risks/Benef Reviewed Patient Risk: Intermediate Procedure Risk: Intermediate Anesthetic Plan Anesthetic Plan: GA Disposition: Standard PACU
== END 2023-10-15 08:20 | disposition home or self-care (01) ==
PROVIDERS: Visit Provider Psychiatry & Neurology Psychiatry
PROC: (CPT 90870; principal; 2023-10-15 07:30)
DX: F33.2 Major depressive disorder, recurrent severe without psychotic features (principal); F31.81 Bipolar II disorder; F43.10 Post-traumatic stress disorder, unspecified; Z79.899 Other long term (current) drug therapy; Z79.1 Long term (current) use of non-steroidal anti-inflammatories (NSAID); Z88.0 Allergy status to penicillin; F17.210 Nicotine dependence, cigarettes, uncomplicated
CPT/HCPCS: 90870; J0330; J1805; J1885; J2250; J2405

== ENCOUNTER 2023-10-17 05:53 | Day surgery (SDC) | payer BC, SELFPAY ==
[2023-10-17] VITALS (7 sets, daily range): BP systolic 120–161; BP diastolic 71–89; PULSE 53–96; RESP 18; TEMP 36.2–37.4; O2SAT 94–97; BMI 33.5
--- NOTE | 2023-10-17 07:26 | MHC.SHP ---
Pre-Procedural Eval Section A - 24 Hr Update-Section A only Date of Service: 10/17/23 The patient is an INPATIENT: No Changes since office visit: Yes Patient answered all questions; No Cold of Flu in the past 2 weeks, No New Medical Problems and No Changes in Medication The patient has been examined within 24 hours of the surgical procedure. The History & Physical has been completed within 30 days and I have reviewed it.: Yes Section B - Complete if H&P > 30 days Chief Complaint: Major depressive disorder, recurrent, severe with Allergies: Allergies Allergy/AdvReac Type Severity Reaction Status Date / Time bee pollen [BEE STINGS] Allergy Unknown ANAPHYLAXIS Verified 05/21/23 17:48 penicillin V Allergy Unknown Hives Verified 05/21/23 17:48 Penicillins [PCN] Allergy Unknown HIVES Verified 05/21/23 17:48 Plan I have reviewed the history and physical and performed a pertinent physical examination on my patient. No changes have occurred unless specified. Time Spent With Patient Time: Total time managing care of this patient today ____ minutes.
--- NOTE | 2023-10-17 07:28 | HO.ECTPROC ---
ECT Procedure Note Diagnosis/Treatment Date of Service: 10/17/23 Diagnosis: Major Depressive Disorder Previous ECT Date: 10/15/23 Current Treatment Number: 4 Treatment: Series Interval Clinical Notes: No improvement to this point ECT done bifrontal as usual, no complications, no changes on anesthesia. Woke up well.Change to rtlf or BT if no change vby next tx Time: Total time managing care of this patient today ____ minutes. ECT Settings Device: THYMATRON DGx Electrode Placement: Bifrontal Program/Pulse Width: 0.50 Energy Percent: 60 Seizure Duration By EEG (in seconds): 33 Medications Administration General Anesthetic: Methohexital (150) Muscle Relaxant: Succinylcholine (140) Ancillary Medications Analgesics: Torodol - Pre ECT Anti-emetics: Zofran - Pre ECT Cardiovascular Medications: Esmolol (30 post) Miscillaneous Medications: Midazolam (2 mg post ECT) Airway Management Airway Management: Bag Mask Ventilation Treatment Recommendations No Changes Recommended: No change Program/Pulse Width: 0.50 Energy Percent: 100 Notes: change to rtlf if not improved next tx
--- NOTE | 2023-10-17 09:09 | HO.ANESPROP2 ---
[facility] Active Problems Active Problems: All Active Problems Bipolar disorder with severe depression (Acute) Pre-op evaluation (Acute) Bipolar II disorder (Acute) MDD (major depressive disorder), recurrent severe, without psychosis (Acute) Alcohol use disorder, severe, in sustained remission (Acute) PTSD (post-traumatic stress disorder) (Acute) Past Medical History Medical History Bipolar II disorder MDD (major depressive disorder), recurrent severe, without psychosis PTSD (post-traumatic stress disorder) Family History Family history of problems with anesthesia: No Surgical History History of Problems with Anesthesia: No Social History Social History Household Members: Spouse and Children Household Members Other:: , daughter Housing: House Do you presently have visiting nurse or other home services: No Alcohol intake: never Patient Tobacco Use Status: Current everyday Tobacco user Tobacco use type: Cigarette Cigarette Packs Per Day: 1 Cigarettes Per Day: 20.0 Years Smoked: 6-7 years e-Cigarette/Vaping Use: Former Use Second Hand Smoke Exposure: No Substance Use Type: Marijuana service: No Sexual orientation: Straight/Heterosexual Meds Allergies Allergy/AdvReac Type Severity Reaction Status Date / Time bee pollen [BEE STINGS] Allergy Unknown ANAPHYLAXIS Verified 05/21/23 17:48 penicillin V Allergy Unknown Hives Verified 05/21/23 17:48 Penicillins [PCN] Allergy Unknown HIVES Verified 05/21/23 17:48 Exam Height,Weight and Vital Signs: Height 5 ft 11 in Weight 108.862 kg Last Vital Signs Temp 99.4 F 10/17/23 08:32 Pulse 83 10/17/23 08:32 Resp 18 10/17/23 08:32 BP 128/72 10/17/23 08:32 Pulse Ox 95 10/17/23 08:32 O2 Del Method Room Air 10/17/23 08:32 Airway Mallampati Class: III TM Dist: >3cm Neck ROM: Full Loose/Missing/Broken Teeth: No Heart: RRR Lungs: CTA Assessment and Plan Assessment Anesthesia Assessment: Anesthesia Plan Discussed Final Anesthetic Review Family History of Problems with Anesthesia: No History of Problems with Anesthesia: No NPO: Yes ASA Class: III Final Preanesthetic Review: Meds/Allgs Chart Reviewed, Consent Obtained/Reviewed and Anes Risks/Benef Reviewed Patient Risk: Intermediate Procedure Risk: Intermediate Anesthetic Plan Anesthetic Plan: GA Disposition: Standard PACU
== END 2023-10-17 09:02 | disposition home or self-care (01) ==
PROVIDERS: Visit Provider Psychiatry & Neurology Psychiatry
PROC: (CPT 90870; principal; 2023-10-17 08:00)
DX: F33.2 Major depressive disorder, recurrent severe without psychotic features (principal); F31.81 Bipolar II disorder; F43.10 Post-traumatic stress disorder, unspecified; Z79.899 Other long term (current) drug therapy; Z79.1 Long term (current) use of non-steroidal anti-inflammatories (NSAID); Z88.0 Allergy status to penicillin; F17.210 Nicotine dependence, cigarettes, uncomplicated
CPT/HCPCS: 90870; J0330; J1805; J1885; J2250; J2405

== ENCOUNTER → 2023-10-17 05:53 | Outpatient (BNV) | payer BC, SELFPAY | PROVIDERS: Visit Provider Psychiatry & Neurology Psychiatry | DX: F33.3 Major depressive disorder, recurrent, severe with psychotic symptoms (principal) | CPT/HCPCS: 90870 ==

== ENCOUNTER 2023-10-20 05:58 | Day surgery (SDC) | payer BC, SELFPAY ==
[2023-10-20] VITALS (7 sets, daily range): BP systolic 117–147; BP diastolic 79–98; PULSE 83–98; RESP 16–21; TEMP 36.3–36.9; O2SAT 95–97; BMI 33.5
--- NOTE | 2023-10-20 07:02 | MHC.SHP ---
Pre-Procedural Eval Section A - 24 Hr Update-Section A only Date of Service: 10/20/23 The patient is an INPATIENT: No Changes since office visit: Yes Cold of Flu in the past 2 weeks, Yes New Medical Problems, Yes Changes in Medication and Yes Patient answered all questions The patient has been examined within 24 hours of the surgical procedure. The History & Physical has been completed within 30 days and I have reviewed it.: Yes Section B - Complete if H&P > 30 days Chief Complaint: Major depressive disorder, recurrent, severe with Allergies: Allergies Allergy/AdvReac Type Severity Reaction Status Date / Time bee pollen [BEE STINGS] Allergy Unknown ANAPHYLAXIS Verified 05/21/23 17:48 penicillin V Allergy Unknown Hives Verified 05/21/23 17:48 Penicillins [PCN] Allergy Unknown HIVES Verified 05/21/23 17:48 Plan I have reviewed the history and physical and performed a pertinent physical examination on my patient. No changes have occurred unless specified. Time Spent With Patient Time: Total time managing care of this patient today ____ minutes.
--- NOTE | 2023-10-20 07:21 | HO.ECTPROC ---
ECT Procedure Note Diagnosis/Treatment Date of Service: 10/20/23 Diagnosis: Major Depressive Disorder Previous ECT Date: 10/17/23 Treatment: Maintenance and Series Interval Clinical Notes: The patient reported no major changes on mental status, denies side effects. We discussed options with the patient and he agreed to change to bifrontal. Time: Total time managing care of this patient today _30___ minutes. ECT Settings Device: THYMATRON DGx Electrode Placement: Bifrontal Program/Pulse Width: 0.50 Energy Percent: 60 Seizure Duration By EEG (in seconds): 32 By Motor Observation (in seconds): 26 Medications Administration General Anesthetic: Methohexital (160) Muscle Relaxant: Succinylcholine (120) Ancillary Medications Analgesics: Torodol - Pre ECT Anti-emetics: Zofran - Pre ECT Cardiovascular Medications: Esmolol (20 pre, 10 post) Airway Management Airway Management: Bag Mask Ventilation Treatment Recommendations No Changes Recommended: No change Pt Tolerated Procedure w/o Issue: Yes
--- NOTE | 2023-10-20 08:33 | HO.ANESPROP2 ---
HPI - Anesthesia Eval Consult details Narrative: 38 yo male patient for ECT PMFSH Active Problems Active Problems: All Active Problems Bipolar disorder with severe depression (Acute) Pre-op evaluation (Acute) Bipolar II disorder (Acute) MDD (major depressive disorder), recurrent severe, without psychosis (Acute) Alcohol use disorder, severe, in sustained remission (Acute) PTSD (post-traumatic stress disorder) (Acute) Past Medical History Medical History Bipolar II disorder MDD (major depressive disorder), recurrent severe, without psychosis PTSD (post-traumatic stress disorder) Family History Family history of problems with anesthesia: No Surgical History History of Problems with Anesthesia: No Social History Social History Household Members: Spouse and Children Household Members Other:: , daughter Housing: House Do you presently have visiting nurse or other home services: No Alcohol intake: never Patient Tobacco Use Status: Current everyday Tobacco user Tobacco use type: Cigarette Cigarette Packs Per Day: 1 Cigarettes Per Day: 20.0 Years Smoked: 6-7 years e-Cigarette/Vaping Use: Former Use Second Hand Smoke Exposure: No Substance Use Type: Marijuana Advance Directives: No Advance Directives Information Provided: Yes service: No Sexual orientation: Straight/Heterosexual Meds Allergies Allergy/AdvReac Type Severity Reaction Status Date / Time bee pollen [BEE STINGS] Allergy Unknown ANAPHYLAXIS Verified 05/21/23 17:48 penicillin V Allergy Unknown Hives Verified 05/21/23 17:48 Penicillins [PCN] Allergy Unknown HIVES Verified 05/21/23 17:48 Active Medications: Current Medications Lactated Ringer's (Lr) 1,000 mls @ 50 mls/hr IVCONT .Q20H RIKKI Exam Height,Weight and Vital Signs: Height 5 ft 11 in Weight 108.862 kg Last Vital Signs Temp 98.4 F 10/20/23 07:55 Pulse 96 10/20/23 08:10 Resp 16 10/20/23 08:10 BP 139/94 H 10/20/23 08:10 Pulse Ox 95 10/20/23 08:10 O2 Del Method Room Air 10/20/23 08:10 O2 Flow Rate 2 10/20/23 08:05 Airway Mallampati Class: III TM Dist: >3cm Neck ROM: Full Loose/Missing/Broken Teeth: No (Denies broken, loose, missing teeth. Top front capped) Heart: RRR Lungs: CTAB Assessment and Plan Assessment Anesthesia Assessment: Anesthesia Plan Discussed and Chart Reviewed Final Anesthetic Review Family History of Problems with Anesthesia: No History of Problems with Anesthesia: No NPO: Yes ASA Class: III Final Preanesthetic Review: No Changes in Pt Med Stat, Meds/Allgs Chart Reviewed, Consent Obtained/Reviewed and Anes Risks/Benef Reviewed Patient Risk: Intermediate Procedure Risk: Intermediate Assessment/Block/Sedation in SS: Assess/Block/Sedation-SS Anesthetic Plan Anesthetic Plan: GA Disposition: Standard PACU
== END 2023-10-20 08:54 | disposition home or self-care (01) ==
PROVIDERS: Visit Provider Psychiatry & Neurology Psychiatry
PROC: (CPT 90870; principal; 2023-10-20 07:30)
DX: F33.2 Major depressive disorder, recurrent severe without psychotic features (principal); F43.10 Post-traumatic stress disorder, unspecified; F31.81 Bipolar II disorder; Z79.899 Other long term (current) drug therapy; Z79.1 Long term (current) use of non-steroidal anti-inflammatories (NSAID); Z88.0 Allergy status to penicillin; F17.210 Nicotine dependence, cigarettes, uncomplicated
CPT/HCPCS: 90870; J0330; J0360; J0461; J1596; J1805; J1885; J1920; J2250; J2405

== ENCOUNTER → 2023-10-20 05:58 | Outpatient (BNV) | payer BC, SELFPAY | PROVIDERS: Visit Provider Psychiatry & Neurology Psychiatry | DX: F33.3 Major depressive disorder, recurrent, severe with psychotic symptoms (principal) | CPT/HCPCS: 90870 ==

== ENCOUNTER 2023-10-24 05:53 | Day surgery (SDC) | payer BC, SELFPAY ==
[2023-10-24] VITALS (7 sets, daily range): BP systolic 109–160; BP diastolic 67–85; PULSE 95–115; RESP 16–20; TEMP 36.3–36.8; O2SAT 94–99; BMI 33.5
--- NOTE | 2023-10-24 07:06 | MHC.SHP ---
Pre-Procedural Eval Section A - 24 Hr Update-Section A only Date of Service: 10/24/23 The patient is an INPATIENT: No Changes since office visit: Yes Patient answered all questions; No Cold of Flu in the past 2 weeks, No New Medical Problems and No Changes in Medication Section B - Complete if H&P > 30 days Chief Complaint: Major depressive disorder, recurrent, severe with Allergies: Allergies Allergy/AdvReac Type Severity Reaction Status Date / Time bee pollen [BEE STINGS] Allergy Unknown ANAPHYLAXIS Verified 05/21/23 17:48 penicillin V Allergy Unknown Hives Verified 05/21/23 17:48 Penicillins [PCN] Allergy Unknown HIVES Verified 05/21/23 17:48 Plan I have reviewed the history and physical and performed a pertinent physical examination on my patient. No changes have occurred unless specified. Time Spent With Patient Time: Total time managing care of this patient today ____ minutes.
--- NOTE | 2023-10-24 07:06 | HO.ECTPROC ---
ECT Procedure Note Diagnosis/Treatment Date of Service: 10/24/23 Diagnosis: Bipolar disorder Previous ECT Date: 10/22/23 Current Treatment Number: 6 Treatment: Series Interval Clinical Notes: Pt with some improvement no cognitive side effects noted tx BF sz 35 sec needed lma post CONSIDER CHANGE TO RTLF IF NOT SIG IMPROVED CONT SERIES Time: Total time managing care of this patient today ____ minutes. ECT Settings Device: THYMATRON DGx Electrode Placement: Rt temporal/ Lt frontal Program/Pulse Width: 0.50 Energy Percent: 100 Seizure Duration By EEG (in seconds): 35 Ancillary Medications Analgesics: Torodol - Pre ECT Anti-emetics: Zofran - Pre ECT Cardiovascular Medications: Esmolol (30 pre) Miscillaneous Medications: Midazolam (2)
--- NOTE | 2023-10-24 07:33 | HO.ANESPROP2 ---
HPI - Anesthesia Eval Consult details Narrative: 38 yo male patient for ECT PMFSH Active Problems Active Problems: All Active Problems Bipolar disorder with severe depression (Acute) Pre-op evaluation (Acute) Bipolar II disorder (Acute) MDD (major depressive disorder), recurrent severe, without psychosis (Acute) Alcohol use disorder, severe, in sustained remission (Acute) PTSD (post-traumatic stress disorder) (Acute) Past Medical History Medical History Bipolar II disorder MDD (major depressive disorder), recurrent severe, without psychosis PTSD (post-traumatic stress disorder) Family History Family history of problems with anesthesia: No Surgical History History of Problems with Anesthesia: No Social History Social History Household Members: Spouse and Children Household Members Other:: , daughter Housing: House Do you presently have visiting nurse or other home services: No Alcohol intake: never Patient Tobacco Use Status: Current everyday Tobacco user Tobacco use type: Cigarette Cigarette Packs Per Day: 1 Cigarettes Per Day: 20.0 Years Smoked: 6-7 years e-Cigarette/Vaping Use: Former Use Second Hand Smoke Exposure: No Substance Use Type: Marijuana Advance Directives: No Advance Directives Information Provided: Yes Recently lost weight without trying: No service: No Sexual orientation: Straight/Heterosexual Meds Allergies Allergy/AdvReac Type Severity Reaction Status Date / Time bee pollen [BEE STINGS] Allergy Unknown ANAPHYLAXIS Verified 05/21/23 17:48 penicillin V Allergy Unknown Hives Verified 05/21/23 17:48 Penicillins [PCN] Allergy Unknown HIVES Verified 05/21/23 17:48 Exam Height,Weight and Vital Signs: Height 5 ft 11 in Weight 108.862 kg Last Vital Signs Temp 97.4 F 10/24/23 06:05 Pulse 96 10/24/23 06:05 Resp 18 10/24/23 06:05 BP 110/80 10/24/23 06:05 Pulse Ox 96 10/24/23 06:05 O2 Del Method Room Air 10/24/23 06:05 Airway Mallampati Class: III TM Dist: >3cm Neck ROM: Full Loose/Missing/Broken Teeth: No (Top front capped) Heart: RRR Lungs: CTAB Assessment and Plan Assessment Anesthesia Assessment: Anesthesia Plan Discussed and Chart Reviewed Final Anesthetic Review Family History of Problems with Anesthesia: No History of Problems with Anesthesia: No NPO: Yes ASA Class: III Final Preanesthetic Review: No Changes in Pt Med Stat, Meds/Allgs Chart Reviewed, Consent Obtained/Reviewed and Anes Risks/Benef Reviewed Patient Risk: Intermediate Procedure Risk: Intermediate Assessment/Block/Sedation in SS: Assess/Block/Sedation-SS Anesthetic Plan Anesthetic Plan: GA Disposition: Standard PACU
== END 2023-10-24 08:25 | disposition home or self-care (01) ==
PROVIDERS: Visit Provider Psychiatry & Neurology Psychiatry
PROC: (CPT 90870; principal; 2023-10-24 07:00)
DX: F31.9 Bipolar disorder, unspecified (principal); F43.10 Post-traumatic stress disorder, unspecified; Z88.0 Allergy status to penicillin
CPT/HCPCS: 90870; J0330; J1805; J1885; J2250; J2405

== ENCOUNTER → 2023-10-24 05:53 | Outpatient (BNV) | payer BC, SELFPAY | PROVIDERS: Visit Provider Psychiatry & Neurology Psychiatry | DX: F33.3 Major depressive disorder, recurrent, severe with psychotic symptoms (principal) | CPT/HCPCS: 90870 ==

== ENCOUNTER 2023-10-29 05:54 | Day surgery (SDC) | payer BC, SELFPAY ==
[2023-10-29] VITALS (8 sets, daily range): BP systolic 112–128; BP diastolic 73–93; PULSE 83–109; RESP 15–26; TEMP 36.1–36.7; O2SAT 95–99; BMI 33.5
--- NOTE | 2023-10-29 06:52 | P.CONAN_ITS ---
[facility] Active Problems Active Problems: All Active Problems (Updated 09/22/23 @ 22:10 by Caio Godinez MD) Bipolar disorder with severe depression (Acute) Pre-op evaluation (Acute) Bipolar II disorder (Acute) MDD (major depressive disorder), recurrent severe, without psychosis (Acute) Alcohol use disorder, severe, in sustained remission (Acute) PTSD (post-traumatic stress disorder) (Acute) Past Medical History Medical History Bipolar II disorder MDD (major depressive disorder), recurrent severe, without psychosis PTSD (post-traumatic stress disorder) Family History Family history of problems with anesthesia: No Surgical History History of Problems with Anesthesia: No Social History Social History Household Members: Spouse and Children Household Members Other:: , daughter Housing: House Do you presently have visiting nurse or other home services: No Alcohol intake: never Patient Tobacco Use Status: Current everyday Tobacco user Tobacco use type: Cigarette Cigarette Packs Per Day: 1 Cigarettes Per Day: 20.0 Years Smoked: 6-7 years e-Cigarette/Vaping Use: Former Use Second Hand Smoke Exposure: No Substance Use Type: Marijuana Advance Directives: No Advance Directives Information Provided: Yes service: No Sexual orientation: Straight/Heterosexual Meds Allergies Allergy/AdvReac Type Severity Reaction Status Date / Time bee pollen [BEE STINGS] Allergy Unknown ANAPHYLAXIS Verified 05/21/23 17:48 penicillin V Allergy Unknown Hives Verified 05/21/23 17:48 Penicillins [PCN] Allergy Unknown HIVES Verified 05/21/23 17:48 Exam Height,Weight and Vital Signs: Height 5 ft 11 in Weight 108.862 kg Last Vital Signs Temp 97 F 10/29/23 06:40 Pulse 101 H 10/29/23 06:40 Resp 20 10/29/23 06:40 BP 124/82 10/29/23 06:40 Pulse Ox 95 10/29/23 06:40 O2 Del Method Room Air 10/29/23 06:40 Airway Mallampati Class: II TM Dist: >3cm Neck ROM: Full Heart: rrr Lungs: cta Assessment and Plan Assessment Anesthesia Assessment: Anesthesia Plan Discussed and Chart Reviewed Final Anesthetic Review Family History of Problems with Anesthesia: No History of Problems with Anesthesia: No NPO: Yes ASA Class: III Final Preanesthetic Review: No Changes in Pt Med Stat, Meds/Allgs Chart Reviewed and Consent Obtained/Reviewed Patient Risk: Intermediate Procedure Risk: Intermediate Anesthetic Plan Anesthetic Plan: GA Disposition: Standard PACU
[2023-10-29] MEDS: Lactated Ringers 1,000 ML 50 ML IVCONT (07:13)
--- NOTE | 2023-10-29 07:26 | MHC.SHP ---
Pre-Procedural Eval Section A - 24 Hr Update-Section A only Date of Service: 10/29/23 The patient is an INPATIENT: No Changes since office visit: Yes Patient answered all questions; No Cold of Flu in the past 2 weeks, No New Medical Problems and No Changes in Medication Section B - Complete if H&P > 30 days Chief Complaint: depression Details of Present Illness: recurrent depression somewhat improved Present Medications: see Short Stay Collaborative assessment Medical History: No relevant PMH Allergies: Allergies Allergy/AdvReac Type Severity Reaction Status Date / Time bee pollen [BEE STINGS] Allergy Unknown ANAPHYLAXIS Verified 05/21/23 17:48 penicillin V Allergy Unknown Hives Verified 05/21/23 17:48 Penicillins [PCN] Allergy Unknown HIVES Verified 05/21/23 17:48 Review of Systems Sugical H&P ROS: Negative: Cardiovascular and Respiratory and Yes, Specify: Psychiatric (less depressed more anxiety ) Exam Surgical H&P Exam: Normal: Heart and Normal: Lungs Plan I have reviewed the history and physical and performed a pertinent physical examination on my patient. No changes have occurred unless specified. Time Spent With Patient Time: Total time managing care of this patient today ____ minutes.
--- NOTE | 2023-10-29 07:28 | HO.ECTPROC ---
ECT Procedure Note Diagnosis/Treatment Date of Service: 10/29/23 Diagnosis: Bipolar disorder Previous ECT Date: 10/27/23 Current Treatment Number: 7 Treatment: Series Interval Clinical Notes: pt feeling somewhat better some racing thoughts no c/o side effects ect change to rtlf Time: Total time managing care of this patient today ____ minutes. ECT Settings Device: THYMATRON DGx Electrode Placement: Rt temporal/ Lt frontal Energy Percent: 100 Medications Administration General Anesthetic: Methohexital (150) Muscle Relaxant: Succinylcholine (100) Ancillary Medications Cardiovascular Medications: Esmolol Miscillaneous Medications: Midazolam (2) Airway Management Airway Management: Bag Mask Ventilation Treatment Recommendations No Changes Recommended: No change
== END 2023-10-29 09:02 | disposition home or self-care (01) ==
PROVIDERS: Visit Provider Psychiatry & Neurology Psychiatry
PROC: (CPT 90870; principal; 2023-10-29 08:00)
DX: F31.9 Bipolar disorder, unspecified (principal); F43.10 Post-traumatic stress disorder, unspecified; Z88.0 Allergy status to penicillin
CPT/HCPCS: 90870; J0330; J1805; J1885; J2250; J2405

== ENCOUNTER → 2023-10-29 05:54 | Outpatient (BNV) | payer BC, SELFPAY | PROVIDERS: Visit Provider Psychiatry & Neurology Psychiatry | DX: F33.3 Major depressive disorder, recurrent, severe with psychotic symptoms (principal) | CPT/HCPCS: 90870 ==

== ENCOUNTER 2023-10-31 07:21 | Day surgery (SDC) | payer BC, SELFPAY ==
[2023-10-31] VITALS (7 sets, daily range): BP systolic 123–146; BP diastolic 79–102; PULSE 79–112; RESP 16–22; TEMP 36.8–36.9; O2SAT 92–100; BMI 33.5
--- NOTE | 2023-10-31 08:35 | P.CONAN_ITS ---
FORMERLY [facility], [facility] Active Problems Active Problems: All Active Problems Bipolar disorder with severe depression (Acute) Pre-op evaluation (Acute) Bipolar II disorder (Acute) MDD (major depressive disorder), recurrent severe, without psychosis (Acute) Alcohol use disorder, severe, in sustained remission (Acute) PTSD (post-traumatic stress disorder) (Acute) Past Medical History Medical History Bipolar II disorder MDD (major depressive disorder), recurrent severe, without psychosis PTSD (post-traumatic stress disorder) Family History Family history of problems with anesthesia: No Surgical History History of Problems with Anesthesia: No Social History Social History Household Members: Spouse and Children Household Members Other:: , daughter Housing: House Do you presently have visiting nurse or other home services: No Alcohol intake: never Patient Tobacco Use Status: Current everyday Tobacco user Tobacco use type: Cigarette Cigarette Packs Per Day: 1 Cigarettes Per Day: 20.0 Years Smoked: 6-7 years e-Cigarette/Vaping Use: Former Use Second Hand Smoke Exposure: No Substance Use Type: Marijuana Advance Directives: No Advance Directives Information Provided: Yes service: No Sexual orientation: Straight/Heterosexual Meds Allergies Allergy/AdvReac Type Severity Reaction Status Date / Time bee pollen [BEE STINGS] Allergy Unknown ANAPHYLAXIS Verified 05/21/23 17:48 penicillin V Allergy Unknown Hives Verified 05/21/23 17:48 Penicillins [PCN] Allergy Unknown HIVES Verified 05/21/23 17:48 Exam Airway Mallampati Class: II TM Dist: >3cm Neck ROM: Full Heart: rrr Lungs: cta Assessment and Plan Assessment Anesthesia Assessment: Anesthesia Plan Discussed and Chart Reviewed Final Anesthetic Review Family History of Problems with Anesthesia: No History of Problems with Anesthesia: No NPO: Yes ASA Class: III Final Preanesthetic Review: No Changes in Pt Med Stat, Meds/Allgs Chart Reviewed and Consent Obtained/Reviewed Patient Risk: Intermediate Procedure Risk: Intermediate Anesthetic Plan Anesthetic Plan: GA Disposition: Standard PACU
--- NOTE | 2023-10-31 09:37 | MHC.SHP ---
Pre-Procedural Eval Section A - 24 Hr Update-Section A only Date of Service: 10/31/23 The patient is an INPATIENT: No Changes since office visit: Yes Patient answered all questions; No Cold of Flu in the past 2 weeks, No New Medical Problems and No Changes in Medication Section B - Complete if H&P > 30 days Chief Complaint: depression Details of Present Illness: recurrent depression quite improved Present Medications: see Short Stay Collaborative assessment Medical History: No relevant PMH Allergies: Allergies Allergy/AdvReac Type Severity Reaction Status Date / Time bee pollen [BEE STINGS] Allergy Unknown ANAPHYLAXIS Verified 05/21/23 17:48 penicillin V Allergy Unknown Hives Verified 05/21/23 17:48 Penicillins [PCN] Allergy Unknown HIVES Verified 05/21/23 17:48 Review of Systems Sugical H&P ROS: Negative: Cardiovascular and Respiratory and Yes, Specify: Psychiatric (less depressed ) Exam Surgical H&P Exam: Normal: Heart and Normal: Lungs Plan Diagnosis/Plan: Unchanged I have reviewed the history and physical and performed a pertinent physical examination on my patient. No changes have occurred unless specified. Time Spent With Patient Time: Total time managing care of this patient today ____ minutes.
--- NOTE | 2023-10-31 09:38 | HO.ECTPROC ---
ECT Procedure Note Diagnosis/Treatment Date of Service: 10/31/23 Diagnosis: Bipolar disorder Previous ECT Date: 10/29/23 Current Treatment Number: 8 Treatment: Series Interval Clinical Notes: The patient is feeling significantly better we discussed changing and trying to convert to a maintenance treatment phase follow-up in 1 week No cognitive complaints. Patient had 20 mg of esmolol pretreatment for tachycardia. Did not require LMA Time: Total time managing care of this patient today ____ minutes. ECT Settings Device: THYMATRON DGx Electrode Placement: Rt temporal/ Lt frontal Program/Pulse Width: 0.50 Energy Percent: 100 Seizure Duration By EEG (in seconds): 32 Medications Administration General Anesthetic: Methohexital (150) Muscle Relaxant: Succinylcholine (100) Ancillary Medications Cardiovascular Medications: Esmolol (20 pre tx) Miscillaneous Medications: Midazolam (2) Airway Management Airway Management: Bag Mask Ventilation Treatment Recommendations No Changes Recommended: No change Pt Tolerated Procedure w/o Issue: Yes
== END 2023-10-31 10:45 | disposition home or self-care (01) ==
PROVIDERS: Visit Provider Psychiatry & Neurology Psychiatry
PROC: (CPT 90870; principal; 2023-10-31 10:30)
DX: F31.30 Bipolar disorder, current episode depressed, mild or moderate severity, unspecified (principal); F41.1 Generalized anxiety disorder; Z79.899 Other long term (current) drug therapy; Z88.0 Allergy status to penicillin
CPT/HCPCS: 90870; J0330; J1805; J1885; J2250; J2405

== ENCOUNTER → 2023-10-31 07:21 | Outpatient (BNV) | payer BC, SELFPAY | PROVIDERS: Visit Provider Psychiatry & Neurology Psychiatry | DX: F33.3 Major depressive disorder, recurrent, severe with psychotic symptoms (principal) | CPT/HCPCS: 90870 ==

== ENCOUNTER 2023-11-12 05:55 | Day surgery (SDC) | payer BC, SELFPAY ==
[2023-11-12] VITALS (7 sets, daily range): BP systolic 122–153; BP diastolic 83–93; PULSE 54–91; RESP 16; TEMP 35.9–36.8; O2SAT 94–98; BMI 33.5
--- NOTE | 2023-11-12 06:38 | P.CONAN_ITS ---
[facility] Active Problems Active Problems: All Active Problems Bipolar disorder with severe depression (Acute) Pre-op evaluation (Acute) Bipolar II disorder (Acute) MDD (major depressive disorder), recurrent severe, without psychosis (Acute) Alcohol use disorder, severe, in sustained remission (Acute) PTSD (post-traumatic stress disorder) (Acute) Past Medical History Medical History Bipolar II disorder MDD (major depressive disorder), recurrent severe, without psychosis PTSD (post-traumatic stress disorder) Family History Family history of problems with anesthesia: No Surgical History History of Problems with Anesthesia: No Social History Social History Household Members: Spouse and Children Household Members Other:: , daughter Housing: House Do you presently have visiting nurse or other home services: No Alcohol intake: never Patient Tobacco Use Status: Current everyday Tobacco user Tobacco use type: Cigarette Cigarette Packs Per Day: 1 Cigarettes Per Day: 20.0 Years Smoked: 6-7 years e-Cigarette/Vaping Use: Former Use Second Hand Smoke Exposure: No Substance Use Type: Marijuana Advance Directives: No Advance Directives Information Provided: Yes service: No Sexual orientation: Straight/Heterosexual Meds Allergies Allergy/AdvReac Type Severity Reaction Status Date / Time bee pollen [BEE STINGS] Allergy Unknown ANAPHYLAXIS Verified 05/21/23 17:48 penicillin V Allergy Unknown Hives Verified 05/21/23 17:48 Penicillins [PCN] Allergy Unknown HIVES Verified 05/21/23 17:48 Exam Height,Weight and Vital Signs: Height 5 ft 11 in Weight 108.862 kg Last Vital Signs Temp 96.6 F L 11/12/23 06:19 Pulse 91 11/12/23 06:19 Resp 16 11/12/23 06:19 BP 140/87 H 11/12/23 06:19 Pulse Ox 97 11/12/23 06:19 O2 Del Method Room Air 11/12/23 06:19 Airway Mallampati Class: II TM Dist: >3cm Neck ROM: Full Heart: rrr Lungs: cta Assessment and Plan Assessment Anesthesia Assessment: Anesthesia Plan Discussed and Chart Reviewed Final Anesthetic Review Family History of Problems with Anesthesia: No History of Problems with Anesthesia: No NPO: Yes ASA Class: III Final Preanesthetic Review: No Changes in Pt Med Stat, Meds/Allgs Chart Reviewed and Consent Obtained/Reviewed Patient Risk: Intermediate Procedure Risk: Intermediate Anesthetic Plan Anesthetic Plan: GA Disposition: Standard PACU
[2023-11-12] MEDS: Lactated Ringers 1,000 ML 50 ML IVCONT (06:59)
--- NOTE | 2023-11-12 07:06 | MHC.SHP ---
Pre-Procedural Eval Section A - 24 Hr Update-Section A only Date of Service: 11/12/23 Section B - Complete if H&P > 30 days Chief Complaint: Major depressive disorder, recurrent, severe with Details of Present Illness: recurrent depression doin g well Relevant Social History: None Present Medications: None Allergies: Allergies Allergy/AdvReac Type Severity Reaction Status Date / Time bee pollen [BEE STINGS] Allergy Unknown ANAPHYLAXIS Verified 05/21/23 17:48 penicillin V Allergy Unknown Hives Verified 05/21/23 17:48 Penicillins [PCN] Allergy Unknown HIVES Verified 05/21/23 17:48 Review of Systems Sugical H&P ROS: Negative: Cardiovascular, Respiratory and Neurological and Yes, Specify: Psychiatric (improved) Exam Surgical H&P Exam: Normal: Heart, Normal: Lungs and Normal: Neurological Exam Comment: 140/87 Plan Diagnosis/Plan: Unchanged I have reviewed the history and physical and performed a pertinent physical examination on my patient. No changes have occurred unless specified. Time Spent With Patient Time: Total time managing care of this patient today ____ minutes.
--- NOTE | 2023-11-12 07:09 | HO.ECTPROC ---
ECT Procedure Note Diagnosis/Treatment Date of Service: 11/12/23 Diagnosis: Bipolar disorder Previous ECT Date: 10/29/23 Current Treatment Number: 9 Treatment: Series Interval Clinical Notes: The patient is feeling significantly better we discussed changing and trying to convert to a maintenance treatment phase follow-up in 1 week No cognitive complaints. Patient had 10 mg of esmolol pretreatment for tachycardia. Did not require LMA doing well f/u 2 weeks Time: Total time managing care of this patient today ____ minutes. ECT Settings Device: THYMATRON DGx Electrode Placement: Rt temporal/ Lt frontal Program/Pulse Width: 0.50 Energy Percent: 100 Seizure Duration By EEG (in seconds): 50 Medications Administration General Anesthetic: Methohexital (150) Muscle Relaxant: Succinylcholine (100) Ancillary Medications Cardiovascular Medications: Esmolol (10 pre tx) Miscillaneous Medications: Midazolam (2) Airway Management Airway Management: Bag Mask Ventilation Treatment Recommendations No Changes Recommended: No change Pt Tolerated Procedure w/o Issue: Yes
== END 2023-11-12 08:38 | disposition home or self-care (01) ==
PROVIDERS: Visit Provider Psychiatry & Neurology Psychiatry
PROC: (CPT 90870; principal; 2023-11-12 07:00)
DX: F31.9 Bipolar disorder, unspecified (principal); F41.1 Generalized anxiety disorder; R00.0 Tachycardia, unspecified; Z79.899 Other long term (current) drug therapy; Z88.0 Allergy status to penicillin
CPT/HCPCS: 90870; J0330; J1885; J2250; J2405

== ENCOUNTER → 2023-11-12 05:55 | Outpatient (BNV) | payer BC, SELFPAY | PROVIDERS: Visit Provider Psychiatry & Neurology Psychiatry | DX: F33.3 Major depressive disorder, recurrent, severe with psychotic symptoms (principal) | CPT/HCPCS: 90870 ==

== ENCOUNTER 2023-11-26 06:20 | Day surgery (SDC) | payer BC, SELFPAY ==
[2023-11-26] VITALS (7 sets, daily range): BP systolic 105–127; BP diastolic 74–83; PULSE 90–103; RESP 16–18; TEMP 36.1–36.9; O2SAT 93–98; BMI 33.5
--- NOTE | 2023-11-26 06:51 | HO.ANESPROP2 ---
HPI - Anesthesia Eval Consult details Narrative: foe ECT PMFSH Active Problems Active Problems: All Active Problems Bipolar disorder with severe depression (Acute) Pre-op evaluation (Acute) Bipolar II disorder (Acute) MDD (major depressive disorder), recurrent severe, without psychosis (Acute) Alcohol use disorder, severe, in sustained remission (Acute) PTSD (post-traumatic stress disorder) (Acute) Past Medical History Medical History Bipolar II disorder MDD (major depressive disorder), recurrent severe, without psychosis PTSD (post-traumatic stress disorder) Family History Family history of problems with anesthesia: No Surgical History History of Problems with Anesthesia: No Social History Social History Household Members: Spouse and Children Household Members Other:: , daughter Housing: House Do you presently have visiting nurse or other home services: No Alcohol intake: never Patient Tobacco Use Status: Current everyday Tobacco user Tobacco use type: Cigarette Cigarette Packs Per Day: 1 Cigarettes Per Day: 20.0 Years Smoked: 6-7 years e-Cigarette/Vaping Use: Former Use Second Hand Smoke Exposure: No Substance Use Type: Marijuana Advance Directives: No Advance Directives Information Provided: Yes service: No Sexual orientation: Straight/Heterosexual Meds Allergies Allergy/AdvReac Type Severity Reaction Status Date / Time bee pollen [BEE STINGS] Allergy Unknown ANAPHYLAXIS Verified 05/21/23 17:48 penicillin V Allergy Unknown Hives Verified 05/21/23 17:48 Penicillins [PCN] Allergy Unknown HIVES Verified 05/21/23 17:48 Exam Height,Weight and Vital Signs: Height 5 ft 11 in Weight 108.862 kg Last Vital Signs Temp 97 F 11/26/23 06:26 Pulse 93 11/26/23 06:26 Resp 16 11/26/23 06:26 BP 127/77 11/26/23 06:26 Pulse Ox 98 11/26/23 06:26 O2 Del Method Room Air 11/26/23 06:26 Airway Mallampati Class: II TM Dist: <=3cm Neck ROM: Full Heart: ok Lungs: ok Assessment and Plan Assessment Anesthesia Assessment: Anesthesia Plan Discussed and Chart Reviewed Final Anesthetic Review Family History of Problems with Anesthesia: No History of Problems with Anesthesia: No NPO: Yes ASA Class: III Final Preanesthetic Review: No Changes in Pt Med Stat, Meds/Allgs Chart Reviewed, Consent Obtained/Reviewed and Anes Risks/Benef Reviewed Patient Risk: Low Procedure Risk: Intermediate Anesthetic Plan Anesthetic Plan: GA and Agree w/ Assess. and Plan Disposition: Standard PACU
--- NOTE | 2023-11-26 06:56 | MHC.SHP ---
Pre-Procedural Eval Section A - 24 Hr Update-Section A only Date of Service: 11/26/23 Section B - Complete if H&P > 30 days Chief Complaint: depression Details of Present Illness: recurrent bipolar depression some dep sx Relevant Social History: Alcohol Use (past) Present Medications: see Short Stay Collaborative assessment Medical History: Significant History Allergies: Allergies Allergy/AdvReac Type Severity Reaction Status Date / Time bee pollen [BEE STINGS] Allergy Unknown ANAPHYLAXIS Verified 05/21/23 17:48 penicillin V Allergy Unknown Hives Verified 05/21/23 17:48 Penicillins [PCN] Allergy Unknown HIVES Verified 05/21/23 17:48 Review of Systems Sugical H&P ROS: Negative: Constitution, Cardiovascular, Respiratory and Neurological Exam Surgical H&P Exam: Normal: Heart, Normal: Lungs and Normal: Neurological Exam Comment: VSS Plan Diagnosis/Plan: Unchanged I have reviewed the history and physical and performed a pertinent physical examination on my patient. No changes have occurred unless specified. Time Spent With Patient Time: Total time managing care of this patient today ____ minutes.
--- NOTE | 2023-11-26 07:29 | HO.ECTPROC ---
ECT Procedure Note Diagnosis/Treatment Date of Service: 11/26/23 Diagnosis: Bipolar disorder Previous ECT Date: 11/12/23 Interval Clinical Notes: Patient states he has had some breakthrough anxiety symptoms mild depressive symptoms feels like he was starting to slide somewhat has not stabilized on Vraylar previously given 10 mg esmolol pretreatment Follow-up 2 weeks Time: Total time managing care of this patient today ____ minutes. ECT Settings Device: THYMATRON DGx Electrode Placement: Rt temporal/ Lt frontal Program/Pulse Width: 0.50 Energy Percent: 100 Seizure Duration By EEG (in seconds): 29 Medications Administration General Anesthetic: Methohexital (150) Muscle Relaxant: Succinylcholine (100) Ancillary Medications Cardiovascular Medications: Esmolol (10) Miscillaneous Medications: Midazolam (2mg) Airway Management Airway Management: Bag Mask Ventilation Treatment Recommendations Notes: Could increase succinylcholine to 120/140 mg Pt Tolerated Procedure w/o Issue: Yes
== END 2023-11-26 08:29 | disposition home or self-care (01) ==
PROVIDERS: Visit Provider Psychiatry & Neurology Psychiatry
PROC: (CPT 90870; principal; 2023-11-26 07:00)
DX: F31.81 Bipolar II disorder (principal); F43.10 Post-traumatic stress disorder, unspecified; Z79.899 Other long term (current) drug therapy; Z88.0 Allergy status to penicillin; F17.210 Nicotine dependence, cigarettes, uncomplicated
CPT/HCPCS: 90870; J0330; J1805; J1885; J2250; J2405

== ENCOUNTER → 2023-11-26 06:20 | Outpatient (BNV) | payer BC, SELFPAY | PROVIDERS: Visit Provider Psychiatry & Neurology Psychiatry | DX: F33.3 Major depressive disorder, recurrent, severe with psychotic symptoms (principal) | CPT/HCPCS: 90870 ==

== ENCOUNTER 2023-12-12 05:55 | Day surgery (SDC) | payer BC, SELFPAY ==
[2023-12-12] VITALS (7 sets, daily range): BP systolic 129–148; BP diastolic 80–91; PULSE 79–111; RESP 13–17; TEMP 36.1–36.2; O2SAT 93–97; BMI 33.5
--- NOTE | 2023-12-12 06:58 | HO.ANESPROP2 ---
HPI - Anesthesia Eval Consult details Narrative: 38 yo male patient for ECT PMFSH Active Problems Active Problems: All Active Problems Bipolar disorder with severe depression (Acute) Pre-op evaluation (Acute) Bipolar II disorder (Acute) MDD (major depressive disorder), recurrent severe, without psychosis (Acute) Alcohol use disorder, severe, in sustained remission (Acute) PTSD (post-traumatic stress disorder) (Acute) Quit smoking Past Medical History Medical History Bipolar II disorder MDD (major depressive disorder), recurrent severe, without psychosis PTSD (post-traumatic stress disorder) Family History Family history of problems with anesthesia: No Surgical History History of Problems with Anesthesia: No Social History Social History Household Members: Spouse and Children Household Members Other:: , daughter Housing: House Do you presently have visiting nurse or other home services: No Alcohol intake: never Patient Tobacco Use Status: Current everyday Tobacco user Tobacco use type: Cigarette Cigarette Packs Per Day: 1 Cigarettes Per Day: 20.0 Years Smoked: 6-7 years e-Cigarette/Vaping Use: Former Use Second Hand Smoke Exposure: No Substance Use Type: Marijuana Advance Directives: No Advance Directives Information Provided: Yes service: No Sexual orientation: Straight/Heterosexual Meds Allergies Allergy/AdvReac Type Severity Reaction Status Date / Time bee pollen [BEE STINGS] Allergy Unknown ANAPHYLAXIS Verified 05/21/23 17:48 penicillin V Allergy Unknown Hives Verified 05/21/23 17:48 Penicillins [PCN] Allergy Unknown HIVES Verified 05/21/23 17:48 Exam Height,Weight and Vital Signs: Height 5 ft 11 in Weight 108.862 kg Last Vital Signs Temp 96.9 F 12/12/23 06:46 Pulse 81 12/12/23 06:46 Resp 16 12/12/23 06:46 BP 129/80 12/12/23 06:46 Pulse Ox 95 12/12/23 06:46 O2 Del Method Room Air 12/12/23 06:46 Airway Mallampati Class: III TM Dist: >3cm Neck ROM: Full Loose/Missing/Broken Teeth: No (Top front capped. Intact. Denies broken, loose, missing teeth) Heart: RRR Lungs: CTAB Assessment and Plan Assessment Anesthesia Assessment: Anesthesia Plan Discussed and Chart Reviewed Final Anesthetic Review Family History of Problems with Anesthesia: No History of Problems with Anesthesia: No NPO: Yes ASA Class: III Final Preanesthetic Review: No Changes in Pt Med Stat, Meds/Allgs Chart Reviewed, Consent Obtained/Reviewed and Anes Risks/Benef Reviewed Patient Risk: Intermediate Procedure Risk: Intermediate Anesthetic Plan Anesthetic Plan: GA Disposition: Standard PACU
--- NOTE | 2023-12-12 07:08 | MHC.SHP ---
Pre-Procedural Eval Section A - 24 Hr Update-Section A only Date of Service: 12/12/23 The patient is an INPATIENT: No Changes since office visit: No Cold of Flu in the past 2 weeks, No New Medical Problems, No Changes in Medication and No Patient answered all questions The patient has been examined within 24 hours of the surgical procedure. The History & Physical has been completed within 30 days and I have reviewed it.: Yes Section B - Complete if H&P > 30 days Chief Complaint: depression Allergies: Allergies Allergy/AdvReac Type Severity Reaction Status Date / Time bee pollen [BEE STINGS] Allergy Unknown ANAPHYLAXIS Verified 05/21/23 17:48 penicillin V Allergy Unknown Hives Verified 05/21/23 17:48 Penicillins [PCN] Allergy Unknown HIVES Verified 05/21/23 17:48 Plan I have reviewed the history and physical and performed a pertinent physical examination on my patient. No changes have occurred unless specified. Time Spent With Patient Time: Total time managing care of this patient today ____ minutes.
--- NOTE | 2023-12-12 07:27 | HO.ECTPROC ---
ECT Procedure Note Diagnosis/Treatment Date of Service: 12/12/23 Diagnosis: Bipolar disorder Previous ECT Date: 11/26/23 Treatment: Maintenance Interval Clinical Notes: The patient reported no changes on his mental status, no complications or side effects with the previous ECT. ECT done as usual, no complications. We increased Succynilcholine up to 120 but still, he moved. Woke up wll as usual. Time: Total time managing care of this patient today __30__ minutes. ECT Settings Device: THYMATRON DGx Electrode Placement: Rt temporal/ Lt frontal Program/Pulse Width: 0.50 Energy Percent: 100 Seizure Duration By EEG (in seconds): 50 By Motor Observation (in seconds): 31 Medications Administration General Anesthetic: Methohexital (100) Muscle Relaxant: Succinylcholine (120) Ancillary Medications Cardiovascular Medications: Esmolol (10) Miscillaneous Medications: Midazolam (2) Airway Management Airway Management: Bag Mask Ventilation Treatment Recommendations No Changes Recommended: No change Notes: Could increase Succinylcholine up to 140 mg next visit. Pt Tolerated Procedure w/o Issue: Yes
== END 2023-12-12 08:57 | disposition home or self-care (01) ==
PROVIDERS: Visit Provider Psychiatry & Neurology Psychiatry
PROC: (CPT 90870; principal; 2023-12-12 07:30)
DX: F31.4 Bipolar disorder, current episode depressed, severe, without psychotic features (principal); F43.10 Post-traumatic stress disorder, unspecified; Z79.899 Other long term (current) drug therapy; Z88.0 Allergy status to penicillin; F17.210 Nicotine dependence, cigarettes, uncomplicated
CPT/HCPCS: 90870; J0330; J1805; J1885; J2250; J2405

== ENCOUNTER → 2023-12-12 05:55 | Outpatient (BNV) | payer BC, SELFPAY | PROVIDERS: Visit Provider Psychiatry & Neurology Psychiatry | DX: F33.3 Major depressive disorder, recurrent, severe with psychotic symptoms (principal) | CPT/HCPCS: 90870 ==